=== PATIENT | female | born 1955 | race Caucasian/White ===

== ENCOUNTER 2017-06-08 18:55 | Emergency (ER) | payer OTHER ==
[~2017-06-08] VITALS: Ht 162.6 cm; Wt 79.0 kg
[~2017-06-08 18:55] MED LIST: ALBUAER19 INH; ESCI1TAB10 PO; ROPI2TAB6 PO; SYMIN/8045 INH
[2017-06-08 19:03] VITALS: TEMP 37.4; Ht 162.6 cm; Wt 79.0 kg
[2017-06-08] MEDS ORDERED: ONDANSETRON INJ 2 MG/ML 2 ML VIAL IV STA (19:10)
[2017-06-08] MEDS ORDERED: SODIUM CHLORIDE 0.9% 1000ML 1,000 ML IV STA (19:10)
[2017-06-08 19:41] LABS: BASO % 0.4 %; BASO ABS # 0.03 K/uL (0-0.2); EOS % 2.6 %; EOS ABS # 0.19 K/uL (0-0.5); HEMOGLOBIN 14.5 g/dL (12.0-16.0); IG# 0.01 K/uL (0.00-0.02); LYMPH % 25.9 %; LYMPH ABS # 1.91 K/uL (1.2-3.4); MEAN CELL VOLUME 88.9 fL (80-100); MEAN CORPUSCULAR HEMOGLOBIN 31.5 pg (25-34); MEAN CORPUSCULAR HGB CONC 35.4 g/dl (32-36); MEAN PLATELET VOLUME 9.8 fL (7.4-10.4); MONO % 9.6 %; MONO ABS # 0.71 K/uL (0.11-0.59); NEUT % 61.4 %; NEUT ABS # 4.53 K/uL (1.4-6.5); PLATELET COUNT 172 K/uL (130-400); RED CELL DISTRIBUTION WIDTH CV 13.1 % (11.5-14.5); RED CELL DISTRIBUTION WIDTH SD 42.5 fL (36.4-46.3); WHITE BLOOD COUNT 7.38 K/uL (4.8-10.8)
--- NOTE | 2017-06-08 19:43 | EMERGENCY ROOM VISIT NOTE ---
History Report prepared by Chandan: Uriah Keene Under the Supervision of: Dr. Onur Vergara D.O. First contact with patient: 19:06 Chief Complaint: URINARY SYMPTOMS Stated Complaint: POSSIBLE UTI Nursing Triage Summary: "I think I have UTI." Bilateral flank and back pain for several days. N/V. Burning, pressure, and frequency when urinating. History of Present Illness The patient is a 62 year old female who presents to the Emergency Room with complaints of persistent urinary symptoms for the past several days. The patient states that she is having pain and pressure, and she is having bilateral flank pain and back pain. The patient additionally states that she is nauseous, she is getting hot, and she has a productive cough. She states that she does not have any hematuria, though her urine is dark and odorous. She denies any redness or rashes. The patient reports that she has a history of UTIs , and she was last hospitalized for one two years ago. She states that she was given Cipro, though she had to change medications due to an allergic reaction, and she is unsure what she took afterwards. The patient has a history of COPD and asthma, and she takes albuterol, Cymbalta, and ropinirole. The patient has a history of a hysterectomy and an appendectomy. The patient denies any alcohol or tobacco use. Source of History: patient Onset: several days ago Position: other (global) Quality: other (urinary symptoms) Timing: other (persistent) Associated Symptoms: + cough, + nausea, No rash Review of Systems See HPI for pertinent positives & negatives. A total of 10 systems reviewed and were otherwise negative. Past Medical & Surgical Medical Problems: (1) Asthma (2) Biceps tendon rupture (3) Osteoarthritis Social History Smoking Status: Never Smoker Marital Status: Housing Status: lives with family Occupation Status: employed Current/Historical Medications Scheduled Acetaminophen (Tylenol), 1,000 MG PO PRN UD Budesonide/Formoterol Fumarate (Symbicort 80/4.5 Inhaler), 2 PUFFS INH BID Cefdinir (Omnicef), 300 MG PO Q12H Ibuprofen (Advil), 800 MG PO PRN Ropinirole (Requip), 2 MG PO BID Scheduled PRN Albuterol Hfa (Ventolin Hfa), 2 PUFFS INH Q6H PRN for Shortness of Breath Allergies Coded Allergies: Ciprofloxacin (Verified Allergy, Mild, N.V./MOUTH SORES, 09/11/15) Iodinated Diagnostic Agents (Verified Allergy, Mild, SNEEZE, ITCHY, THROAT SWELLS, 09/11/15) Physical Exam Vital Signs Date Time Temp Pulse Resp B/P (MAP) Pulse Ox O2 Delivery O2 Flow Rate FiO2 06/08/17 20:51 98 18 117/70 91 06/08/17 20:02 102 06/08/17 19:03 37.4 117 18 148/86 93 Room Air Physical Exam GENERAL: Patient is awake, alert, and in no acute distress. Patient is resting comfortably and showing no signs of anxiety EYES: The conjunctivae are clear. The pupils are round and reactive. EARS, NOSE, MOUTH AND THROAT: The nose is without any evidence of any deformity. Mucous membranes are moist tongue is midline NECK: The neck is nontender and supple. RESPIRATORY: Normal respiratory effort is noted there is no evidence of wheezing rhonchi or rales CARDIOVASCULAR: Regular rate and rhythm noted there no murmurs rubs or gallops normal S1 normal S2 GASTROINTESTINAL: The abdomen is mildly distended with suprapubic tenderness to palpation. No guarding or rigidity. BACK: No midline tenderness or or step-off noted range of motion in flexion extension as well as rotation no signs of muscle spasm noted MUSCULOSKELETAL/EXTREMITIES: There is no evidence of gross deformity full range of motion is noted in the hips and shoulders SKIN: There is no obvious evidence of any rash. There are no petechiae, pallor or cyanosis noted. NEUROLOGIC: Patient is awake alert and oriented x3 Medical Decision & Procedures Laboratory Results 06/08/17 19:25 Red Blood Count 4.61, Mean Corpuscular Volume 88.9, Mean Corpuscular Hemoglobin 31.5, Mean Corpuscular Hemoglobin Concent 35.4, Mean Platelet Volume 9.8, Neutrophils (%) (Auto) 61.4, Lymphocytes (%) (Auto) 25.9, Monocytes (%) (Auto) 9.6, Eosinophils (%) (Auto) 2.6, Basophils (%) (Auto) 0.4, Neutrophils # (Auto) 4.53, Lymphocytes # (Auto) 1.91, Monocytes # (Auto) 0.71, Eosinophils # (Auto) 0.19, Basophils # (Auto) 0.03 06/08/17 19:25 Test 06/08/17 19:20 06/08/17 19:25 Urine Color YELLOW Urine Appearance CLOUDY (CLEAR) Urine pH 5.0 (4.5-7.5) Urine Specific [place] 1.020 (1.000-1.030) Urine Protein TRACE (NEG) Urine Glucose (UA) NEG (NEG) Urine Ketones NEG (NEG) Urine Occult Blood TRACE (NEG) Urine Nitrite POS (NEG) Urine Bilirubin NEG (NEG) Urine Urobilinogen NEG (NEG) Urine Leukocyte Esterase LARGE (NEG) Urine WBC (Auto) >30 /hpf (0-5) Urine RBC (Auto) 0-4 /hpf (0-4) Urine Hyaline Casts (Auto) 10-30 /lpf (0-5) Urine Epithelial Cells (Auto) 20-30 /lpf (0-5) Urine Bacteria (Auto) 4+ (NEG) White Blood Count 7.38 K/uL (4.8-10.8) Red Blood Count 4.61 M/uL (4.2-5.4) Hemoglobin 14.5 g/dL (12.0-16.0) Hematocrit 41.0 % (37-47) Mean Corpuscular Volume 88.9 fL (80-100) Mean Corpuscular Hemoglobin 31.5 pg (25-34) Mean Corpuscular Hemoglobin Concent 35.4 g/dl (32-36) Platelet Count 172 K/uL (130-400) Mean Platelet Volume 9.8 fL (7.4-10.4) Neutrophils (%) (Auto) 61.4 % Lymphocytes (%) (Auto) 25.9 % Monocytes (%) (Auto) 9.6 % Eosinophils (%) (Auto) 2.6 % Basophils (%) (Auto) 0.4 % Neutrophils # (Auto) 4.53 K/uL (1.4-6.5) Lymphocytes # (Auto) 1.91 K/uL (1.2-3.4) Monocytes # (Auto) 0.71 K/uL (0.11-0.59) Eosinophils # (Auto) 0.19 K/uL (0-0.5) Basophils # (Auto) 0.03 K/uL (0-0.2) RDW Standard Deviation 42.5 fL (36.4-46.3) RDW Coefficient of Variation 13.1 % (11.5-14.5) Immature Granulocyte % (Auto) 0.1 % Immature Granulocyte # (Auto) 0.01 K/uL (0.00-0.02) Anion Gap 5.0 mmol/L (3-11) Est Creatinine Clear Calc Drug Dose 66.6 ml/min Estimated GFR () 81.0 Estimated GFR (Non- 69.9 BUN/Creatinine Ratio 17.5 (10-20) Calcium Level 9.2 mg/dl (8.5-10.1) Total Bilirubin 0.7 mg/dl (0.2-1) Direct Bilirubin 0.1 mg/dl (0-0.2) Aspartate Amino Transf (AST/SGOT) 19 U/L (15-37) Alanine Aminotransferase (ALT/SGPT) 25 U/L (12-78) Alkaline Phosphatase 102 U/L (45-117) Total Protein 8.3 gm/dl (6.4-8.2) Albumin 3.7 gm/dl (3.4-5.0) Lipase 94 U/L (73-393) Laboratory results per my review. Medications Administered Medications (Trade) Dose Ordered Sig/Randolph Route Start Time Stop Time Status Last Admin Dose Admin Sodium Chloride 1,000 ml @ 999 mls/hr Q1H1M STAT IV 06/08/17 19:10 06/08/17 20:10 DC 06/08/17 19:38 999 MLS/HR Ondansetron HCl (Zofran Inj) 4 mg NOW STAT IV 06/08/17 19:10 06/08/17 19:12 DC 06/08/17 19:38 4 MG Ceftriaxone Sodium (Rocephin Inj) 1 gm NOW STAT IV 06/08/17 20:08 06/08/17 20:09 DC 06/08/17 20:11 1 GM ED Course 1906: The patient was evaluated in room C6. A complete history and physical examination were performed. 1910: Zofran 4mg IV, NSS 1,000 ml @ 999 mls/hr IV 2007: Rocephin 1gm IV 2019: Upon reevaluation, the patient is doing well. I discussed the results and treatment plan with her. She verbalized agreement of the treatment plan. She was discharged home. Medical Decision Differential diagnosis: Etiologies such as appendicitis, diverticulitis, PUD, biliary pathology, UTI, pancreatitis, obstruction, mesenteric ischemia, aortic pathology, infections, inflammatory bowel disease, renal colic, as well as others were entertained. Nursing notes reviewed. The patient is a 62-year-old female who presented to the emergency department for evaluation of suprapubic pain dysuria and frequency. She was found have signs of urinary tract infection. She was treated with IV fluids and IV antibiotics. She was encouraged to follow-up with her family doctor soon as possible return to the emergency Department immediately if she noticed worsening of symptoms or if the need arises. Medication Reconcilliation Current Medication List: was personally reviewed by me Blood Pressure Screening Patient's blood pressure: Elevated blood pressure Blood pressure disposition: Elevated BP felt to be situational Impression Primary Impression: Urinary tract infection Additional Impression: Suprapubic abdominal pain Scribe Attestation The scribe's documentation has been prepared under my direction and personally reviewed by me in its entirety. I confirm that the note above accurately reflects all work, treatment, procedures, and medical decision making performed by me. Departure Information Dispostion Home / Self-Care Prescriptions Cefdinir (OMNICEF) 300 Mg Cap 300 MG PO Q12H, #14 CAP Prov: Onur Vergara, DO 06/08/17 Referrals No Doctor, Assigned (PCP) Forms HOME CARE DOCUMENTATION FORM, IMPORTANT VISIT INFORMATION, Work Instructions Patient Instructions My [facility], Urinary Tract Infecs Women Additional Instructions Call your family to schedule a follow-up appointment. Drink plenty clear liquids. Continue using Motrin and Tylenol as directed for fever and body aches. Start the antibiotic tomorrow, Sunday. Return to the emergency department immediately if symptoms change worsen or the need arises. Problem Qualifiers Primary Impression: Urinary tract infection Urinary tract infection type: acute cystitis Hematuria presence: without hematuria Qualified Codes: N30.00 - Acute cystitis without hematuria
[2017-06-08 20:03] LABS: ALBUMIN 3.7 gm/dl (3.4-5.0); CALCIUM 9.2 mg/dl (8.5-10.1); CREATININE 0.88 mg/dl (0.60-1.20); POTASSIUM 3.6 mmol/L (3.5-5.1)
[2017-06-08 20:05] LABS: TOTAL PROTEIN 8.3 gm/dl (6.4-8.2)
[2017-06-08] MEDS ORDERED: CEFTRIAXONE SOD INJ 1 GM ADDVIAL IV STA (20:08)
[2017-06-08] MEDS ORDERED: IBUP-1050 PO (20:20)
[2017-06-08] MEDS ORDERED: ACET-1256 PO (20:20)
[2017-06-08] MEDS ORDERED: VNTHFA/IN INH (20:20)
[2017-06-08] MEDS ORDERED: CEFD300C2 PO (20:35)
[2017-06-08 20:51] VITALS: BP 117/70; PULSE 98; O2SAT 91
== END 2017-06-08 20:53 | disposition home or self-care (01) ==
LOC: C.EDB 18:56 → C.EDC 20:53
DX: N30.00 Acute cystitis without hematuria (principal); R10.2 Pelvic and perineal pain; J45.909 Unspecified asthma, uncomplicated; M19.90 Unspecified osteoarthritis, unspecified site

== ENCOUNTER 2017-08-02 14:19 | Emergency (ER) | payer OTHER ==
[~2017-08-02] VITALS: Ht 162.6 cm; Wt 78.6 kg
[~2017-08-02 14:19] MED LIST changes: +ACET-1256 PO; -ALBUAER19 INH; -ESCI1TAB10 PO; +IBUP-1050 PO; +VNTHFA/IN INH
[2017-08-02 14:21] VITALS: TEMP 37; Ht 162.6 cm; Wt 78.6 kg
--- NOTE | 2017-08-02 14:49 | EMERGENCY ROOM VISIT NOTE ---
ED Visit Note First contact with patient: 14:26 CHIEF COMPLAINT: Toothache HISTORY OF PRESENT ILLNESS: This 62-year-old female presents to the ER with chief complaint of right lower molar pain. The patient states that she has had a broken tooth in the right lower region for a while. Last night she started with increased pain in the right lower jaw. Today it has intensified. The patient does not have a dentist currently. The patient denies any fever or facial pain. She thinks she feels a lump under her right jaw. REVIEW OF SYSTEMS: 6 system review was performed and was negative unless stated otherwise in history of present illness. PMH: The patient is healthy; see chronic problem list, asthma SOCIAL HISTORY: Patient lives with her . The patient denies any tobacco or alcohol use. PHYSICAL EXAM: Vital Signs: Were reviewed reviewed Nurse's notes. GENERAL: 62- year-old white female appears in no acute distress. MENTAL Status: Alert and oriented 3. MOUTH: Right lower molar which is almost entirely missing but the remaining is very carious. The gums are swollen around it but no palpable abscess. FACE: No erythema or edema noted. NECK: Supple, right submandibular lymphadenopathy noted which is tender to palpation. EMERGENCY COURSE: The patient was evaluated. The patient was discharged home in stable condition. DIAGNOSIS: Dental caries and dentalgia DISCHARGE INSTRUCTIONS & TREATMENT: Ibuprofen 600 mg every 6 hours with food for pain. Take [place] as needed for more severe pain. Do not drive while taking the [place]. Take amoxicillin as directed. Appointment with a dentist as soon as possible for definitive care. Problem List Medical Problems: (1) Asthma Status: Chronic (2) Biceps tendon rupture Status: Resolved (3) Osteoarthritis Status: Chronic Current/Historical Medications Scheduled Acetaminophen (Tylenol), 1,000 MG PO PRN UD Budesonide/Formoterol Fumarate (Symbicort 80/4.5 Inhaler), 2 PUFFS INH BID Ibuprofen (Advil), 800 MG PO PRN Ropinirole (Requip), 2 MG PO BID Scheduled PRN Albuterol Hfa (Ventolin Hfa), 2 PUFFS INH Q6H PRN for Shortness of Breath Allergies Coded Allergies: Ciprofloxacin (Verified Allergy, Mild, N.V./MOUTH SORES, 09/11/15) Iodinated Diagnostic Agents (Verified Allergy, Mild, SNEEZE, ITCHY, THROAT SWELLS, 09/11/15) Vital Signs Date Time Temp Pulse Resp B/P (MAP) Pulse Ox O2 Delivery O2 Flow Rate FiO2 08/02/17 14:21 37.0 131 20 148/85 94 Room Air Departure Information Referrals Abran Dooley D.O. (PCP) Patient Instructions [facility]
[2017-08-02] MEDS ORDERED: HYDR-5688 PO (14:52)
[2017-08-02] MEDS ORDERED: AMOX500C3 PO (14:52)
[2017-08-02 15:02] VITALS: BP 130/77; PULSE 108; O2SAT 94
== END 2017-08-02 15:03 | disposition home or self-care (01) ==
LOC: C.EDB 14:21 → C.EDD 15:03
DX: K08.89 Other specified disorders of teeth and supporting structures (principal); K02.9 Dental caries, unspecified; J45.909 Unspecified asthma, uncomplicated; M19.90 Unspecified osteoarthritis, unspecified site; Z88.1 Allergy status to other antibiotic agents; Z91.041 Radiographic dye allergy status

== ENCOUNTER 2019-05-12 07:56 | Inpatient (IN) ==
--- NOTE | 2019-05-08 16:17 | Anesthesiology Progress Note ---
Date of Service May 08, 2019 Subjective Patient expressed concern to RN during phone interview regarding not being able to take her Requip for 24 hours prior to surgery. Discussed with Dr. Valdez, who states patient may take her Requip as directed. This was relayed to the patient.
--- NOTE | 2019-05-09 08:18 | Anesthesiology Consultation ---
Date of Service May 09, 2019 Assessment & Plan (1) Encounter for pre-operative examination: Chart Review Chart Review: Acceptable Risk for Surgery and Patient NOT seen in Pre Admission Testing Compared her most recent ECG from 05/08/2019 to that of an ECG found on 02/18/2018. Reading on the most recent ECG states there is an inferior infarct not seen in previous ECG. When I compared them side by side I do not appreciate much if any changes between the two. Obviously, assessing the patient's METS DOS will be done and ultimately it is up to the attending anesthesiologist to decide if she is appropriate for the OR. Consults Requested none History Surgery Operation Date: 05/12/19 09:15 Proposed Procedures p Right Video Assisted Thoracoscopy with Lung and Lymph Node Biopsy - Rayo Schneider MD, FACS Height/Weight Height: 5 ft 3.5 in Weight: 82.554 kg Allergies Allergy/AdvReac Type Severity Reaction Status Date / Time Cipro Allergy Mild N.V./MOUTH Verified 02/14/18 13:16 SORES ciprofloxacin Allergy Mild N.V./MOUTH Verified 05/08/19 08:28 SORES Iodinated Contrast Media Allergy Mild SNEEZE, Verified 05/08/19 08:28 ITCHY, THROAT SWELLS Medications Home Medications Medication Instructions Recorded Confirmed Last Taken acetaminophen [Tylenol Extra 1,000 mg PO Q6H PRN 02/14/18 05/08/19 Unknown Strength] albuterol sulfate [Ventolin HFA] 2 puff INHALATION QID PRN 02/14/18 05/08/19 Unknown budesonide-formoterol HFA 160 2 puffs INH BID #10.2 gm 04/28/19 05/08/19 Unknown mcg-4.5 mcg/actuation aerosol inhaler doxycycline hyclate 100 mg capsule 100 mg PO BID #20 cap 04/28/19 05/08/19 Unknown escitalopram oxalate 20 mg tablet 10 mg PO QPM 04/28/19 05/08/19 Unknown naproxen sodium [Aleve] 220 mg PO BID PRN 05/08/19 05/08/19 Unknown nebulizers #1 ea 05/08/19 Unknown prednisone 10 mg PO UD 05/08/19 05/08/19 Unknown ropinirole [Requip XL] 2 mg PO TID 05/08/19 05/08/19 Unknown Past Medical History Medical History Anxiety Arthritis Asthma uses PRN INH 2-3 x day COPD (chronic obstructive pulmonary disease) Coughing currently on steroid dosepak, abx Degenerative disc disease Depression GERD (gastroesophageal reflux disease) Interstitial lung disease Osteoarthritis Pulmonary nodule Restless leg syndrome SOB (shortness of breath) on exertion Past Family History Family History Other Adopted Past Surgical History Surgical History History of ankle surgery Lt - hardware present History of appendectomy History of bladder repair surgery History of breast surgery History of carpal tunnel release of both wrists History of D&C History of esophagogastroduodenoscopy (EGD) History of spinal surgery lumbar History of surgery Rt biceps repair History of tonsillectomy History of tooth extraction History of total abdominal hysterectomy and bilateral salpingo-oophorectomy Nausea and vomiting after administration of anesthetic agent Social History Smoking Status: Never smoker Do You Dip or Chew Tobacco: No Hx Alcohol Use: Yes Alcohol type: wine alcohol intake frequency: holidays/special occasions only Hx Substance Use: No substance use type: does not use Testing Laboratory Results Laboratory Tests 04/28/19 04/28/19 14:58 14:58 WBC 7.69 Hgb 15.3 Hct 44.0 Plt Count 190 Sodium 140 Potassium 3.9 Chloride 107 Carbon Dioxide 26 BUN 15 Creatinine 0.73 Glucose 75 Electrocardiogram Date: 05/08/19 Findings: + NSR @ (93) Normal sinus rhythm Inferior infarct , age undetermined Abnormal ECG When compared with ECG of 18-FEB-2018 20:13, Inferior infarct is now Present ST now depressed in Anterior leads Other Testing PFT 04/24/2019: DICTATED BY: Onur Kruse MD Pre-bronchodilator spirometry reveals a moderate reduction in forced vital capacity. No significant response to bronchodilator was shown but this should not preclude a therapeutic trial if clinically warranted. Lung volumes demonstrate evidence for moderate restrictive ventilatory defect. Mild air trapping was noted. OVERALL ASSESSMENT: Combined moderate restrictive ventilatory defect with mild air trapping possibly suggestive of bronchospastic airways diseas
[~2019-05-12 07:56] MED LIST changes: -ACET-1256 PO; -IBUP-1050 PO; +LR 15ML/HR IV SCH; -ROPI2TAB6 PO; -SYMIN/8045 INH; -VNTHFA/IN INH
[2019-05-12] MEDS ORDERED: NEOSTIGMINE METHYLSULFATE 5 MG/5 ML SYR ONE (08:22)
[2019-05-12] MEDS ORDERED: GLYCOPYRROLATE 0.2 MG/ML VIAL ONE (08:22)
[2019-05-12] MEDS ORDERED: DEXAMETHASONE SOD INJ 4 MG/ML VIAL ONE ×2 (08:22→10:26)
[2019-05-12] MEDS ORDERED: ONDANSETRON INJ 2 MG/ML 2 ML VIAL ONE ×2 (08:22→10:26)
[2019-05-12] MEDS ORDERED: PROPOFOL IV EMULSION 10 MG/ML 20 ML VIAL IV ONE (08:22)
[2019-05-12] MEDS ORDERED: LIDOCAINE HCL 2% 2 ML VIAL/AMP(20MG/ML) INFIL ONE (08:22)
[2019-05-12] MEDS ORDERED: ROCURONIUM BROMIDE 10 MG/ML 5 ML VIAL ONE (08:22)
[2019-05-12] MEDS ORDERED: fentaNYL citrate 100 MCG/2 ML VIAL ONE (08:23)
[2019-05-12] MEDS ORDERED: MIDAZOLAM HCL 1 MG/ML 2ML VIAL ONE (08:23)
--- NOTE | 2019-05-12 08:48 | History & Physical Bridge Note ---
Date of Service May 12, 2019 History & Physical Bridge Note I have examined the patient, reviewed the History & Physical and in the interval since the performance of the History & Physical I have noted the following changes of clinical significance: no changes noted
[2019-05-12] MEDS ORDERED: BUPIVACAINE LIPOSOME 1.3% 266 MG/20 ML VIAL ONE (09:02)
[2019-05-12] MEDS ORDERED: SODIUM CHLORIDE 0.9% PF 50 ML VIAL ONE (09:02)
[2019-05-12] MEDS ORDERED: BUPIVACAINE 0.5 % 5 MG/1 ML MPF 30ML VIAL ONE (09:02)
[2019-05-12] MEDS ORDERED: SCOPOLAMINE 1.5 MG TDSY ONE (09:30)
[2019-05-12] MEDS ORDERED: PROMETHAZINE HCL 12.5 MG in SODIUM CHLORIDE 0.9% 50 ML IV PRN (09:31)
[2019-05-12] MEDS ORDERED: ALBUTEROL 0.083% NEBU SOLN 3 ML VIAL INH PRN (09:31)
[2019-05-12] MEDS ORDERED: ONDANSETRON INJ 2 MG/ML 2 ML VIAL IV PRN (09:31)
[2019-05-12] MEDS ORDERED: fentaNYL citrate 100 MCG/2 ML VIAL IV PRN (09:31)
[2019-05-12] MEDS ORDERED: HYDROmorphone INJ 1 MG/ML SYRINGE IV PRN (09:31)
[2019-05-12] MEDS ORDERED: ePHEDrine sulfate 50 MG/ML AMP IV PRN (09:31)
[2019-05-12] MEDS ORDERED: SCOPOLAMINE 1.5 MG TDSY TD ONE (09:31)
[2019-05-12] MEDS ORDERED: ATROPINE SULFATE 0.1 MG/ML 10ML SYR IV PRN (09:31)
[2019-05-12] MEDS ORDERED: SODIUM CHLORIDE 0.9% INJ 10 ML VIAL ONE (10:03)
[2019-05-12] MEDS ORDERED: CEFAZOLIN 250 MG/ML 1 GM VIAL ONE (10:03)
[2019-05-12] MEDS ORDERED: ePHEDrine sulfate 50 MG/ML SYR ONE (10:11)
[2019-05-12] MEDS ORDERED: METOCLOPRAMIDE HCL INJ 5 MG/ML 2 ML VIAL IV ONE (11:53)
[2019-05-12] MEDS ORDERED: METOCLOPRAMIDE HCL INJ 5 MG/ML 2 ML VIAL ONE (11:54)
--- NOTE | 2019-05-12 11:58 | Operative Report ---
PG Post Operative Report Pre & Post Diagnosis Operation Date: 05/12/19 09:15 Pre-Op Diagnosis: Interstitial Lung Disease Post-Op Diagnosis: Interstitial Lung Disease I identified the patient and participated in the time-out.: Yes Procedure Operation Date: 05/12/19 09:15 Actual Procedures p Right Video Assisted Thoracoscopy with Lung and Lymph Node Biopsy(Right) - Rayo Schneider MD, FACS Surgeon Rayo Schneider MD, FACS Substation Operator Automatic Shay Valerio Estimated Blood Loss 20 Findings Consistent with Post-Op Diagnosis Specimens RUL,RML,RLL wedge biopsies Level VII, right Level IV lymph nodes Drains 24 fr chest tube Anesthesia Type General Complications none Disposition Accompanied Patient To Recovery: Yes Disposition: Recovery Room Indications This is a 64-year-old female was followed by Dr. Onur Kruse from [facility] who has signs and symptoms consistent with interstitial lung disease. Dr. Kruse felt that a lung biopsy was in order and I agreed. Description of Procedure This is a 64-year-old female was followed by Dr. Onur Kruse from [facility] who has signs and symptoms consistent with interstitial lung disease. Dr. Kruse felt that a lung biopsy was in order and I agreed. 06/01/2018 patient underwent uncomplicated right thoracoscopic biopsy of her right upper middle and lower lobes. I also biopsied the level 7 and the level 4 lymph node. Frozen section of the right lower lobe was abnormal but will have to await permanent slides to determine the etiology. She tolerated the procedure very well. Procedure: The patient was brought to the operating room and laid in the supine position. General anesthesia was induced and endotracheal intubation was performed with a single-lumen tube. Patient was turned in the left lateral decubitus position and her right chest was prepped and draped in the usual sterile fashion. After appropriate timeout had been called and prophylactic antibiotics given, 5 mm port was placed just posterior to the scapula. Upon placing the 5 mm scope into the fabio could be seen that there were really no adhesions. Carbon dioxide was then insufflated and divided exposure nicely. A 5 mm port was then placed anterior to the latissimus dorsi at about the same level above the scapular tip. We then put a 12 mm port a bit anterior to the midaxillary line above the diaphragm. I then went in with a grasper and held the right upper lobe right middle lobe and right lower lobe and using Endo JAIRO stapler to obtain a generous wedge of each of these lobes. A portion of each was sent for culture. I then retracted the lung anteriorly and biopsied a level 7 lymph node as well as a right level 4 lymph node. We did not note any bleeding. A total of 266 mg of Exparel was mixed with 30 cc of 0.5% bupivacaine and 250 cc of normal saline. This was injected into all 3 port sites. We then performed an intercostal block from the second to the 12th rib by injecting it directly into the intercostal space under thoracoscopic vision. 24 [place] chest tube was placed in the 12 mm port inferiorly and directed towards the apex and held in place with heavy silk suture. 4 Monocryl was used to close each of the port sites. Antimicrobial dressings were placed. There was no air leak at the conclusion of the case. Patient tolerated it well. She was extubated in the room. I attest to the content of the Intraoperative Record and any orders documented therein. Any exceptions are noted below.
--- NOTE | 2019-05-12 12:09 | XRay Report ---
XR chest 1V portable HISTORY: 64 years-old Female VATS postoperative changes of the right lung COMPARISON: Chest CT 04/24/2019 TECHNIQUE: Portable AP view of the chest FINDINGS: Cardiac mediastinal and hilar silhouettes are unchanged. Chronic bilateral reticular opacities redemo nstrated. Mild right hemidiaphragmatic elevation. Status post placement of a right-sided chest tube, distal tip terminating adjacent to the right lung apex. Mild subcutaneous emphysema of the right late ral chest wall. Suspected tiny right-sided pneumothorax with pleural separation of a few millimeters. Surgical suture material projects over the right midlung. IMPRESSION: 1. Postoperative changes of the right midlung with right-sided chest tube terminating adjacent to the right lung apex. 2. Suspected tiny right-sided pneumothorax. 3. Chronic bilateral reticular opacities redemonstrated. ACT 112: Negative or not required by law. The above report was generated using voice recognition software. It may contain grammatical, syntax o r spelling errors. Electronically signed by: Magen Thurston M.D. 05/12/2019 12:08 PM
[2019-05-12] MEDS ORDERED: MoRPHine SULFATE 2 MG/ML CARP IV PRN (12:42)
[2019-05-12] MEDS ORDERED: ACETAMINOPHEN 500 MG TAB PO PRN (12:42)
[2019-05-12] MEDS ORDERED: ALBUTEROL HFA 8 GM INHALER INH PRN (12:42)
[2019-05-12] MEDS ORDERED: NAPROXEN 250 MG TAB PO PRN (13:17)
[2019-05-12] MEDS ORDERED: ROPINIROLE HCL 1 MG TABLET PO SCH (13:30)
[2019-05-12] MEDS: DOCUSATE SODIUM 100 MG CAP PO SCH ×2 (14:06→21:19)
[2019-05-12] MEDS: BUDESONIDE/FORMOTEROL FUMARATE 160/4.5 60 PUFFS/INHALER INH SCH ×2 (14:06→21:19)
[2019-05-12] MEDS: OXYCODONE/ACETAMINOPHEN 5mg/325mg TAB PO PRN ×3 (14:59→21:18)
[2019-05-12] MEDS ORDERED: CHECK SCOPOLAMINE PATCH PLACEMENT SCH (16:00)
[2019-05-12] MEDS: D5W AND 1/2NSS 1,000 ML IV SCH (16:44)
--- NOTE | 2019-05-12 17:37 | Anesthesiology Progress Note ---
Date of Service May 12, 2019 Anesthesia Post Procedure Vital Signs Vital Signs: Temp Pulse Pulse Resp BP Pulse Ox 05/12/19 16:35 37.5 C 123 H 16 134/66 95 05/12/19 15:38 37 C 114 H 16 125/72 96 05/12/19 14:31 37.3 C 112 H 20 117/71 96 05/12/19 13:42 36.7 C 116 H 20 125/75 95 05/12/19 13:00 36.6 C 112 H 20 131/88 95 05/12/19 12:25 36.5 C 66 20 136/72 94 05/12/19 12:15 88 19 128/83 96 05/12/19 12:00 36.2 C L 95 H 23 114/79 100 05/12/19 11:50 96 H 20 133/97 98 05/12/19 11:40 94 H 24 128/73 100 05/12/19 11:30 91 H 22 131/79 99 05/12/19 11:21 36.2 C L 91 H 18 132/74 100 05/12/19 08:40 36.6 C 87 20 115/65 94 Pain Intensity Right Chest: Pain Intensity: 5 Transfer of Care Handoff Completed per policy Notes Mental Status: alert / awake / arousable and participated in evaluation Patient Amnestic to Procedure: Yes Nausea / Vomiting: adequately controlled Pain: adequately controlled Airway Patency, RR, SpO2: stable & adequate BP & HR: stable & adequate Hydration State: stable & adequate Anesthetic Complications: no major complications apparent and Pt Satisfied with anesthetic care
[2019-05-12] MEDS: METOCLOPRAMIDE HCL INJ 5 MG/ML 2 ML VIAL IV SCH (19:51)
[2019-05-12] MEDS ORDERED: Nursing to Pharmacy Communication ONE (19:59)
[2019-05-12] MEDS: ROPINIROLE HCL 1 MG TABLET PO SCH (20:29)
[2019-05-13] MEDS: OXYCODONE/ACETAMINOPHEN 5mg/325mg TAB PO PRN ×3 (02:00→12:20)
[2019-05-13] MEDS: D5W AND 1/2NSS 1,000 ML IV SCH (02:05)
[2019-05-13] MEDS: METOCLOPRAMIDE HCL INJ 5 MG/ML 2 ML VIAL IV SCH (03:48)
--- NOTE | 2019-05-13 08:01 | Anesthesiology Progress Note ---
Date of Service May 13, 2019 Anesthesia Post Procedure Vital Signs Vital Signs: Temp Pulse Pulse Pulse Resp BP BP 05/13/19 07:00 36.9 C 89 18 137/74 05/13/19 06:28 36.7 C 109 H 20 124/77 05/13/19 05:30 05/13/19 02:26 36.7 C 94 H 20 113/66 05/12/19 22:30 36.7 C 104 H 16 133/72 05/12/19 20:18 36.7 C 106 H 16 115/59 L 05/12/19 18:31 37.3 C 107 H 16 104/54 L 05/12/19 17:59 106 H 05/12/19 16:35 37.5 C 123 H 16 134/66 05/12/19 15:38 37 C 114 H 16 125/72 05/12/19 14:31 37.3 C 112 H 20 117/71 05/12/19 13:42 36.7 C 116 H 20 125/75 05/12/19 13:00 36.6 C 112 H 20 131/88 05/12/19 12:25 36.5 C 66 20 136/72 05/12/19 12:15 88 19 128/83 05/12/19 12:00 36.2 C L 95 H 23 114/79 05/12/19 11:50 96 H 20 133/97 05/12/19 11:40 94 H 24 128/73 05/12/19 11:30 91 H 22 131/79 05/12/19 11:21 36.2 C L 91 H 18 132/74 05/12/19 08:40 36.6 C 87 20 115/65 Pulse Ox 05/13/19 07:00 93 05/13/19 06:28 96 05/13/19 05:30 95 05/13/19 02:26 94 05/12/19 22:30 94 05/12/19 20:18 91 05/12/19 18:31 93 05/12/19 17:59 95 05/12/19 16:35 95 05/12/19 15:38 96 05/12/19 14:31 96 05/12/19 13:42 95 05/12/19 13:00 95 05/12/19 12:25 94 05/12/19 12:15 96 05/12/19 12:00 100 05/12/19 11:50 98 05/12/19 11:40 100 05/12/19 11:30 99 05/12/19 11:21 100 05/12/19 08:40 94 Pain Intensity Right Chest: Pain Intensity: 6 Notes Mental Status: alert / awake / arousable and participated in evaluation Patient Amnestic to Procedure: Yes Nausea / Vomiting: adequately controlled Pain: adequately controlled Airway Patency, RR, SpO2: stable & adequate BP & HR: stable & adequate Hydration State: stable & adequate Anesthetic Complications: no major complications apparent
[2019-05-13] MEDS: ROPINIROLE HCL 1 MG TABLET PO SCH ×2 (08:09→12:21)
[2019-05-13] MEDS: DOCUSATE SODIUM 100 MG CAP PO SCH (08:10)
[2019-05-13] MEDS: BUDESONIDE/FORMOTEROL FUMARATE 160/4.5 60 PUFFS/INHALER INH SCH (08:10)
[2019-05-13] MEDS ORDERED: ENOXAPARIN INJ 40 MG/0.4 ML SYR SQ SCH (09:00)
--- NOTE | 2019-05-13 10:26 | Surgery Progress Note ---
Date of Service May 13, 2019 Assessment & Plan (1) Chronic interstitial lung disease: POD#1 R VATS for lung & lymph node biopsy Patient doing well; pain managed with prn medications Saturating well on room air Will remove chest tube today and obtain post pull CXR Anticipate discharge to home today Will leave instructions for patient to follow up with Dr. Schneider in1-2 weeks Supervising Physician Co-Signing Physician Notes patient seen and examined, agree with above. POD #1 R VATS biopsy by Dr. Schneider (covering as he had to leave [facility] for family emergency). Doing well, no issues. Chest tube with minimal output, no air leak. Chest tube removed, CXR with no significant PTX. will d/c to home. call to schedule follow up with Dr. Schneider. Subjective Patient states she is doing well. She has some incisional pain, but it has been managed with prn medication. She is tolerating a regular diet. Physical Exam Physical Exam: awake/alert Respiratory: normal respiratory effort Skin: surgical incisions c/d/i with dressings in place. Chest tube without airleak. <100cc serosang output. Results & Data Vital Signs (Past 12 Hours) Vital Signs Temp Pulse Pulse Resp BP BP Pulse Ox 05/13/19 07:00 36.9 C 89 18 137/74 93 05/13/19 06:28 36.7 C 109 H 20 124/77 96 05/13/19 05:30 95 05/13/19 02:26 36.7 C 94 H 20 113/66 94 05/12/19 22:30 36.7 C 104 H 16 133/72 94 PG Care Time/CCT Total # of Minutes Spent Total Time Spent with Patient: Total time spent is greater than 50% in coordination of care (as documented) at patient's floor/unit and/or counseling patient:
--- NOTE | 2019-05-13 10:59 | XRay Report ---
XR chest 1V portable CLINICAL HISTORY: post chest tube pull COMPARISON STUDY: Chest CT April 24, 2019. Chest radiograph May 12, 2019. FINDINGS: A small right apical pneumothorax has slightly increased in size since prior exam. Pleural separation measures 6 mm. Subcutaneous gas within the right chest wall and neck is noted. There may b e a small amount of pneumomediastinum. Interstitial thickening within the lungs is unchanged. Postope rative findings within the right lung are again noted. IMPRESSION: 1. Slight increase in size of a small right pneumothorax. 2. Subcutaneous gas within the right neck and chest wall with suspected pneumomediastinum. ACT 112: Negative or not required by law. Electronically signed by: Paul Blanc M.D. 05/13/2019 10:57 AM
--- NOTE | 2019-05-16 09:34 | Discharge Summary ---
DISCHARGE DIAGNOSIS: Probable interstitial lung disease. HOSPITAL COURSE: Teetee Bradshaw is a 64-year-old female with signs and symptoms consistent with an interstitial lung disease and I was asked by Dr. Onur Kruse from the pulmonary division of [facility] to assess her for lung biopsy. On 05/12/2019 the patient underwent an uncomplicated right thoracoscopic lung biopsy of all 3 lobes on the right side as well as lymph node biopsy. We also sent this for cultures. The patient had some pain overnight, but was discharged by Dr. Messi Henao the following day after her chest tube was removed. She had no pneumothorax. She did well and as of yet, we do not have a tissue diagnosis. I will see her back in the office next week. She did very well and her incisions looked good in the morning of discharge.
== END 2019-05-13 13:23 | disposition home or self-care (01) | DRG 168 ==
LOC: ASU 07:56 → 3W 11:38

== ENCOUNTER 2019-07-10 11:29 | Inpatient (IN) ==
[2019-07-10] MEDS ORDERED: KETOROLAC TROMETHAMINE 15 MG/ML VIAL IV STA (12:21)
[2019-07-10] MEDS ORDERED: LORazepam 0.5 MG/1 ML VIAL IV STA (12:21)
[2019-07-10] MEDS ORDERED: ALBUT/IPRATROP 3MG/0.5MG NEB 3 ML VIAL NEB STA (12:22)
[2019-07-10] MEDS: ALBUT/IPRATROP 3MG/0.5MG NEB 3 ML VIAL NEB STA (12:27)
[2019-07-10] MEDS ORDERED: SODIUM CHLORIDE 0.9% 1000ML 1,000 ML IV SCH (12:30)
[2019-07-10 13:41] LABS: Influenza A virus by PCR Neg for Influ A (Neg); Influenza B virus by PCR Neg for Influ B (Neg)
--- NOTE | 2019-07-10 13:48 | XRay Report ---
XR chest 1V portable CLINICAL HISTORY: cough derek dyspnea COMPARISON STUDY: 06/01/2019 FINDINGS: Diffuse chronic interstitial change. No well-defined superimposed infiltrate. Diaphragms ar e smooth. IMPRESSION: Chronic change. No acute process. ACT 112: Negative or not required by law. The above report was generated using voice recognition software. It may contain grammatical, syntax or spelling errors. Electronically signed by: Manny Rhodes M.D. 07/10/2019 1:47 PM
[2019-07-10 13:54] LABS: Basophils # (auto) 0.02 K/uL (0-0.2); Basophils % (auto) 0.1 %; Eosinophils # (auto) 0.02 K/uL (0-0.5); Eosinophils % (auto) 0.1 %; Hematocrit (blood only) 42.3 % (37-47); Hemoglobin 14.7 g/dL (12.0-16.0); Immature Granulocytes # (auto) 0.03 K/uL (0.00-0.02); Immature Granulocytes % (auto) 0.2 %; Lymphocytes # (auto) 1.28 K/uL (1.2-3.4); Lymphocytes % (auto) 9.4 %; Mean Corpuscular Hemoglobin 31.3 pg (25-34); Mean Corpuscular Hgb Conc 34.8 g/dL (32-36); Monocytes # (auto) 0.26 K/uL (0.11-0.59); Monocytes % (auto) 1.9 %; Neutrophils # (auto) 11.95 K/uL (1.4-6.5); Neutrophils % (auto) 88.3 %; Platelet Count 168 K/uL (130-400); RDW Coefficient of Variation 13.4 % (11.5-14.5); White Blood Count 13.56 K/uL (4.8-10.8)
[2019-07-10 14:14] LABS: Alanine Aminotransferase 24 U/L (12-78); Albumin Level 3.4 gm/dl (3.4-5.0); Aspartate Aminotransferase 16 U/L (15-37); BUN Creatinine Ratio 19.6 (10-20); Bilirubin Direct < 0.1 mg/dl (0-0.2); Blood Urea Nitrogen 16 mg/dl (7-18); Carbon Dioxide 22 mmol/L (21-32); Chloride 111 mmol/L (98-107); Creatinine Clr Calc Pharmacy 72.1 ml/min; Est GFR (African American) 88.3; Est GFR (Non-African American) 76.2; Glucose 121 mg/dl (70-99); Lipase 64 U/L (73-393); Magnesium 1.9 mg/dl (1.8-2.4); Potassium 3.1 mmol/L (3.5-5.1); Sodium 140 mmol/L (136-145)
[2019-07-10 14:19] LABS: Alkaline Phosphatase 80 U/L (45-117); Bilirubin,Total 0.4 mg/dl (0.2-1); Total Protein 7.4 gm/dl (6.4-8.2); Troponin I < 0.015 ng/ml (0-0.045)
[2019-07-10] MEDS ORDERED: ROPINIROLE HCL 1 MG TABLET PO ONE (16:55)
[2019-07-10] MEDS ORDERED: ONDANSETRON INJ 2 MG/ML 2 ML VIAL IV PRN (17:49)
[2019-07-10] MEDS ORDERED: ALBUTEROL 0.5% NEB SOLN 2.5 MG/0.5 ML VIAL NEB PRN (17:49)
[2019-07-10] MEDS ORDERED: DOCUSATE SODIUM 100 MG CAP PO PRN (17:49)
[2019-07-10] MEDS ORDERED: POTASSIUM CHLORIDE 20 MEQ TABCR PO STA (17:49)
[2019-07-10] MEDS ORDERED: INFLUENZA VACCINE HIGH DOSE 65+ 0.5 ML SYR IM ONE (18:26)
[2019-07-10] MEDS ORDERED: PNEUMOCOCCAL POLYSACCHARIDES 25 MCG/0.5 ML VIAL/SYR IM ONE (18:26)
[2019-07-10] MEDS ORDERED: PNEUMOCOCCAL ADMINISTRATION CHARGE ONE (18:26)
[2019-07-10] MEDS ORDERED: INFLUENZA ADMINISTRATION CHARGE ONE (18:26)
[2019-07-10] MEDS: ACETAMINOPHEN 500 MG TAB PO PRN (19:28)
[2019-07-10] MEDS: ALBUT/IPRATROP 3MG/0.5MG NEB 3 ML VIAL NEB SCH ×2 (19:39→23:07)
--- NOTE | 2019-07-10 19:57 | Emergency Department Note ---
Entered by Anny Shrestha acting as a scribe for History of Present Illness General Chief complaint: Shortness of Breath/Dyspnea Stated complaint: shakes/wheezing Time Seen by Provider: 07/10/19 12:03 Source: patient History of Present Illness Provider complaint: Shortness of Breath/Dyspnea Onset (ago): day(s) 1 Location: chest Relieved By: + none Exacerbated By: + movement Associated symptoms: + denies other symptoms (Hemoptysis), + chest pain, + cough and + other (Tremor) The patient is a 64 year old female who presents to the Emergency Room with complaints of shortness of breath/dyspnea that began yesterday. The patient states that her symptoms are worse with movement and not relieved by anything. The patient reports experiencing a tremor that began before the symptoms and is still ongoing. The patient also reports experiencing a cough and chest pain. The patient denies experiencing any hemoptysis or any recent travel. Patient states that she has chronic lung disease and is currently on the list to be evaluated at [facility] in [place] for a lung transplant. She states her evaluation is next month. Patient states she does use home oxygen as needed and at night and has noticed that she needed her oxygen more than usual today. Home Medications Home Medications Medication Instructions Recorded Confirmed Type acetaminophen [Tylenol Extra 1,000 mg PO Q6H PRN 02/14/18 07/10/19 History Strength] albuterol sulfate [Ventolin HFA] 2 puff INHALATION QID PRN 02/14/18 07/10/19 History budesonide-formoterol HFA 160 2 puffs INH BID #10.2 gm 04/28/19 07/10/19 Rx mcg-4.5 mcg/actuation aerosol inhaler naproxen sodium [Aleve] 220 mg PO BID PRN 05/08/19 07/10/19 History ropinirole 2 mg PO TID 05/12/19 07/10/19 History escitalopram oxalate [Lexapro] 10 mg PO QPM 05/18/19 07/10/19 History doxycycline hyclate 100 mg capsule 100 mg PO BID #20 cap 06/19/19 07/10/19 Rx nintedanib 150 mg capsule 150 mg PO Q12H #60 cap 06/19/19 07/10/19 Rx Oxygen Home #1 ea 02/12/20 Rx prednisone 40 mg PO DAILY 07/10/19 07/10/19 History Allergies Allergy/AdvReac Type Severity Reaction Status Date / Time Iodinated Contrast Media Allergy Severe Anaphylaxis Verified 07/10/19 14:30 Cipro Allergy Mild N.V./MOUTH Verified 02/14/18 13:16 SORES ciprofloxacin Allergy Mild N.V./MOUTH Verified 07/10/19 14:30 SORES Past Med/Surg History Medical History Anxiety Arthritis Asthma uses PRN INH 2-3 x day COPD (chronic obstructive pulmonary disease) Coughing currently on steroid dosepak, abx Degenerative disc disease Depression GERD (gastroesophageal reflux disease) Interstitial lung disease Osteoarthritis Pulmonary nodule Restless leg syndrome SOB (shortness of breath) on exertion Surgical History History of ankle surgery Lt - hardware present History of appendectomy History of bladder repair surgery History of breast surgery History of carpal tunnel release of both wrists History of D&C History of esophagogastroduodenoscopy (EGD) History of lung biopsy Right Video Assisted Thoracoscopy with Lung and Lymph Node Biopsy Dr. Schneider 05-12-19 History of spinal surgery lumbar History of surgery Rt biceps repair History of tonsillectomy History of tooth extraction History of total abdominal hysterectomy and bilateral salpingo-oophorectomy Nausea and vomiting after administration of anesthetic agent Family History Other Adopted Social History Preferred Language: Setswana Communication Ability: Effective Insole Coverer Required: No Beliefs That Will Affect Care: None marital status: Legally Current Living Situation: Alone current occupational status: retired current occupation: [employer] Other Information That Helps Us Care for You: No Feels Safe at Home: Yes Safety Concerns: Feels Safe At This Time Smoking Status: Never smoker Second Hand Exposure: Yes (exposure in the workplace) ; Hx Alcohol Use: Yes Alcohol type: wine Hx Substance Use: No Review of Systems See HPI for pertinent positives & negatives. and A total of 10 systems reviewed and were otherwise negative Physical Exam Vital Signs Vital Signs - 24 hr 07/10/19 11:34 07/10/19 11:38 07/10/19 12:00 Temperature 36.6 C Temperature Source Oral Pulse Rate 126 H 123 H 118 H Pulse Rate from SpO2 Sensor 126 H 119 H Respiratory Rate 37 H 30 H 26 H Respiratory Effort / Characteristics Spontaneous Labored Short of Breath Respiratory Depth Shallow Respiratory Pattern Tachypnea Blood Pressure 128/78 128/76 124/71 Blood Pressure Mean 83 93 89 Blood Pressure Position Sitting Pulse Oximetry 95 96 94 Oxygen Delivery Method Nasal Cannula Nasal Cannula Nasal Cannula Oxygen Flow Rate 2 2 2 Sepsis Recent Fever Within 48 Hours No Sepsis Action Taken by Nursing No Action Required 07/10/19 12:21 07/10/19 12:29 07/10/19 12:30 Temperature Temperature Source Pulse Rate 113 H Pulse Rate from SpO2 Sensor 113 H Respiratory Rate 22 26 H Respiratory Effort / Characteristics Spontaneous Labored Respiratory Depth Respiratory Pattern Blood Pressure 129/77 Blood Pressure Mean 93 Blood Pressure Position Pulse Oximetry 98 98 Oxygen Delivery Method Nasal Cannula Nasal Cannula Nasal Cannula Oxygen Flow Rate 2 2 2 Sepsis Recent Fever Within 48 Hours Sepsis Action Taken by Nursing 07/10/19 13:30 07/10/19 14:00 07/10/19 14:30 Temperature Temperature Source Pulse Rate 118 H 120 H 114 H Pulse Rate from SpO2 Sensor 118 H 119 H 114 H Respiratory Rate 28 H 26 H 25 H Respiratory Effort / Characteristics Respiratory Depth Respiratory Pattern Blood Pressure 115/78 117/77 124/63 Blood Pressure Mean 85 99 77 Blood Pressure Position Pulse Oximetry 96 97 96 Oxygen Delivery Method Nasal Cannula Nasal Cannula Nasal Cannula Oxygen Flow Rate 2 2 2 Sepsis Recent Fever Within 48 Hours Sepsis Action Taken by Nursing 07/10/19 15:00 07/10/19 15:30 Temperature Temperature Source Pulse Rate 115 H 117 H Pulse Rate from SpO2 Sensor 115 H 116 H Respiratory Rate 27 H 27 H Respiratory Effort / Characteristics Respiratory Depth Respiratory Pattern Blood Pressure 130/70 135/73 Blood Pressure Mean 79 89 Blood Pressure Position Pulse Oximetry 95 95 Oxygen Delivery Method Nasal Cannula Oxygen Flow Rate 2 Sepsis Recent Fever Within 48 Hours Sepsis Action Taken by Nursing GENERAL: She is oriented to person, place, and time. She appears well-developed and well-nourished. She does not appear distressed. HENT: Exam performed. Head: Normocephalic and atraumatic. Right Ear: External ear normal. No mastoid tenderness. Left Ear: External ear normal. No mastoid tenderness. Mouth/Throat: The oropharynx is clear and moist. No trismus in the jaw. No dental abscesses or uvula swelling. No oropharyngeal exudate or tonsillar abscesses. EYES: Conjunctivae and EOM are normal. Pupils are equal, round, and reactive to light. Right eye exhibits no discharge. Left eye exhibits no discharge. No scleral icterus. NECK: Normal range of motion. Neck supple. No JVD present. No spinous process tenderness present. No carotid bruit present. No rigidity. No tracheal deviation and normal range of motion present. No Brudzinski's sign and no Kernig's sign noted. CV: Tachycardic rate, regular rhythm, normal heart sounds and intact distal pulses. There is no peripheral edema. Palpable radial pulses bue. PULM/CHEST: Effort normal. No respiratory distress. No stridor. She has expiratory wheezes bilaterally. She has no rales. She has rhonchi bilaterally. Chest Wall: She exhibits no tenderness. ABD: The abdomen is soft. Bowel sounds are normal. She has no distension. No mass is present. There is no tenderness. There is no rebound, no guarding, no Medel's sign and no tenderness at McBurney's point. Rovsig negative MUSC/SKEL: Normal range of motion. There is no peripheral edema, tenderness or deformity. LYMPH: No cervical adenopathy. NEURO: She is alert and oriented to person, place, and time. She has normal strength. No cranial nerve deficit or sensory deficit. Coordination and gait normal. GCS eye subscore is 4. GCS verbal subscore is 5. GCS motor subscore is 6. cerbellar tests wnl. Mild tremor. SKIN: Skin is warm and dry. She is not diaphoretic. PSYCH: She has a normal mood and affect. Her behavior is normal. Judgment and thought content normal. Course Course 1216: EMR reviewed. History of interstitial lung disease. She is on the list for a lung transplant. The patient was given 1 DuoNeb, 1 Albuterol, and 125mg of Solumedrol in the ambulance. Past medical records reviewed. The patient was evaluated in room B03B. A complete history and physical exam was performed. 1440: Vital signs stable on supplemental oxygen status post DuoNeb treatment in the emergency department. Patient has leukocytosis of 13.56. Potassium 3.1. Troponin negative. Chest x-ray showed no acute infiltrate. Given the patient's chronic lung disease and increased work of breathing, she will be admitted to the hospitalist service for further DuoNeb treatments and monitoring. I spoke with Dr. Teresa Mathis- Hospitalist about the patient's case and she will accept the patient for further evaluation. Administered Medications Acetaminophen (Tylenol) 1,000 mg PO Q6H PRN PRN Reason: Pain Stop: 08/09/19 17:48 Last Admin: 07/10/19 19:28 Dose: 1,000 mg Documented by: [id number] Albuterol (Duoneb) 3 ml NEB Q4R RILEY Stop: 08/09/19 18:59 Last Admin: 07/10/19 19:39 Dose: 3 ml Documented by: [id number] Discontinued Medications Albuterol (Duoneb) 3 ml NEB NOW STA Stop: 07/10/19 12:22 Last Admin: 07/10/19 12:27 Dose: 3 ml Documented by: [id number] Admin: 07/10/19 12:27 Dose: 3 ml Documented by: [id number] Albuterol (Duoneb) 3 ml NEB NOW STA Stop: 07/10/19 12:23 Last Admin: 07/10/19 12:27 Dose: Not Given Documented by: [id number] Lorazepam (Ativan) 0.5 mg in 1 mls @ 1 mls/min IV NOW STA Stop: 07/10/19 12:22 Last Admin: 07/10/19 12:42 Dose: 1 mls/min Documented by: [id number] Sodium Chloride (Nss 1000ml) 1,000 mls @ 80 mls/hr IV .[id number] RILEY Stop: 08/09/19 12:29 Last Infusion: 07/10/19 18:32 Dose: 0 mls/hr Documented by: [id number] Admin: 07/10/19 12:41 Dose: 80 mls/hr Documented by: [id number] Ketorolac Tromethamine (Toradol) 15 mg IV NOW STA Stop: 07/10/19 12:22 Last Admin: 07/10/19 12:41 Dose: 15 mg Documented by: [id number] Potassium Chloride (Klor-Con M20) 40 meq PO NOW STA Stop: 07/10/19 17:50 Last Admin: 07/10/19 19:21 Dose: 40 meq Documented by: [id number] Ropinirole HCl (Requip) 2 mg PO NOW ONE Stop: 07/10/19 16:56 Last Admin: 07/10/19 17:12 Dose: 2 mg Documented by: [id number] Medical Decision Making Medical Records Attestation: I reviewed the patient's medical records. Home Medications Current Medication List: was personally reviewed by me Laboratory Data Attestation: I reviewed the patient's lab results. Result diagrams: 07/10/19 13:25 07/10/19 13:25 Lab Results 07/10/19 07/10/19 07/10/19 Range/Units 12:45 13:25 13:25 WBC 13.56 H (4.8-10.8) K/uL RBC 4.70 (4.2-5.4) M/uL Hgb 14.7 (12.0-16.0) g/dL Hct 42.3 (37-47) % MCV 90.0 (80-100) fL MCH 31.3 (25-34) pg MCHC 34.8 (32-36) g/dL RDW Std Deviation 44.0 (36.4-46.3) fL RDW Coeff of Bryce 13.4 (11.5-14.5) % Plt Count 168 (130-400) K/uL MPV 10.0 (7.4-10.4) fL Immature Gran % (Auto) 0.2 % Neut % (Auto) 88.3 % Lymph % (Auto) 9.4 % Stephenson % (Auto) 1.9 % Eos % (Auto) 0.1 % Baso % (Auto) 0.1 % Immature Gran # (Auto) 0.03 H (0.00-0.02) K/uL Neut # (Auto) 11.95 H (1.4-6.5) K/uL Lymph # (Auto) 1.28 (1.2-3.4) K/uL Stephenson # (Auto) 0.26 (0.11-0.59) K/uL Eos # (Auto) 0.02 (0-0.5) K/uL Baso # (Auto) 0.02 (0-0.2) K/uL Sodium 140 (136-145) mmol/L Potassium 3.1 L (3.5-5.1) mmol/L Chloride 111 H (98-107) mmol/L Carbon Dioxide 22 (21-32) mmol/L Anion Gap 7.0 (3-11) BUN 16 (7-18) mg/dl Creatinine 0.81 (0.6-1.2) mg/dl Est Cr Clr Drug Dosing 72.1 ml/min Est GFR ( Amer) 88.3 Est GFR (Non-Af Amer) 76.2 BUN/Creatinine Ratio 19.6 (10-20) Glucose 121 H (70-99) mg/dl Calcium 9.0 (8.5-10.1) mg/dl Phosphorus (2.5-4.9) mg/dl Magnesium 1.9 (1.8-2.4) mg/dl Total Bilirubin 0.4 (0.2-1) mg/dl Direct Bilirubin < 0.1 (0-0.2) mg/dl AST 16 (15-37) U/L ALT 24 (12-78) U/L Alkaline Phosphatase 80 (45-117) U/L Troponin I < 0.015 (0-0.045) ng/ml Total Protein 7.4 (6.4-8.2) gm/dl Albumin 3.4 (3.4-5.0) gm/dl Lipase 64 L (73-393) U/L Influenza Type A (PCR) Neg for Influ A (Neg) Influenza Type B (PCR) Neg for Influ B (Neg) 07/10/19 Range/Units 13:25 WBC (4.8-10.8) K/uL RBC (4.2-5.4) M/uL Hgb (12.0-16.0) g/dL Hct (37-47) % MCV (80-100) fL MCH (25-34) pg MCHC (32-36) g/dL RDW Std Deviation (36.4-46.3) fL RDW Coeff of Bryce (11.5-14.5) % Plt Count (130-400) K/uL MPV (7.4-10.4) fL Immature Gran % (Auto) % Neut % (Auto) % Lymph % (Auto) % Stephenson % (Auto) % Eos % (Auto) % Baso % (Auto) % Immature Gran # (Auto) (0.00-0.02) K/uL Neut # (Auto) (1.4-6.5) K/uL Lymph # (Auto) (1.2-3.4) K/uL Stephenson # (Auto) (0.11-0.59) K/uL Eos # (Auto) (0-0.5) K/uL Baso # (Auto) (0-0.2) K/uL Sodium (136-145) mmol/L Potassium (3.5-5.1) mmol/L Chloride (98-107) mmol/L Carbon Dioxide (21-32) mmol/L Anion Gap (3-11) BUN (7-18) mg/dl Creatinine (0.6-1.2) mg/dl Est Cr Clr Drug Dosing ml/min Est GFR ( Amer) Est GFR (Non-Af Amer) BUN/Creatinine Ratio (10-20) Glucose (70-99) mg/dl Calcium (8.5-10.1) mg/dl Phosphorus 2.0 L (2.5-4.9) mg/dl Magnesium (1.8-2.4) mg/dl Total Bilirubin (0.2-1) mg/dl Direct Bilirubin (0-0.2) mg/dl AST (15-37) U/L ALT (12-78) U/L Alkaline Phosphatase (45-117) U/L Troponin I (0-0.045) ng/ml Total Protein (6.4-8.2) gm/dl Albumin (3.4-5.0) gm/dl Lipase (73-393) U/L Influenza Type A (PCR) (Neg) Influenza Type B (PCR) (Neg) Imaging Data Radiologist's Impression: Radiology results as stated below per my review and the radiologist's interpretation: XR chest 1V portable CLINICAL HISTORY: cough derek dyspnea COMPARISON STUDY: 06/01/2019 FINDINGS: Diffuse chronic interstitial change. No well-defined superimposed infiltrate. Diaphragms are smooth. IMPRESSION: Chronic change. No acute process. ACT 112: Negative or not required by law. The above report was generated using voice recognition software. It may contain grammatical, syntax or spelling errors. Electronically signed by: Manny Rhodes M.D. 07/10/2019 1:47 PM ECG Data Attestation: I personally reviewed and interpreted this ECG as follows: Indication: + SOB/dyspnea Rate (beats per minute): 114 Rhythm: + sinus rhythm ECG Intervals/blocks: + Normal QRS, + Normal CA and + Normal QT-c ECG ST segments: no ST depression and no ST elevation Blood Pressure Blood Pressure Findings: Normal blood pressure Blood Pressure Disposition: further management by hospitalist ANDREE Narrative 1216: EMR reviewed. History of interstitial lung disease. She is on the list for a lung transplant. The patient was given 1 DuoNeb, 1 Albuterol, and 125mg of Solumedrol in the ambulance. Past medical records reviewed. The patient was evaluated in room B03B. A complete history and physical exam was performed. 1440: Vital signs stable on supplemental oxygen status post DuoNeb treatment in the emergency department. Patient has leukocytosis of 13.56. Potassium 3.1. Troponin negative. Chest x-ray showed no acute infiltrate. Given the patient's chronic lung disease and increased work of breathing, she will be admitted to the hospitalist service for further DuoNeb treatments and monitoring. I spoke with Dr. Teresa Mathis- Hospitalist about the patient's case and she will accept the patient for further evaluation. Impression & Plan Asthma exacerbation Discharge Plan Visit Data *Final* Discharge Date/Time: 07/10/19 17:16 Chief Complaint: Shortness of Breath/Dyspnea Stated Complaint: shakes/wheezing ED Provider: Isael Dumont Discharge Problem: Asthma exacerbation Patient Disposition: Admitted As Inpatient Discharge Instructions Interventions: ED Discharge Assessment Last Done: 07/10/19 17:16 Discharge Problem: Asthma exacerbation Qualifiers: Asthma severity: unspecified severity Asthma persistence: unspecified Qualified Code(s): J45.901 - Unspecified asthma with (acute) exacerbation The scribe's documentation has been prepared under my direction and personally reviewed by me in its entirety. I confirm that the note above accurately refl ects all work, treatment, procedures, and medical decision making performed by me.
--- NOTE | 2019-07-10 20:52 | History & Physical Report ---
Date of Service July 10, 2019 Assessment & Plan (1) UIP (usual interstitial pneumonitis): 64-year-old female with UIP, follows with Dr. Kruse. Is to be evaluated [facility] for lung transplant. Patient presents with episode of weakness/fatigue and shakes as well as shortness of breath. Patient afebrile, tachycardic with leukocytosis. Respiratory status stable at present, adequate oxygenation on 3 L nasal cannula. ?CHF versus exacerbation of underlying lung disease. Do not strongly suspect infectious process at this time. Admit to medical floor with telemetry monitoringfollow blood culture results DuoNebs every 4 hours Albuterol every 2 hours as needed for shortness of breath Continue fluticasone Vilanterol Continue nintedanib 150 mg p.o. twice daily. Patient has brought her medication from home Continue prednisone [address] chest without contrast Incentive spirometry every 2 hours while awake Pulmonary consult appreciated Present on Admission?: Yes (2) Depression: Patient with chronic depression. Feels particularly down at this current time going through her chronic illness and facing lung transplant.. She denies suicidal ideation. Continue escitalopram 10 mg p.o. every afternoon Present on Admission?: Yes (3) Restless leg syndrome: Chronic. Stable. Continue Requip 2 mg p.o. 3 times daily F/E/N -Hep-Lock. 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 She is going to [facility] August 08, 2019 to be evaluated for lung transplant. Patient reports worsening cough over the last few days, dry as well as some fatigue and weakness. She has been needing her supplemental oxygen at home more frequently over the last few days. This morning she was getting ready for work she experienced shaking tremors and shortness of breath. She states she was unable to get to work. She denies fever/chills/sweats. Denies chest pain/palpitations. Denies abdominal pain/nausea/vomiting/diarrhea/constipation. Patient follows with Dr. Kruse detailed note from 06/19/2019 outlining patient's history of this condition and prior records. ER course: Albuterol, Toradol, Ativan, normal saline Allergies Allergy/AdvReac Type Severity Reaction Status Date / Time Iodinated Contrast Media Allergy Severe Anaphylaxis Verified 07/10/19 14:30 Cipro Allergy Mild N.V./MOUTH Verified 02/14/18 13:16 SORES ciprofloxacin Allergy Mild N.V./MOUTH Verified 07/10/19 14:30 SORES Home Medications Home Medications Medication Instructions Recorded Confirmed Type acetaminophen [Tylenol Extra 1,000 mg PO Q6H PRN 02/14/18 07/10/19 History Strength] albuterol sulfate [Ventolin HFA] 2 puff INHALATION QID PRN 02/14/18 07/10/19 History budesonide-formoterol HFA 160 2 puffs INH BID #10.2 gm 04/28/19 07/10/19 Rx mcg-4.5 mcg/actuation aerosol inhaler naproxen sodium [Aleve] 220 mg PO BID PRN 05/08/19 07/10/19 History ropinirole 2 mg PO TID 05/12/19 07/10/19 History escitalopram oxalate [Lexapro] 10 mg PO QPM 05/18/19 07/10/19 History doxycycline hyclate 100 mg capsule 100 mg PO BID #20 cap 06/19/19 07/10/19 Rx nintedanib 150 mg capsule 150 mg PO Q12H #60 cap 06/19/19 07/10/19 Rx Oxygen Home #1 ea 07/02/19 Rx prednisone 40 mg PO DAILY 07/10/19 07/10/19 History Past Med/Surg History Medical History Anxiety Arthritis Asthma uses PRN INH 2-3 x day COPD (chronic obstructive pulmonary disease) Coughing currently on steroid dosepak, abx Degenerative disc disease Depression GERD (gastroesophageal reflux disease) Interstitial lung disease Osteoarthritis Pulmonary nodule Restless leg syndrome SOB (shortness of breath) on exertion Surgical History History of ankle surgery Lt - hardware present History of appendectomy History of bladder repair surgery History of breast surgery History of carpal tunnel release of both wrists History of D&C History of esophagogastroduodenoscopy (EGD) History of lung biopsy Right Video Assisted Thoracoscopy with Lung and Lymph Node Biopsy Dr. 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 Other Information That Helps Us Care for You: No Feels Safe at Home: Yes Safety Concerns: Feels Safe At This Time Smoking Status: Never smoker Second Hand Exposure: Yes (exposure in the workplace) ; Hx Alcohol Use: Yes Alcohol type: wine Hx Substance Use: No Review of Systems Review of Systems: All systems reviewed & are unremarkable except as noted in HPI & below Physical Exam Physical Exam: General: patient resting comfortably, NAD, non-toxic in appearance, AA&O x 4, tearful during exam Skin: warm, dry, intact, no rashes or lesions HEENT: NC/AT, PERRL, EOMI, anicteric sclera, conjunctiva without injection, external ear normal to inspection and nontender, nares patent, moist mucus membranes, dentition intact, no oropharyngeal lesions, neck supple, trachea midline, no LAD, no thyromegaly, no JVD Heart: +S1/S2, regular, tachycardic, no m/r/g Lungs: Diminished breath sounds bilaterally, + crackles in bilateral bases, faint end expiratory wheezing Abd: +BS, soft, NT/ND, no masses/organomegaly/ascites Ext: warm, 2+ pulses in UE/LE bilaterally, no clubbing/cyanosis, 1+ edema pitting of bilateral lower extremities Neuro: nonfocal, patient AA&O x 4, speech intact, no facial droop, moving all extremities on command with equal strength 5/5 Results & Data Vital Signs (Past 12 Hours) Vital Signs Temp Pulse Pulse Resp BP BP Pulse Ox 07/10/19 19:35 36.7 C 109 H 18 157/81 H 94 07/10/19 19:03 36.8 C 116 H 20 124/74 96 07/10/19 17:01 113 H 25 H 138/76 95 07/10/19 16:39 115 H 20 140/88 96 07/10/19 16:30 113 H 29 H 140/88 95 07/10/19 16:00 118 H 23 123/84 94 07/10/19 15:30 117 H 27 H 135/73 95 07/10/19 15:00 115 H 27 H 130/70 95 07/10/19 14:30 114 H 25 H 124/63 96 07/10/19 14:00 120 H 26 H 117/77 97 07/10/19 13:30 118 H 28 H 115/78 96 07/10/19 12:30 113 H 26 H 129/77 98 07/10/19 12:29 22 98 07/10/19 12:00 118 H 26 H 124/71 94 07/10/19 11:38 36.6 C 123 H 30 H 128/76 96 07/10/19 11:34 126 H 37 H 128/78 95 Laboratory Results Lab Results 07/10/19 07/10/19 07/10/19 Range/Units 12:45 13:25 13:25 WBC 13.56 H (4.8-10.8) K/uL RBC 4.70 (4.2-5.4) M/uL Hgb 14.7 (12.0-16.0) g/dL Hct 42.3 (37-47) % MCV 90.0 (80-100) fL MCH 31.3 (25-34) pg MCHC 34.8 (32-36) g/dL RDW Std Deviation 44.0 (36.4-46.3) fL RDW Coeff of Bryce 13.4 (11.5-14.5) % Plt Count 168 (130-400) K/uL MPV 10.0 (7.4-10.4) fL Immature Gran % (Auto) 0.2 % Neut % (Auto) 88.3 % Lymph % (Auto) 9.4 % [place] % (Auto) 1.9 % Eos % (Auto) 0.1 % Baso % (Auto) 0.1 % Immature Gran # (Auto) 0.03 H (0.00-0.02) K/uL Neut # (Auto) 11.95 H (1.4-6.5) K/uL Lymph # (Auto) 1.28 (1.2-3.4) K/uL [place] # (Auto) 0.26 (0.11-0.59) K/uL Eos # (Auto) 0.02 (0-0.5) K/uL Baso # (Auto) 0.02 (0-0.2) K/uL Sodium 140 (136-145) mmol/L Potassium 3.1 L (3.5-5.1) mmol/L Chloride 111 H (98-107) mmol/L Carbon Dioxide 22 (21-32) mmol/L Anion Gap 7.0 (3-11) BUN 16 (7-18) mg/dl Creatinine 0.81 (0.6-1.2) mg/dl Est Cr Clr Drug Dosing 72.1 ml/min Est GFR ( Amer) 88.3 Est GFR (Non-Af Amer) 76.2 BUN/Creatinine Ratio 19.6 (10-20) Glucose 121 H (70-99) mg/dl Calcium 9.0 (8.5-10.1) mg/dl Phosphorus (2.5-4.9) mg/dl Magnesium 1.9 (1.8-2.4) mg/dl Total Bilirubin 0.4 (0.2-1) mg/dl Direct Bilirubin < 0.1 (0-0.2) mg/dl AST 16 (15-37) U/L ALT 24 (12-78) U/L Alkaline Phosphatase 80 (45-117) U/L Troponin I < 0.015 (0-0.045) ng/ml Total Protein 7.4 (6.4-8.2) gm/dl Albumin 3.4 (3.4-5.0) gm/dl Lipase 64 L (73-393) U/L Influenza Type A (PCR) Neg for Influ A (Neg) Influenza Type B (PCR) Neg for Influ B (Neg) 07/10/19 Range/Units 13:25 WBC (4.8-10.8) K/uL RBC (4.2-5.4) M/uL Hgb (12.0-16.0) g/dL Hct (37-47) % MCV (80-100) fL MCH (25-34) pg MCHC (32-36) g/dL RDW Std Deviation (36.4-46.3) fL RDW Coeff of Bryce (11.5-14.5) % Plt Count (130-400) K/uL MPV (7.4-10.4) fL Immature Gran % (Auto) % Neut % (Auto) % Lymph % (Auto) % [place] % (Auto) % Eos % (Auto) % Baso % (Auto) % Immature Gran # (Auto) (0.00-0.02) K/uL Neut # (Auto) (1.4-6.5) K/uL Lymph # (Auto) (1.2-3.4) K/uL [place] # (Auto) (0.11-0.59) K/uL Eos # (Auto) (0-0.5) K/uL Baso # (Auto) (0-0.2) K/uL Sodium (136-145) mmol/L Potassium (3.5-5.1) mmol/L Chloride (98-107) mmol/L Carbon Dioxide (21-32) mmol/L Anion Gap (3-11) BUN (7-18) mg/dl Creatinine (0.6-1.2) mg/dl Est Cr Clr Drug Dosing ml/min Est GFR ( Amer) Est GFR (Non-Af Amer) BUN/Creatinine Ratio (10-20) Glucose (70-99) mg/dl Calcium (8.5-10.1) mg/dl Phosphorus 2.0 L (2.5-4.9) mg/dl Magnesium (1.8-2.4) mg/dl Total Bilirubin (0.2-1) mg/dl Direct Bilirubin (0-0.2) mg/dl AST (15-37) U/L ALT (12-78) U/L Alkaline Phosphatase (45-117) U/L Troponin I (0-0.045) ng/ml Total Protein (6.4-8.2) gm/dl Albumin (3.4-5.0) gm/dl Lipase (73-393) U/L Influenza Type A (PCR) (Neg) Influenza Type B (PCR) (Neg) Diagnostic Findings XR chest 1V portable CLINICAL HISTORY: cough derek dyspnea COMPARISON STUDY: 06/01/2019 FINDINGS: Diffuse chronic interstitial change. No well-defined superimposed infiltrate. Diaphragms are smooth. IMPRESSION: Chronic change. No acute process. ACT 112: Negative or not required by law. The above report was generated using voice recognition software. It may contain grammatical, syntax or spelling errors. Electronically signed by: Manny Rhodes M.D. 07/10/2019 1:47 PM Dictated: 07/10/19 1346 Transcribed: 07/10/19 1346 ECG Additional Comments: Study shows sinus tachycardia 140 bpm, no acute ischemic change Code Status & VTE Plan Code Status DNR/DNI PG Care Time/CCT Total # of Minutes Spent Total Time Spent with Patient: Total time spent is greater than 50% in coordination of care (as documented) at patient's floor/unit and/or counseling patient: Coding Level of Care Code 02366 Initial Inpt Care Lvl 2 Diagnoses UIP (usual interstitial pneumonitis) J84.112 Depression F32.9 Depression Type: major depressive disorder Major depression recurrence: unspecified whether recurrent Active/Remission status: currently active Major depression episode severity: unspecified Restless leg syndrome G25.81 (1) Depression Depression Type: major depressive disorder Major depression recurrence: unspecified whether recurrent Active/Remission status: currently active Major depression episode severity: unspecified Qualified Code(s): F32.9 - Major depressive disorder, single episode, unspecified
[2019-07-10] MEDS ORDERED: ESCITALOPRAM OXALATE 10 MG TAB PO SCH (21:00)
[2019-07-10] MEDS ORDERED: DOXYCYCLINE HYCLATE 100 MG CAP PO SCH (21:00)
[2019-07-10] MEDS ORDERED: POTASSIUM PHOS 3 MMOL/1 ML INFUSION IV STA (21:25)
[2019-07-10] MEDS ORDERED: POTASSIUM PHOSPHATE 9 MMOL in SODIUM CHLORIDE 0.9% 250 ML IV ONE (21:30)
[2019-07-10] MEDS: OFEV 150 MG PO SCH (21:32)
[2019-07-10] MEDS: ROPINIROLE HCL 1 MG TABLET PO SCH (21:34)
[2019-07-11] MEDS: ALBUT/IPRATROP 3MG/0.5MG NEB 3 ML VIAL NEB SCH ×4 (03:26→15:18)
[2019-07-11] MEDS: ACETAMINOPHEN 500 MG TAB PO PRN (03:56)
[2019-07-11] MEDS ORDERED: SALINE NASAL 225 SPRAYS, GENTAMICIN SULFATE 60 MG, BARCODE IDENTIFIER 0 EA PRN (04:04)
[2019-07-11] MEDS ORDERED: SODIUM CHLORIDE 0.65% NA SOLN 45 ML (OCEAN) PRN (04:13)
--- NOTE | 2019-07-11 06:03 | Electrocardiogram Report ---
Test Reason : Blood Pressure : / mmHG Vent. Rate : 114 BPM Atrial Rate : 114 BPM P-R Int : 156 ms QRS Dur : 076 ms QT Int : 340 ms P-R-T Axes : 041 -10 055 degrees QTc Int : 468 ms Sinus tachycardia Possible Inferior infarct , age undetermined Cannot rule out Anterior infarct , age undetermined Abnormal ECG When compared with ECG of 01-JUN-2019 10:08, Borderline criteria for Inferior infarct are now Present Confirmed by Guanaco Sandhu ([id number]) on 07/11/2019 6:02:31 AM Referred By: ED Confirmed By:Guanaco Sandhu
[2019-07-11 06:22] LABS: Hematocrit (blood only) 40.4 % (37-47); Hemoglobin 13.7 g/dL (12.0-16.0); Immature Granulocytes # (auto) 0.03 K/uL (0.00-0.02); Immature Granulocytes % (auto) 0.3 %; Lymphocytes # (auto) 1.35 K/uL (1.2-3.4); Lymphocytes % (auto) 11.5 %; Mean Corpuscular Hemoglobin 30.9 pg (25-34); Mean Corpuscular Hgb Conc 33.9 g/dL (32-36); Mean Corpuscular Volume 91.2 fL (80-100); Mean Platelet Volume 9.7 fL (7.4-10.4); Monocytes # (auto) 0.63 K/uL (0.11-0.59); Monocytes % (auto) 5.4 %; Neutrophils # (auto) 9.71 K/uL (1.4-6.5); Neutrophils % (auto) 82.8 %; Platelet Count 169 K/uL (130-400); RDW Coefficient of Variation 13.7 % (11.5-14.5); RDW Standard Deviation 45.4 fL (36.4-46.3); Red Blood Count 4.43 M/uL (4.2-5.4); White Blood Count 11.72 K/uL (4.8-10.8)
[2019-07-11 06:51] LABS: BUN Creatinine Ratio 27.3 (10-20); Calcium 9.9 mg/dl (8.5-10.1); Creatinine Clr Calc Pharmacy 75.4 ml/min; Est GFR (African American) 92.5; Est GFR (Non-African American) 79.8; Potassium 4.6 mmol/L (3.5-5.1)
[2019-07-11 07:03] LABS: Phosphorus 3.7 mg/dl (2.5-4.9); Thyroid Stimulating Hormone 0.398 uIu/ml (0.300-4.500)
[2019-07-11] MEDS: OFEV 150 MG PO SCH (07:49)
[2019-07-11] MEDS: ROPINIROLE HCL 1 MG TABLET PO SCH ×2 (07:52→15:55)
[2019-07-11] MEDS ORDERED: predniSONE 20 MG TAB PO SCH (09:00)
[2019-07-11] MEDS ORDERED: FLUTICASONE/VILANTEROL 200/25MCG 14 PUFFS/INHALER INH SCH (09:00)
--- NOTE | 2019-07-11 13:23 | Pulmonary Consultation ---
Date of Consultation July 11, 2019 Assessment & Plan (1) Chronic interstitial lung disease: Impression: 64-year-old female with interstitial lung disease admitted with tremulousness. There was concern about a potential flare of her interstitial lung disease. I do not see evidence on CT scan. Her procalcitonin is negative. Recommendations: 1. Tremulousness: Doubt this is related to her lung disease although I cannot rule out a temporal relationship between her starting her Ofev. Recommend holding the medication at this point time until she is able to follow-up with Dr. Kruse in the outpatient setting. She can continue prednisone for now. She was significantly hypokalemic on presentation as well as hypophosphatemic which may have contributed to some of her symptoms. Additional work-up per the admitting service 2. Nonspecific interstitial lung disease with a UIP pattern. Fibrotic NSIP is not typically responsive to prednisone however it may be reasonable to continue steroids if we felt this were to be a cellular NSIP. Again the findings of temporal heterogeneity and fibroblastic foci arguing for more of a UIP pattern would suggest that the clinical course tends to trend more closely with UIP/IPF patients. Additional work-up per Dr. Kruse and the transplant center. 3. Hypoxemia: Continue oxygen titrated to keep saturations at or above 88%. 4. Cough: This is been a longstanding issue and is likely related to her underlying interstitial lung disease. Outpatient management per Dr. Kruse. 5. I do not see obvious evidence for infection and the patient's normal procalcitonin would argue against a bacterial etiology. Certainly viral etiologies are possible. Her white count could be related to her steroids. I would favor holding antibiotics and seeing how she does clinically. If she fails to improve, course of azithromycin or doxycycline may be appropriate. From a pulmonary perspective, the patient can be discharged once she can ambulate around the hallways without significant shortness of breath. It is difficult to relate her symptom complex to her underlying lung disease. (2) Hypoxia: (3) Chronic cough: (4) Bronchiectasis: History of Present Illness Attending Physician: Yara Mathis, History of Present Illness Asked by the hospitalist service to assist with management of this patient with interstitial lung disease, chronic hypoxemic respiratory failure on immunosuppressive therapy. History is obtained from discussion with the patient as well as review the electronic medical record. Patient is a very pleasant 64-year-old female who follows with Dr. Kruse in the outpatient setting. She has a history of interstitial lung disease and underwent a surgical lung biopsy with pathology showing findings consistent with a fibrotic NSIP/UIP pattern. The radiograph was not classic for UIP. She has been placed on high-dose prednisone and recently was started on OFEV. She started this medication about a week ago. She states that yesterday she developed diffuse body tremors without fevers or Reiger's. She did have some shortness of breath but states that she is always short of breath and this is not significantly changed. She has not been coughing or expectorating increased phlegm. There is been no change in the color or consistency of her phlegm. This prompted her to be seen in the emergency room. She was seen and admitted to the hospitalist service with an admission diagnosis of CHF versus exacerbation of ILD. The patient states that the tremulousness she was previously experienced is now resolved. She thinks her shortness of breath is back to baseline. She is not really ambulating. Allergies Allergy/AdvReac Type Severity Reaction Status Date / Time Iodinated Contrast Media Allergy Severe Anaphylaxis Verified 07/10/19 14:30 Cipro Allergy Mild N.V./MOUTH Verified 02/14/18 13:16 SORES ciprofloxacin Allergy Mild N.V./MOUTH Verified 07/10/19 14:30 SORES Home Medications Home Medications Medication Instructions Recorded Confirmed Type acetaminophen [Tylenol Extra 1,000 mg PO Q6H PRN 02/14/18 07/10/19 History Strength] albuterol sulfate [Ventolin HFA] 2 puff INHALATION QID PRN 02/14/18 07/10/19 History budesonide-formoterol HFA 160 2 puffs INH BID #10.2 gm 04/28/19 07/10/19 Rx mcg-4.5 mcg/actuation aerosol inhaler naproxen sodium [Aleve] 220 mg PO BID PRN 05/08/19 07/10/19 History ropinirole 2 mg PO TID 05/12/19 07/10/19 History escitalopram oxalate [Lexapro] 20 mg PO QPM 05/18/19 07/11/19 History doxycycline hyclate 100 mg capsule 100 mg PO BID #20 cap 06/19/19 07/10/19 Rx nintedanib 150 mg capsule 150 mg PO Q12H #60 cap 06/19/19 07/10/19 Rx Oxygen Home #1 ea 07/02/19 Rx prednisone 40 mg PO DAILY 07/10/19 07/10/19 History Patient History Medical History Anxiety Arthritis Asthma uses PRN INH 2-3 x day COPD (chronic obstructive pulmonary disease) Coughing currently on steroid dosepak, abx Degenerative disc disease Depression GERD (gastroesophageal reflux disease) Interstitial lung disease Osteoarthritis Pulmonary nodule Restless leg syndrome SOB (shortness of breath) on exertion Surgical History History of ankle surgery Lt - hardware present History of appendectomy History of bladder repair surgery History of breast surgery History of carpal tunnel release of both wrists History of D&C History of esophagogastroduodenoscopy (EGD) History of lung biopsy Right Video Assisted Thoracoscopy with Lung and Lymph Node Biopsy Dr. 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 No additions or deletions Physical Exam Constitutional: WD/WN, vitals as above Neck: trachea midline, no thyromegaly Respiratory: normal respiratory effort; no retractions, no cough and not tachypneic Auscultation: + crackles Cardiovascular: RRR, no murmur, no edema Gastrointestinal (Abdomen): normal bowel sounds, soft, nontender, no hepatosplenomegaly Musculoskeletal: Extremities: extremities normal to inspection Skin: no rashes, warm and dry Neurologic: Nonfocal exam Lymphatic: no cervical lymphadenopathy Results & Data ([facility]) Vital Signs (Past 12 Hours) Vital Signs Temp Pulse Pulse Pulse Resp BP Pulse Ox 07/11/19 12:24 36.7 C 109 H 20 130/71 98 07/11/19 11:37 105 H 17 95 07/11/19 08:00 79 18 93 07/11/19 07:16 100 H 07/11/19 07:00 36.6 C 97 H 18 144/84 H 98 07/11/19 04:56 36.5 C 88 19 134/74 97 07/11/19 03:26 98 H 16 97 07/11/19 02:07 99 H Laboratory Results 07/11/19 06:13 07/11/19 06:13 Diagnostic Findings Chest x-ray from 07/10/2019 was independently reviewed and compared to prior film from 06/01/2019. There are persistent bilateral increased interstitial markings with low lung volumes. Accounting for technique, there does not appear to be any significant progression of the radiographic opacities. PG Care Time/CCT Total # of Minutes Spent Total Time Spent with Patient: Total time spent is greater than 50% in c oordination of care (as documented) at patient's floor/unit and/or counseling patient: Coding Level of Care Code 31603 Initial Inpt Care Lvl 3 Diagnoses Chronic interstitial lung disease J84.9 Hypoxia R09.02 Chronic cough R05 Bronchiectasis J47.9 Time Spent (min) 40
--- NOTE | 2019-07-11 15:42 | Discharge Summary ---
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 She is going to [facility] August 08, 2019 to be evaluated for lung transplant. Patient reports worsening cough over the last few days, dry as well as some fatigue and weakness. She has been needing her supplemental oxygen at home more frequently over the last few days. This morning she was getting ready for work she experienced shaking tremors and shortness of breath. She states she was unable to get to work. She denies fever/chills/sweats. Denies chest pain/palpitations. Denies abdominal pain/nausea/vomiting/diarrhea/constipation. Patient follows with Dr. Kruse detailed note from 06/19/2019 outlining patient's history of this condition and prior records. ER course: Albuterol, Toradol, Ativan, normal saline Principal Diagnosis Viral URI Discharge Exam Constitutional WD/WN, vitals as above Eyes PERRL, conjunctivae normal, anicteric sclerae Respiratory normal respiratory effort; does not use accessory muscles Auscultation: + crackles (b/l whole lung cervantes); breath sounds present, no diminished lung sounds, no rales and no wheezes Cardiovascular Rate/Rhythm: regular rate and regular rhythm Heart Sounds: normal S1 and normal S2; no gallop, no murmur and no cardiac rub Vessels: no JVD Gastrointestinal (Abdomen) normal bowel sounds, soft, nontender, no hepatosplenomegaly Discharge Data Allergies Allergy/AdvReac Type Severity Reaction Status Date / Time Iodinated Contrast Media Allergy Severe Anaphylaxis Verified 07/10/19 14:30 Cipro Allergy Mild N.V./MOUTH Verified 02/14/18 13:16 SORES ciprofloxacin Allergy Mild N.V./MOUTH Verified 07/10/19 14:30 SORES Consultations 07/10/19 14:21 ED Decision to Admit Stat 07/10/19 21:24 Consult Pulmonology Routine 07/10/19 21:30 Consult Psychiatry Routine Hospital Course (1) Chronic interstitial lung disease: Ms. Bradshaw is a 64-year-old female with UIP, follows with Dr. Kruse. Is to be evaluated [facility] for lung transplant. Patient presents with episode of weakness/fatigue and shakes as well as shortness of breath. UIP (usual interstitial pneumonitis): - Respiratory status stable at present, adequate oxygenation on 3 L nasal cannula. - continue home oxygen - continue DuoNebs every 4 hours as needed for shortness of breath - continue fluticasone Vilanterol - continue nintedanib 150 mg p.o. twice daily - continue prednisone 40 mg p.o. daily - CT chest without contrast: Depression: - Continue escitalopram 10 mg p.o. every afternoon Restless leg syndrome: - Continue Requip 2 mg p.o. 3 times daily Total Time Total Time Spent Total Time Spent (In Minutes): <30 Discharge Plan Discharge Items Patient Disposition: Home - Self-Care Reason For Visit: SOB Discharge Diagnosis: Usual Interstitial Pneumonitis Activity: Per Instructions section Non-emergency contact: Primary Care Provider and Point Of Sale Associate Call non-emergency contact if: you have any medication questions, your symptoms worsen and you have a fever Follow-up/Referrals: Diana Murrieta CRNP [Nurse Practitioner] - 07/15/19 9:00 am (Please, follow up at [facility] Pulmonology Office with Diana MAXWELL on SundayJuly 15 at 9:00 am. *The office is located in [address] of [facility], next to this hospital. If you need to change this appointment, call the office at [phone].) Horacio Garay PA-C [Primary Care Provider] - 07/15/19 12:00 pm Diet: Regular Addtl Attending Provider Instructions: You were seen and evaluated for worsening shortness of breath; during this admission you had several studies that were conducted that demonstrated that you likely had more shortness of breath as a result of a viral upper respiratory tract infection. This infection does not require added antibiotics. You will likely recover from this infection in the coming days, and will shortly thereafter not require additional oxygen support from what you typically use at home. You should have an appointment with Dr. Kruse's group in the coming week for continued discussions on the role of Ofev for your continued care leading up to you transplant meeting at [facility]. Pending Studies at Discharge: No Stand-Alone Forms: My [facility], Work/School Release (Inpt), Smoking Cessation Medications and DC Order Prescriptions: Continued (DME) Oxygen Home Liters Per Minute See Rx Instructions .ROUTE .MEDSUPPLY Qty: 1 RF: 0 Symbicort 160-4.5 mcg/actuation HFA aerosol inhaler 2 puffs INH BID Qty: 10.2 RF: 2 doxycycline hyclate 100 mg capsule 100 mg PO BID Qty: 20 RF: 0 Ofev 150 mg capsule 150 mg PO Q12H Qty: 60 RF: 2 acetaminophen [Tylenol Extra Strength] 500 mg Tablet 1,000 mg PO Q6H PRN (Reason: Pain) RF: 0 albuterol sulfate [Ventolin HFA] 90 mcg/actuation Hfa Aerosol Inhaler 2 puff INHALATION QID PRN (Reason: Shortness Of Breath) RF: 0 escitalopram oxalate [Lexapro] 10 mg Tablet 20 mg PO QPM RF: 0 naproxen sodium [Aleve] 220 mg Tablet 220 mg PO BID PRN (Reason: Pain) RF: 0 ropinirole 2 mg tablet 2 mg PO TID RF: 0 prednisone 10 mg tablet 40 mg PO DAILY RF: 0 Discharge Orders: Discharge Order (Routine); Ordered 07/11/19 Ordered By: Fracisco Guy Admission Data Admit Date/Time: 07/10/19 15:48 Attending Provider: Yara Mathis Admit Provider: Yara Mtahis Primary Care Provider: Horacio Garay Other Providers: Yara Mathis ; Onur Kruse Other Interventions: Discharge Summary Assessment (RN) Last Done: 07/11/19 15:41 DC Date/Time DO NOT enter until pt leaves facility: 07/11/19 17:57 Supervising Physician Co-Signing Physician Notes I personally examined the patient and verified all jones points of history and exam, discussed case, and agree with decision making with Dr Guy. feeling OK to go home. shaking is gone. breathing is baseline vitals noted nad heent nc at mmm breathing unlabored no accessory muscles good effort skin no rashes no pallor or icterus UIP - stable for home. no overlying infection at this time. shaking - nonspecific. ?med related vs viral (some viral etiologies present in the community have had a lot of chills/rigors - perhaps an equivalent?) vs other - but has not recurred. stable for home. otherwise as above Resident Activity Tracking Resident Involvement: Resident Care Provided Care Provided: Adult [facility]
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
--- NOTE | 2019-07-11 18:13 | XCELERA ---
[id number] [email or web address]\[id number]
--- NOTE | 2019-07-11 18:34 | Billing Data ---
Date of Service July 11, 2019 Coding Level of Care Code D/C Day Management <30 mins
[2019-07-11] MEDS ORDERED: ESCITALOPRAM OXALATE 20 MG TAB PO SCH (21:00)
== END 2019-07-11 17:57 | disposition home or self-care (01) | DRG 197 ==
LOC: ED 11:29 → 2N 15:48

== ENCOUNTER 2019-07-28 22:19 | Observation (INO) ==
[2019-07-28] MEDS ORDERED: SODIUM CHLORIDE 0.9% 1000ML 1,000 ML IV ONE (22:42)
[2019-07-28] MEDS ORDERED: ALBUT/IPRATROP 3MG/0.5MG NEB 3 ML VIAL NEB STA (22:42)
[2019-07-28] MEDS ORDERED: ACETAMINOPHEN 325 MG TAB PO STA (22:42)
--- NOTE | 2019-07-28 22:43 | Emergency Department Note ---
ED Visit Note I have seen and examined this patient with Diane Andrew and generally agree with the treatment plan as discussed. .
[2019-07-28 23:00] LABS: Basophils # (auto) 0.02 K/uL (0-0.2); Basophils % (auto) 0.2 %; Eosinophils # (auto) 0.36 K/uL (0-0.5); Eosinophils % (auto) 3.6 %; Hematocrit (blood only) 43.2 % (37-47); Hemoglobin 15.5 g/dL (12.0-16.0); Immature Granulocytes # (auto) 0.03 K/uL (0.00-0.02); Immature Granulocytes % (auto) 0.3 %; Lymphocytes # (auto) 1.92 K/uL (1.2-3.4); Lymphocytes % (auto) 19.1 %; Mean Corpuscular Hemoglobin 32.7 pg (25-34); Mean Corpuscular Hgb Conc 35.9 g/dL (32-36); Mean Corpuscular Volume 91.1 fL (80-100); Mean Platelet Volume 9.7 fL (7.4-10.4); Monocytes # (auto) 1.12 K/uL (0.11-0.59); Monocytes % (auto) 11.1 %; Neutrophils % (auto) 65.7 %; Platelet Count 183 K/uL (130-400); RDW Coefficient of Variation 13.3 % (11.5-14.5); RDW Standard Deviation 44.3 fL (36.4-46.3); Red Blood Count 4.74 M/uL (4.2-5.4); White Blood Count 10.05 K/uL (4.8-10.8)
--- NOTE | 2019-07-28 23:18 | Emergency Department Note ---
History of Present Illness General Chief complaint: Illness Stated complaint: COUGHING FEVER NECK HURTS WEAKNESS Time Seen by Provider: 07/28/19 22:26 Source: patient Mode of arrival: ambulatory Limitations: no limitations History of Present Illness Maximum Pain Intensity: 7 This patient is a 64-year-old female who presents emergency department for evaluation of cough, fever and flulike symptoms. Patient states that she has been sick for the past week. 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 She has been taking the amoxicillin for 4 to 5 days without any improvement. She reports cough, fever and body aches. She states that she has been laying in bed because she has felt so sick. She took Tylenol 4 hours prior to arrival. She has been short of breath but states that she is short of breath at baseline. She has a history of pulmonary fibrosis/interstitial lung disease. She rates her overall discomfort a 7/10. She has been using her nebulizer intermittently without relief. Home Medications Home Medications Medication Instructions Recorded Confirmed Type acetaminophen [Tylenol Extra 1,000 mg PO Q6H PRN 02/14/18 07/28/19 History Strength] albuterol sulfate [Ventolin HFA] 2 puff INHALATION QID PRN 02/14/18 07/28/19 History budesonide-formoterol HFA 160 2 puffs INH BID #10.2 gm 04/28/19 07/28/19 Rx mcg-4.5 mcg/actuation aerosol inhaler naproxen sodium [Aleve] 220 mg PO BID PRN 05/08/19 07/28/19 History ropinirole 2 mg PO TID 05/12/19 07/28/19 History escitalopram oxalate [Lexapro] 20 mg PO QPM 05/18/19 07/28/19 History nintedanib 150 mg capsule 150 mg PO Q12H #60 cap 06/19/19 07/28/19 Rx Oxygen Home #1 ea 07/02/19 07/21/19 Rx amoxicillin 875 mg-potassium 1 tab PO BID #20 tab 07/21/19 07/28/19 Rx clavulanate 125 mg tablet benzonatate 100 mg capsule 100 mg PO TID PRN #90 cap 07/21/19 07/28/19 Rx codeine 10 mg-guaifenesin 100 mg/5 5 ml PO Q4H PRN #90 ml 07/21/19 07/28/19 Rx mL oral liquid Allergies Allergy/AdvReac Type Severity Reaction Status Date / Time Iodinated Contrast Media Allergy Severe Anaphylaxis Verified 07/28/19 23:00 Cipro Allergy Mild N.V./MOUTH Verified 02/14/18 13:16 SORES ciprofloxacin Allergy Mild N.V./MOUTH Verified 07/28/19 23:00 SORES Past Med/Surg History Medical History Anxiety Arthritis Asthma uses PRN INH 2-3 x day COPD (chronic obstructive pulmonary disease) Coughing currently on steroid dosepak, abx Degenerative disc disease Depression GERD (gastroesophageal reflux disease) Interstitial lung disease Osteoarthritis Pulmonary nodule Restless leg syndrome SOB (shortness of breath) on exertion Surgical History History of ankle surgery Lt - hardware present History of appendectomy History of bladder repair surgery History of breast surgery History of carpal tunnel release of both wrists History of D&C History of esophagogastroduodenoscopy (EGD) History of lung biopsy Right Video Assisted Thoracoscopy with Lung and Lymph Node Biopsy Dr. 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 Feels Safe at Home: Yes Smoking Status: Never smoker Second Hand Exposure: No ; Hx Alcohol Use: No Hx Substance Use: No Review of Systems A total of 10 systems reviewed and were otherwise negative Physical Exam Vital Signs Vital Signs - 24 hr 07/28/19 22:21 07/28/19 22:31 07/28/19 22:44 Temperature 37.0 C Temperature Source Oral Pulse Rate 133 H 129 H Pulse Rate [Apical] Pulse Rate from SpO2 Sensor 128 H Respiratory Rate 20 28 H Respiratory Effort / Characteristics Non-Labored Spontaneous Respiratory Depth Normal Blood Pressure 131/81 Blood Pressure Mean 97 Blood Pressure Position Sitting Pulse Oximetry 89 L 96 97 Oxygen Delivery Method Room Air Nasal Cannula Nasal Cannula Oxygen Flow Rate 2 2 Sepsis Recent Fever Within 48 Hours No Sepsis New/Unexplained Change in Mental Status No Sepsis Action Taken by Nursing No Action Required 07/28/19 23:00 07/28/19 23:06 07/28/19 23:07 Temperature Temperature Source Pulse Rate 113 H 114 H 112 H Pulse Rate [Apical] Pulse Rate from SpO2 Sensor 112 H 114 H 112 H Respiratory Rate 30 H 27 H Respiratory Effort / Characteristics Respiratory Depth Blood Pressure 146/102 H Blood Pressure Mean 125 Blood Pressure Position Pulse Oximetry 96 97 97 Oxygen Delivery Method Nasal Cannula Nasal Cannula Room Air Oxygen Flow Rate 2 2 2 Sepsis Recent Fever Within 48 Hours Sepsis New/Unexplained Change in Mental Status Sepsis Action Taken by Nursing 07/28/19 23:09 07/28/19 23:30 07/28/19 23:31 Temperature Temperature Source Pulse Rate 120 H 122 H Pulse Rate [Apical] 105 H Pulse Rate from SpO2 Sensor 121 H 122 H Respiratory Rate 30 H 25 H Respiratory Effort / Characteristics Spontaneous Respiratory Depth Blood Pressure 165/84 H Blood Pressure Mean 91 Blood Pressure Position Pulse Oximetry 97 96 97 Oxygen Delivery Method Nasal Cannula Room Air Room Air Oxygen Flow Rate 2 2 2 Sepsis Recent Fever Within 48 Hours Sepsis New/Unexplained Change in Mental Status Sepsis Action Taken by Nursing 07/28/19 23:32 07/29/19 00:00 07/29/19 00:01 Temperature Temperature Source Pulse Rate 122 H 126 H 121 H Pulse Rate [Apical] Pulse Rate from SpO2 Sensor 122 H 125 H 122 H Respiratory Rate 28 H 27 H 24 Respiratory Effort / Characteristics Respiratory Depth Blood Pressure 128/67 Blood Pressure Mean 74 Blood Pressure Position Pulse Oximetry 96 95 96 Oxygen Delivery Method Nasal Cannula Nasal Cannula Nasal Cannula Oxygen Flow Rate 2 2 2 Sepsis Recent Fever Within 48 Hours Sepsis New/Unexplained Change in Mental Status Sepsis Action Taken by Nursing 07/29/19 00:30 07/29/19 00:31 Temperature Temperature Source Pulse Rate 115 H 115 H Pulse Rate [Apical] Pulse Rate from SpO2 Sensor 115 H 114 H Respiratory Rate 22 24 Respiratory Effort / Characteristics Respiratory Depth Blood Pressure 124/71 Blood Pressure Mean 96 Blood Pressure Position Pulse Oximetry 93 94 Oxygen Delivery Method Nasal Cannula Nasal Cannula Oxygen Flow Rate 2 2 Sepsis Recent Fever Within 48 Hours Sepsis New/Unexplained Change in Mental Status Sepsis Action Taken by Nursing VITALS: Vitals are noted on the nurse's note and reviewed by myself. GENERAL: This is a 64-year-old female, in moderate distress, chronically ill- appearing. SKIN: The skin was without rashes. EARS: External auditory canals clear, tympanic membranes pearly martines without e rythema or effusion bilaterally. EYES: Pupils equal round and reactive to light and accommodation. NOSE: Patent, turbinates without inflammation or discharge. MOUTH: Mucous membranes moist. Tonsils are not enlarged. Pharynx without erythema or exudate. NECK: Supple without nuchal rigidity. No lymphadenopathy. HEART: Regular rate and rhythm without murmurs gallops or rubs. LUNGS: Tachypneic. Crackles bilateral bases. Expiratory wheezes heard throughout. EXTREMITIES: No pitting edema of the lower extremities. NEURO: Patient was alert and oriented to person place and time. Course Consultations Consultation #1: Dr. Del Fry [facility] [place] Administered Medications Acetaminophen (Tylenol) 1,000 mg PO Q6H PRN PRN Reason: Pain Stop: 08/28/19 01:39 Last Admin: 07/29/19 06:25 Dose: 1,000 mg Documented by: [id number] Albuterol (Duoneb) 3 ml NEB Q4R RILEY Stop: 08/28/19 02:59 Last Admin: 07/29/19 03:48 Dose: 3 ml Documented by: [id number] Escitalopram Oxalate (Lexapro Tab) 20 mg PO QPM RILEY Stop: 08/28/19 01:39 Last Admin: 07/29/19 02:19 Dose: 20 mg Documented by: [id number] Lactated Ringer's (Lr) 1,000 mls @ 80 mls/hr IV .[id number] RILEY Stop: 07/29/19 14:09 Last Admin: 07/29/19 02:19 Dose: 80 mls/hr Documented by: [id number] Ropinirole HCl (Requip) 2 mg PO TID RILEY Stop: 08/28/19 01:39 Last Admin: 07/29/19 02:20 Dose: Not Given Documented by: [id number] Discontinued Medications Acetaminophen (Tylenol) 650 mg PO NOW STA Stop: 07/28/19 22:43 Last Admin: 07/28/19 23:05 Dose: 650 mg Documented by: [id number] Albuterol (Duoneb) 3 ml NEB NOW STA Stop: 07/28/19 22:43 Last Admin: 07/28/19 23:09 Dose: 3 ml Documented by: [id number] Sodium Chloride (Nss 1000ml) 1,000 mls @ 999 mls/hr IV .Q1H1M ONE Stop: 07/28/19 23:42 Last Infusion: 07/28/19 23:54 Dose: 0 mls/hr Documented by: [id number] Admin: 07/28/19 22:59 Dose: 999 mls/hr Documented by: [id number] Cefepime HCl (Maxipime) 2,000 mg in 20 mls @ 5 mls/min IV NOW STA Stop: 07/29/19 00:15 Last Admin: 07/29/19 00:25 Dose: 5 mls/min Documented by: [id number] Vancomycin HCl 1,750 mg/ (Sodium Chloride) 535 mls @ 200 mls/hr IV NOW ONE Stop: 07/29/19 02:52 Last Infusion: 07/29/19 04:47 Dose: 0 mls/hr Documented by: [id number] Admin: 07/29/19 00:32 Dose: 200 mls/hr Documented by: [id number] Sodium Chloride (Nss 1000ml) 1,000 mls @ 999 mls/hr IV .Q1H1M ONE Stop: 07/29/19 01:28 Last Infusion: 07/29/19 02:29 Dose: 0 mls/hr Documented by: [id number] Admin: 07/29/19 00:33 Dose: 999 mls/hr Documented by: [id number] Ketorolac Tromethamine (Toradol) 15 mg IV NOW STA Stop: 07/29/19 00:19 Last Admin: 07/29/19 00:25 Dose: 15 mg Documented by: [id number] Miscellaneous Information (Consult) 1 ea N/A UD PRN PRN Reason: Consult Stop: 08/28/19 00:11 Last Admin: 07/29/19 00:25 Dose: 1 ea Documented by: [id number] Medical Decision Making Differential Diagnosis Differential diagnosis includes reactive airway disease, pneumonia, pneumothorax, COPD, CHF, infections, cardiac ischemia, pulmonary embolism, musculoskeletal, gastrointestinal, as well as other pathologies. Home Medications Current Medication List: was personally reviewed by me Laboratory Data Attestation: I reviewed the patient's lab results. Result diagrams: 07/28/19 22:40 07/28/19 22:40 Lab Results 07/28/19 07/28/19 07/28/19 Range/Units 22:40 22:40 22:40 WBC 10.05 (4.8-10.8) K/uL RBC 4.74 (4.2-5.4) M/uL Hgb 15.5 (12.0-16.0) g/dL Hct 43.2 (37-47) % MCV 91.1 (80-100) fL MCH 32.7 (25-34) pg MCHC 35.9 (32-36) g/dL RDW Std Deviation 44.3 (36.4-46.3) fL RDW Coeff of Bryce 13.3 (11.5-14.5) % Plt Count 183 (130-400) K/uL MPV 9.7 (7.4-10.4) fL Immature Gran % (Auto) 0.3 % Neut % (Auto) 65.7 % Lymph % (Auto) 19.1 % Fallon % (Auto) 11.1 % Eos % (Auto) 3.6 % Baso % (Auto) 0.2 % Immature Gran # (Auto) 0.03 H (0.00-0.02) K/uL Neut # (Auto) 6.60 H (1.4-6.5) K/uL Lymph # (Auto) 1.92 (1.2-3.4) K/uL Fallon # (Auto) 1.12 H (0.11-0.59) K/uL Eos # (Auto) 0.36 (0-0.5) K/uL Baso # (Auto) 0.02 (0-0.2) K/uL Sodium 137 (136-145) mmol/L Potassium 3.9 (3.5-5.1) mmol/L Chloride 104 (98-107) mmol/L Carbon Dioxide 28 (21-32) mmol/L Anion Gap 6.0 (3-11) BUN 16 (7-18) mg/dl Creatinine 0.82 (0.6-1.2) mg/dl Est Cr Clr Drug Dosing 71.3 ml/min Est GFR ( Amer) 87.0 Est GFR (Non-Af Amer) 75.1 BUN/Creatinine Ratio 20.0 (10-20) Glucose 151 H (70-99) mg/dl Lactate (0.4-2.0) mmol/L Calcium 9.3 (8.5-10.1) mg/dl Phosphorus 3.7 (2.5-4.9) mg/dl Magnesium 1.7 L (1.8-2.4) mg/dl Total Bilirubin 0.6 (0.2-1) mg/dl AST 18 (15-37) U/L ALT 23 (12-78) U/L Alkaline Phosphatase 85 (45-117) U/L Total Protein 7.6 (6.4-8.2) gm/dl Albumin 3.2 L (3.4-5.0) gm/dl Globulin 4.4 H (2.5-4.0) gm/dl Albumin/Globulin Ratio 0.7 L (0.9-2) Procalcitonin (0-0.5) ng/ml Influenza Type A (PCR) Neg for Influ A (Neg) Influenza Type B (PCR) Neg for Influ B (Neg) 07/28/19 07/28/19 Range/Units 22:40 23:16 WBC (4.8-10.8) K/uL RBC (4.2-5.4) M/uL Hgb (12.0-16.0) g/dL Hct (37-47) % MCV (80-100) fL MCH (25-34) pg MCHC (32-36) g/dL RDW Std Deviation (36.4-46.3) fL RDW Coeff of Bryce (11.5-14.5) % Plt Count (130-400) K/uL MPV (7.4-10.4) fL Immature Gran % (Auto) % Neut % (Auto) % Lymph % (Auto) % Fallon % (Auto) % Eos % (Auto) % Baso % (Auto) % Immature Gran # (Auto) (0.00-0.02) K/uL Neut # (Auto) (1.4-6.5) K/uL Lymph # (Auto) (1.2-3.4) K/uL Fallon # (Auto) (0.11-0.59) K/uL Eos # (Auto) (0-0.5) K/uL Baso # (Auto) (0-0.2) K/uL Sodium (136-145) mmol/L Potassium (3.5-5.1) mmol/L Chloride (98-107) mmol/L Carbon Dioxide (21-32) mmol/L Anion Gap (3-11) BUN (7-18) mg/dl Creatinine (0.6-1.2) mg/dl Est Cr Clr Drug Dosing ml/min Est GFR ( Amer) Est GFR (Non-Af Amer) BUN/Creatinine Ratio (10-20) Glucose (70-99) mg/dl Lactate 1.9 (0.4-2.0) mmol/L Calcium (8.5-10.1) mg/dl Phosphorus (2.5-4.9) mg/dl Magnesium (1.8-2.4) mg/dl Total Bilirubin (0.2-1) mg/dl AST (15-37) U/L ALT (12-78) U/L Alkaline Phosphatase (45-117) U/L Total Protein (6.4-8.2) gm/dl Albumin (3.4-5.0) gm/dl Globulin (2.5-4.0) gm/dl Albumin/Globulin Ratio (0.9-2) Procalcitonin < 0.05 (0-0.5) ng/ml Influenza Type A (PCR) (Neg) Influenza Type B (PCR) (Neg) Imaging Data Attestation: I personally reviewed and interpreted this imaging study as follows: My Impression: CHEST 1 VIEW: Chronic changes with worsening superimposed pneumonia left base and possible superimposed pneumonia right base. Blood Pressure Blood Pressure Findings: Normal blood pressure MDM Narrative This patient is a 64-year-old female who presents to the emergency department with worsening cough/shortness of breath. Patient recently treated with amoxicillin as an outpatient for superimposed pneumonia. She has a history of interstitial pneumonitis and follows with pulmonology as an outpatient. She is scheduled to follow-up at [place] for consideration of a lung transplant. Labs with no leukocytosis, anemia or concerning electrolyte abnormalities. Influenza testing was negative. Patient was tachypneic and has been requiring more oxygen than usual at home. She was given a DuoNeb treatment with mild relief. She was given a liter bolus as she admits she has not had much to drink over the past few days that she has been laying in bed. She has no noted history of CHF. I do feel patient would benefit from observation/admission to the hospital for further care. Patient was given initial doses of antibiotics. The case was discussed with the [facility] hospitalist service who agreed to evaluate the patient for further care. Impression & Plan Shortness of breath, Left lower lobe pneumonia Discharge Plan Visit Data *Final* Discharge Date/Time: 07/29/19 01:18 Chief Complaint: Illness Stated Complaint: COUGHING FEVER NECK HURTS WEAKNESS ED Provider: Harjinder Gardner ED Midlevel Provider: Diane Andrew Discharge Problem: Shortness of breath, Left lower lobe pneumonia Patient Disposition: Admitted As Inpatient Discharge Instructions Interventions: ED Discharge Assessment Last Done: 07/29/19 01:18 Discharge Problem: Left lower lobe pneumonia Qualifiers: Pneumonia type: due to unspecified organism Qualified Code(s): J18.9 - Pneumonia, unspecified organism
[2019-07-28 23:21] LABS: Albumin Level 3.2 gm/dl (3.4-5.0); Calcium 9.3 mg/dl (8.5-10.1); Creatinine Clr Calc Pharmacy 71.3 ml/min; Est GFR (Non-African American) 75.1; Potassium 3.9 mmol/L (3.5-5.1)
[2019-07-28 23:24] LABS: Albumin Globulin Ratio 0.7 (0.9-2); Bilirubin,Total 0.6 mg/dl (0.2-1); Globulin 4.4 gm/dl (2.5-4.0); Total Protein 7.6 gm/dl (6.4-8.2)
[2019-07-28 23:26] LABS: Influenza A virus by PCR Neg for Influ A (Neg); Influenza B virus by PCR Neg for Influ B (Neg)
[2019-07-29] MEDS ORDERED: CEFEPIME 2,000 MG/20 ML VIAL IV STA (00:12)
[2019-07-29] MEDS ORDERED: VANCOMYCIN CONSULT ACTIVE PRN ×2 (00:12→01:40)
[2019-07-29] MEDS ORDERED: VANCOMYCIN HCL 1,750 MG in SODIUM CHLORIDE 0.9% 500 ML IV ONE (00:12)
[2019-07-29] MEDS ORDERED: KETOROLAC TROMETHAMINE 15 MG/ML VIAL IV STA (00:18)
[2019-07-29] MEDS ORDERED: SODIUM CHLORIDE 0.9% 1000ML 1,000 ML IV ONE (00:28)
--- NOTE | 2019-07-29 01:09 | History & Physical Report ---
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 No leukocytosis. CXR with chronic changes, possible airspace disease present in bilateral LL which may represent infectious process, ?inflammatory process/alveolitis. Patient presently breathing comfortably on 2L NC with adequate saturations. No respiratory distress. -Observation to medical floor -Check Procalcitonin level -Duonebs q 4 hours -Albuterol q 2 hours as needed for SOB/wheeze -Continue Symbicort BID -Will resume Prednisone 40mg po daily -Cefepime and Vancomycin for now -Continue Tessalon and Guaifenesin with codeine -Supplemental O2, humidified as needed to maintain saturations 89% -Pulmonary consultation appreciated -Patient is to have a PET scan performed this week. It may benefit her to have this study performed while inpatient if possible. Will defer to Pulmonary recommendations Present on Admission?: Yes (2) Restless leg syndrome: Chronic. Well controlled with Requip -Continue Requip. Patient to get dose tonight Present on Admission?: Yes (3) Depression: Chronic. Stable -Continue Lexapro 20mg po qhs. 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 She has an appointment at [facility] on 08/08/19 to be evaluated for a lung transplant. She follows with Dr. Kruse, last seen on 07/23/19. Patient was admitted to the hospital on 07/10/19 - 07/11/19 with complaint of cough/weakness and fatigue ans well as tremors and increased O2 use. She was treated with nebs and discharged home in stable condition. She has been seen in COPD clinic by Diana Murrieta on 07/15/19 and 07/21/19. She was started on Augmentin 875/125mg BID x 10 day course on 07/21/19 as well as Tessalon and guaifenesin with codeine due to complaint of productive cough, fatigue and SOB. Patient has been taking these medications with no improvement in symptoms. She was seen by Dr. Kruse in clinic on 07/23/19. Febrile at that time, tremulous again. She was instructed to hold her nintenabib (Ofev) and continue her antibiotics and cough medications. Per Dr. Kruse's note patient was to continue her Prednisone, however, she tho ught that this medication had been discontinued. Therefore, she has been off Prednisone since 07/23/19. She presents today with complaint of cough, fevers, body aches, weakness and fatigue for the last week. She "feels terrible". Her cough is occasionally productive, last fever was today. Also with nausea and occasional NB/NB emesis. She has been using her O2 continuously at 2L. Nebs 2-3 times daily at home as well as Symbicort with a spacer. No sick contacts. No recent travel. No exposure to Covid-19 ER Course: Tylenol, Albuterol, Cefepime, Vanc, NSS Allergies Allergy/AdvReac Type Severity Reaction Status Date / Time Iodinated Contrast Media Allergy Severe Anaphylaxis Verified 07/28/19 23:00 Cipro Allergy Mild N.V./MOUTH Verified 02/14/18 13:16 SORES ciprofloxacin Allergy Mild N.V./MOUTH Verified 07/28/19 23:00 SORES Home Medications Home Medications Medication Instructions Recorded Confirmed Type acetaminophen [Tylenol Extra 1,000 mg PO Q6H PRN 02/14/18 07/28/19 History Strength] albuterol sulfate [Ventolin HFA] 2 puff INHALATION QID PRN 02/14/18 07/28/19 History budesonide-formoterol HFA 160 2 puffs INH BID #10.2 gm 04/28/19 07/28/19 Rx mcg-4.5 mcg/actuation aerosol inhaler naproxen sodium [Aleve] 220 mg PO BID PRN 05/08/19 07/28/19 History ropinirole 2 mg PO TID 05/12/19 07/28/19 History escitalopram oxalate [Lexapro] 20 mg PO QPM 05/18/19 07/28/19 History nintedanib 150 mg capsule 150 mg PO Q12H #60 cap 06/19/19 07/28/19 Rx Oxygen Home #1 ea 07/02/19 07/21/19 Rx amoxicillin 875 mg-potassium 1 tab PO BID #20 tab 07/21/19 07/28/19 Rx clavulanate 125 mg tablet benzonatate 100 mg capsule 100 mg PO TID PRN #90 cap 07/21/19 07/28/19 Rx codeine 10 mg-guaifenesin 100 mg/5 5 ml PO Q4H PRN #90 ml 07/21/19 07/28/19 Rx mL oral liquid Past Med/Surg History Medical History Anxiety Arthritis Asthma uses PRN INH 2-3 x day COPD (chronic obstructive pulmonary disease) Coughing currently on steroid dosepak, abx Degenerative disc disease Depression GERD (gastroesophageal reflux disease) Interstitial lung disease Osteoarthritis Pulmonary nodule Restless leg syndrome SOB (shortness of breath) on exertion Surgical History History of ankle surgery Lt - hardware present History of appendectomy History of bladder repair surgery History of breast surgery History of carpal tunnel release of both wrists History of D&C History of esophagogastroduodenoscopy (EGD) History of lung biopsy Right Video Assisted Thoracoscopy with Lung and Lymph Node Biopsy Dr. 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 Beliefs That Will Affect Care: None marital status: Legally Current Living Situation: Alone current occupational status: retired current occupation: [employer] Feels Safe at Home: Yes Smoking Status: Never smoker Second Hand Exposure: Yes (exposure in the workplace) ; Hx Alcohol Use: Yes Alcohol type: wine Hx Substance Use: No Review of Systems Review of Systems: All systems reviewed & are unremarkable except as noted in HPI & below Physical Exam Physical Exam: General: patient resting comfortably, NAD, ill in appearance, AA&O x 4 Skin: warm, dry, intact, no rashes or lesions HEENT: NC/AT, PERRL, EOMI, anicteric sclera, conjunctiva without injection, external ear normal to inspection and nontender, nares patent, moist mucus membranes, dentition intact, no oropharyngeal lesions, neck supple, trachea midline, no LAD, no thyromegaly, no JVD Heart: +S1/S2, regular, tachycardic at 117bpm, no m/r/g Lungs: equal air entry bilaterally, +crackles right lung base and mid lung, scattered end-expiratory wheezing diffusely Abd: +BS, soft, NT/ND, no masses/organomegaly/ascites Ext: warm, 2+ pulses in UE/LE bilaterally, no clubbing/cyanosis or edema, +arthritic changes of hands and feet Neuro: nonfocal, patient AA&O x 4, speech intact, no facial droop, moving all extremities on command with equal strength 5/5 Results & Data Vital Signs (Past 12 Hours) Vital Signs Temp Pulse Pulse Resp BP Pulse Ox 07/29/19 00:31 115 H 24 94 07/29/19 00:30 115 H 22 124/71 93 07/29/19 00:01 121 H 24 96 07/29/19 00:00 126 H 27 H 128/67 95 07/28/19 23:32 122 H 28 H 96 07/28/19 23:31 122 H 25 H 165/84 H 97 07/28/19 23:30 120 H 96 07/28/19 23:09 105 H 30 H 97 07/28/19 23:07 112 H 97 07/28/19 23:06 114 H 27 H 146/102 H 97 07/28/19 23:00 113 H 30 H 96 07/28/19 22:44 97 07/28/19 22:31 129 H 28 H 96 07/28/19 22:21 37.0 C 133 H 20 131/81 89 L Laboratory Results Lab Results 07/28/19 07/28/19 07/28/19 Range/Units 22:40 22:40 22:40 WBC 10.05 (4.8-10.8) K/uL RBC 4.74 (4.2-5.4) M/uL Hgb 15.5 (12.0-16.0) g/dL Hct 43.2 (37-47) % MCV 91.1 (80-100) fL MCH 32.7 (25-34) pg MCHC 35.9 (32-36) g/dL RDW Std Deviation 44.3 (36.4-46.3) fL RDW Coeff of Bryce 13.3 (11.5-14.5) % Plt Count 183 (130-400) K/uL MPV 9.7 (7.4-10.4) fL Immature Gran % (Auto) 0.3 % Neut % (Auto) 65.7 % Lymph % (Auto) 19.1 % [place] % (Auto) 11.1 % Eos % (Auto) 3.6 % Baso % (Auto) 0.2 % Immature Gran # (Auto) 0.03 H (0.00-0.02) K/uL Neut # (Auto) 6.60 H (1.4-6.5) K/uL Lymph # (Auto) 1.92 (1.2-3.4) K/uL [place] # (Auto) 1.12 H (0.11-0.59) K/uL Eos # (Auto) 0.36 (0-0.5) K/uL Baso # (Auto) 0.02 (0-0.2) K/uL Sodium 137 (136-145) mmol/L Potassium 3.9 (3.5-5.1) mmol/L Chloride 104 (98-107) mmol/L Carbon Dioxide 28 (21-32) mmol/L Anion Gap 6.0 (3-11) BUN 16 (7-18) mg/dl Creatinine 0.82 (0.6-1.2) mg/dl Est Cr Clr Drug Dosing 71.3 ml/min Est GFR ( Amer) 87.0 Est GFR (Non-Af Amer) 75.1 BUN/Creatinine Ratio 20.0 (10-20) Glucose 151 H (70-99) mg/dl Lactate (0.4-2.0) mmol/L Calcium 9.3 (8.5-10.1) mg/dl Total Bilirubin 0.6 (0.2-1) mg/dl AST 18 (15-37) U/L ALT 23 (12-78) U/L Alkaline Phosphatase 85 (45-117) U/L Total Protein 7.6 (6.4-8.2) gm/dl Albumin 3.2 L (3.4-5.0) gm/dl Globulin 4.4 H (2.5-4.0) gm/dl Albumin/Globulin Ratio 0.7 L (0.9-2) Influenza Type A (PCR) Neg for Influ A (Neg) Influenza Type B (PCR) Neg for Influ B (Neg) 07/28/19 Range/Units 23:16 WBC (4.8-10.8) K/uL RBC (4.2-5.4) M/uL Hgb (12.0-16.0) g/dL Hct (37-47) % MCV (80-100) fL MCH (25-34) pg MCHC (32-36) g/dL RDW Std Deviation (36.4-46.3) fL RDW Coeff of Bryce (11.5-14.5) % Plt Count (130-400) K/uL MPV (7.4-10.4) fL Immature Gran % (Auto) % Neut % (Auto) % Lymph % (Auto) % [place] % (Auto) % Eos % (Auto) % Baso % (Auto) % Immature Gran # (Auto) (0.00-0.02) K/uL Neut # (Auto) (1.4-6.5) K/uL Lymph # (Auto) (1.2-3.4) K/uL [place] # (Auto) (0.11-0.59) K/uL Eos # (Auto) (0-0.5) K/uL Baso # (Auto) (0-0.2) K/uL Sodium (136-145) mmol/L Potassium (3.5-5.1) mmol/L Chloride (98-107) mmol/L Carbon Dioxide (21-32) mmol/L Anion Gap (3-11) BUN (7-18) mg/dl Creatinine (0.6-1.2) mg/dl Est Cr Clr Drug Dosing ml/min Est GFR ( Amer) Est GFR (Non-Af Amer) BUN/Creatinine Ratio (10-20) Glucose (70-99) mg/dl Lactate 1.9 (0.4-2.0) mmol/L Calcium (8.5-10.1) mg/dl Total Bilirubin (0.2-1) mg/dl AST (15-37) U/L ALT (12-78) U/L Alkaline Phosphatase (45-117) U/L Total Protein (6.4-8.2) gm/dl Albumin (3.4-5.0) gm/dl Globulin (2.5-4.0) gm/dl Albumin/Globulin Ratio (0.9-2) Influenza Type A (PCR) (Neg) Influenza Type B (PCR) (Neg) Diagnostic Findings CXR - per my interpretation the study shows diffuse interstitial changes consistent with prior studies, possible airspace disease in LLL and RLL - appears more dense when compared to prior images Code Status & VTE Plan Code Status DNR/DNI PG Care Time/CCT Total # of Minutes Spent Total Time Spent with Patient: Total time spent is greater than 50% in coordination of care (as documented) at patient's floor/unit and/or counseling patient: Coding Level of Care Code 06170 OBS Care - Level 2 Diagnoses Chronic interstitial lung disease J84.9 Restless leg syndrome G25.81 Depression F32.9 Depression Type: major depressive disorder Major depression recurrence: unspecified whether recurrent Active/Remission status: currently active Major depression episode severity: unspecified (1) Depression Depression Type: major depressive disorder Major depression recurrence: unspecified whether recurrent Active/Remission status: currently active Major depression episode severity: unspecified Qualified Code(s): F32.9 - Major depressive disorder, single episode, unspecified
[2019-07-29] MEDS ORDERED: VANCOMYCIN HCL 1,000 MG in SODIUM CHLORIDE 0.9% 250 ML IV SCH (01:40)
[2019-07-29] MEDS ORDERED: ALBUTEROL 0.5% NEB SOLN 2.5 MG/0.5 ML VIAL NEB PRN (01:40)
[2019-07-29] MEDS ORDERED: ONDANSETRON INJ 2 MG/ML 2 ML VIAL IV PRN (01:40)
[2019-07-29] MEDS ORDERED: BENZONATATE 100 MG CAPSULE PO PRN (01:40)
[2019-07-29] MEDS ORDERED: LACTATED RINGER'S 1,000 ML IV SCH (01:40)
[2019-07-29 02:00] LABS: Magnesium 1.7 mg/dl (1.8-2.4); Phosphorus 3.7 mg/dl (2.5-4.9)
[2019-07-29] MEDS ORDERED: GUAIFENESIN/CODEINE 100MG/10MG 5ML UDC PO PRN (02:06)
[2019-07-29] MEDS: ESCITALOPRAM OXALATE 20 MG TAB PO SCH ×2 (02:19→21:14)
[2019-07-29] MEDS: ROPINIROLE HCL 1 MG TABLET PO SCH ×4 (02:20→22:10)
[2019-07-29] MEDS ORDERED: ZOLPIDEM TARTRATE 5 MG TAB PO PRN (02:44)
[2019-07-29] MEDS: ALBUT/IPRATROP 3MG/0.5MG NEB 3 ML VIAL NEB SCH ×6 (03:48→23:10)
[2019-07-29 04:29] LABS: Appearance Urine Clear (Clear); Bacteria Urine Automated Negative (Negative); Bilirubin Urine Negative (Negative); Blood Urine Negative (Negative); Cast Urine Automated 0 /lpf (0-5); Color Urine Yellow; Epithelial Cell Urine Auto >30 /lpf (0-5); Glucose Urine UA Negative (Negative); Ketones Urine Negative (Negative); Leukocyte Esterase Urine Trace (Negative); Nitrite Urine Negative (Negative); Protein Urine Negative (Negative); RBC Urine Automated 0-4 /hpf (0-4); Urobilinogen Urine Negative (Negative); pH Urine 5.5 (4.5-7.5)
--- NOTE | 2019-07-29 06:20 | XRay Report ---
XR chest 1V portable CLINICAL HISTORY: cough dyspnea COMPARISON STUDY: 07/21/2019 FINDINGS: Some progressive interstitial change of both hemithoraces. Slight increase in cardiac size. IMPRESSION: Slightly progressive interstitial change with a slight increase in cardiac size. Compone nt of congestive failure superimposed upon interstitial change most be considered. ACT 112: Negative or not required by law. The above report was generated using voice recognition software. It may contain grammatical, syntax or spelling errors. Electronically signed by: Manny Rhodes M.D. 07/29/2019 6:19 AM
[2019-07-29] MEDS: ACETAMINOPHEN 500 MG TAB PO PRN ×3 (06:25→21:40)
[2019-07-29] MEDS ORDERED: MAGNESIUM SULFATE / D5W 1 GM/100 ML BAG IV ONE (07:30)
[2019-07-29] MEDS ORDERED: CEFEPIME 2,000 MG in SYRINGE 7.5 ML IV SCH (08:00)
[2019-07-29] MEDS: FLUTICASONE/VILANTEROL 200/25MCG 14 PUFFS/INHALER INH SCH (09:00)
[2019-07-29] MEDS: predniSONE 20 MG TAB PO SCH (09:00)
[2019-07-29] MEDS ORDERED: VANCOMYCIN HCL 1,250 MG in SODIUM CHLORIDE 0.9% 250 ML IV SCH (12:00)
--- NOTE | 2019-07-29 12:53 | Medical Student Progress Note ---
Date of Service July 29, 2019 Assessment & Plan (1) Chronic interstitial lung disease: Teetee has a past medical history of chronic interstitial pneumonitis of unknown etiology who is scheduled for a lung transplant evaluation on 08/08/19 at [facility]. 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 Her current presentation is most likely a result of discontinuing the prednisone, combined with an underlying viral infection over the past week. Acute exacerbation of Chronic Interstitial Lung Disease secondary to viral illness -Pulmonology consulted. -Resume prior dose of prednisone 40 mg daily CXR reviewed: slightly progressive interstitial change without evidence of consolidation or opacities -Negative Influenza A and B -WBC count 10.05. Procalcitonin undetectable, patient afebrile -> unlikely to be related to bacterial pneumonia -> discontinue cefepime and vancomycin -blood cx pending -Continue home inhalers - fluticasone/Nilanterol, Albuterol -Continue Benzonatate and Guaifenesin with codeine -Continue Acetaminophen 1000 mg Q6h PRN -Continue Ondansetron 4 mg IV Q6h PRN for nausea Chronic respiratory failure sec to ILD -supplemental O2 as needed. Currently at baseline on 2L NC -Patient is to have a PET scan performed this week. Will try to do while inpt, defer to pulm recs Restless Leg Syndrome -continue home ropinirole Depression -Continue home dose of Escitalopram Hypomagnesemia -Magnesium 1.7 at time of admission. Repleted with 1 gram Magnesium IV Insomnia -Zolpidem 5 mg HS PRN prescribed FEN/GI: Regular Diet DVT Prophylaxis: Low Risk, SCD's DNR/DNI Dispo: Med Surg Supervising Attestation Medical Student Supervision Note: I independently interviewed and examined the patient and verified the jones history and physical, reviewed labs and image studies, discussed the case with medical student Erick Wells and Dr. Samuel Linn and agree with the findings and care plan. Subjective Teetee Bradshaw is a 64-year-old female with a past medical history of chronic interstitial pneumonitis who presented to the emergency department on 07/28/19 with cough, fever, and flu-like symptoms. She states that she has had progressively worsening shortness of breath and an occasionally productive cough over the past week. On 07/21/19, she was prescribed Augmentin by her data miner and instructed to hold her Nintenabib. However, she accidentally began to hold her prednisone at this time as well. At home, she is on 2 L/min oxygen at night and PRN oxygen during the day. During this past week, she has needed to increase her daytime oxygen use due to dyspnea on exertion and at rest. Today, she states that her breathing has significantly improved. She does not feel short of breath at rest, but she does endorse dyspnea and lightheadedness with ambulation to the bathroom. She notes that she vomited once in the ER and continues to feel nauseous without anymore episodes of vomiting. She denies any abdominal pain and she has not had a bowel movement since admission. She notes occasional diarrhea over the last week, which she attributes to antibiotic use. She says that her cough has decreased significantly and is mainly present when she talks for too long or ambulates. Review of Systems Constitutional: + body aches, + fatigue, + weakness and + insomnia; no fever and no increased appetite Eyes: no problem reported Respiratory: as per Subjective / HPI Cardiovascular: no problem reported Gastrointestinal: as per Subjective / HPI Genitourinary: as per Subjective / HPI Musculoskeletal: no problem reported Integumentary: no problem reported Neurologic: no problem reported Psychiatric: no problem reported Physical Exam Constitutional: WD/WN, vitals as above ENMT: external ear and nose normal, oropharynx normal Neck: normal visual inspection and trachea midline Respiratory: normal respiratory effort; does not use accessory muscles Auscultation: + crackles (Bilateral lung bases) and + wheezes (during expiratory phase) Cardiovascular: RRR, no murmur, no edema Gastrointestinal (Abdomen): normal bowel sounds, soft, nontender, no hepatosplenomegaly Skin: no rashes, warm and dry Psychiatric: Orientation: oriented x 3 Affect: + depressed affect Results & Data ([facility]) Vital Signs (Past 12 Hours) Vital Signs Temp Pulse Pulse Pulse Resp BP Pulse Ox 07/29/19 11:08 91 H 18 96 07/29/19 07:49 36.6 C 94 H 18 103/66 93 07/29/19 07:22 95 H 18 95 07/29/19 03:49 105 H 26 H 79 L 07/29/19 02:34 36.8 C 109 H 18 137/74 93 07/29/19 01:01 109 H 23 93 07/29/19 01:00 110 H Laboratory Results -Negative Influenza A and B -Procalcitonin undetectable WBC 10.05, Hgb 15.5 Sodium 137, Potassium 3.9, Magnesium 1.7 BUN 16, Cr 0.82 Glucose 151 Diagnostic Findings CXR: Slightly progressive interstitial change with slight increase in cardiac size. No consolidations or opacities. Resident Activity Tracking Resident Involvement: Resident Care Provided Care Provided: Adult [facility]
--- NOTE | 2019-07-29 14:55 | Electrocardiogram Report ---
Test Reason : Blood Pressure : / mmHG Vent. Rate : 116 BPM Atrial Rate : 116 BPM P-R Int : 146 ms QRS Dur : 076 ms QT Int : 332 ms P-R-T Axes : 038 020 045 degrees QTc Int : 461 ms Poor data quality, interpretation may be adversely affected Sinus tachycardia Possible Inferior infarct (cited on or before 10-JUL-2019) Abnormal ECG When compared with ECG of 10-JUL-2019 12:04, No significant change Confirmed by Abdiel Laguna ([id number]) on 07/29/2019 2:55:18 PM Referred By: REFERRED SELF Confirmed By:Abdiel Laguna
--- NOTE | 2019-07-29 18:53 | Pulmonary Consultation ---
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 Patient received 1 dose of cefepime and vancomycin in the emergency department No indication for antibiotics at this time as patient has negative procalcitonin and there is no leukocytosis Patient has no exposure to COVID-19 through travel or close contact with at risk actors Was scheduled for PET/CT tomorrow to rule out sarcoidosis or other inflammatory disease in the lungs No concern or indication of malignancy We will continue with prednisone 40 mg daily for now Obtain high-resolution CT of the chest Check an LDH Titrate supplemental O2 to maintain an SaO2 greater than 90% (2) UIP (usual interstitial pneumonitis): See above (3) Diastolic dysfunction without heart failure: Echocardiogram demonstrates a grade 1 diastolic dysfunction Patient appears to be fluid overloaded on chest x-ray as well as on exam Creatinine 0.82 Troponin normal Hemodynamically stable Administer 40 mg of IV furosemide and watch ins and outs (4) Pulmonary nodule: Stable 4 mm nodule within the right upper lobe Follow Fleischner criteria (5) DVT prophylaxis: No indication for bronchoscopy or other invasive procedures at this time Will order heparin 5000 units subcutaneously every 12 hours Thank you for including us in the care of the patient. We will follow along with you. Please refer to Dr. Chaney's addendum for further recommendations. Supervising Physician Co-Signing Physician Notes Patient seen and examined with Margarito anderson PA-C. I agree with his assessment and plan aside for any additions/exceptions noted: Patient with history of fibrotic lung disease demonstrating both UIP and NSIP pa tterns on the lung biopsy. High-resolution CT scan obtained today which demonstrates areas of air trapping and groundglass opacities likely consistent with underlying mixed restrictive and obstructive lung disease along with air trapping secondary to tracheomalacia as there is significant evidence of posterior wall collapse on exhalation on the CT of the trachea and the airways. I had a lengthy discussion with the patient regarding minimizing the use of steroids. I would recommend weaning her down to at least 20 mg of steroids over the next week or 2. Would also recommend using a steroid sparing agent such as mycophenolate or azathioprine. She appears to be gaining weight as well with s teroids which will reduce her rehab potential if she does get a lung transplant. Would recommend pulmonary rehabilitation as well. She has very significant anxiety component to her lung disease as well and would consider cognitive behavioral therapy for that. She does have a very elevated stop bang score as well and would likely benefit tremendously from a sleep study and likely CPAP. Additionally, the tracheomalacia would likely also respond well to positive airway pressure. Recommend oral diuretic therapy as well and checking her weights daily given the likelihood of secondary pulmonary occasional diastolic heart failure. I did discuss diet and exercise with her. She is very frustrated with the complexity of her disease and her chronic illness burden. She is set to see Dr. Kruse tomorrow morning which I think is very reasonable. History of Present Illness Attending Physician: Shalini Pratt MD History of Present Illness Attending: Dr. Chaney Mrs. 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 Schneider in April 2019. She has had ongoing shortness of breath and cough that has worsened over the last 3 to 4 months. She has had v arious courses of steroids as well as antibiotics which were most recently stopped at her visit with Dr. Kruse on 07/23/2019. She had been on OFEV and prednisone 40 mg daily. With limited to no effect. Biopsies in the past have not been adequate to give her diagnosis of alveolitis. CT scans have shown progression of disease. Patient is on supplemental oxygen at night and with exertion. While she has not had any leukocytosis, she has had a T-max of 100.0 Fahrenheit. She denies any night sweats or rigors. She did have some nausea and vomiting earlier this week. She feels that that is a result of chronic cough. She also states that she had some hypoxia earlier today with an SaO2 of 79% as measured by respiratory therapy. This corrected with 2 L of supplemental O2 via nasal cannula to an SaO2 of 94%. She has no pleuritic pain but she does have reproducible pain at the left tail of Terry and in the mid axillary region just below the 12th rib. Deep inspiration induces cough. Long periods of conversation also induced cough. She denies any cough syncope, hemoptysis, productive sputum. She has had no diarrhea. She has no history of thromboembolic disease. No prior history of tobacco abuse or secondhand smoke. No environmental exposures. No exposure on [place] or around [place]. No illicit drug use. No ethanol abuse. Patient has no history of positive blood cultures. All sputum cultures to date have been negative and represented only normal humaira. In 2018 she had mycoplasma IgG positive (3.48). This was also positive 07/23/2019 (2.88). Rheumatoid factor was mildly elevated in May 08 at 14 and currently is at 17. Procalcitonin is negative. IgE is within normal limits. There is no eosinophilia. CCP IgG is negative. YULY screening is negative. ANCA is negative. Myeloperoxidase antibody is negative. Anitra 1 antibody is negative. SCL-70 scleroderma antibody is also negative. Patient is negative for influenza A and influenza B. VATs with lung and lymph node biopsy was completed by Dr. Schneider 05/12/2019. The entire case was submitted to [facility] in [facility] for an expert opinion from Dr. Manny Murcia. His diagnosis was chronic interstitial pneumonia with overlap features. Disease consisting of usual interstitial pneumonia (UIP) combined with nonspecific interstitial pneumonia (NSIP). There was no evidence of malignancy. Imaging has included multiple chest x-rays and CTs of the chest. * CTA chest 02/14/2018: There is patchy groundglass change/nodularity present throughout both lungs. This is nonspecific and may represent a mild infectious/inflammatory pneumonitis versus a component of pulmonary edema. There are numerous mildly enlarged mediastinal lymph nodes, possibly on a reactive basis. * CT chest 04/24/2019:Coarse diffuse interstitial thickening and scattered groundglass densities within the lungs most pronounced within the lung bases. This is nonspecific but favors a chronic interstitial lung disease. Sarcoidosis could also have a similar appearance given the borderline enlarged mediastinal lymph nodes.Some of the groundglass densities have improved/resolved within the interval. Therefore, this may represent a resolving superimposed pneumonitis.A stable 4 mm nodule within the right upper lobe. * CTA 05/18/2019: Chronic interstitial lung disease with areas of mosaic attenuation redemonstrated suggestive of associated air trapping. Postoperativ e changes of the right upper lobe suggestive of interval wedge resection. There is a trace adjacent hydropneumothorax along the suture line. No drainable fluid collection. Mild mediastinal and hilar adenopathy redemonstrated with evidence of prior granulomatous disease. Echocardiogram 07/11/2019: Normal left ventricular size and systolic function. EF 60 to 65%. No regional wall motion abnormalities. Mild mitral regurgitation. Type I diastolic dysfunction pattern. Allergies Allergy/AdvReac Type Severity Reaction Status Date / Time Iodinated Contrast Media Allergy Severe Anaphylaxis Verified 07/28/19 23:00 Cipro Allergy Mild N.V./MOUTH Verified 02/14/18 13:16 SORES ciprofloxacin Allergy Mild N.V./MOUTH Verified 07/28/19 23:00 SORES Home Medications Home Medications Medication Instructions Recorded Confirmed Type acetaminophen [Tylenol Extra 1,000 mg PO Q6H PRN 02/14/18 07/28/19 History Strength] albuterol sulfate [Ventolin HFA] 2 puff INHALATION QID PRN 02/14/18 07/28/19 History budesonide-formoterol HFA 160 2 puffs INH BID #10.2 gm 04/28/19 07/28/19 Rx mcg-4.5 mcg/actuation aerosol inhaler naproxen sodium [Aleve] 220 mg PO BID PRN 05/08/19 07/28/19 History ropinirole 2 mg PO TID 05/12/19 07/28/19 History escitalopram oxalate [Lexapro] 20 mg PO QPM 05/18/19 07/28/19 History nintedanib 150 mg capsule 150 mg PO Q12H #60 cap 06/19/19 07/28/19 Rx Oxygen Home #1 ea 07/02/19 07/21/19 Rx amoxicillin 875 mg-potassium 1 tab PO BID #20 tab 07/21/19 07/28/19 Rx clavulanate 125 mg tablet benzonatate 100 mg capsule 100 mg PO TID PRN #90 cap 07/21/19 07/28/19 Rx codeine 10 mg-guaifenesin 100 mg/5 5 ml PO Q4H PRN #90 ml 07/21/19 07/28/19 Rx mL oral liquid Patient History Medical History Anxiety Arthritis Asthma uses PRN INH 2-3 x day COPD (chronic obstructive pulmonary disease) Coughing currently on steroid dosepak, abx Degenerative disc disease Depression GERD (gastroesophageal reflux disease) Interstitial lung disease Osteoarthritis Pulmonary nodule Restless leg syndrome SOB (shortness of breath) on exertion Surgical History History of ankle surgery Lt - hardware present History of appendectomy History of bladder repair surgery History of breast surgery History of carpal tunnel release of both wrists History of D&C History of esophagogastroduodenoscopy (EGD) History of lung biopsy Right Video Assisted Thoracoscopy with Lung and Lymph Node Biopsy Dr. 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 No rhonchi. No bronchospasm. Deep inspiration causes induced cough. HEART: Regular, rate controlled CHEST: Positive for reproducible pain at the left tail of Terry. Also positive at the mid axillary line at the 12th rib. ABDOMEN: Soft, NT, ND, BS Present EXTREMITIES: No LE edema, pedal pulses intact NEURO: A&OX3 Results & Data ([facility]) Vital Signs (Past 12 Hours) Vital Signs Temp Pulse Pulse Resp BP Pulse Ox 07/29/19 15:44 104 H 18 96 07/29/19 15:08 36.8 C 109 H 18 138/70 94 07/29/19 11:08 91 H 18 96 07/29/19 07:49 36.6 C 94 H 18 103/66 93 07/29/19 07:22 95 H 18 95 Laboratory Results 07/28/19 22:40 07/28/19 22:40 Diagnostic Findings XR chest 1V portable CLINICAL HISTORY: cough dyspnea COMPARISON STUDY: 07/21/2019 FINDINGS: Some progressive interstitial change of both hemithoraces. Slight increase in cardiac size. Electronically signed by: Manny Rhodes M.D. 07/29/2019 6:19 AM PG Care Time/CCT Total # of Minutes Spent Total Time Spent with Patient: Total time spent is greater than 50% in coordination of care (as documented) at patient's floor/unit and/or counseling patient: 60 minutes including discussion with Dr. Kruse, Dr. Chaney, chart review, and discussion with patient and her daughter. Coding Level of Care Code 59502 Inpt Consult Level 5 Diagnoses Nonspecific interstitial pneumonia J84.89 UIP (usual interstitial pneumonitis) J84.112 Diastolic dysfunction without heart failure I51.89 Pulmonary nodule R91.1 DVT prophylaxis Z29.9
[2019-07-29] MEDS ORDERED: FUROSEMIDE 40 MG in SYRINGE 0 ML IV ONE (20:00)
--- NOTE | 2019-07-29 21:21 | CT Scan Report ---
CT chest HighResolution wo con CLINICAL HISTORY: 64 years-old Female presenting with hx of NSIP with acute decomp. TECHNIQUE: Multidetector CT imaging of the chest was performed without the use of intravenous contras t. IV contrast: None. One or more dose lowering techniques were used consistent with the principles o f ALARA (as low as reasonably achievable), including automatic exposure control, mA or kV adjustment to individual patient size, and/or use of iterative reconstruction. COMPARISON: CTA chest from 05/18/2019. CT DOSE (mGy.cm): The estimated cumulative dose is 1806.54 mGy.cm. FINDINGS: Customer Records Division Supervisor topogram: Diffuse reticular opacities. Soft tissues: Normal thyroid and thoracic inlet. No axillary, supraclavicular, or mediastinal lymphad enopathy. Evaluation of the prabhjot limited without intravenous contrast. Normal aorta. Normal heart siz e. Coronary artery calcification. No pericardial or pleural effusion. Upper abdomen normal. Lungs and airways: No pneumothorax. Central airways patent. Pulmonary arteries mildly enlarged relati ve to adjacent bronchi. Diffuse mild smooth interlobular septal thickening. Suture margin noted in th e posterior segment of the right upper lobe and along the superior segment of the right lower lobe. D iffuse mosaic attenuation with abnormal dense groundglass opacities and evidence of air trapping. The re is also mild dependent subpleural reticular opacities. These persist to some degree on prone imagi ng. Traction bronchiectasis is evident. Musculoskeletal: Degenerative changes of the spine. IMPRESSION: Constellation of findings of a mosaic attenuation pattern with abnormal areas of groundglass opacity and interlobular septal thickening. Findings could suggest acute interstitial pneumonia, hypersensiti vity pneumonitis, atypical infection such as mycoplasma, and many other etiologies. ACT 112: Negative or not required by law. Electronically signed by: Omer Self M.D. 07/29/2019 9:20 PM
[2019-07-30] MEDS: ALBUT/IPRATROP 3MG/0.5MG NEB 3 ML VIAL NEB SCH ×3 (03:12→11:10)
[2019-07-30 06:33] LABS: Basophils # (auto) 0.02 K/uL (0-0.2); Basophils % (auto) 0.2 %; Eosinophils # (auto) 0.21 K/uL (0-0.5); Eosinophils % (auto) 2.3 %; Hematocrit (blood only) 38.6 % (37-47); Hemoglobin 13.2 g/dL (12.0-16.0); Immature Granulocytes # (auto) 0.03 K/uL (0.00-0.02); Immature Granulocytes % (auto) 0.3 %; Lymphocytes # (auto) 1.65 K/uL (1.2-3.4); Lymphocytes % (auto) 18.2 %; Mean Corpuscular Hemoglobin 31.9 pg (25-34); Mean Corpuscular Hgb Conc 34.2 g/dL (32-36); Mean Corpuscular Volume 93.2 fL (80-100); Mean Platelet Volume 9.5 fL (7.4-10.4); Monocytes # (auto) 1.11 K/uL (0.11-0.59); Monocytes % (auto) 12.3 %; Neutrophils # (auto) 6.04 K/uL (1.4-6.5); Neutrophils % (auto) 66.7 %; Platelet Count 180 K/uL (130-400); RDW Coefficient of Variation 13.5 % (11.5-14.5); RDW Standard Deviation 46.3 fL (36.4-46.3); Red Blood Count 4.14 M/uL (4.2-5.4); White Blood Count 9.06 K/uL (4.8-10.8)
[2019-07-30 07:07] LABS: BUN Creatinine Ratio 21.1 (10-20); Calcium 9.2 mg/dl (8.5-10.1); Creatinine Clr Calc Pharmacy 82.3 ml/min; Est GFR (African American) 103.6; Est GFR (Non-African American) 89.4; Potassium 3.5 mmol/L (3.5-5.1)
[2019-07-30] MEDS: FLUTICASONE/VILANTEROL 200/25MCG 14 PUFFS/INHALER INH SCH (07:47)
[2019-07-30] MEDS: ROPINIROLE HCL 1 MG TABLET PO SCH (07:48)
[2019-07-30] MEDS: predniSONE 20 MG TAB PO SCH (07:48)
[2019-07-30] MEDS: ACETAMINOPHEN 500 MG TAB PO PRN (07:52)
[2019-07-30] MEDS ORDERED: HEPARIN SOD 5,000 UNIT/0.5 ML VIAL SQ SCH (09:00)
[2019-07-30] MEDS ORDERED: SODIUM CHLORIDE 0.65% NA SOLN 45 ML (OCEAN) PRN (09:46)
[2019-07-30] MEDS ORDERED: POTASSIUM CHLORIDE 20 MEQ TABCR PO STA (09:57)
[2019-07-30] MEDS ORDERED: FUROSEMIDE 40 MG in SYRINGE 0 ML IV ONE (10:20)
--- NOTE | 2019-07-30 10:41 | Medical Student Progress Note ---
Date of Service July 30, 2019 Assessment & Plan (1) Chronic interstitial lung disease: Teeete is a 64-year-old female with a past medical history of chronic interstitial pneumonitis of unknown etiology who is scheduled for a lung transplant evaluation on 08/08/19 at [facility]. 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 Her current presentation is most likely a result of discontinuing the prednisone, combined with an underlying viral infection over the past week. Chronic Interstitial Lung Disease -Negative Influenza A and B -Procalcitonin undetectable. No leukocytosis. Patient afebrile. No consolidation on initial CXR. * Discontinued Cefepime and Vancomycin 07/29/19 -Resumed home dose of Prednisone 40 mg daily -Patient transitioned from nasal cannula to breathing on room air. SpO2 remains >90%. Continue to monitor routinely. -Attempt to ambulate in hallway prior to discharge -Pulmonology consulted * High-resolution chest CT showed ground glass opacities and interlobular septal thickening characteristic of hypersensitivity pneumonitis vs interstitial pneumonia vs atypical infections * Rheumatologic Panel obtained: RF 17, no eosinophils, Negative ANCA /YULY/anti-topoisomerase/Anti-Anitra 1/MPO antibody * LDH 317. Ordered secondary to elevated RF to investigate possibility of rheumatic lung disease. However, LDH of 317 essentially rules out this diagnosis * Recommended following up with pulmonology as an outpatient to begin tapering off prednisone and introducing steroid-sparing agents * Recommended beginning pulmonary therapy following lung transplant evaluation on 08/08/19 -Continue home inhalers - fluticasone/Nilanterol, Albuterol -Continue Benzonatate and Guaifenesin with codeine -Continue Acetaminophen 1000 mg Q6h PRN -Continue Ondansetron 4 mg IV Q6h PRN for nausea Hypervolemia -Furosemide 40 mg IV administered secondary to physical exam findings consistent with fluid overload. -Pulmonology recommends home dose of Furosemide PRN and daily weight checks -Evidence of Grade I diastolic dysfunction seen on Echocardiogram from 07/11/19, which may be a contributing factor Restless Leg Syndrome -continue home ropinirole Depression -Continue home dose of Escitalopram Hypomagnesemia -Magnesium 1.7 at time of admission. Repleted with 1 gram Magnesium IV Insomnia -Zolpidem 5 mg HS PRN prescribed Code Status: DNR/DNI DVT Prophylaxis: Heparin sodium 5,000 units SQ Q12H Disposition: Plan to discharge this afternoon Subjective Teetee Bradshaw is a 64-year-old female with a past medical history of chronic interstitial pneumonitis who is being followed by Pulmonology and has an upcoming lung transplant evaluation at [facility] on 08/08/19. Today, she states that she is breathing much easier compared to yesterday. She says that her oxygen was increased from 2 to 3 L/min last night after she became short of breath when walking to the bathroom, but she is breathing well at rest. She still endorses an occasional non-productive cough that occurs when she talks for too long or tries to ambulate. She also states that she has been feeling lightheaded and "foggy" lately and she continues to have a mild headache that is adequately controlled with Tylenol. She received a dose of Furosemide yesterday and she says that she has been feeling less chest pressure since then. After talking to Dr. Anderson from Pulmonology this morning, Teetee seems motivated to take steps toward strengthening her candidacy for a lung transplant following discharge. Review of Systems Constitutional: no fever, no body aches, no weakness, no anorexia and no insomnia Eyes: no diplopia and no problem reported Respiratory: as per Subjective / HPI Cardiovascular: as per Subjective / HPI Gastrointestinal: no abdominal pain, no bloating, no nausea, no vomiting and no change in stools Genitourinary: no problem reported Physical Exam Constitutional: WD/WN, vitals as above ENMT: external ear and nose normal, oropharynx normal Neck: normal visual inspection and trachea midline Respiratory: normal respiratory effort; does not use accessory muscles Auscultation: + crackles (Mild crackles at the bilateral lung base. Improved compared to yesterday) Cardiovascular: RRR, no murmur, no edema Gastrointestinal (Abdomen): normal bowel sounds, soft, nontender, no hepatosplenomegaly Skin: no rashes, warm and dry Psychiatric: A+Ox3, euthymic affect Results & Data ([facility]) Vital Signs (Past 12 Hours) Vital Signs Temp Pulse Resp BP BP Pulse Ox 07/30/19 07:26 95 H 18 93 07/30/19 07:23 36.7 C 95 H 20 127/78 94 07/30/19 03:14 100 H 24 98 03/10/20 23:27 36.7 C 114 H 30 H 112/68 94 07/29/19 23:10 79 16 95 Laboratory Results WBC count 9.06, Hgb 13.2 Sodium 141, Potassium 3.5, Calcium 9.2 Rheumatologic Panel: -RF 17, Negative CCP IgG -Negative YULY, ANCA, MPO antibody, anti-topoisomerase, anti-Anitra 1 LDH 319 NT-pro-BNP 169 Diagnostic Findings High-Resolution Chest CT: Ground glass opacities and interlobular septal thickening characteristic of hypersensitivity pneumonitis vs interstitial pneumonia vs atypical infection such as Mycoplasma or other atypical infections
--- NOTE | 2019-07-30 12:39 | Discharge Summary ---
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 She has an appointment at [facility] on 08/08/19 to be evaluated for a lung transplant. She follows with Dr. Kruse, last seen on 07/23/19. Patient was admitted to the hospital on 07/10/19 - 07/11/19 with complaint of cough/weakness and fatigue ans well as tremors and increased O2 use. She was treated with nebs and discharged home in stable condition. She has been seen in COPD clinic by Diana Murrieta on 07/15/19 and 07/21/19. She was started on Augmentin 875/125mg BID x 10 day course on 07/21/19 as well as Tessalon and guaifenesin with codeine due to complaint of productive cough, fatigue and SOB. Patient has been taking these medications with no improvement in symptoms. She was seen by Dr. Kruse in clinic on 07/23/19. Febrile at that time, tremulous again. She was instructed to hold her nintenabib (Ofev) and continue her antibiotics and cough medications. Per Dr. Kruse's note patient was to continue her Prednisone, however, she thought that this medication had been discontinued. Therefore, she has been off Prednisone since 07/23/19. She presents today with complaint of cough, fevers, body aches, weakness and fatigue for the last week. She "feels terrible". Her cough is occasionally productive, last fever was today. Also with nausea and occasional NB/NB emesis. She has been using her O2 continuously at 2L. Nebs 2-3 times daily at home as well as Symbicort with a spacer. No sick contacts. No recent travel. No exposure to Covid-19 ER Course: Tylenol, Albuterol, Cefepime, Vanc, NSS Principal Diagnosis nsip Discharge Exam Constitutional WD/WN, vitals as above Eyes PERRL, conjunctivae normal, anicteric sclerae ENMT external ear and nose normal, oropharynx normal Respiratory + cough (with deep inspiration) bibasilar crackles Cardiovascular RRR, no murmur, no edema Gastrointestinal (Abdomen) normal bowel sounds, soft, nontender, no hepatosplenomegaly Skin no rashes, warm and dry Psychiatric A+Ox3, euthymic affect Discharge Data Allergies Allergy/AdvReac Type Severity Reaction Status Date / Time Iodinated Contrast Media Allergy Severe Anaphylaxis Verified 07/31/19 11:52 Cipro Allergy Mild N.V./MOUTH Verified 02/14/18 13:16 SORES ciprofloxacin Allergy Mild N.V./MOUTH Verified 07/31/19 11:52 SORES Consultations 07/29/19 00:18 ED Decision to Admit Stat 07/29/19 01:40 Consult Pulmonology Routine Ordered Studies 07/29/19 19:02 CT chest HighResolution wo con Routine Hospital Course (1) Chronic interstitial lung disease: Mrs. 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 Schneider in April 2019. She has had ongoing shortness of breath and cough that has worsened over the last 3 to 4 months. She has had various courses of steroids as well as antibiotics which were most recently stopped at her visit with Dr. Kruse on 07/23/2019. She had been on OFEV and prednisone 40 mg daily. With limited to no effect. Biopsies in the past have not been adequate to give her diagnosis of alveolitis. CT scans have shown progression of disease. 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 Findings could suggest acute interstitial pneumonia, hypersensitivity pneumonitis, atypical infection such as mycoplasma, and many other etiologies. -Negative Influenza A and B -WBC count 10.05. Procalcitonin undetectable, patient afebrile -> unlikely to be related to bacterial pneumonia -> discontinue cefepime and vancomycin started in ER -blood cx NGTD -Continue home inhalers - fluticasone/Nilanterol, Albuterol -Continue Benzonatate and Guaifenesin with codeine -Continue Acetaminophen 1000 mg Q6h PRN -Continue Ondansetron 4 mg IV Q6h PRN for nausea -Resumed prior dose of prednisone 40 mg daily. Will cont for now on d/c. Per Pulm, recommend weaning her down to at least 20 mg of steroids over the next week or 2. Would also recommend using a steroid sparing agent such as mycophenolate or azathioprine -outpt f/u with Pulm 9AM 07/31/19. Will manage steroid taper at this appt Grade 1 diastolic dysfunction -Received 40 mg of IV furosemide. Pt to monitor weights daily, and given script for prn Lasix on d/c Restless Leg Syndrome -continue home ropinirole Depression/?Anxiety -Continue home dose of Escitalopram - has very significant anxiety component to her lung disease as well and would consider cognitive behavioral therapy for that as outpt Hypomagnesemia -Magnesium 1.7 at time of admission. Repleted with 1 gram Magnesium IV Insomnia/?BASIM -Zolpidem 5 mg HS PRN prescribed -very elevated stop bang score as well and would likely benefit tremendously from a sleep study and likely CPAP At time of d/c, pt had no other acute concerns or complaints. Total Time Total Time Spent Total Time Spent (In Minutes): 30 Discharge Plan Discharge Items Patient Disposition: Home - Self-Care Reason For Visit: SOB Discharge Diagnosis: Nonspecific interstitial pneumonia Activity: Per Instructions section Non-emergency contact: Primary Care Provider and Director Of Community Life Call non-emergency contact if: you have any medication questions, your symptoms worsen and your temperature is above 101.5 Follow-up/Referrals: Horacio Garay PA-C [Primary Care Provider] - 08/07/19 1:15 pm Diet: Heart Healthy and Low Sodium (2gm) Addtl Attending Provider Instructions: You were admitted with concerns of shortness of breath that was likely due to not taking your steroids. Please follow the below instructions on discharge: -You have an appt with Dr. Kruse 07/31/19 at 9 AM. He will determine future course of steroid taper. For now, you will continue on 40 mg (sent to [facility] in [place]). They will also work on helping make arrangements with a tertiary center for future management. -Follow up with your PCP within one week of discharge for normal hospital follow up -You will be given script for oral Lasix (sent to [facility] in [place]) to be taken when you notice that you have weight gain (from increased water retention). Please check your weights daily. Pending Studies at Discharge: No Stand-Alone Forms: My [facility], Smoking Cessation Medications and DC Order Prescriptions: New furosemide [Lasix] 40 mg tablet 40 mg PO DAILY PRN (Reason: weight gain) Qty: 30 RF: 0 prednisolone sodium phosphate 10 mg tablet,disintegrating 40 mg PO DAILY Qty: 7 RF: 0 Continued (DME) Oxygen Home Liters Per Minute See Rx Instructions .ROUTE .MEDSUPPLY Qty: 1 RF: 0 Symbicort 160-4.5 mcg/actuation HFA aerosol inhaler 2 puffs INH BID Qty: 10.2 RF: 2 Ofev 150 mg capsule 150 mg PO Q12H Qty: 60 RF: 2 benzonatate [Tessalon Perles] 100 mg capsule 100 mg PO TID PRN (Reason: cough) Qty: 90 RF: 1 codeine-guaifenesin [Guaifenesin AC] 10-100 mg/5 mL liquid 5 ml PO Q4H PRN (Reason: cold symptoms) Qty: 90 RF: 0 acetaminophen [Tylenol Extra Strength] 500 mg Tablet 1,000 mg PO Q6H PRN (Reason: Pain) RF: 0 albuterol sulfate [Ventolin HFA] 90 mcg/actuation Hfa Aerosol Inhaler 2 puff INHALATION QID PRN (Reason: Shortness Of Breath) RF: 0 escitalopram oxalate [Lexapro] 10 mg Tablet 20 mg PO QPM RF: 0 naproxen sodium [Aleve] 220 mg Tablet 220 mg PO BID PRN (Reason: Pain) RF: 0 ropinirole 2 mg tablet 2 mg PO TID RF: 0 Discontinued amoxicillin-pot clavulanate [Augmentin] 875-125 mg tablet 1 tab PO BID Qty: 20 RF: 0 Discharge Orders: Discharge Order (Routine); Ordered 07/30/19 Ordered By: Thomas Linn Admission Data Admit Date/Time: 07/29/19 00:50 Attending Provider: Shalini Pratt Admit Provider: Yara Mathis Primary Care Provider: Horacio Garay Other Providers: Alvarez Chaney ; Yara Mathis Other Interventions: Discharge Summary Assessment (RN) Last Done: 07/30/19 13:15 DC Date/Time DO NOT enter until pt leaves facility: 07/30/19 14:11 Supervising Physician Co-Signing Physician Notes Resident Physician Supervision Note: I independently interviewed and examined the patient and verified the jones history and physical, reviewed labs and image studies, discussed the case with the resident Dr. Linn and agree with the findings and care plan. Resident Activity Tracking Resident Involvement: Resident Care Provided Care Provided: Adult Hospital Medicine
--- NOTE | 2019-07-30 13:39 | Pulmonology Progress Note ---
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 No past history of cancer. We will continue with prednisone 40 mg daily for now and allow Dr. Kruse to taper and manage as an outpatient. Continue to work on tertiary evaluation for lung transplant versus other treatment. (2) UIP (usual interstitial pneumonitis): See above (3) Diastolic dysfunction without heart failure: Echocardiogram demonstrates a grade 1 diastolic dysfunction Patient appears to be fluid overloaded on chest x-ray as well as on exam Creatinine 0.82 Troponin normal Hemodynamically stable Good pulmonary response with administration of Lasix. Patient being discharged on PRN doses. (4) Pulmonary nodule: Stable 4 mm nodule within the right upper lobe Follow Fleischner criteria (5) DVT prophylaxis: No indication for bronchoscopy or other invasive procedures at this time Will order heparin 5000 units subcutaneously every 12 hours Thank you for including us in the care of the patient. Patient set up to see Dr. Kruse tomorrow morning at 9 AM. Okay to discharge home from a pulmonary perspective. Supervising Physician Co-Signing Physician Notes Patient seen and examined with Margarito baker PA-C. I agree with his assessment and plan aside for any additions/exceptions noted. Recommend weaning steroids. Diuretic therapy. Sleep study as an outpatient. Follow-up with Dr. Kurse. Please see my previous note for details. Subjective Attending: Dr. Chaney Patient seen and examined at bedside. She has no respiratory distress this morning. She received 2 doses of Lasix 40 mg IV and a considerable urine output. She feels much better after being diuresed. She has no cough or sputum production. She denies fever chills. She has no rigors. She had no sweats overnight. Her cough seems to be slightly improved. She has no new acute complaints other than increased stress as her insurance has been denied for lung evaluation at [facility]. I called the safety officer for the outpatient pulmonary group and she will work on other alternatives for evaluation. Patient is rel ieved to hear that there may be other options and is much as she was devastated that her appointment was not approved at [facility]. Review of Systems Review of Systems: All systems reviewed & are unremarkable except as noted in HPI & below Physical Exam Physical Exam: GENERAL : No acute distress EYES: No icterus, gaze conjugate NOSE: No evidence of epistaxis MOUTH: No lesions or candidiasis NECK: Supple LUNGS: Fine crackles at the bases. No bronchospasm. No rhonchi. HEART: Regular, rate controlled ABDOMEN: Soft, NT, ND, BS Present EXTREMITIES: No LE edema, pedal pulses intact NEURO: A&OX3 Results & Data ([facility]) Vital Signs (Past 12 Hours) Vital Signs Temp Pulse Pulse Resp BP BP Pulse Ox 07/30/19 13:15 36.7 C 113 H 104 H 18 127/78 112/68 95 07/30/19 11:10 113 H 18 95 07/30/19 07:26 95 H 18 93 07/30/19 07:23 36.7 C 95 H 20 127/78 94 07/30/19 03:14 100 H 24 98 Laboratory Results 07/30/19 06:12 07/30/19 06:[address] chest HighResolution wo con CLINICAL HISTORY: 64 years-old Female presenting with hx of NSIP with acute decomp. TECHNIQUE: Multidetector CT imaging of the chest was performed without the use of intravenous contrast. IV contrast: None. One or more dose lowering techniques were used consistent with the principles of ALARA (as low as reasonably achievable), including automatic exposure control, mA or kV adjustment to individual patient size, and/or use of iterative reconstruction. COMPARISON: CTA chest from 05/18/2019. CT DOSE (mGy.cm): The estimated cumulative dose is 1806.54 mGy.cm. FINDINGS: Math Instructor topogram: Diffuse reticular opacities. Soft tissues: Normal thyroid and thoracic inlet. No axillary, supraclavicular, or mediastinal lymphadenopathy. Evaluation of the prabhjot limited without intravenous contrast. Normal aorta. Normal heart size. Coronary artery calcification. No pericardial or pleural effusion. Upper abdomen normal. Lungs and airways: No pneumothorax. Central airways patent. Pulmonary arteries mildly enlarged relative to adjacent bronchi. Diffuse mild smooth interlobular septal thickening. Suture margin noted in the posterior segment of the right upper lobe and along the superior segment of the right lower lobe. Diffuse mosaic attenuation with abnormal dense groundglass opacities and evidence of air trapping. There is also mild dependent subpleural reticular opacities. These persist to some degree on prone imaging. Traction bronchiectasis is evident. Musculoskeletal: Degenerative changes of the spine. IMPRESSION: Constellation of findings of a mosaic attenuation pattern with abnormal areas of groundglass opacity and interlobular septal thickening. Findings could suggest acute interstitial pneumonia, hypersensitivity pneumonitis, atypical infection such as mycoplasma, and many other etiologies. Electronically signed by: Omer Self M.D. 07/29/2019 9:20 PM PG Care Time/CCT Total # of Minutes Spent Total Time Spent with Patient: Total time spent is greater than 50% in coordination of care (as documented) at patient's floor/unit and/or counseling patient: 30 minutes Coding Level of Care Code 23710 Subseq Hosp Care Lvl 3 Diagnoses Nonspecific interstitial pneumonia J84.89 UIP (usual interstitial pneumonitis) J84.112 Diastolic dysfunction without heart failure I51.89 Pulmonary nodule R91.1 DVT prophylaxis Z29.9
== END 2019-07-30 14:11 | disposition home or self-care (01) ==
LOC: ED 22:19 → 4W 22:19 → SUATTDRO 07-29 00:50 → 4W 07-29 01:18

== ENCOUNTER 2019-09-29 11:45 | Inpatient (IN) ==
[2019-09-29] MEDS ORDERED: ALBUT/IPRATROP 3MG/0.5MG NEB 3 ML VIAL NEB STA (12:43)
[2019-09-29] MEDS ORDERED: ONDANSETRON INJ 2 MG/ML 2 ML VIAL IV STA (12:43)
[2019-09-29] MEDS ORDERED: MoRPHine SULFATE 2 MG/ML CARP IV STA (12:43)
[2019-09-29] MEDS ORDERED: SODIUM CHLORIDE 0.9% 500 ML IV SCH ×2 (12:45→19:53)
[2019-09-29] MEDS ORDERED: ACETAMINOPHEN 1,000 MG/100 ML VIAL IV STA (12:45)
--- NOTE | 2019-09-29 12:51 | Emergency Department Note ---
Impression & Plan SOB (shortness of breath), SIRS (systemic inflammatory response syndrome), Leukocytosis, Weakness, Immunocompromised ED Provider Note NAME: ADONAY PINEDO AGE: 64 SEX: F : 1955 ARRIVES VIA: Ambulance INFORMANT: [Patient][ems. nursing] ED PROVIDER(S): [Margarito Bettencourt MD] CHIEF COMPLAINT: Shortness of breath HISTORY OF PRESENT ILLNESS: The patient is a 64-year-old female who presents to the ED with about 2.5 hours of dyspnea, shakiness and weakness. The patient states that yesterday, she had a headache that was an 8/10. The headache was diffuse, constant, nothing made things better or worse. Today, she again has the headache. The patient states that she felt weak and tired this morning but did not get short of breath until around 2.5 hours ago. Patient does present by EMS, on the way here, she was given IM epinephrine with may be some minimal improvement in her breathing. Of note, she typically uses a nebulizer 4 times a day, she has not use it today yet. There has been no fever. She has had an increased cough with some phlegm production for a few days. She has all over body aching. She feels bloated. She feels sluggish. No known coronavirus exposures, no vomiting or diarrhea. The patient states that she recently switched her CellCept to twice a day. Just for the last 2 days, her Lasix has been used daily. Her Lasix use to be every other day. The patient did have a shaking spell today as well, she states that this started with the shortness of breath. She still feels shaky. She felt shaky like this once prior when her potassium was low. REVIEW OF SYSTEMS: See HPI for pertinent positives and negatives. A total of ten systems were reviewed and were otherwise negative. PMHx/PSHx: See Below SOCIAL HISTORY: See Below. PHYSICAL EXAM: GENERAL: Patient is in mild distress, seems anxious. HEENT: No acute trauma, normocephalic atraumatic, mucous membranes moist, no nasal congestion, no scleral icterus. NECK: No stridor, no adenopathy, no meningismus, trachea is midline. LUNGS: Scattered crackles bilaterally, breath sounds diminished, no respiratory distress, no wheezing. HEART: Without murmurs gallops or rubs, mildly tachycardic with a regular rhythm. ABDOMEN: Soft, nontender, bowel sounds positive, no hernias, no peritonitis. EXTREMITIES: No cyanosis or edema, full range of motion of all the joints without pain or difficulty, no signs for acute trauma. NEUROLOGIC: Oriented x 3, no acute motor or sensory deficits, no focal weakness. SKIN: No rash, no jaundice, no diaphoresis. DIFFERENTIAL DIAGNOSIS: Infection, dehydration, pulmonary fibrosis flare, medication reaction, metabolic abnormality, hypo/hyperglycemia, electrolyte disturbance, anemia, hypoxia, cardiac sources, intracerebral event, toxicologic, neurologic, as well as other pathologies. EMERGENCY DEPARTMENT COURSE/PROCEDURES: ECG: Indication was shortness of breath. The EKG shows a sinus tachycardia with a rate of 109. The QTc is 474. There is no ST elevation, no PVCs. Continuous Cardiac Monitoring: An order was placed for continuous cardiac monitoring. The monitor shows a rate of 95 with normal sinus rhythm. MEDICAL DECISION MAKING: There is a moderate leukocytosis at 15,000, this could be consistent with infe ction. There is no concerning anemia. There is a normal platelet count. Renal panel testing shows a somewhat low potassium, there was no renal failure. Lactic acid level was elevated at 3.1, this could be consistent with infection and/or dehydration. There was no evidence for liver enzyme elevation. Urinalysis shows contamination versus infection, urine culture is pending. Chest x-ray did not show any acute change. There was evidence for pulmonary fibrosis. There was no obvious infiltrate or pneumothorax. Chest CT did not show any obvious pneumonia, changes of pulmonary fibrosis were seen. The patient presents with weakness, tachycardia, chills. She does have a leukocytosis and does meet criteria for potential sepsis. At this point, no infectious source has been truly identified. Patient received IV cefepime as antibiotic coverage. Patient was given a DuoNeb. She was given IV Tylenol, IV morphine, IV Zofran and IV potassium. She received a 500 cc saline bolus. The patient is immunocompromised. She presents with chills, weakness, she has a leukocytosis. She has an elevated lactic acid. She does meet criteria for potential sepsis. I do think a hospital stay is warranted. I spoke to the patient, I talked with the disease case manager. The on-call hospitalist was consulted. Further work-up and care is required inpatient. Past Med/Surg History Medical History Anxiety Arthritis Asthma uses PRN INH 2-3 x day COPD (chronic obstructive pulmonary disease) Coughing currently on steroid dosepak, abx Degenerative disc disease Depression GERD (gastroesophageal reflux disease) Interstitial lung disease Osteoarthritis Pulmonary nodule Restless leg syndrome SOB (shortness of breath) on exertion Surgical History History of ankle surgery Lt - hardware present History of appendectomy History of bladder repair surgery History of breast surgery History of carpal tunnel release of both wrists History of D&C History of esophagogastroduodenoscopy (EGD) History of lung biopsy Right Video Assisted Thoracoscopy with Lung and Lymph Node Biopsy Dr. 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 Other Information That Helps Us Care for You: No Feels Safe at Home: Yes Safety Concerns: Feels Safe At This Time Smoking Status: Never smoker Second Hand Exposure: No ; Hx Alcohol Use: No Hx Substance Use: No Allergies Allergies Allergy/AdvReac Type Severity Reaction Status Date / Time Iodinated Contrast Media Allergy Severe Anaphylaxis Verified 09/29/19 14:23 Cipro Allergy Mild N.V./MOUTH Verified 02/14/18 13:16 SORES ciprofloxacin Allergy Mild N.V./MOUTH Verified 09/29/19 14:23 SORES Home Meds Home Medications Medication Instructions Recorded Confirmed acetaminophen [Tylenol Extra 1,000 mg PO Q6H PRN 02/14/18 09/29/19 Strength] albuterol sulfate [Ventolin HFA] 2 puff INHALATION QID PRN 02/14/18 09/29/19 ropinirole 2 mg PO TID 05/12/19 09/29/19 escitalopram oxalate [Lexapro] 20 mg PO QPM 05/18/19 09/29/19 prednisone 5 mg PO DAILY 09/29/19 09/29/19 Previous Rx's Medication Instructions Recorded budesonide-formoterol HFA 160 2 puffs INH BID #10.2 gm 04/28/19 mcg-4.5 mcg/actuation aerosol inhaler Oxygen Home #1 ea 07/02/19 benzonatate 100 mg capsule 100 mg PO TID PRN #90 cap 07/21/19 codeine 10 mg-guaifenesin 100 mg/5 5 ml PO Q4H PRN #90 ml 07/21/19 mL oral liquid CPAP Machine #1 ea 08/01/19 potassium chloride 10 mEq 10 meq PO DAILY #30 cap 08/13/19 capsule,extended release furosemide 40 mg tablet 40 mg PO DAILY PRN #30 tab 09/16/19 mycophenolate mofetil 500 mg tablet 500 mg PO BID #60 tab 09/16/19 Results & Data (ED) Vital Signs Vital Signs - 24 hr 09/29/19 12:02 09/29/19 12:27 09/29/19 12:48 Temperature 37.2 C Temperature Source Oral Pulse Rate 112 H 106 H Pulse Rate [Finger] Pulse Rate from SpO2 Sensor 107 H Respiratory Rate 28 H 19 Respiratory Effort / Characteristics Spontaneous Blood Pressure 155/79 H 151/95 H Blood Pressure [Right Arm] Blood Pressure Mean 104 116 Blood Pressure Mean [Right Arm] Blood Pressure Position Lying Blood Pressure Position [Right Arm] Pulse Oximetry 99 98 98 Oxygen Delivery Method Non-rebreather Non-rebreather Non-rebreather Oxygen Flow Rate 12 15 15 Sepsis Recent Fever Within 48 Hours No Sepsis New/Unexplained Change in Mental Status No Sepsis Action Taken by Nursing No Action Required 09/29/19 12:58 09/29/19 13:00 09/29/19 13:07 Temperature Temperature Source Pulse Rate 110 H Pulse Rate [Finger] 111 H Pulse Rate from SpO2 Sensor 109 H Respiratory Rate 25 H 20 Respiratory Effort / Characteristics Spontaneous Short of Breath Blood Pressure 131/80 Blood Pressure [Right Arm] Blood Pressure Mean 110 Blood Pressure Mean [Right Arm] Blood Pressure Position Blood Pressure Position [Right Arm] Pulse Oximetry 97 97 95 Oxygen Delivery Method Nasal Cannula Nasal Cannula Nasal Cannula Oxygen Flow Rate 4 4 4 Sepsis Recent Fever Within 48 Hours Sepsis New/Unexplained Change in Mental Status Sepsis Action Taken by Nursing 09/29/19 13:30 09/29/19 14:00 09/29/19 14:30 Temperature Temperature Source Pulse Rate 121 H 117 H 117 H Pulse Rate [Finger] Pulse Rate from SpO2 Sensor 122 H 117 H 117 H Respiratory Rate 25 H 29 H 26 H Respiratory Effort / Characteristics Blood Pressure 113/71 129/83 119/76 Blood Pressure [Right Arm] Blood Pressure Mean 81 95 85 Blood Pressure Mean [Right Arm] Blood Pressure Position Blood Pressure Position [Right Arm] Pulse Oximetry 97 97 97 Oxygen Delivery Method Nasal Cannula Nasal Cannula Nasal Cannula Oxygen Flow Rate 4 4 4 Sepsis Recent Fever Within 48 Hours Sepsis New/Unexplained Change in Mental Status Sepsis Action Taken by Nursing 09/29/19 15:00 09/29/19 15:46 09/29/19 16:00 Temperature Temperature Source Pulse Rate 114 H 112 H Pulse Rate [Finger] 104 H Pulse Rate from SpO2 Sensor 114 H 119 H 112 H Respiratory Rate 20 34 H 22 Respiratory Effort / Characteristics Spontaneous Blood Pressure 136/92 144/76 H Blood Pressure [Right Arm] 144/76 H Blood Pressure Mean 104 96 Blood Pressure Mean [Right Arm] 98 Blood Pressure Position Blood Pressure Position [Right Arm] Lying Pulse Oximetry 97 97 97 Oxygen Delivery Method Nasal Cannula Oxygen Flow Rate 4 Sepsis Recent Fever Within 48 Hours Sepsis New/Unexplained Change in Mental Status Sepsis Action Taken by Alf Medications Current Medication List: was personally reviewed by me Laboratory Data Attestation: I reviewed the patient's lab results. Result diagrams: 09/29/19 12:10 09/29/19 13:39 Lab Results 09/29/19 09/29/19 09/29/19 Range/Units 12:10 12:10 13:39 WBC 15.61 H (4.8-10.8) K/uL RBC 4.89 (4.2-5.4) M/uL Hgb 16.2 H (12.0-16.0) g/dL Hct 46.6 (37-47) % MCV 95.3 (80-100) fL MCH 33.1 (25-34) pg MCHC 34.8 (32-36) g/dL RDW Std Deviation 50.5 H (36.4-46.3) fL RDW Coeff of Bryce 14.3 (11.5-14.5) % Plt Count 211 (130-400) K/uL MPV 10.2 (7.4-10.4) fL Immature Gran % (Auto) 0.8 % Neut % (Auto) 64.1 % Lymph % (Auto) 27.2 % [place] % (Auto) 6.1 % Eos % (Auto) 1.5 % Baso % (Auto) 0.3 % Immature Gran # (Auto) 0.13 H (0.00-0.02) K/uL Neut # (Auto) 10.01 H (1.4-6.5) K/uL Lymph # (Auto) 4.24 H (1.2-3.4) K/uL [place] # (Auto) 0.96 H (0.11-0.59) K/uL Eos # (Auto) 0.23 (0-0.5) K/uL Baso # (Auto) 0.04 (0-0.2) K/uL Sodium 139 (136-145) mmol/L Potassium (3.5-5.1) mmol/L Chloride 104 (98-107) mmol/L Carbon Dioxide 26 (21-32) mmol/L Anion Gap 9.0 (3-11) BUN 15 (7-18) mg/dl Creatinine 0.99 (0.6-1.2) mg/dl Est Cr Clr Drug Dosing 63.8 ml/min Est GFR ( Amer) 69.3 Est GFR (Non-Af Amer) 59.8 BUN/Creatinine Ratio 15.5 (10-20) Glucose 93 (70-99) mg/dl Lactate 3.1 H* (0.4-2.0) mmol/L Calcium 8.8 (8.5-10.1) mg/dl Magnesium (1.8-2.4) mg/dl Total Bilirubin 0.6 (0.2-1) mg/dl AST (15-37) U/L ALT 30 (12-78) U/L Alkaline Phosphatase 58 (45-117) U/L Troponin I < 0.015 (0-0.045) ng/ml Total Protein 7.6 (6.4-8.2) gm/dl Albumin 3.7 (3.4-5.0) gm/dl Globulin 3.9 (2.5-4.0) gm/dl Albumin/Globulin Ratio 1.0 (0.9-2) TSH 1.520 (0.300-4.500) uIu/ml Urine Color Urine Appearance (Clear) Urine pH (4.5-7.5) Ur Specific [place] (1.000-1.030) Urine Protein (Negative) Urine Glucose (UA) (Negative) Urine Ketones (Negative) Urine Blood (Negative) Urine Nitrite (Negative) Urine Bilirubin (Negative) Urine Urobilinogen (Negative) Ur Leukocyte Esterase (Negative) Urine WBC (Auto) (0-5) /hpf Urine RBC (Auto) (0-4) /hpf U Hyaline Cast (Auto) (0-5) /lpf U Epithel Cells (Auto) (0-5) /lpf Urine Bacteria (Auto) (Negative) 09/29/19 09/29/19 Range/Units 13:39 15:45 WBC (4.8-10.8) K/uL RBC (4.2-5.4) M/uL Hgb (12.0-16.0) g/dL Hct (37-47) % MCV (80-100) fL MCH (25-34) pg MCHC (32-36) g/dL RDW Std Deviation (36.4-46.3) fL RDW Coeff of Byrce (11.5-14.5) % Plt Count (130-400) K/uL MPV (7.4-10.4) fL Immature Gran % (Auto) % Neut % (Auto) % Lymph % (Auto) % [place] % (Auto) % Eos % (Auto) % Baso % (Auto) % Immature Gran # (Auto) (0.00-0.02) K/uL Neut # (Auto) (1.4-6.5) K/uL Lymph # (Auto) (1.2-3.4) K/uL [place] # (Auto) (0.11-0.59) K/uL Eos # (Auto) (0-0.5) K/uL Baso # (Auto) (0-0.2) K/uL Sodium (136-145) mmol/L Potassium 3.4 L (3.5-5.1) mmol/L Chloride (98-107) mmol/L Carbon Dioxide (21-32) mmol/L Anion Gap (3-11) BUN (7-18) mg/dl Creatinine (0.6-1.2) mg/dl Est Cr Clr Drug Dosing ml/min Est GFR ( Amer) Est GFR (Non-Af Amer) BUN/Creatinine Ratio (10-20) Glucose (70-99) mg/dl Lactate (0.4-2.0) mmol/L Calcium (8.5-10.1) mg/dl Magnesium 2.1 (1.8-2.4) mg/dl Total Bilirubin (0.2-1) mg/dl AST 10 L (15-37) U/L ALT (12-78) U/L Alkaline Phosphatase (45-117) U/L Troponin I (0-0.045) ng/ml Total Protein (6.4-8.2) gm/dl Albumin (3.4-5.0) gm/dl Globulin (2.5-4.0) gm/dl Albumin/Globulin Ratio (0.9-2) TSH (0.300-4.500) uIu/ml Urine Color Yellow Urine Appearance Cloudy A (Clear) Urine pH 5.0 (4.5-7.5) Ur Specific [place] 1.027 (1.000-1.030) Urine Protein Negative (Negative) Urine Glucose (UA) Negative (Negative) Urine Ketones Negative (Negative) Urine Blood Negative (Negative) Urine Nitrite Negative (Negative) Urine Bilirubin Negative (Negative) Urine Urobilinogen Negative (Negative) Ur Leukocyte Esterase 1+ H (Negative) Urine WBC (Auto) >30 H (0-5) /hpf Urine RBC (Auto) 0-4 (0-4) /hpf U Hyaline Cast (Auto) 1-5 (0-5) /lpf U Epithel Cells (Auto) >30 H (0-5) /lpf Urine Bacteria (Auto) Negative (Negative) Administered Medications Discontinued Medications Albuterol (Duoneb) 3 ml NEB NOW STA Stop: 09/29/19 12:44 Last Admin: 09/29/19 13:05 Dose: 3 ml Documented by: [id number] Sodium Chloride (Nss) 500 mls @ 999 mls/hr IV .Q31M RILEY Stop: 09/29/19 13:15 Last Infusion: 09/29/19 13:38 Dose: 0 mls/hr Documented by: [id number] Admin: 09/29/19 12:57 Dose: 999 mls/hr Documented by: [id number] Acetaminophen (Ofirmev) 1,000 mg in 100 mls @ 400 mls/hr IV NOW STA Stop: 09/29/19 12:59 Last Infusion: 09/29/19 13:18 Dose: 0 mls/hr Documented by: [id number] Admin: 09/29/19 12:57 Dose: 400 mls/hr Documented by: [id number] Cefepime HCl (Maxipime) 2,000 mg in 20 mls @ 5 mls/min IV NOW STA; Protocol Stop: 09/29/19 13:21 Last Admin: 09/29/19 14:03 Dose: 5 mls/min Documented by: [id number] Potassium Chloride (K Shawn / Wtr) 10 meq in 100 mls @ 100 mls/hr IV ONE ONE Stop: 09/29/19 15:28 Last Infusion: 09/29/19 15:53 Dose: 0 mls/hr Documented by: [id number] Admin: 09/29/19 14:53 Dose: 100 mls/hr Documented by: [id number] Morphine Sulfate (Morphine Sulfate) 2 mg IV NOW STA Stop: 09/29/19 12:44 Last Admin: 09/29/19 12:57 Dose: 2 mg Documented by: [id number] Ondansetron HCl (Zofran) 4 mg IV NOW STA Stop: 09/29/19 12:44 Last Admin: 09/29/19 12:56 Dose: 4 mg Documented by: [id number] Imaging Data Radiologist's Impression: SINGLE VIEW CHEST CLINICAL HISTORY: Generalized weakness. FINDINGS: An AP, portable, upright chest radiograph is compared to study dated 07/28/2019 and correlated with chest CT dated 07/29/2019. The examination is degraded by portable technique and patient rotation. The heart is top normal for projection. The pulmonary vasculature is noncongested. Chronic interstitial thickening and subpleural reticulation is similar to prior studies. There is no clear evidence of superimposed airspace consolidation or large pleural effusion. No pneumothorax is seen. The skeletal structures are osteopenic. The bony thorax is grossly intact. Calcific tendinopathy is noted in the left shoulder. IMPRESSION: 1. No acute cardiopulmonary abnormality is identified. 2. Chronic interstitial changes are similar to prior studies. 3. There is no evidence of superimposed airspace consolidation or pleural effusion. CT chest wo con CT DOSE: 553.15 mGy.cm CLINICAL HISTORY: 64 years-old Female with dye allergy, poss pneumonia, pulm fibrosis hist. Acute cough with shortness of breath TECHNIQUE: Multiaxial CT images of the chest were performed without contrast. A dose lowering technique was utilized adhering to the principles of ALARA. COMPARISON: CTA of the chest 05/18/2019, chest CT 07/29/2019 FINDINGS: Unremarkable thyroid. Prominent paratracheal and subcarinal lymph nodes measure up to 7 mm, stable from comparison and likely reactive. Heart is upper limits of normal in size. Moderate coronary artery calcifications. No pericardial effusion. No thoracic aortic aneurysm. No pneumothorax or pleural effusion. Postoperative changes of the right upper lobe and superior segment right lower lobe. Subpleural reticulation with intermixed groundglass densities and mild intralobular septal thickening is noted along with areas of mosaic attenuation. There is mildly improved aeration of the lungs from the 07/29/2019 exam. No suspicious pulmonary nodules or masses. Central airways appear patent. Tiny hiatal hernia. Mild wall thickening of the distal esophagus. Mild hepatic steatosis is suggested. Soft tissues are unremarkable. Degenerative changes of the shoulders and spine. Left shoulder rotator cuff calcific tendinosis. No suspicious osseous lesions identified. IMPRESSION: 1. No acute intrathoracic abnormality. 2. Subpleural reticulation with intermixed groundglass opacities and mild intralobular septal thickening with mosaic attenuation is redemonstrated suggestive of NSIP pattern of interstitial lung disease with mild air trapping. No significant honeycombing or bronchiectasis. There is mildly improved aeration of the lungs from comparison study. 3. Mildly prominent lymph nodes of the mediastinum are unchanged and likely reactive. 4. Small hiatal hernia. 5. Hepatic steatosis. Blood Pressure Blood Pressure Findings: Elevated blood pressure Blood Pressure Disposition: further management by hospitalist Discharge Plan Visit Data *Final* Discharge Date/Time: 09/29/19 18:31 Chief Complaint: Shortness of Breath/Dyspnea ED Provider: Margarito Bettencourt Discharge Problem: SOB (shortness of breath), SIRS (systemic inflammatory response syndrome), Leukocytosis, Weakness, Immunocompromised Patient Disposition: Admitted As Inpatient Condition: Fair Discharge Instructions Interventions: ED Discharge Assessment Last Done: 09/29/19 18:31 Discharge Problem: Leukocytosis Qualifiers: Leukocytosis type: unspecified Qualified Code(s): D72.829 - Elevated white blood cell count, unspecified
[2019-09-29 13:13] LABS: Basophils # (auto) 0.04 K/uL (0-0.2); Basophils % (auto) 0.3 %; Eosinophils # (auto) 0.23 K/uL (0-0.5); Eosinophils % (auto) 1.5 %; Hematocrit (blood only) 46.6 % (37-47); Hemoglobin 16.2 g/dL (12.0-16.0); Immature Granulocytes # (auto) 0.13 K/uL (0.00-0.02); Immature Granulocytes % (auto) 0.8 %; Lymphocytes # (auto) 4.24 K/uL (1.2-3.4); Lymphocytes % (auto) 27.2 %; Mean Corpuscular Hemoglobin 33.1 pg (25-34); Mean Corpuscular Hgb Conc 34.8 g/dL (32-36); Mean Corpuscular Volume 95.3 fL (80-100); Mean Platelet Volume 10.2 fL (7.4-10.4); Monocytes # (auto) 0.96 K/uL (0.11-0.59); Monocytes % (auto) 6.1 %; Neutrophils # (auto) 10.01 K/uL (1.4-6.5); Neutrophils % (auto) 64.1 %; Platelet Count 211 K/uL (130-400); RDW Coefficient of Variation 14.3 % (11.5-14.5); RDW Standard Deviation 50.5 fL (36.4-46.3); Red Blood Count 4.89 M/uL (4.2-5.4); White Blood Count 15.61 K/uL (4.8-10.8)
--- NOTE | 2019-09-29 13:13 | XRay Report ---
SINGLE VIEW CHEST CLINICAL HISTORY: Generalized weakness. FINDINGS: An AP, portable, upright chest radiograph is compared to study dated 07/28/2019 and correlate d with chest CT dated 07/29/2019. The examination is degraded by portable technique and patient rotati on. The heart is top normal for projection. The pulmonary vasculature is noncongested. Chronic inte rstitial thickening and subpleural reticulation is similar to prior studies. There is no clear eviden ce of superimposed airspace consolidation or large pleural effusion. No pneumothorax is seen. The ske letal structures are osteopenic. The bony thorax is grossly intact. Calcific tendinopathy is noted in the left shoulder. IMPRESSION: 1. No acute cardiopulmonary abnormality is identified. 2. Chronic interstitial changes are similar to prior studies. 3. There is no evidence of superimposed airspace consolidation or pleural effusion. ACT 112: Negative or not required by law. Electronically signed by: Margarito Farnsworth M.D. 09/29/2019 1:11 PM
[2019-09-29] MEDS ORDERED: CEFEPIME 2,000 MG/20 ML VIAL IV STA (13:18)
[2019-09-29 13:22] LABS: Alanine Aminotransferase 30 U/L (12-78); Albumin Level 3.7 gm/dl (3.4-5.0); BUN Creatinine Ratio 15.5 (10-20); Blood Urea Nitrogen 15 mg/dl (7-18); Calcium 8.8 mg/dl (8.5-10.1); Carbon Dioxide 26 mmol/L (21-32); Chloride 104 mmol/L (98-107); Creatinine Clr Calc Pharmacy 63.8 ml/min; Est GFR (African American) 69.3; Est GFR (Non-African American) 59.8; Glucose 93 mg/dl (70-99); Sodium 139 mmol/L (136-145)
[2019-09-29 13:31] LABS: Alkaline Phosphatase 58 U/L (45-117); Bilirubin,Total 0.6 mg/dl (0.2-1); Globulin 3.9 gm/dl (2.5-4.0); Total Protein 7.6 gm/dl (6.4-8.2); Troponin I < 0.015 ng/ml (0-0.045)
[2019-09-29 14:03] LABS: Potassium 3.4 mmol/L (3.5-5.1)
[2019-09-29 14:08] LABS: Magnesium 2.1 mg/dl (1.8-2.4)
[2019-09-29] MEDS ORDERED: POTASSIUM CHLORIDE / WTR 10 MEQ/100 ML PLCT IV ONE (14:29)
--- NOTE | 2019-09-29 15:38 | CT Scan Report ---
CT chest wo con CT DOSE: 553.15 mGy.cm CLINICAL HISTORY: 64 years-old Female with dye allergy, poss pneumonia, pulm fibrosis hist. Acute co ugh with shortness of breath TECHNIQUE: Multiaxial CT images of the chest were performed without contrast. A dose lowering techni que was utilized adhering to the principles of ALARA. COMPARISON: CTA of the chest 05/18/2019, chest CT 07/29/2019 FINDINGS: Unremarkable thyroid. Prominent paratracheal and subcarinal lymph nodes measure up to 7 mm, stable fr om comparison and likely reactive. Heart is upper limits of normal in size. Moderate coronary artery calcifications. No pericardial effusion. No thoracic aortic aneurysm. No pneumothorax or pleural effu gregor. Postoperative changes of the right upper lobe and superior segment right lower lobe. Subpleural reticulation with intermixed groundglass densities and mild intralobular septal thickening is noted along with areas of mosaic attenuation. There is mildly improved aeration of the lungs from the 2019 exam. No suspicious pulmonary nodules or masses. Central airways appear patent. Tiny hiatal hernia. Mild wall thickening of the distal esophagus. Mild hepatic steatosis is suggested . Soft tissues are unremarkable. Degenerative changes of the shoulders and spine. Left shoulder rotat or cuff calcific tendinosis. No suspicious osseous lesions identified. IMPRESSION: 1. No acute intrathoracic abnormality. 2. Subpleural reticulation with intermixed groundglass opacities and mild intralobular septal thicken ing with mosaic attenuation is redemonstrated suggestive of NSIP pattern of interstitial lung disease with mild air trapping. No significant honeycombing or bronchiectasis. There is mildly improved aera tion of the lungs from comparison study. 3. Mildly prominent lymph nodes of the mediastinum are unchanged and likely reactive. 4. Small hiatal hernia. 5. Hepatic steatosis. ACT 112: Negative or not required by law. Electronically signed by: Magen Thurston M.D. 09/29/2019 3:37 PM
[2019-09-29 16:00] LABS: Appearance Urine Cloudy (Clear); Bacteria Urine Automated Negative (Negative); Bilirubin Urine Negative (Negative); Blood Urine Negative (Negative); Color Urine Yellow; Epithelial Cell Urine Auto >30 /lpf (0-5); Glucose Urine UA Negative (Negative); Ketones Urine Negative (Negative); Leukocyte Esterase Urine 1+ (Negative); Nitrite Urine Negative (Negative); Protein Urine Negative (Negative); RBC Urine Automated 0-4 /hpf (0-4); Specific Gravity Urine 1.027 (1.000-1.030); Urobilinogen Urine Negative (Negative); WBC Urine Automated >30 /hpf (0-5)
--- NOTE | 2019-09-29 17:06 | History & Physical Report ---
Date of Service September 29, 2019 Assessment & Plan (1) Sepsis: Admit med tele Leukocytosis 15.6 - does take chronic steroids but does not have chronically elevated wbcs as they are now. Lactic acid was 3.1. Patient is tachycardic but no fever. Unclear source - urine culture, blood cultures pending. Will continue cefepime given patient's immunocompromised state Will check COVID as patient is immunocompromised though she is lower suspicion for such as she has had no sick contacts, travel, or fevers. 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 No significant honeycombing or bronchiectasis. There is mildly improved aeration of the lungs from comparison study. (3) Chest pain: Non radiating, has been fairly persistent over the last few weeks. She is under the impression that it stems from "water weight" and bloating around her abdomen Trop was negative initially, no concerning findings on EKG concerning for ischemia Will trend troponin, monitor on telemetry Could consider dobutamine stress. (4) Tracheobronchomalacia: (5) BASIM (obstructive sleep apnea): Cpap, may use own if someone brings it in for her (6) Restless leg syndrome: Continue ropinirole (7) GERD (gastroesophageal reflux disease): prn famotidine (8) Fatty liver: As seen on CT - follow up outpatient (9) Hypokalemia: Potassium 3.4 (10) DVT prophylaxis: enoxaparin, SCDs History of Present Illness Ms. Bradshaw presents for feeling sob and weak. She has had ongoing issues over the past few weeks including headaches that are across the front of her forehead and neck pain down the sides of her neck. She has ongoing chest tightness/pain that she attributes to water weight in her abdomen. She also reports some vision cloudiness with occasional floaters going through her vision. She is lightheadedness at times. She does not have photophobia but her eyes feel fatigued enough that she hasn't been reading. She has a chronic cough and it is a bit worse with some white mucous production. 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 Primary Care Provider: Horacio Garay PA-C Allergies Allergy/AdvReac Type Severity Reaction Status Date / Time Iodinated Contrast Media Allergy Severe Anaphylaxis Verified 09/29/19 14:23 Cipro Allergy Mild N.V./MOUTH Verified 02/14/18 13:16 SORES ciprofloxacin Allergy Mild N.V./MOUTH Verified 09/29/19 14:23 SORES Home Medications Home Medications Medication Instructions Recorded Confirmed Type acetaminophen [Tylenol Extra 1,000 mg PO Q6H PRN 02/14/18 09/29/19 History Strength] albuterol sulfate [Ventolin HFA] 2 puff INHALATION QID PRN 02/14/18 09/29/19 History budesonide-formoterol HFA 160 2 puffs INH BID #10.2 gm 04/28/19 09/29/19 Rx mcg-4.5 mcg/actuation aerosol inhaler ropinirole 2 mg PO TID 05/12/19 09/29/19 History escitalopram oxalate [Lexapro] 20 mg PO QPM 05/18/19 09/29/19 History Oxygen Home #1 ea 07/02/19 08/04/19 Rx benzonatate 100 mg capsule 100 mg PO TID PRN #90 cap 07/21/19 09/29/19 Rx codeine 10 mg-guaifenesin 100 mg/5 5 ml PO Q4H PRN #90 ml 07/21/19 09/29/19 Rx mL oral liquid CPAP Machine #1 ea 08/01/19 08/01/19 Rx potassium chloride 10 mEq 10 meq PO DAILY #30 cap 08/13/19 09/29/19 Rx capsule,extended release furosemide 40 mg tablet 40 mg PO DAILY PRN #30 tab 09/16/19 09/29/19 Rx mycophenolate mofetil 500 mg tablet 500 mg PO BID #60 tab 09/16/19 09/29/19 Rx prednisone 5 mg PO DAILY 09/29/19 09/29/19 History Past Med/Surg History Medical History Anxiety Arthritis Asthma uses PRN INH 2-3 x day COPD (chronic obstructive pulmonary disease) Coughing currently on steroid dosepak, abx Degenerative disc disease Depression GERD (gastroesophageal reflux disease) Interstitial lung disease Osteoarthritis Pulmonary nodule Restless leg syndrome SOB (shortness of breath) on exertion Surgical History History of ankle surgery Lt - hardware present History of appendectomy History of bladder repair surgery History of breast surgery History of carpal tunnel release of both wrists History of D&C History of esophagogastroduodenoscopy (EGD) History of lung biopsy Right Video Assisted Thoracoscopy with Lung and Lymph Node Biopsy Dr. 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 Required: No Beliefs That Will Affect Care: None marital status: Legally Current Living Situation: Alone current occupational status: retired current occupation: [employer] Other Information That Helps Us Care for You: No Feels Safe at Home: Yes Safety Concerns: Feels Safe At This Time Smoking Status: Never smoker Second Hand Exposure: No ; Hx Alcohol Use: No Hx Substance Use: No Review of Systems Review of Systems: All systems reviewed & are unremarkable except as noted in HPI & below Physical Exam Physical Exam: General: no distress Eyes: normal inspection, PERLL Respiratory: chest non tender, clear to auscultation, normal breath sounds, no respiratory distress, no accessory muscle use Cardiac: regular rate and rhythm, no rub or gallop, no murmur, no edema, no jvd GI/: active bowel sounds, no abd pain or tenderness, soft, non distended Extremities: normal range of motion, normal strength, non tender Neuro:oriented x 3, moves all extremities Psych: alert, normal mood and affect Skin: normal color, dry Results & Data Results & [facility] ([facility]) Vital Signs (Past 12 Hours) Vital Signs Temp Pulse Pulse Resp BP BP Pulse Ox 09/29/19 16:00 104 H 20 144/76 H 98 09/29/19 15:46 34 H 97 09/29/19 15:00 114 H 20 136/92 97 09/29/19 14:30 117 H 26 H 119/76 97 09/29/19 14:00 117 H 29 H 129/83 97 09/29/19 13:30 121 H 25 H 113/71 97 09/29/19 13:07 111 H 20 95 09/29/19 13:00 110 H 25 H 131/80 97 09/29/19 12:58 97 09/29/19 12:48 98 09/29/19 12:27 106 H 19 151/95 H 98 09/29/19 12:02 37.2 C 112 H 28 H 155/79 H 99 Supervising Physician Co-Signing Physician Notes I personally saw and examined the patient. I verified all jones points and agree with ALISSA Campos with the following exceptions and/or additions: 64 year old female with recurrent admissions with similar complaints of sh ortness of breath, fatigue, shaking with underlying UIP/NSIP. On this occasion is was sudden onset while washing dishes. She does not have pulse ox at home. 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 Patient given epinephrine on route with some improvement in her breathing. Although she notes duonebs make her cough but do not improve her breathing much. Patient seen once moved to med/surg with tele. COVID testing negative. O/E mild exp fine crackles throughout, no wheezing, abdo SNT, conjunctiva injected, PERRL (no iritis suspected) A/P SIRS criteria met but no sepsis diagnosis since no source identified. Procalcitonin negative. Antibiotics discontinued at this time. Acute on chronic respiratory failure with hypoxia - Unable to complete full sentences on exam. Suspect hypoxic from underlying restrictive lung disease with an element of anxiety/panic attack making this acutely worse. No indication for increase in steroids especially given her. Possible side effects from mycophenolate given recent increase of this but will defer to pulmonology whether any adjustment is necessary. Suspected BASIM (awaiting O/P sleep study) therefore will use BiPAP at night. Hypokalemia - secondary to lasix use. will increase her usual 10 meq supplementation. Gentle IV fluids given prior admission for pulmonary edema. Likely can restart lasix in AM. Blurring of vision - suspect secondary to dry eye vs. home eye drops vs. less likely allergies. Eye ointment BID. Expected discharge 09/30/2019 PG Care Time/CCT Total # of Minutes Spent Total Time Spent with Patient: Total time spent is greater than 50% in coordination of care (as documented) at patient's floor/unit and/or counseling patient: Coding Level of Care Code 51266 Initial Inpt Care Lvl 3 Diagnoses Sepsis A41.9 UIP (usual interstitial pneumonitis) J84.112 Chest pain R07.9 Tracheobronchomalacia J39.8 BASIM (obstructive sleep apnea) G47.33 Restless leg syndrome G25.81 GERD (gastroesophageal reflux disease) K21.9 Fatty liver K76.0 Hypokalemia E87.6 DVT prophylaxis Z29.9
[2019-09-29] MEDS ORDERED: GUAIFENESIN/CODEINE 200MG/20MG 10ML UDC PO PRN (19:53)
[2019-09-29] MEDS ORDERED: GLUCOSE 10 TABS/TUBE PO PRN (19:53)
[2019-09-29] MEDS ORDERED: HHS GOAL RANGE 250-350 mg/dl ONE (19:53)
[2019-09-29] MEDS ORDERED: FAMOTIDINE 20 MG TAB PO PRN (19:53)
[2019-09-29] MEDS ORDERED: DEXTROSE 50% 50 ML SYRINGE IV PRN (19:53)
[2019-09-29] MEDS ORDERED: ALBUTEROL HFA 8 GM INHALER INH PRN (19:53)
[2019-09-29] MEDS ORDERED: BENZONATATE 100 MG CAPSULE PO PRN (19:53)
[2019-09-29] MEDS ORDERED: GLUCAGON FOR INJ 1 MG VIAL SQ PRN (19:53)
[2019-09-29] MEDS ORDERED: INSULIN ASPART 100 UNITS/ML 3 ML PEN SQ SCH (19:53)
[2019-09-29] MEDS ORDERED: CARBOHYDRATES FOR HYPOGLYCEMIA PO PRN (19:53)
[2019-09-29] MEDS ORDERED: CEFEPIME CONSULT ACTIVE PRN (19:53)
[2019-09-29] MEDS ORDERED: INSULIN ASPART 100 UNITS/ML 3 ML PEN SQ ONE (19:53)
[2019-09-29] MEDS ORDERED: GLUCOSE 40% GEL 15 GM TUBE PO PRN (19:53)
[2019-09-29] MEDS: ACETAMINOPHEN 500 MG TAB PO PRN (20:37)
[2019-09-29 20:57] LABS: Allen Test Pos (Pos); Base Excess ABG -0.1 mEq/L (-9-1.8); HCO3 ABG 24 mmol/L (19-24); Oxygen Saturation ABG 97.3 % (90-95); PCO2 ABG 38 mmHg (35-46); PO2 ABG 93 mmHg (80-95); pH ABG 7.42 (7.35-7.45)
[2019-09-29] MEDS ORDERED: POTASSIUM CHLORIDE 20 MEQ TABCR PO ONE (21:00)
[2019-09-29] MEDS: MYCOPHENOLATE MOFETIL 250 MG CAP PO SCH (21:30)
[2019-09-29] MEDS: ESCITALOPRAM OXALATE 20 MG TAB PO SCH (21:31)
[2019-09-29] MEDS: ROPINIROLE HCL 1 MG TABLET PO SCH (21:32)
[2019-09-29] MEDS ORDERED: CEFEPIME 2,000 MG in SYRINGE 7.5 ML IV SCH (22:00)
[2019-09-29] MEDS ORDERED: ZOLPIDEM TARTRATE 10 MG TAB PO PRN (22:02)
[2019-09-29] MEDS ORDERED: ZOLPIDEM TARTRATE 10 MG TAB PO ONE (22:21)
--- NOTE | 2019-09-29 22:49 | Electrocardiogram Report ---
Test Reason : Blood Pressure : / mmHG Vent. Rate : 109 BPM Atrial Rate : 109 BPM P-R Int : 124 ms QRS Dur : 072 ms QT Int : 352 ms P-R-T Axes : 017 -01 051 degrees QTc Int : 474 ms Poor data quality, interpretation may be adversely affected Sinus tachycardia Otherwise normal ECG When compared with ECG of 28-JUL-2019 22:54, Borderline criteria for Inferior infarct are no longer Present Confirmed by Guanaco Sandhu ([id number]) on 09/29/2019 10:49:55 PM Referred By: Confirmed By:Guanaco Sandhu
[2019-09-30 06:21] LABS: Basophils # (auto) 0.02 K/uL (0-0.2); Basophils % (auto) 0.2 %; Eosinophils # (auto) 0.32 K/uL (0-0.5); Eosinophils % (auto) 3.8 %; Hematocrit (blood only) 41.8 % (37-47); Hemoglobin 13.8 g/dL (12.0-16.0); Immature Granulocytes # (auto) 0.04 K/uL (0.00-0.02); Immature Granulocytes % (auto) 0.5 %; Lymphocytes # (auto) 2.69 K/uL (1.2-3.4); Lymphocytes % (auto) 32.3 %; Mean Corpuscular Hemoglobin 31.6 pg (25-34); Mean Corpuscular Volume 95.7 fL (80-100); Mean Platelet Volume 10.1 fL (7.4-10.4); Monocytes # (auto) 0.65 K/uL (0.11-0.59); Monocytes % (auto) 7.8 %; Neutrophils # (auto) 4.61 K/uL (1.4-6.5); Neutrophils % (auto) 55.4 %; Platelet Count 172 K/uL (130-400); RDW Coefficient of Variation 14.5 % (11.5-14.5); RDW Standard Deviation 50.9 fL (36.4-46.3); Red Blood Count 4.37 M/uL (4.2-5.4); White Blood Count 8.33 K/uL (4.8-10.8)
[2019-09-30] MEDS: ALBUT/IPRATROP 3MG/0.5MG NEB 3 ML VIAL NEB SCH ×4 (07:05→19:15)
[2019-09-30 07:07] LABS: Alanine Aminotransferase 24 U/L (12-78); Albumin Level 3.1 gm/dl (3.4-5.0); Aspartate Aminotransferase 11 U/L (15-37); BUN Creatinine Ratio 20.6 (10-20); Blood Urea Nitrogen 18 mg/dl (7-18); Calcium 8.3 mg/dl (8.5-10.1); Carbon Dioxide 24 mmol/L (21-32); Chloride 107 mmol/L (98-107); Creatinine Clr Calc Pharmacy 71.8 ml/min; Est GFR (Non-African American) 69.9; Glucose 77 mg/dl (70-99); Potassium 4.1 mmol/L (3.5-5.1); Sodium 140 mmol/L (136-145)
[2019-09-30 07:09] LABS: Albumin Globulin Ratio 0.9 (0.9-2); Alkaline Phosphatase 47 U/L (45-117); Bilirubin,Total 0.7 mg/dl (0.2-1); Globulin 3.3 gm/dl (2.5-4.0); Total Protein 6.4 gm/dl (6.4-8.2); Troponin I < 0.015 ng/ml (0-0.045)
[2019-09-30] MEDS: ACETAMINOPHEN 500 MG TAB PO PRN ×2 (07:33→20:31)
[2019-09-30] MEDS: ROPINIROLE HCL 1 MG TABLET PO SCH ×3 (07:35→20:33)
[2019-09-30] MEDS: FLUTICASONE/VILANTEROL 100/25MCG 14 PUFFS/INHALER INH SCH (07:35)
[2019-09-30] MEDS: predniSONE 5 MG TAB PO SCH (07:36)
[2019-09-30] MEDS: MYCOPHENOLATE MOFETIL 250 MG CAP PO SCH ×2 (07:37→20:32)
[2019-09-30] MEDS: ENOXAPARIN INJ 40 MG/0.4 ML SYR SQ SCH (07:38)
[2019-09-30] MEDS: POTASSIUM CHLORIDE 20 MEQ TABCR PO SCH (07:38)
[2019-09-30] MEDS: PANTOprazole 40 MG TAB PO SCH (07:41)
[2019-09-30] MEDS ORDERED: POTASSIUM CHLORIDE 10 MEQ TABCR PO SCH (09:00)
[2019-09-30] MEDS: ARTIFICIAL TEARS OP OINT 3.5 GM TUBE OP SCH ×2 (09:23→20:33)
--- NOTE | 2019-09-30 11:41 | Pulmonary Consultation ---
Date of Consultation September 30, 2019 Assessment & Plan (1) SOB (shortness of breath): --Chronic interstitial lung disease From the lung biopsy that the patient had done that showed a mixed picture of NSIP and UIP Patient has been on mycophenolate 500 mg twice daily along with 5 mg of prednisone Looking at the CT chest done yesterday and the clinical picture that the patient present today I doubt that the patient is in any exacerbation from her underlying interstitial lung disease. There is no need for stress dose of steroids. BNP negative, Covid-19 PCR negative, procalcitonin negative, no signs of sepsis. Patient did have leukocytosis at presentation but she got a shot of epinephrine by the EMS. It could be reactive secondary to that. It has already been daphney nding down. Symptomatic management for her cough which is likely secondary to her underlying ILD. I do think the patient's underlying anxiety is playing a major role in her episodes of episodes of random shaking/jitteriness. Patient will benefit from cognitive therapy for her anxiety along with yoga. Patient follows up with Dr. Kruse as an outpatient and he is trying to get the patient into a lung transplant program if possible. --Probable BASIM Patient is supposed to get a polysomnography as an outpatient It has been delayed secondary to Covid-19 pandemic BiPAP nightly while in the hospital Plan: I think patient is back to her baseline when it comes to her respiratory status. No need for antibiotics. No further recommendation from pulmonary perspective. Patient is to follow-up as an outpatient with Dr. Kruse. Please note the above document was generated using voice recognition software. It may contain grammatical, syntax or spelling errors. (2) Chronic interstitial lung disease: (3) Hypoxia: History of Present Illness Attending Physician: Isma Brown MD History of Present Illness 64-year-old female with past medical history of fibrotic lung disease who had lung biopsy done in 2019 showing both UIP and NSIP pattern, she has been on prednisone 40 mg up until July 2019 after which she was started on mycophenolate and prednisone was gradually tapered to 5 mg a day right now. Patient has also been tried on OFEV with no significant benefit in her resp iratory status. Patient also has underlying anxiety for which she takes Lexapro. Follows up with Dr. Kruse as an outpatient Patient was admitted to the hospital this admission because of sudden shaking that she appreciated while she was going from one room to another. Patient denies any urinary or fecal incontinence. Denies any loss of consciousness. Denies any use of any inhaler prior to this episode. On asking whether she uses oxygen at home she says that she does use it not all the time but as needed. Her shortness of breath has been at baseline. It she has shortness of breath on exertion but she does not use oxygen at that time and uses it when she is at rest. She has chronic cough again which has not changed in frequency or consistency. Denies any phlegm. Denies any fever or chills. Denies any diarrhea, no dysuria. Does complain of being stressed out regarding the lockdown. She is compliant with Lexapro. Social history: Non-smoker, no illicit drug use, no alcohol use. Allergies Allergy/AdvReac Type Severity Reaction Status Date / Time Iodinated Contrast Media Allergy Severe Anaphylaxis Verified 09/29/19 14:23 Cipro Allergy Mild N.V./MOUTH Verified 02/14/18 13:16 SORES ciprofloxacin Allergy Mild N.V./MOUTH Verified 09/29/19 14:23 SORES Home Medications Home Medications Medication Instructions Recorded Confirmed Type acetaminophen [Tylenol Extra 1,000 mg PO Q6H PRN 02/14/18 09/29/19 History Strength] albuterol sulfate [Ventolin HFA] 2 puff INHALATION QID PRN 02/14/18 09/29/19 History budesonide-formoterol HFA 160 2 puffs INH BID #10.2 gm 04/28/19 09/29/19 Rx mcg-4.5 mcg/actuation aerosol inhaler ropinirole 2 mg PO TID 05/12/19 09/29/19 History escitalopram oxalate [Lexapro] 20 mg PO QPM 05/18/19 09/29/19 History Oxygen Home #1 ea 07/02/19 08/04/19 Rx benzonatate 100 mg capsule 100 mg PO TID PRN #90 cap 07/21/19 09/29/19 Rx codeine 10 mg-guaifenesin 100 mg/5 5 ml PO Q4H PRN #90 ml 07/21/19 09/29/19 Rx mL oral liquid CPAP Machine #1 ea 08/01/19 08/01/19 Rx potassium chloride 10 mEq 10 meq PO DAILY #30 cap 08/13/19 09/29/19 Rx capsule,extended release furosemide 40 mg tablet 40 mg PO DAILY PRN #30 tab 09/16/19 09/29/19 Rx mycophenolate mofetil 500 mg tablet 500 mg PO BID #60 tab 09/16/19 09/29/19 Rx prednisone 5 mg PO DAILY 09/29/19 09/29/19 History Patient History Medical History Anxiety Arthritis Asthma uses PRN INH 2-3 x day COPD (chronic obstructive pulmonary disease) Coughing currently on steroid dosepak, abx Degenerative disc disease Depression GERD (gastroesophageal reflux disease) Interstitial lung disease Osteoarthritis Pulmonary nodule Restless leg syndrome SOB (shortness of breath) on exertion Surgical History History of ankle surgery Lt - hardware present History of appendectomy History of bladder repair surgery History of breast surgery History of carpal tunnel release of both wrists History of D&C History of esophagogastroduodenoscopy (EGD) History of lung biopsy Right Video Assisted Thoracoscopy with Lung and Lymph Node Biopsy Dr. 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 Other Information That Helps Us Care for You: No Feels Safe at Home: Yes Safety Concerns: Feels Safe At This Time Smoking Status: Never smoker Second Hand Exposure: No ; Hx Alcohol Use: No Hx Substance Use: No Review of Systems Review of Systems: All systems reviewed & are unremarkable except as noted in HPI & below Physical Exam Physical Exam: Constitutional: No acute distress HEENT: EOMI, PERRLA Respiratory system: Decreased air entry bilaterally, no rhonchi, no wheeze, positive Velcro crackles bilateral lower lobes CVS: S1-S2 positive, no murmurs or gallops, accentuated P2 Abdomen: Soft, nontender, nondistended, positive bowel sounds x4 Extremities: +2 pulses bilaterally radialis/ dorsalis pedis, no cyanosis, no edema, no clubbing Neuro: Awake alert oriented x3 Psych: Normal mood and affect G/U: No [place] Skin: no rashes, warm and dry Lymphatic: no cervical or axillary lymphadenopathy Results & Data Results & Data ([facility]) Vital Signs (Past 12 Hours) Vital Signs Temp Pulse Pulse Resp BP Pulse Ox 09/30/19 11:31 36.9 C 101 H 18 137/77 96 09/30/19 10:59 83 18 92 09/30/19 07:06 83 16 95 09/30/19 06:53 36.6 C 81 18 115/67 97 09/30/19 03:46 36.9 C 86 18 109/68 96 09/30/19 00:22 87 09/30/19 05:59 09/30/19 05:59 CT chest without contrast 09/29/2019 personally reviewed:Traction bronchiectasis, peripheral reticulation still appreciated, very minimal groundglass if any appreciated PG Care Time/CCT Total # of Minutes Spent Total Time Spent with Patient: Total time spent is greater than 50% in coordination of care (as documented) at patient's floor/unit and/or counseling patient: Coding Level of Care Code 99380 Initial Inpt Care Lvl 3 Diagnoses SOB (shortness of breath) R06.02 Chronic interstitial lung disease J84.9 Hypoxia R09.02
[2019-09-30] MEDS: PROPRANOLOL HCL LA 80 MG CAPCR PO SCH (13:08)
--- NOTE | 2019-09-30 16:43 | Hospitalist Progress Note ---
Date of Service September 30, 2019 Assessment & Plan (1) Acute and chronic respiratory failure with hypoxia: Suspect she requires oxygen on exertion and advised her to use 2L, in addition suspect she has an anxiety component to this making it worse. Initially planned to discharge but given ongoing fatigue and she feels she is unable to cope at home at the current time but likely she will feel more ready for discharge tomorrow and patient concern regarding propranolol possibly making her breathing worse will aim for discharge tomorrow morning. Appreciate pulmonology review (2) Benign essential tremor: This appears to be her shaking she describes. Made worse by albuterol and anxiety. Will trial on propranolol as appears her blood pressure is able to take this. 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 No significant honeycombing or bronchiectasis. There is mildly improved aeration of the lungs from comparison study. (5) Chest pain: Non radiating, has been fairly persistent over the last few weeks. She is under the impression that it stems from "water weight" and bloating around her abdomen Trop was negative initially, no concerning findings on EKG concerning for ischemia Will trend troponin, monitor on telemetry Could consider dobutamine stress. (6) Tracheobronchomalacia: (7) BASIM (obstructive sleep apnea): Cpap, may use own if someone brings it in for her (8) Restless leg syndrome: Continue ropinirole (9) GERD (gastroesophageal reflux disease): prn famotidine (10) Fatty liver: As seen on CT - follow up outpatient (11) Hypokalemia: Potassium 3.4 (12) DVT prophylaxis: enoxaparin, SCDs Admission and Anticipated Discharge Date Admission Date: September 29, 2019 Anticipated date of discharge: 10/01/19 Subjective Patient reports worsening tremor this morning but shortness of breath mostly at baseline although still very fatigued that she is concerned about being safe to be discharged home today. Tremor at rest but worst with action. No chest pain. After discussing medications for her tremor she is concerned that her breathing may become worse on propranolol but if staying willing to try starting this under medical supervision. Review of Systems Review of Systems: All systems reviewed & are unremarkable except as noted in HPI & below Physical Exam Constitutional: well developed and well nourished; no acute distress Eyes: + anicteric sclerae; normal pupil size Respiratory: normal respiratory effort; no respiratory distress, no labored breathing and does not use accessory muscles Auscultation: + diminished lung sounds (throughout) and + crackles (fine bibasal); no rales, no rhonchi and no wheezes Cardiovascular: Rate/Rhythm: regular rate and regular rhythm Heart Sounds: no murmur Skin: no rashes, warm and dry Neurologic: moves all extremities and awake Motor/Sensory: no tremor Results & Data Results & Data ([facility]) Vital Signs (Past 12 Hours) Vital Signs Temp Pulse Pulse Resp BP Pulse Ox 09/30/19 16:13 94 H 09/30/19 16:01 36.7 C 94 H 20 114/72 93 09/30/19 15:34 92 H 18 92 09/30/19 11:31 36.9 C 101 H 18 137/77 96 09/30/19 10:59 83 18 92 09/30/19 07:06 83 16 95 09/30/19 06:53 36.6 C 81 18 115/67 97 PG Care Time/CCT Total # of Minutes Spent Total Time Spent with Patient: Total time spent is greater than 50% in coordination of care (as documented) at patient's floor/unit and/or counseling patient: Coding Level of Care Code 48120 Subseq Hosp Care Lvl 2 Diagnoses Acute and chronic respiratory failure with hypoxia J96.21 Benign essential tremor G25.0 Sepsis A41.9 UIP (usual interstitial pneumonitis) J84.112 Chest pain R07.9 Tracheobronchomalacia J39.8 BASIM (obstructive sleep apnea) G47.33 Restless leg syndrome G25.81 GERD (gastroesophageal reflux disease) K21.9 Fatty liver K76.0 Hypokalemia E87.6 DVT prophylaxis Z29.9
[2019-09-30] MEDS: ESCITALOPRAM OXALATE 20 MG TAB PO SCH (20:32)
[2019-09-30] MEDS ORDERED: ZOLPIDEM TARTRATE 10 MG TAB PO PRN (21:56)
[2019-09-30] MEDS ORDERED: KETOROLAC TROMETHAMINE 15 MG/ML VIAL IV ONE (22:45)
[2019-09-30] MEDS ORDERED: FUROSEMIDE 40 MG in SYRINGE 0 ML IV ONE (23:00)
[2019-10-01] MEDS: ALBUT/IPRATROP 3MG/0.5MG NEB 3 ML VIAL NEB SCH (07:20)
[2019-10-01] MEDS: FLUTICASONE/VILANTEROL 100/25MCG 14 PUFFS/INHALER INH SCH (07:44)
[2019-10-01] MEDS: MYCOPHENOLATE MOFETIL 250 MG CAP PO SCH (07:44)
[2019-10-01] MEDS: ROPINIROLE HCL 1 MG TABLET PO SCH ×2 (07:45→13:45)
[2019-10-01] MEDS: ENOXAPARIN INJ 40 MG/0.4 ML SYR SQ SCH (07:45)
[2019-10-01] MEDS: PANTOprazole 40 MG TAB PO SCH (07:46)
[2019-10-01] MEDS: PROPRANOLOL HCL LA 80 MG CAPCR PO SCH (07:46)
[2019-10-01] MEDS: predniSONE 5 MG TAB PO SCH (07:46)
[2019-10-01] MEDS: POTASSIUM CHLORIDE 20 MEQ TABCR PO SCH (07:46)
[2019-10-01] MEDS: ARTIFICIAL TEARS OP OINT 3.5 GM TUBE OP SCH (07:46)
[2019-10-01 08:23] LABS: BUN Creatinine Ratio 21.6 (10-20); Calcium 8.7 mg/dl (8.5-10.1); Creatinine Clr Calc Pharmacy 65.6 ml/min; Est GFR (African American) 72.8; Est GFR (Non-African American) 62.9; Potassium 3.9 mmol/L (3.5-5.1)
--- NOTE | 2019-10-01 11:19 | Pulmonology Progress Note ---
Date of Service October 01, 2019 Assessment & Plan (1) SOB (shortness of breath): --Chronic interstitial lung disease From the lung biopsy that the patient had done that showed a mixed picture of NSIP and UIP Patient has been on mycophenolate 500 mg twice daily along with 5 mg of prednisone Looking at the CT chest 09/29/2019 and the clinical picture that the patient pr esent today I doubt that the patient is in any exacerbation from her underlying interstitial lung disease. There is no need for stress dose of steroids. BNP negative, Covid-19 PCR negative, procalcitonin negative, no signs of sepsis. Patient did have leukocytosis at presentation but she got a shot of epinephrine by the EMS. It could be reactive secondary to that. It has already been trending down. Symptomatic management for her cough which is likely secondary to her underlying ILD. I do think the patient's underlying anxiety is playing a major role in her episodes of episodes of random shaking/jitteriness. Patient will benefit from cognitive therapy for her anxiety along with yoga. Patient follows up with Dr. Kruse as an outpatient and he is trying to get the patient into a lung transplant program if possible. --Probable BASIM Patient is supposed to get a polysomnography as an outpatient It has been delayed secondary to Covid-19 pandemic BiPAP nightly while in the hospital Plan: Patient back to her baseline. No further recommendation from pulmonary perspective. Will sign off, recall if needed. Patient is to follow-up as an outpatient with Dr. Kruse. Please note the above document was generated using voice recognition software. It may contain grammatical, syntax or spelling errors. (2) Chronic interstitial lung disease: (3) Hypoxia: Admission and Anticipated Discharge Date Admission Date: September 29, 2019 Subjective Patient seen and examined at bedside. No acute distress. Last night patient had this week complain of feeling warm coming from the belly going towards her mouth not associated with significant shortness of breath. Patient states she feels better today. Cough no change in consistency or frequency. Denies any chest pain. Urinating well.g No shaking episodes. Patient was saturating 97% on 2 L nasal cannula at rest at the time of examination. Physical Exam Physical Exam: Constitutional: No acute distress HEENT: EOMI, PERRLA Respiratory system: Decreased air entry bilaterally, no rhonchi, no wheeze, positive Velcro crackles bilateral lower lobes CVS: S1-S2 positive, no murmurs or gallops, accentuated P2 Abdomen: Soft, nontender, nondistended, positive bowel sounds x4 Extremities: +2 pulses bilaterally radialis/ dorsalis pedis, no cyanosis, no edema, no clubbing Neuro: Awake alert oriented x3 Psych: Normal mood and affect G/U: No Hardin Skin: no rashes, warm and dry Lymphatic: no cervical or axillary lymphadenopathy Results & Data Results & Data ([facility]) Vital Signs (Past 12 Hours) Vital Signs Temp Pulse Pulse Resp BP Pulse Ox 10/01/19 07:50 73 10/01/19 07:26 36.7 C 73 18 121/81 99 10/01/19 07:23 76 18 98 10/01/19 04:07 36.6 C 75 19 128/78 92 09/30/19 23:40 36.8 C 74 19 109/54 L 97 09/30/19 05:59 10/01/19 07:41 PG Care Time/CCT Total # of Minutes Spent Total Time Spent with Patient: Total time spent is greater than 50% in coordination of care (as documented) at patient's floor/unit and/or counseling patient: Coding Level of Care Code 18155 Subseq Hosp Care Lvl 2 Diagnoses SOB (shortness of breath) R06.02 Chronic interstitial lung disease J84.9 Hypoxia R09.02
--- NOTE | 2019-10-01 14:32 | Discharge Summary ---
Date of Service October 01, 2019 Admission HPI Per Admitting Provider Ms. Bradshaw presents for feeling sob and weak. She has had ongoing issues over the past few weeks including headaches that are across the front of her forehead and neck pain down the sides of her neck. She has ongoing chest tightness/pain that she attributes to water weight in her abdomen. She also reports some vision cloudiness with occasional floaters going through her vision. She is lightheadedness at times. She does not have photophobia but her eyes feel fatigued enough that she hasn't been reading. She has a chronic cough and it is a bit worse with some white mucous production. Denies n/v/d/, dysuria or hesitancy, musculoskeletal pain, or skin changes Admission Exam Per Admitting Provider General: no distress Eyes: normal inspection, PERLL Respiratory: chest non tender, clear to auscultation, normal breath sounds, no respiratory distress, no accessory muscle use Cardiac: regular rate and rhythm, no rub or gallop, no murmur, no edema, no jvd GI/: active bowel sounds, no abd pain or tenderness, soft, non distended Extremities: normal range of motion, normal strength, non tender Neuro:oriented x 3, moves all extremities Psych: alert, normal mood and affect Skin: normal color, dry Principal Diagnosis Acute hypoxic respiratory failure due to exertion with underlying chronic interstitial lung disease Benign Essential Tremor Discharge Exam Constitutional well developed and well nourished; no acute distress Eyes + anicteric sclerae; normal pupil size Respiratory normal respiratory effort; no respiratory distress, no labored breathing and does not use accessory muscles Auscultation: + diminished lung sounds (throughout) and + crackles (fine bibasal); no rales, no rhonchi and no wheezes Cardiovascular Rate/Rhythm: regular rate and regular rhythm Heart Sounds: no murmur Skin no rashes, warm and dry Neurologic moves all extremities and awake Motor/Sensory: no tremor Discharge Data Allergies Allergy/AdvReac Type Severity Reaction Status Date / Time Iodinated Contrast Media Allergy Severe Anaphylaxis Verified 09/29/19 14:23 Cipro Allergy Mild N.V./MOUTH Verified 02/14/18 13:16 SORES ciprofloxacin Allergy Mild N.V./MOUTH Verified 09/29/19 14:23 SORES Consultations 09/29/19 14:57 ED Decision to Admit Stat 09/29/19 19:53 Consult Case Management - Discharge Planning Routine Consult Pulmonology Routine Ordered Studies 09/29/19 14:40 CT chest wo con Stat Hospital Course (1) Acute and chronic respiratory failure with hypoxia: Teetee Bradshaw is a 64 year old female admitted to [facility] from September 28 to 2019 due to low oxygen saturation and respiratory distress. This improved overnight with oxygen but no adjustments to her usual medications. Suspected due to underlying chronic interstitial lung disease but exacerbated by exertion. No acute pathologies were found on CT or lab work. She was recommended to use 2L O2 on exertion and follow up with her blanket cutter hand. She also noted her lasix is now prescribed daily rather than PRN therefore recommended increasing her potassium chloride supplementation to 20 meq. Her shaking episodes were witnessed while in hospital and are consistent with a benign essential tremor. This likely gets worse with her anxiety when she feels hypoxic on exertion in addition to her albuterol use. We discussed this in some detail and she wished to start treatment with propranolol which appears to be having a good effect although she has only had 2 doses at the time of discharge. Recommended she follows up with her PCP for ongoing treatment of this. (2) Benign essential tremor: (3) UIP (usual interstitial pneumonitis): (4) Chest pain: (5) Tracheobronchomalacia: (6) BASIM (obstructive sleep apnea): (7) Restless leg syndrome: (8) GERD (gastroesophageal reflux disease): (9) Fatty liver: (10) Hypokalemia: Total Time Total Time Spent Total Time Spent (In Minutes): 35 Total Time Includes: Examination of the Patient, Discharge Planning and Medication Reconciliation Discharge Plan Discharge Items Patient Disposition: Home - Self-Care Reason For Visit: WEAKNESS Discharge Diagnosis: Acute hypoxic respiratory failure due to exertion with underlying chronic interstitial lung disease Condition on Discharge: Fair Activity: Resume your previous activity Activity Comment: Use 2L with any exertion Non-emergency contact: Tire Maintenance Technician Call non-emergency contact if: you have any medication questions and your symptoms worsen Follow-up/Referrals: Horacio Garay PA-C [Primary Care Provider] - Diet: Regular Addtl Attending Provider Instructions: You were admitted overnight to [facility] from September 28 to 2019 due to low oxygen saturation and respiratory distress. This improved overnight with oxygen therapy but no adjustments to your usual medications. Suspect this is just due to your underlying chronic interstitial lung disease. No acute pathologies were found on CT or lab work. Since you are starting on daily lasix dosing recommend increasing your potassium to 20 meq daily as prescribed. Please follow up with you primary care physician to periodically keep track of you potassium. Your shaking episodes appear are action exacerbated consistent with benign essential tremor. Therefore you were started on propranolol with good effect and no worsening of your breathing therefore recommend continuing on this. Albuterol and stress is likely to make this tremor worse. Please follow up with you primary care physician for ongoing treatment. If you notice you are feeling dizzy and lightheaded please call your primary care physician as this medication can decrease your blood pressure although it appears stable currently. Kind regards, Dr Isma Brown Pending Studies at Discharge: No Stand-Alone Forms: My [facility] [place], Smoking Cessation Medications and DC Order Prescriptions: New propranolol 80 mg Capsule,Extended Release 24 Hr 80 mg PO QAM Qty: 30 RF: 0 potassium chloride 20 mEq tablet extended release 20 meq PO DAILY Qty: 30 RF: 0 Continued (DME) Oxygen Home Liters Per Minute See Rx Instructions .ROUTE .MEDSUPPLY Qty: 1 RF: 0 Symbicort 160-4.5 mcg/actuation HFA aerosol inhaler 2 puffs INH BID Qty: 10.2 RF: 2 mycophenolate mofetil [CellCept] 500 mg tablet 500 mg PO BID Qty: 60 RF: 5 benzonatate [Tessalon Perles] 100 mg capsule 100 mg PO TID PRN (Reason: cough) Qty: 90 RF: 1 codeine-guaifenesin [Guaifenesin AC] 10-100 mg/5 mL liquid 5 ml PO Q4H PRN (Reason: cold symptoms) Qty: 90 RF: 0 (DME) Auto Titrating CPAP Misc See Rx Instructions .ROUTE .MEDSUPPLY Qty: 1 RF: 0 acetaminophen [Tylenol Extra Strength] 500 mg Tablet 1,000 mg PO Q6H PRN (Reason: Pain) RF: 0 albuterol sulfate [Ventolin HFA] 90 mcg/actuation Hfa Aerosol Inhaler 2 puff INHALATION QID PRN (Reason: Shortness Of Breath) RF: 0 escitalopram oxalate [Lexapro] 10 mg Tablet 20 mg PO QPM RF: 0 ropinirole 2 mg tablet 2 mg PO TID RF: 0 prednisone 5 mg Tablet 5 mg PO DAILY RF: 0 Changed furosemide [Lasix] 40 mg tablet 40 mg PO DAILY Qty: 30 RF: 5 Discontinued potassium chloride 10 mEq capsule, extended release 10 meq PO DAILY Qty: 30 RF: 5 Discharge Orders: Discharge Order (Routine); Ordered 10/01/19 Ordered By: Isma Brown Admission Data Admit Date/Time: 09/29/19 16:25 Attending Provider: Isma Brown Admit Provider: Isma Brown Primary Care Provider: Horacio Garay Other Providers: Isma Brown ; Nikole Mckeon Other Interventions: Discharge Summary Assessment (RN) Last Done: 10/01/19 14:48 DC Date/Time DO NOT enter until pt leaves facility: 10/01/19 15:51 Coding Level of Care Code D/C Day Management >30 mins Diagnoses Acute and chronic respiratory failure with hypoxia J96.21 Benign essential tremor G25.0 UIP (usual interstitial pneumonitis) J84.112 Chest pain R07.9 Tracheobronchomalacia J39.8 BASIM (obstructive sleep apnea) G47.33 Restless leg syndrome G25.81 GERD (gastroesophageal reflux disease) K21.9 Fatty liver K76.0 Hypokalemia E87.6
[2019-10-02] MEDS ORDERED: FUROSEMIDE 40 MG TAB PO SCH (09:00)
== END 2019-10-01 15:51 | disposition home or self-care (01) | DRG 871 ==
LOC: ED 11:45 → 2N 16:25

== ENCOUNTER 2019-11-21 05:36 | Observation (INO) ==
--- NOTE | 2019-11-15 13:58 | Anesthesiology Consultation ---
Date of Service November 15, 2019 Assessment & Plan (1) Encounter for pre-operative examination: Per nursing phone assessment on 11/12: Travel screen- Lives in [facility]. No known COVID-19 positive contacts. No current COVID-19 related symptoms. No hx of COVID-19 testing. - S/P Right VATS with biopsy: 05/12/19: Grade view 1, Elena #2, ETT 7.5 at [facility] - Pulmonary office visit: 11/12/19: "We will notify Dr. Johnson's office schedule her multiple teeth extraction and alveloplasty to be done under general anesthesia and with a 23-hour admit. Patient is completed her oral antibiotics and may have some oral candidiasis and will prescribe nystatin oral solution gargle . She really represents a high risk for general surgery but must have attention to her oral maxillofacial disease by her to undergoing Lung transplant evaluation at [facility].. Have made no changes to patient's medical regimen and she remains on chronic prednisone at 5 mg daily. And on continuous oxygen at 2 L(patient was intolerant to noninvasive positive pressure ventilation) at home. She represents a high risk for general surgery must have this procedure prior to undergoing lung transplant evaluation at [facility] as a prerequisite." Surgeon office aware of pulmonary recommendations. Chart Review Chart Review: Acceptable Risk for Surgery (pending evaluation AM DOS) and Patient NOT seen in Pre Admission Testing History Surgery Operation Date: 11/21/19 07:15 Proposed Procedures p Removal of 17 Infected Teeth - Darshan Johnson, DMD Height/Weight Height: 5 ft 3.5 in Weight: 89.811 kg Allergies Allergy/AdvReac Type Severity Reaction Status Date / Time Iodinated Contrast Media Allergy Severe Anaphylaxis Verified 11/10/19 09:29 Cipro Allergy Mild N.V./MOUTH Verified 11/10/19 09:29 SORES ciprofloxacin Allergy Mild N.V./MOUTH Verified 11/10/19 09:29 SORES Medications Home Medications Medication Instructions Recorded Confirmed Last Taken acetaminophen [Tylenol Extra 1,000 mg PO Q6H PRN 02/14/18 11/13/19 05/17/19 Strength] albuterol sulfate [Ventolin HFA] 2 puff INHALATION QID PRN 02/14/18 11/13/19 05/17/19 budesonide-formoterol HFA 160 2 puffs INH BID #10.2 gm 04/28/19 11/13/19 0 07/10/19 mcg-4.5 mcg/actuation aerosol inhaler ropinirole 2 mg PO TID 05/12/19 11/13/19 07/10/19 escitalopram oxalate [Lexapro] 20 mg PO QPM 05/18/19 11/13/19 07/09/19 Oxygen Home #1 ea 07/02/19 11/04/19 Unknown CPAP Machine #1 ea 08/01/19 11/04/19 Unknown mycophenolate mofetil 500 mg tablet 500 mg PO BID #60 tab 09/16/19 11/13/19 Unknown prednisone 5 mg PO QAM 09/29/19 11/13/19 Unknown propranolol 80 mg PO QAM #30 cap 10/01/19 11/13/19 Unknown fluconazole 100 mg tablet 100 mg PO DAILY #7 tab 11/13/19 11/13/19 Unknown furosemide [Lasix] 40 - 80 mg PO DAILY 11/13/19 11/13/19 Unknown nystatin 100,000 unit/mL oral 5 ml PO TID #473 ml 11/13/19 11/13/19 Unknown suspension potassium chloride 10 meq PO DAILY 11/13/19 11/13/19 Unknown sulfamethoxazole-trimethoprim 1 tab PO 3XWK 11/13/19 11/13/19 Unknown zolpidem [Ambien] 5 - 10 mg PO HS PRN 11/13/19 11/13/19 Unknown Past Medical History Medical History (Updated 11/15/19 @ 13:58 by Jenny Bazan) Anxiety Arthritis Asthma Degenerative disc disease Depression GERD (gastroesophageal reflux disease) Idiopathic pulmonary fibrosis diagnosed 04/2019 Interstitial lung disease On home oxygen therapy BASIM (obstructive sleep apnea) nurse did not note if patient using a device Osteoarthritis Pulmonary nodule Restless leg syndrome Tracheobronchomalacia Past Family History Family History Other Adopted Past Surgical History Surgical History History of ankle surgery Lt - hardware present History of appendectomy History of bladder repair surgery History of breast surgery History of carpal tunnel release of both wrists History of D&C History of esophagogastroduodenoscopy (EGD) History of lung biopsy Right Video Assisted Thoracoscopy with Lung and Lymph Node Biopsy Dr. Schneider 05-12-19 History of spinal surgery lumbar History of surgery Rt biceps repair History of tonsillectomy History of tooth extraction History of total abdominal hysterectomy and bilateral salpingo-oophorectomy Nausea and vomiting after administration of anesthetic agent Social History Smoking Status: Never smoker Do You Dip or Chew Tobacco: No Hx Alcohol Use: No Alcohol type: wine alcohol intake frequency: holidays/special occasions only Hx Substance Use: No substance use type: does not use Testing Laboratory Results 09/30/19 WBC 8.33 H/H 13.8/41.8 PLATELETS 172 10/01/19 SODIUM 137 POTASSIUM 3.9 CHLORIDE 104 CO2 27 BUN 21 CREATININE 0.95 GLUCOSE 84 Electrocardiogram Date: 09/29/19 ST at 109bpm. Otherwise "normal" ECG. ECG was done during [facility] admission for acute hypoxic respiratory failure d/t exertion with underlying chronic interstitial lung disease. Chest X-Ray Date: 09/29/19 No acute cardiopulmonary abnormality is identified. Chronic interstitial changes are similar to prior studies. There is no evidence of superimposed airspace consolidation or pleural effusion. Echocardiogram Date: 07/11/19 EF 60-65%. No RWMA. Mild MR. Pulmonary Function Test Date: 04/24/19 Pre-bronchodilator spirometry reveals a moderate reduction in forced vital c apacity. No significant response to bronchodilator was shown but this should not preclude a therapeutic trial if clinically warranted. Lung volumes demonstrate evidence for moderate restrictive ventilatory defect. Mild air trapping was noted. OVERALL ASSESSMENT: Combined moderate restrictive ventilatory defect with mild air trapping possibly suggestive of bronchospastic airways disease.
[2019-11-21] MEDS ORDERED: CEFAZOLIN 2000MG 2,000 MG/15 ML SYR IV SCH (06:00)
[2019-11-21] MEDS ORDERED: LR 15ML/HR IV SCH (06:00)
[2019-11-21] MEDS: LR 60ML/HR IV SCH ×2 (06:07→18:17)
[2019-11-21] MEDS ORDERED: BUPIVACAINE 0.5 % 5 MG/1 ML MPF 30ML VIAL ONE (06:37)
[2019-11-21] MEDS ORDERED: EPINEPHrine INJ 1 MG/ML AMP ONE (06:37)
[2019-11-21] MEDS ORDERED: CHLORHEXIDINE GLUCONATE 0.12% 480 ML ONE (06:38)
[2019-11-21] MEDS ORDERED: fentaNYL citrate 100 MCG/2 ML VIAL ONE (06:39)
[2019-11-21] MEDS ORDERED: MIDAZOLAM HCL 1 MG/ML 2ML VIAL ONE (06:39)
[2019-11-21] MEDS ORDERED: SCOPOLAMINE 1.5 MG TDSY TD ONE ×2 (06:42→06:51)
[2019-11-21] MEDS ORDERED: LIDOCAINE HCL 2% 2 ML VIAL/AMP(20MG/ML) INFIL ONE (06:54)
[2019-11-21] MEDS ORDERED: PROPOFOL IV EMULSION 10 MG/ML 20 ML VIAL IV ONE (06:54)
--- NOTE | 2019-11-21 07:00 | History & Physical Bridge Note ---
Date of Service November 21, 2019 History & Physical Bridge Note I have examined the patient, reviewed the History & Physical and in the interval since the performance of the History & Physical I have noted the following changes of clinical significance: no changes noted. we will remove all upper teteh and lower posterior Wewill work with Dr Kruse post op to determine out patient vs in patient observation.
[2019-11-21] MEDS ORDERED: SUCCINYLCHOLINE CHLORIDE 20 MG/ML 10 ML VIAL IV ONE (08:01)
[2019-11-21] MEDS ORDERED: DEXAMETHASONE SOD INJ 4 MG/ML VIAL ONE (08:01)
[2019-11-21] MEDS ORDERED: PHENYLEPHRINE 100MCG/ML 5ML SYR ONE (08:01)
[2019-11-21] MEDS ORDERED: ONDANSETRON INJ 2 MG/ML 2 ML VIAL ONE (08:01)
[2019-11-21] MEDS ORDERED: FLUMAZENIL 0.1 MG/1 ML 10 ML VIAL IV PRN (08:18)
[2019-11-21] MEDS ORDERED: ONDANSETRON INJ 2 MG/ML 2 ML VIAL IV PRN (08:18)
[2019-11-21] MEDS ORDERED: LABETALOL HCL IV 5 MG/ML 20ML IV PRN (08:18)
[2019-11-21] MEDS ORDERED: ATROPINE SULFATE 0.1 MG/ML 10ML SYR IV PRN (08:18)
[2019-11-21] MEDS ORDERED: PROMETHAZINE HCL 12.5 MG in SODIUM CHLORIDE 0.9% 50 ML IV PRN (08:18)
[2019-11-21] MEDS ORDERED: NALOXONE HCL 0.4 MG/1 ML VIAL/CARP IV PRN (08:18)
[2019-11-21] MEDS ORDERED: ePHEDrine sulfate 50 MG/ML AMP IV PRN (08:18)
[2019-11-21] MEDS ORDERED: ACETAMINOPHEN 1,000 MG/100 ML VIAL IV PRN (08:42)
[2019-11-21] MEDS ORDERED: HYDROCODONE/ACETAMOPHEN 5/325MG TAB PO PRN (08:42)
--- NOTE | 2019-11-21 08:48 | Post Operative Brief Note ---
PG Immediate Post Op with CF Date of Surgery November 21, 2019 Pre & Post Diagnosis Operation Date: 11/21/19 07:00 Pre-Op Diagnosis: Acute and chronic respiratory failure with hypoxia, Impacted and infected teeth Post-Op Diagnosis: Acute and chronic respiratory failure with hypoxia, Impacted and infected teeth I identified the patient and participated in the time-out.: Yes Procedure Operation Date: 11/21/19 07:00 Actual Procedures p Removal of 17 Infected Teeth(Bilateral) - Darshan Johnson DMD Surgeon Darshan Johnson, ESTELA Fur Repair Inspector none Estimated Blood Loss 5 Findings Consistent with Post-Op Diagnosis Specimens Specimen Description: none per surgeon
[2019-11-21] MEDS: fentaNYL citrate 100 MCG/2 ML VIAL IV PRN ×4 (09:12→09:31)
--- NOTE | 2019-11-21 09:55 | Anesthesiology Progress Note ---
Date of Service November 21, 2019 Anesthesia Post Procedure Vital Signs Vital Signs: Temp Pulse Pulse Resp BP Pulse Ox 11/21/19 09:45 95 H 23 135/88 94 11/21/19 09:35 95 H 20 132/81 95 11/21/19 09:25 36.1 C L 92 H 23 133/98 95 11/21/19 09:15 94 H 29 H 136/80 97 11/21/19 09:05 94 H 24 140/90 94 11/21/19 08:55 87 27 H 145/84 H 93 11/21/19 08:47 36.1 C L 84 20 146/90 H 92 11/21/19 06:16 36.8 C 105 H 28 H 135/85 97 Pain Intensity Mouth: Pain Intensity: 4 Transfer of Care Handoff Completed per policy Notes Mental Status: alert / awake / arousable Patient Amnestic to Procedure: Yes Nausea / Vomiting: adequately controlled Pain: adequately controlled Airway Patency, RR, SpO2: stable & adequate BP & HR: stable & adequate Hydration State: stable & adequate Anesthetic Complications: no major complications apparent
--- NOTE | 2019-11-21 13:00 | Operative Report ---
Post Operative Report Pre & Post Diagnosis Operation Date: 11/21/19 07:00 Pre-Op Diagnosis: Acute and chronic respiratory failure with hypoxia, Impacted and infected teeth Post-Op Diagnosis: Acute and chronic respiratory failure with hypoxia, Impacted and infected teeth I identified the patient and participated in the time-out.: Yes Procedure Operation Date: 11/21/19 07:00 Actual Procedures p Removal of 16 Infected Teeth(Bilateral) - Darshan Johnson, DMD Pre-op= impacted and infected wisdom tooth # 32 and carious fractured teeth= 2,3,4,5,6,7,8,9,10,11,12,19,20,30,31 Once cleared for surgery general anesthesia was achieved, the eyes were protected by the anesthesia dept criteria.. A time out was take for patient ID, antibiotics, equipment and position verification once all agreed the procedure began. Local anesthesia was given into each area using Marcaine with a vasoconstrictor ( 1.8 ml per site). A throat pack was placed after the oral cavity was irrigated with saline. Once a surgical level of anesthesia was obtained and the local anesthesia was given time for the blocks the surgery was started. I turned my attention to the upper wisdom teeth first. Upper carious fractured and abscessed teeth 2,3,4,5,6,7,8,9,10,11,12 An Incision was made over the tuberosity. The full thickness flap was reflected, bone removed with a rongeur, the fractured teeth were visualized, the roots were close to the sinus. All the upper teeth 2-12 were removed with forceps an 81 elevator. Maxillary right/left alveoplasty (area 2-12 with teeth extractions) The alveoplasty was preformed on the upper right and upper left sides. Bony margins were trimmed, smoothed and sutured closed with a 2-0 chromic . There was no sinus involvement. Lower wisdom teeth CBI # 32 and extraction of 19,20,30,31 The full thick Muco-periosteal flap was made on the external oblique ridge to avoid the lingual nerve. The flap was reflected to expose the impacted tooth # 32. The drill with a round bur was used to remove bone, a fissure bur was used to split the tooth.The lingual plate was protected. The tooth was removed with a 301 elevator, the nerve was intact, there was no bleeding. Now using the elevator and lower dental forceps the following teeth were removed #19,20,30,31. The bone was trimmed, smoothed and the flaps were closed with a few 2-0 chromic sutures. Mandibular right/left alveoplasty (area 18-20, 30-32 with teeth extractions) The alveoplasty was preformed on the lower right and left sides. Bony margins were trimmed, smoothed and sutured closed with a 2-0 chromic . When all the teeth and wisdom tooth # 32 were removed as well as the alveoplasties. I inspected the sites to insure all bleeding was controlled. I removed the throat pack and suctioned the throat. Bilateral gauze pressure dressings were placed. All instrument and sponge count was correct. the patient was allowed to awake from the anesthesia. Once full awake the anesthesia tube was removed and the patient was taken to the recovery room with all vital sign stable. The patient tolerated the surgery very well. I will follow the patient in my office, Rx and instructions will be given upon discharge. Surgeon Darshan Johnson, DMD Monument Stonecutter none Estimated Blood Loss 5 Findings Consistent with Post-Op Diagnosis Specimens none Description of Procedure removal of 16 teeth that were infected and impacted I attest to the content of the Intraoperative Record and any orders documented therein. Any exceptions are noted below.
--- NOTE | 2019-11-21 13:27 | Progress Note ---
Date of Service Mrs Bradshaw has an extensive history of Lung problems and she is a candidate for a Lung Transplant. Because of infected and Abscessed teeth Dr Kruse requested that we remove all the carious and fractured teeth before the Transplant team will approve her being on the list. I removed 16 fractured/carious/impacted teeth this AM in the OR under general anesthesia. From a surgical point of view she did very well. As of 1 PM 4 hours post surgery Teetee is still very lethargic and states she is having problems with breathing. She has not been out of bed, taken very little by mouth. Suggest 23 hr observation for management of oxygen and other medical needs given patient lives alone. Discussed case with [facility] service and Dr Kruse agrees with management. November 21, 2019 Results & Data ([facility]) Vital Signs (Past 12 Hours) Vital Signs Temp Pulse Pulse Resp BP Pulse Ox 11/21/19 11:15 94 H 24 112/78 95 11/21/19 10:45 91 H 24 135/77 95 11/21/19 10:15 36.5 C 92 H 28 H 128/85 95 11/21/19 10:05 93 H 20 131/79 96 11/21/19 09:55 96 H 23 134/70 95 11/21/19 09:45 95 H 23 135/88 94 11/21/19 09:35 95 H 20 132/81 95 11/21/19 09:25 36.1 C L 92 H 23 133/98 95 11/21/19 09:15 94 H 29 H 136/80 97 11/21/19 09:05 94 H 24 140/90 94 11/21/19 08:55 87 27 H 145/84 H 93 11/21/19 08:47 36.1 C L 84 20 146/90 H 92 11/21/19 06:16 36.8 C 105 H 28 H 135/85 97 PG Care Time/CCT Total # of Minutes Spent Total Time Spent with Patient: Total time spent is greater than 50% in coordination of care (as documented) at patient's floor/unit and/or counseling patient: Coding Level of Care Code None
[2019-11-21] MEDS ORDERED: ROPINIROLE HCL 1 MG TABLET PO SCH (14:00)
[2019-11-21] MEDS: KETOROLAC 30 MG/ML VIAL IV PRN ×2 (14:06→21:48)
--- NOTE | 2019-11-21 14:31 | History & Physical Report ---
Date of Service November 21, 2019 Assessment & Plan (1) Chronic interstitial lung disease: Patient be observed for acute on chronic respiratory failure. Patient is maintained on 4 to 4.5 L of oxygen. She is on a daily prednisone therapy as well as inhaled medications with short and long-acting bronchodilators. To be in a monitored setting and she will have her noninvasive positive pressure ventilation supplied for nighttime support of her breathing. Elected not to use stress dose steroids at this time unless becomes apparent that she would require them. (2) Insomnia: Patient has issues with insomnia and requested her Ambien be continued at night (3) Restless leg syndrome: Patient will be on Requip to 3 times a day (4) DVT prophylaxis: Patient will be on SCDs given her recent dental surgery to avoid chemoprophylaxis at this time History of Present Illness Primary Care Provider: Horacio Garay PA-C Assumed by Dr. Johnson regarding observation of a patient that he had an ambulatory surgical unit where she had 17 teeth extracted in preparation for lung transplant evaluation. This patient is a patient Dr. Kruse typically on 4 L of oxygen at home suffering from interstitial pneumonitis and restrictive lung disease. Reportedly after anesthesia the patient was slightly more groggy than would be felt comfortable to have her discharged home with her chronic lung disease. When I evaluated with the patient she was awake but sleepy her pain was signific ant she is not particularly more short of breath she was mostly worried about getting her Requip medication for her restless leg syndrome. Other than that she had no new complaints or problems other than feeling like she has some bloating with regard to her bowel habits of late Allergies Allergy/AdvReac Type Severity Reaction Status Date / Time Iodinated Contrast Media Allergy Severe Anaphylaxis Verified 11/21/19 06:09 Cipro Allergy Mild N.V./MOUTH Verified 11/10/19 09:29 SORES ciprofloxacin Allergy Mild N.V./MOUTH Verified 11/21/19 06:09 SORES Home Medications Home Medications Medication Instructions Recorded Confirmed Type acetaminophen [Tylenol Extra 1,000 mg PO Q6H PRN 02/14/18 11/21/19 History Strength] albuterol sulfate [Ventolin HFA] 2 puff INHALATION QID PRN 02/14/18 11/21/19 History budesonide-formoterol HFA 160 2 puffs INH BID #10.2 gm 04/28/19 11/21/19 Rx mcg-4.5 mcg/actuation aerosol inhaler ropinirole 2 mg PO TID 05/12/19 11/21/19 History escitalopram oxalate [Lexapro] 20 mg PO QPM 05/18/19 11/21/19 History Oxygen Home #1 ea 07/02/19 11/19/19 Rx CPAP Machine #1 ea 08/01/19 11/19/19 Rx prednisone 5 mg PO QAM 09/29/19 11/21/19 History furosemide [Lasix] 40 - 80 mg PO DAILY 11/13/19 11/21/19 History potassium chloride 10 meq PO DAILY 11/13/19 11/21/19 History sulfamethoxazole-trimethoprim 1 tab PO 3XWK 11/13/19 11/21/19 History zolpidem [Ambien] 5 - 10 mg PO HS PRN 11/13/19 11/21/19 History acetaminophen 300 mg-codeine 30 mg 1 tab PO Q4H PRN #14 tab 11/21/19 Rx tablet amoxicillin 500 mg capsule 500 mg PO Q8H #21 cap 11/21/19 Rx Past Med/Surg History Medical History (Updated 11/21/19 @ 14:31 by Melo Goff MD) Anxiety Arthritis Asthma Degenerative disc disease Depression GERD (gastroesophageal reflux disease) Idiopathic pulmonary fibrosis diagnosed 04/2019 Interstitial lung disease On home oxygen therapy BASIM (obstructive sleep apnea) nurse did not note if patient using a device Osteoarthritis Pulmonary nodule Restless leg syndrome Tracheobronchomalacia Surgical History (Updated 11/21/19 @ 09:58 by Bhavana Barajas RN) History of ankle surgery Lt - hardware present History of appendectomy History of bladder repair surgery History of breast surgery History of carpal tunnel release of both wrists History of D&C History of esophagogastroduodenoscopy (EGD) History of lung biopsy Right Video Assisted Thoracoscopy with Lung and Lymph Node Biopsy Dr. Schneider 05-12-19 History of spinal surgery lumbar History of surgery Rt biceps repair History of tonsillectomy History of tooth extraction History of total abdominal hysterectomy and bilateral salpingo-oophorectomy Hx of oral surgery (11/21/19) Removal of [address] Johnson 11/21/2019 Nausea and vomiting after administration of anesthetic agent Family History Other Adopted Social History (System 11/10/19 @ 09:29 by Ivonne Elena) Preferred Language: Georgian Communication Ability: Effective Centerpuncher Required: No Beliefs That Will Affect Care: None marital status: Legally Current Living Situation: Alone current occupational status: retired current occupation: [employer] Other Information That Helps Us Care for You: No Feels Safe at Home: Yes Safety Concerns: Feels Safe At This Time Smoking Status: Never smoker Do You Dip or Chew Tobacco: No ; Second Hand Exposure: Yes (exposure in the workplace) ; Tobacco Cessation Education Requested by Patient: No Hx Alcohol Use: No Hx Substance Use: No Review of Systems Review of Systems: Mild to moderate distress and fatigue Significant upper maxilla pain due to dental extraction no headache, blurry or double vision no speech or swallowing issues no chest pain, pressure or palpitations Slightly increased shortness of breath over her baseline, she has no cough or wheezes no abdominal pain, nausea or vomiting, complains of bloating and some constipa tion lately no dysuria, hematuria or frequency no focal joint pain or swelling no back pain, CVA tenderness or radicular pain no bruising, bleeding or rashes no focal signs of weakness or numbness or altered sensation no complaints or anxiety or depression.. Physical Exam Physical Exam: The patient appeared well nourished and normally developed. She is in moderate distress Vital signs as documented. All upper teeth removed her lower teeth only in the front 6 or 7 remain Head exam is normocephalic atraumatic no scleral icterus Neck is without JVD, thyromegaly, or carotid bruits. Lungs are diminished bilaterally no wheezes she has coarse crackles heard in all lung cervantes Cardiac exam, Rhythm is regular.. No murmurs, rubs or gallops. Abdominal exam reveals normal bowel sounds, soft maybe mildly distended Extremities are mildly edematous and both pedal pulses are normal. Neurologic exam is alert and oriented, no focal loss of strength or sensation Skin is without bruises or rashes Psychologically is without concerns for anxiety or depression Results & Data Results & Data ([facility]) Vital Signs (Past 12 Hours) Vital Signs Temp Pulse Pulse Resp BP Pulse Ox 11/21/19 11:15 94 H 24 112/78 95 11/21/19 10:45 91 H 24 135/77 95 11/21/19 10:15 97.7 F 92 H 28 H 128/85 95 11/21/19 10:05 93 H 20 131/79 96 11/21/19 09:55 96 H 23 134/70 95 11/21/19 09:45 95 H 23 135/88 94 11/21/19 09:35 95 H 20 132/81 95 11/21/19 09:25 97.0 F L 92 H 23 133/98 95 11/21/19 09:15 94 H 29 H 136/80 97 11/21/19 09:05 94 H 24 140/90 94 11/21/19 08:55 87 27 H 145/84 H 93 11/21/19 08:47 97.0 F L 84 20 146/90 H 92 11/21/19 06:16 98.2 F 105 H 28 H 135/85 97 PG Care Time/CCT Total # of Minutes Spent Total Time Spent with Patient: Total time spent is greater than 50% in coord ination of care (as documented) at patient's floor/unit and/or counseling patient: Coding Level of Care Code 44978 OBS Care - Level 2 Diagnoses Chronic interstitial lung disease J84.9 Insomnia G47.00 Insomnia type: unspecified Restless leg syndrome G25.81 DVT prophylaxis Z29.9 (1) Insomnia Insomnia type: unspecified Qualified Code(s): G47.00 - Insomnia, unspecified
[2019-11-21] MEDS: CHECK SCOPOLAMINE PATCH PLACEMENT SCH ×2 (17:15→18:07)
[2019-11-21] MEDS ORDERED: ZOLPIDEM TARTRATE 10 MG TAB PO PRN (18:03)
[2019-11-21] MEDS ORDERED: ALBUTEROL HFA 8 GM INHALER INH PRN (18:03)
[2019-11-21] MEDS ORDERED: ACETAMINOPHEN 500 MG TAB PO PRN (18:03)
[2019-11-21] MEDS ORDERED: SULFAMETHOXAZOLE/TRIMETHOPRIM DS 800/160MG TAB PO SCH (19:00)
[2019-11-21] MEDS: HYDROmorphone INJ 0.5 MG/0.5 ML SYR IV PRN (20:05)
[2019-11-21] MEDS: ROPINIROLE HCL 1 MG TABLET PO SCH (20:12)
[2019-11-21] MEDS ORDERED: ESCITALOPRAM OXALATE 20 MG TAB PO SCH (21:00)
[2019-11-22] MEDS: CHECK SCOPOLAMINE PATCH PLACEMENT SCH ×2 (01:10→07:56)
[2019-11-22] MEDS: HYDROmorphone INJ 0.5 MG/0.5 ML SYR IV PRN (01:33)
[2019-11-22] MEDS ORDERED: ROPINIROLE HCL 1 MG TABLET PO ONE (03:45)
[2019-11-22 06:17] LABS: Hematocrit (blood only) 41.7 % (37-47); Hemoglobin 13.9 g/dL (12.0-16.0); Mean Corpuscular Hemoglobin 31.8 pg (25-34); Mean Corpuscular Hgb Conc 33.3 g/dL (32-36); Mean Corpuscular Volume 95.4 fL (80-100); Mean Platelet Volume 9.9 fL (7.4-10.4); Platelet Count 203 K/uL (130-400); RDW Coefficient of Variation 13.7 % (11.5-14.5); RDW Standard Deviation 48.1 fL (36.4-46.3); Red Blood Count 4.37 M/uL (4.2-5.4); White Blood Count 11.57 K/uL (4.8-10.8)
[2019-11-22 06:48] LABS: BUN Creatinine Ratio 23.1 (10-20); Calcium 8.9 mg/dl (8.5-10.1); Creatinine Clr Calc Pharmacy 82.9 ml/min; Est GFR (African American) 98.5; Potassium 4.2 mmol/L (3.5-5.1)
[2019-11-22] MEDS: ROPINIROLE HCL 1 MG TABLET PO SCH (07:55)
[2019-11-22] MEDS ORDERED: FLUTICASONE/VILANTEROL 200/25MCG 14 PUFFS/INHALER INH SCH (09:00)
[2019-11-22] MEDS ORDERED: POTASSIUM CHLORIDE 10 MEQ TABCR PO SCH (09:00)
[2019-11-22] MEDS ORDERED: predniSONE 5 MG TAB PO SCH (09:00)
[2019-11-22] MEDS ORDERED: FUROSEMIDE 40 MG TAB PO SCH (09:00)
--- NOTE | 2019-11-22 09:39 | Progress Note ---
Date of Service Teetee is doing very well today from the recent oral surgery. Minimal swelling and pain, sutures intact, no bleeding. Still very anxious but better then then yesterday. Doing well with her Oxygen --wants to go home. Post op instructions given and follow up information. She has an appointment with [facility] team on Sunday. She is cleared from Oral Surgery/Dental for the LUNG TRANSPLANT. November 22, 2019 Assessment & Plan Admission and Anticipated Discharge Date Admission Date: November 21, 2019 Results & Data ([facility]) Vital Signs (Past 12 Hours) Vital Signs Temp Pulse Pulse Resp BP BP Pulse Ox 11/22/19 07:56 36.9 C 89 18 118/77 95 11/22/19 02:47 36.5 C 90 21 118/73 92 11/21/19 23:30 36.7 C 91 H 20 106/65 93 PG Care Time/CCT Total # of Minutes Spent Total Time Spent with Patient: Total time spent is greater than 50% in coordination of care (as documented) at patient's floor/unit and/or counseling patient: Coding Level of Care Code 26982 Subseq Obs Care Lvl 1
--- NOTE | 2019-11-22 13:26 | Discharge Summary ---
Date of Service November 22, 2019 Admission HPI Per Admitting Provider Assumed by Dr. Johnson regarding observation of a patient that he had an ambulatory surgical unit where she had 17 teeth extracted in preparation for lung transplant evaluation. This patient is a patient Dr. Kruse typically on 4 L of oxygen at home suffering from interstitial pneumonitis and restrictive lung disease. Reportedly after anesthesia the patient was slightly more groggy than would be felt comfortable to have her discharged home with her chronic lung disease. When I evaluated with the patient she was awake but sleepy her pain was significant she is not particularly more short of breath she was mostly worried about getting her Requip medication for her restless leg syndrome. Other than that she had no new complaints or problems other than feeling like she has some bloating with regard to her bowel habits of late Admission Exam Per Admitting Provider The patient appeared well nourished and normally developed. She is in moderate distress Vital signs as documented. All upper teeth removed her lower teeth only in the front 6 or 7 remain Head exam is normocephalic atraumatic no scleral icterus Neck is without JVD, thyromegaly, or carotid bruits. Lungs are diminished bilaterally no wheezes she has coarse crackles heard in all lung cervantes Cardiac exam, Rhythm is regular.. No murmurs, rubs or gallops. Abdominal exam reveals normal bowel sounds, soft maybe mildly distended Extremities are mildly edematous and both pedal pulses are normal. Neurologic exam is alert and oriented, no focal loss of strength or sensation Skin is without bruises or rashes Psychologically is without concerns for anxiety or depression Principal Diagnosis Acute on Chronic Respiratory Failure Discharge Exam Patient was discharged by oral surgeon prior to hospitalist seeing patient; please refer to Oral Surgery's progress note for today's physical exam. Discharge Data Allergies Allergy/AdvReac Type Severity Reaction Status Date / Time Iodinated Contrast Media Allergy Severe Anaphylaxis Verified 11/21/19 06:09 Cipro Allergy Mild N.V./MOUTH Verified 11/10/19 09:29 SORES ciprofloxacin Allergy Mild N.V./MOUTH Verified 11/21/19 06:09 SORES Consultations 11/21/19 18:03 Consult Oromaxillofacial Surgery Routine Procedures Performed Operation Date: 11/21/19 07:00 Actual Procedures p Removal of 17 Infected Teeth(Bilateral) - Darshan Johnson DMD Hospital Course (1) Chronic interstitial lung disease: Mrs. Bradshaw is a 64 yo woman with oxygen-dependent interstitial lung disease. She is in the process of becoming a candidate for a lung transplant at [facility]. On 11/21/19, she had [address] Johnson in preparation for her lung transplant candidacy evaluation at [facility] on Sunday. The teeth removed were abscessed/impacted. Dr. Johnson noted patient to be groggy up to an hour after coming off of anesthesia. Given her degree of lung disease and the fact that she lives alone, he recommended she come to the hospital for overnight monitoring of her respiratory status. Patient breathed well on home oxygen requirement while in the hospital. Dr. Johnson evaluated her this morning and discharged her before primary team was able to see her. See is cleared by oral surgery for lung transplant. Total Time Total Time Spent Total Time Spent (In Minutes): see attending attestation Discharge Plan Discharge Items Patient Disposition: Home - Self-Care Reason For Visit: ACUTE ON CHRONIC RESPIRATORY FAILURE Discharge Diagnosis: removal of infected teeth to allow future Lung transplant surgery Condition on Discharge: Good Activity: Resume your previous activity Lifting: Gradually increase as tolerated Bathing: No limitations Exercise/Sports: Gradually increase as tolerated Non-emergency contact: Surgeon Call non-emergency contact if: you have any medication questions, your temperature is above 101.5, your wound has increased redness, your wound has increased drainage and your wound pain has increased Follow-up/Referrals: Horacio Garay PA-C [Primary Care Provider] - Darshan Johnson DMD [Physician] - Diet: Full liquid Diet Comment: clear--full--dental soft as tolerated Addtl Attending Provider Instructions: ADDITIONAL ACTIVITY RECOMMENDATIONS: * Elizabeth teeth after every meal. It is very important to keep your mouth clean to prevent infection. SPECIAL CARE INSTRUCTIONS: * Keep ice on the side of your face for the next 24 to 36 hours. This will help keep the swelling down. * After 36 hours, apply heat (hot water bottle or heating pad) for the next two days, as often as possible. * Tomorrow start rinsing your mouth with 1/2 teaspoon salt in 8 ounces warm water. This rinse should be used every 4-6 hours. * You may experience slight nausea. To prevent this, never take your medication on an empty stomach. If nauseated, take small sips of nova maite until you feel better; then you may start on applesauce and toast. * Some swelling is common. It should gradually decrease within 4-5 days. * A certain amount of bleeding is to be expected. It is often possible to control mild oozing by placing folded gauze over the area and biting down for 30 minutes. If you are unable to control excessive bleeding, call Dr Johnson at [phone] * You may experience some discomfort for a few days. If pain or swelling increases, Call Dr Johnson Pending Studies at Discharge: No Stand-Alone Forms: Anesthesia/Sedation, Adult, [facility], Opioid Pain Management Medications and DC Order Prescriptions: Continued (DME) Oxygen Home Liters Per Minute See Rx Instructions .ROUTE .MEDSUPPLY Qty: 1 RF: 0 amoxicillin 500 mg capsule 500 mg PO Q8H Qty: 21 RF: 0 acetaminophen-codeine [Tylenol-Codeine #3] 300-30 mg tablet 1 tab PO Q4H PRN (Reason: pain) Qty: 14 RF: 0 Symbicort 160-4.5 mcg/actuation HFA aerosol inhaler 2 puffs INH BID Qty: 10.2 RF: 2 (DME) Auto Titrating CPAP Misc See Rx Instructions .ROUTE .MEDSUPPLY Qty: 1 RF: 0 acetaminophen [Tylenol Extra Strength] 500 mg Tablet 1,000 mg PO Q6H PRN (Reason: Pain) RF: 0 albuterol sulfate [Ventolin HFA] 90 mcg/actuation Hfa Aerosol Inhaler 2 puff INHALATION QID PRN (Reason: Shortness Of Breath) RF: 0 escitalopram oxalate [Lexapro] 10 mg Tablet 20 mg PO QPM RF: 0 ropinirole 2 mg tablet 2 mg PO TID RF: 0 prednisone 5 mg Tablet 5 mg PO QAM RF: 0 potassium chloride 10 mEq capsule, extended release 10 meq PO DAILY RF: 0 sulfamethoxazole-trimethoprim 800-160 mg tablet 1 tab PO 3XWK RF: 0 zolpidem [Ambien] 10 mg Tablet 5 - 10 mg PO HS PRN (Reason: Sleep) RF: 0 furosemide [Lasix] 40 mg tablet 40 - 80 mg PO DAILY RF: 0 Discharge Orders: Discharge Order (Routine); Ordered 11/21/19 Ordered By: Darshan Ramirez/Other Patient Handouts: DVT Post Op Prevention Admission Data Admit Date/Time: 11/21/19 14:18 Attending Provider: Shalini Pratt Admit Provider: Melo Goff Primary Care Provider: Horacio Garay Other Providers: Darshan Johnson Thomas E. Other Interventions: Discharge Summary Assessment (RN) Last Done: 11/22/19 10:35 DC Date/Time DO NOT enter until pt leaves facility: 11/22/19 11:30 Resident Activity Tracking Resident Involvement: Resident Care Provided Care Provided: Adult Hospital Medicine
== END 2019-11-22 11:30 | disposition home or self-care (01) ==
LOC: ASU 05:36 → 2N 14:18 → INTOOBSV 14:18 → SUATTDRO 14:18

== ENCOUNTER 2020-06-08 01:37 | Inpatient (IN) ==
[2020-06-08] MEDS ORDERED: ALBUT/IPRATROP 3MG/0.5MG NEB 3 ML VIAL NEB ONE (01:54)
--- NOTE | 2020-06-08 01:57 | Emergency Department Note ---
Impression & Plan Acute hypoxemic respiratory failure, Acute exacerbation of idiopathic pulmonary fibrosis ED Provider Note Name: ADONAY PINEDO Age: 65 Sex: F Arrives Via: Walk-In Informant: Patient ED Provider: Kelton Preciado MD Chief Complaint: Shortness of breath Impression: Acute Hypoxemic Respiratory Failure Acute Exacerbation of Idiopathic Pulmonary Fibrosis Medical Decision Makin yr old female with long history lung disease and treatment of IPF who arrives after 3 days rapidly worsening shortness of breath. Seen by Primary Pulm and increased steroids and lasix yesterday without improvement. She is moving minimal air on arrival and quite dyspneic. Hypoxic on arrival and immediately placed in BiPAP given increased work of breathing. This seems to have improved her significantly. Given continuous neb along with some IV steroids. CXR with fibrotic pattern and she does not appear fluid overloaded by exam. Labs are OK and covid is negative. No clear indication of sepsis/infectious etiology thus will defer abx to hospitalist. This is not consistent with PE given clear other etiology at this time. Prior Medical Record and Triage/Nursing Notes reviewed by Me Additional history obtained from chart Differentials:Reactive airway disease, pneumonia, pneumothorax, COPD, CHF, infections, cardiac ischemia, pulmonary embolism, musculoskeletal, gastrointestinal, as well as other pathologies. Vital Signs: reviewed and remarkable for tachy, hypoxia, tachypnea Interventions: saline lock, duoneb continous, bipap, solumedrol IV Labs:Reviewed and remarkable for no significant abnormalities Imaging:X ray results are stated below per my interpretation: Chest: 1 view: Diffuse fibrotic pattern mildly worsened from previous EKG:Per My Interpretation: Indication SHOB: NSR 100 bpm, qtc 479, poor baseline though no ectomy nor overt ischemia Compared to EKG 09/29/19, no significant changes. Cardiac/Tele Monitoring: Cardiac Monitoring: An Order was placed for continuous cardiac monitoring. The monitor shows a rate of 100 with a normal sinus rhythm. Consults:Dr Jovani MTZ Hospitalist Plan: Disposition:Hospitalization. Condition: Fair History of Present Illness:65 yr old female arrives for evaluation of shortness of breath. Patient with history of Idiopathic Pulmonary Fibrosis who arrives for acute shortness of breath. She notes she had been feeling short of breath the last few days and admits that she was seen by Metal Fabricator yesterday who increased prednisone and lasix. She notes severe worsening of breathing overnight despite home CPAP and NC O2. 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 She arrives via POV. Associated nonproductive cough. No fevers, chills, syncope, cp, nausea, vomiting, abdominal pain, back pain, leg swelling, calf pain nor other symptoms. She notes this is similar to previous exacerbations. Last admi ssion 7 months ago. She is not currently on Lung Transplant list secondary to issues with steroids and weight and water retention. ROS: See above HPI for pertinent positives & negatives. A total of 10 systems reviewed and were otherwise negative. Past Medical History:See Below Past Surgical History:See Below Family History:See Below Social History:See Below Home Medications:See Below Allergies:IV Dye, Cipro Vitals:Blood Pressure: 173/108, Pulse 104, RR 36, T 36.2C, O2 86% on 4L NC Physical Exam: GENERAL: Patient is unwell appearing and in severe distress. EYES: No scleral icterus, unremarkable pupils. ENT: Mucous membranes moist, no nasal congestion. NECK: No masses appreciated, nomeningismus, trachea is midline. RESPIRATORY: severe dyspnea/tachypnea, unable to speak in full sentence, very tight lung sounds, minimal wheezing, no crackles appreaciated. CARDIOVASCULAR: Tachy.No murmurs, rubs, gallops appreciated. GASTROINTESTINAL: Abdomen soft, non-tender, no peritonitis.Bowel sounds positive.No masses appreciated. BACK: No midline tenderness, no CVA tenderness EXTREMITIES: Normal motion all extremities, no cyanosis, no edema. NEUROLOGIC: Alert and oriented, no acute motor or sensory deficits, no focal weakness, cranial nerves grossly intact. SKIN: No rash, no jaundice, no diaphoresis. PSYCH: Appropriate GCS: 15 ED Course: Times/Reassessments: Improvement with bipap. Comfortable with IV steroids and hospitalization Critical Care: I have personally spent 45 minutes of critical care time in the direct management of this patient. Acute hypoxic respiratory failure secondary to IPF requiring BiPAP. This was a life/limb threatening event. This 45 minutes is in excess of all separately billable procedures. Kelton Preciado MD Past Med/Surg History Medical History (Updated 06/08/20 @ 05:46 by Kelton Preciado MD) Anxiety Arthritis Asthma Degenerative disc disease Depression GERD (gastroesophageal reflux disease) Idiopathic pulmonary fibrosis diagnosed 04/2019 Interstitial lung disease On home oxygen therapy BASIM (obstructive sleep apnea) nurse did not note if patient using a device Osteoarthritis Pulmonary nodule Restless leg syndrome Tracheobronchomalacia Surgical History (Updated 11/21/19 @ 09:58 by Bhavana Barajas RN) History of ankle surgery Lt - hardware present History of appendectomy History of bladder repair surgery History of breast surgery History of carpal tunnel release of both wrists History of D&C History of esophagogastroduodenoscopy (EGD) History of lung biopsy Right Video Assisted Thoracoscopy with Lung and Lymph Node Biopsy Dr. Schneider 05-12-19 History of spinal surgery lumbar History of surgery Rt biceps repair History of tonsillectomy History of tooth extraction History of total abdominal hysterectomy and bilateral salpingo-oophorectomy Hx of oral surgery (11/21/19) Removal of [address] 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 Feels Safe at Home: Yes Assistive Devices: Oxygen - Continuous Allergies Allergies Allergy/AdvReac Type Severity Reaction Status Date / Time Iodinated Contrast Media Allergy Severe Anaphylaxis Verified 06/08/20 02:11 Cipro Allergy Mild N.V./MOUTH Verified 11/10/19 09:29 SORES ciprofloxacin Allergy Mild N.V./MOUTH Verified 06/08/20 02:11 SORES Home Meds Home Medications Medication Instructions Recorded Confirmed albuterol sulfate [Ventolin HFA] 2 puff INHALATION QID PRN 02/14/18 06/08/20 ropinirole 2 mg PO TID 05/12/19 06/08/20 escitalopram oxalate [Lexapro] 20 mg PO QPM 05/18/19 06/08/20 sulfamethoxazole-trimethoprim 1 tab PO 3XWK 11/13/19 06/08/20 zolpidem [Ambien] 5 - 10 mg PO HS PRN 11/13/19 06/08/20 mycophenolate mofetil 250 mg 250 mg PO DAILY cap 06/07/20 06/08/20 capsule omeprazole magnesium 20 mg 20 mg PO DAILY 06/07/20 06/08/20 tablet,delayed release cholecalciferol (vitamin D3) 25 mcg PO DAILY 06/08/20 06/08/20 [Vitamin D3] furosemide [Lasix] 40 mg PO BID 06/08/20 06/08/20 potassium chloride 20 meq PO DAILY 06/08/20 06/08/20 Previous Rx's Medication Instructions Recorded budesonide-formoterol HFA 160 2 puffs INH BID #10.2 gm 04/28/19 mcg-4.5 mcg/actuation aerosol inhaler Oxygen Home #1 ea 07/02/19 CPAP Machine #1 ea 08/01/19 Wheeled Walker #1 ea 02/26/20 lidocaine 4 % topical patch 1 patch TOPICAL DAILY PRN #10 ea 02/26/20 umeclidinium 62.5 mcg/actuation 1 inh INHALATION DAILY #30 ea 03/26/20 blister powder for inhalation metolazone 2.5 mg tablet 2.5 mg PO 2XWK PRN #10 tab 06/07/20 prednisone 5 mg tablet 5 mg PO Q OTHER DAY #30 tab 06/07/20 Results & Data (ED) Vital Signs Vital Signs - 24 hr 06/08/20 01:45 06/08/20 01:48 06/08/20 02:00 Temperature 36.2 C L Temperature Source Temporal Artery Scan Pulse Rate 104 H 182 H 98 H Pulse Rate from SpO2 Sensor 100 H 99 H Respiratory Rate 36 H 42 H 29 H Respiratory Effort / Characteristics Labored Respiratory Depth Respiratory Pattern Blood Pressure 173/108 H Blood Pressure Mean 129 Pulse Oximetry 86 L 99 98 Oxygen Delivery Method Nasal Cannula BiPAP BiPAP Oxygen Flow Rate 4 Fraction of Inspired Oxygen 50 50 Sepsis New/Unexplained Change in Mental Status N/A Sepsis Action Taken by Nursing No Action Required 06/08/20 02:10 06/08/20 02:20 06/08/20 02:30 Temperature Temperature Source Pulse Rate 96 H 98 H Pulse Rate from SpO2 Sensor 99 H Respiratory Rate 36 H 31 H Respiratory Effort / Characteristics Spontaneous Accessory Muscle Use Short of Breath Labored Short of Breath Respiratory Depth Shallow Respiratory Pattern Tachypnea Tachypnea Blood Pressure Blood Pressure Mean Pulse Oximetry 100 100 Oxygen Delivery Method BiPAP Oxygen Flow Rate Fraction of Inspired Oxygen 50 50 Sepsis New/Unexplained Change in Mental Status Sepsis Action Taken by Nursing 06/08/20 03:00 06/08/20 03:18 06/08/20 03:30 Temperature Temperature Source Pulse Rate 105 H 112 H 112 H Pulse Rate from SpO2 Sensor 108 H 112 H 111 H Respiratory Rate 32 H 30 H 22 Respiratory Effort / Characteristics Respiratory Depth Respiratory Pattern Blood Pressure 163/88 H 151/96 H Blood Pressure Mean 105 117 Pulse Oximetry 100 100 100 Oxygen Delivery Method BiPAP BiPAP BiPAP Oxygen Flow Rate Fraction of Inspired Oxygen 50 50 Sepsis New/Unexplained Change in Mental Status Sepsis Action Taken by Nursing 06/08/20 04:00 06/08/20 04:30 06/08/20 05:00 Temperature Temperature Source Pulse Rate 110 H 112 H 107 H Pulse Rate from SpO2 Sensor 111 H 113 H 107 H Respiratory Rate 27 H 25 H 27 H Respiratory Effort / Characteristics Respiratory Depth Respiratory Pattern Blood Pressure 146/73 H 164/108 H 160/94 H Blood Pressure Mean 91 119 106 Pulse Oximetry 100 100 100 Oxygen Delivery Method BiPAP BiPAP BiPAP Oxygen Flow Rate Fraction of Inspired Oxygen Sepsis New/Unexplained Change in Mental Status Sepsis Action Taken by Nursing Laboratory Data Result diagrams: 06/08/20 02:01 06/08/20 02:01 Lab Results 06/08/20 06/08/20 06/08/20 Range/Units 02:00 02:00 02:01 WBC 10.14 (4.8-10.8) K/uL RBC 4.29 (4.2-5.4) M/uL Hgb 13.8 (12.0-16.0) g/dL Hct 40.2 (37-47) % MCV 93.7 (80-100) fL MCH 32.2 (25-34) pg MCHC 34.3 (32-36) g/dL RDW Std Deviation 46.9 H (36.4-46.3) fL RDW Coeff of Bryce 13.6 (11.5-14.5) % Plt Count 221 (130-400) K/uL MPV 9.9 (7.4-10.4) fL Immature Gran % (Auto) 0.3 % Neut % (Auto) 67.3 % Lymph % (Auto) 23.1 % [facility] % (Auto) 5.9 % Eos % (Auto) 3.2 % Baso % (Auto) 0.2 % Neut # (Auto) 6.83 H (1.4-6.5) K/uL Lymph # (Auto) 2.34 (1.2-3.4) K/uL [facility] # (Auto) 0.60 H (0.11-0.59) K/uL Eos # (Auto) 0.32 (0-0.5) K/uL Baso # (Auto) 0.02 (0-0.2) K/uL Immature Gran # (Auto) 0.03 H (0.00-0.02) K/uL PT (9.0-12.0) Seconds INR (0.9-1.1) Sodium (136-145) mmol/L Potassium (3.5-5.1) mmol/L Chloride (98-107) mmol/L Carbon Dioxide (21-32) mmol/L Anion Gap (3-11) BUN (7-18) mg/dl Creatinine (0.6-1.2) mg/dl Est Cr Clr Drug Dosing ml/min Est GFR ( Amer) Est GFR (Non-Af Amer) BUN/Creatinine Ratio (10-20) Glucose (70-99) mg/dl Calcium (8.5-10.1) mg/dl Magnesium (1.8-2.4) mg/dl Total Bilirubin (0.2-1) mg/dl Direct Bilirubin (0-0.2) mg/dl AST (15-37) U/L ALT (12-78) U/L Alkaline Phosphatase (45-117) U/L Troponin I (0-0.045) ng/ml NT-Pro-B Natriuret Pep (0-900) pg/ml Total Protein (6.4-8.2) gm/dl Albumin (3.4-5.0) gm/dl Lipase (73-393) U/L COVID-19 Eval Order CovFluRsv at [facility] SARS-CoV-2 (PCR) NEGATIVE (Negative) Influenza Type A (PCR) Negative (Neg) Influenza Type B (PCR) Negative (Neg) RSV (RT-PCR) Negative (Neg) 06/08/20 06/08/20 Range/Units 02:01 02:01 WBC (4.8-10.8) K/uL RBC (4.2-5.4) M/uL Hgb (12.0-16.0) g/dL Hct (37-47) % MCV (80-100) fL MCH (25-34) pg MCHC (32-36) g/dL RDW Std Deviation (36.4-46.3) fL RDW Coeff of Bryce (11.5-14.5) % Plt Count (130-400) K/uL MPV (7.4-10.4) fL Immature Gran % (Auto) % Neut % (Auto) % Lymph % (Auto) % [facility] % (Auto) % Eos % (Auto) % Baso % (Auto) % Neut # (Auto) (1.4-6.5) K/uL Lymph # (Auto) (1.2-3.4) K/uL [facility] # (Auto) (0.11-0.59) K/uL Eos # (Auto) (0-0.5) K/uL Baso # (Auto) (0-0.2) K/uL Immature Gran # (Auto) (0.00-0.02) K/uL PT 10.3 (9.0-12.0) Seconds INR 1.0 (0.9-1.1) Sodium 140 (136-145) mmol/L Potassium 4.4 (3.5-5.1) mmol/L Chloride 108 H (98-107) mmol/L Carbon Dioxide 25 (21-32) mmol/L Anion Gap 7.0 (3-11) BUN 26 H (7-18) mg/dl Creatinine 0.93 (0.6-1.2) mg/dl Est Cr Clr Drug Dosing 67.4 ml/min Est GFR ( Amer) 74.2 Est GFR (Non-Af Amer) 64.0 BUN/Creatinine Ratio 28.1 H (10-20) Glucose 156 H (70-99) mg/dl Calcium 8.6 (8.5-10.1) mg/dl Magnesium 2.3 (1.8-2.4) mg/dl Total Bilirubin 0.4 (0.2-1) mg/dl Direct Bilirubin < 0.1 (0-0.2) mg/dl AST 19 (15-37) U/L ALT 33 (12-78) U/L Alkaline Phosphatase 96 (45-117) U/L Troponin I < 0.015 (0-0.045) ng/ml NT-Pro-B Natriuret Pep 37 (0-900) pg/ml Total Protein 6.9 (6.4-8.2) gm/dl Albumin 3.5 (3.4-5.0) gm/dl Lipase 146 (73-393) U/L COVID-19 Eval Order SARS-CoV-2 (PCR) (Negative) Influenza Type A (PCR) (Neg) Influenza Type B (PCR) (Neg) RSV (RT-PCR) (Neg) Administered Medications Discontinued Medications Acetaminophen (Acetaminophen 500 Mg Tab) 1,000 mg PO NOW STA Stop: 06/08/20 04:02 Last Admin: 06/08/20 04:41 Dose: 1,000 mg Documented by: [id number] Albuterol (Albut/Ipratrop 3mg/0.5mg Neb 3 Ml Vial) 12 ml NEB ONE ONE Stop: 06/08/20 01:55 Last Admin: 06/08/20 02:06 Dose: 12 ml Documented by: [id number] Furosemide (Furosemide 40 Mg/4 Ml Vial) 40 mg IV NOW STA Stop: 06/08/20 04:59 Last Admin: 06/08/20 05:29 Dose: 40 mg Documented by: [id number] Methylprednisolone (Methylprednisolone 125 Mg/2 Ml Vial) 125 mg IV NOW STA Stop: 06/08/20 03:06 Last Admin: 06/08/20 03:56 Dose: 125 mg Documented by: [id number] Discharge Plan Visit Data Chief Complaint: Respiratory Problems Stated Complaint: CAN'T BREATHE,CHEST PAIN,FLUID BUILD UP ED Provider: Kelton Preciado Discharge Problem: Acute hypoxemic respiratory failure, Acute exacerbation of idiopathic pulmonary fibrosis Forms Stand Alone Forms: My [employer] Prescriptions Prescriptions: No Action (DME) Oxygen Home Liters Per Minute See Rx Instructions .ROUTE .MEDSUPPLY Qty: 1 RF: 0 Incruse Ellipta 62.5 mcg/actuation blister with device 1 inh inhalation DAILY Qty: 30 RF: 5 Symbicort 160-4.5 mcg/actuation HFA aerosol inhaler 2 puffs INH BID Qty: 10.2 RF: 2 mycophenolate mofetil 250 mg capsule 250 mg PO DAILY RF: 0 omeprazole magnesium [Prilosec OTC] 20 mg tablet,delayed release (DR/EC) 20 mg PO DAILY RF: 0 prednisone 5 mg tablet 5 mg PO Q OTHER DAY Qty: 30 RF: 5 metolazone 2.5 mg tablet 2.5 mg PO 2XWK PRN (Reason: edema) Qty: 10 RF: 3 (DME) Auto Titrating CPAP Misc See Rx Instructions .ROUTE .MEDSUPPLY Qty: 1 RF: 0 lidocaine 4 % adhesive patch,medicated 1 patch topical DAILY PRN (Reason: pain) Qty: 10 RF: 3 (DME) Wheeled Walker Misc See Rx Instructions .ROUTE .MEDSUPPLY Qty: 1 RF: 0 albuterol sulfate [Ventolin HFA] 90 mcg/actuation Hfa Aerosol Inhaler 2 puff INHALATION QID PRN (Reason: Shortness Of Breath) RF: 0 escitalopram oxalate [Lexapro] 10 mg Tablet 20 mg PO QPM RF: 0 furosemide [Lasix] 40 mg tablet 40 mg PO BID RF: 0 cholecalciferol (vitamin D3) [Vitamin D3] 25 mcg (1,000 unit) Tablet 25 mcg PO DAILY RF: 0 potassium chloride 10 mEq capsule, extended release 20 meq PO DAILY RF: 0 ropinirole 2 mg tablet 2 mg PO TID RF: 0 sulfamethoxazole-trimethoprim 800-160 mg tablet 1 tab PO 3XWK RF: 0 zolpidem [Ambien] 10 mg Tablet 5 - 10 mg PO HS PRN (Reason: Sleep) RF: 0
[2020-06-08 02:16] LABS: Basophils # (auto) 0.02 K/uL (0-0.2); Basophils % (auto) 0.2 %; Eosinophils # (auto) 0.32 K/uL (0-0.5); Eosinophils % (auto) 3.2 %; Hematocrit (blood only) 40.2 % (37-47); Hemoglobin 13.8 g/dL (12.0-16.0); Immature Granulocytes # (auto) 0.03 K/uL (0.00-0.02); Immature Granulocytes % (auto) 0.3 %; Lymphocytes # (auto) 2.34 K/uL (1.2-3.4); Lymphocytes % (auto) 23.1 %; Mean Corpuscular Hemoglobin 32.2 pg (25-34); Mean Corpuscular Hgb Conc 34.3 g/dL (32-36); Mean Corpuscular Volume 93.7 fL (80-100); Mean Platelet Volume 9.9 fL (7.4-10.4); Monocytes % (auto) 5.9 %; Neutrophils # (auto) 6.83 K/uL (1.4-6.5); Neutrophils % (auto) 67.3 %; Platelet Count 221 K/uL (130-400); RDW Coefficient of Variation 13.6 % (11.5-14.5); RDW Standard Deviation 46.9 fL (36.4-46.3); Red Blood Count 4.29 M/uL (4.2-5.4); White Blood Count 10.14 K/uL (4.8-10.8)
[2020-06-08 02:25] LABS: Prothrombin Time 10.3 Seconds (9.0-12.0)
[2020-06-08 02:58] LABS: Influenza A virus by PCR Negative (Neg); Influenza B virus by PCR Negative (Neg); RSV by PCR Negative (Neg); SARS CoV2 RNA(COVID-19) InHosp NEGATIVE (Negative)
[2020-06-08] MEDS ORDERED: methylPREDNISolone 125 MG/2 ML VIAL IV STA (03:05)
[2020-06-08 03:18] LABS: Alanine Aminotransferase 33 U/L (12-78); Albumin Level 3.5 gm/dl (3.4-5.0); Alkaline Phosphatase 96 U/L (45-117); BUN Creatinine Ratio 28.1 (10-20); Bilirubin,Total 0.4 mg/dl (0.2-1); Blood Urea Nitrogen 26 mg/dl (7-18); Calcium 8.6 mg/dl (8.5-10.1); Carbon Dioxide 25 mmol/L (21-32); Chloride 108 mmol/L (98-107); Creatinine Clr Calc Pharmacy 67.4 ml/min; Est GFR (African American) 74.2; Glucose 156 mg/dl (70-99); Lipase 146 U/L (73-393); NT Pro B Type Natriuretic Pept 37 pg/ml (0-900); Sodium 140 mmol/L (136-145); Total Protein 6.9 gm/dl (6.4-8.2); Troponin I < 0.015 ng/ml (0-0.045)
[2020-06-08 03:21] LABS: Aspartate Aminotransferase 19 U/L (15-37); Bilirubin Direct < 0.1 mg/dl (0-0.2); Magnesium 2.3 mg/dl (1.8-2.4); Potassium 4.4 mmol/L (3.5-5.1)
[2020-06-08] MEDS ORDERED: ACETAMINOPHEN 500 MG TAB PO STA (04:01)
--- NOTE | 2020-06-08 04:09 | History & Physical Report ---
Date of Service June 08, 2020 Assessment & Plan (1) Acute and chronic respiratory failure with hypoxia: Acute on chronic respiratory failure with hypoxia/nonspecific interstitial multifocal pneumonia/chronic ILD/tracheobronchomalacia/asthma exacerbation- We will try to avoid increasing steroids and the subsequent edema that she has had which restricts her ability to be placed on the lung transplant list. Hold prednisone 5 mg p.o. daily and Bactrim DS 1 p[address] on methylprednisolone 20 mg IV every 8 hours Continue mycophenolate 250 mg p.o. daily, Symbicort and Umeclidinium. Vancomycin IV per pharmacokinetic monitoring Zosyn 3.375 mg IV every 8 hours Duonebs every 4 hours while awake and every 2 hours when necessary. Continue BiPAP for now, and titrate downward as symptoms improve Consult pulmonology Present on Admission?: Yes (2) Nonspecific interstitial pneumonia: See above Present on Admission?: Yes (3) Chronic interstitial lung disease: See above Present on Admission?: Yes (4) Tracheobronchomalacia: See above Present on Admission?: Yes (5) Asthma exacerbation: See above Present on Admission?: Yes (6) Fluid overload: Fluid overload/diastolic dysfunction without heart failure- Continue furosemide 40 mg p.o. twice daily and potassium chloride 20 mEq p.o. daily Was to have the addition of Zaroxolyn 2.5 mg p.o. prior to Lasix on Sunday and , but for now we will need to hold in the acute illness state Present on Admission?: Yes (7) Diastolic dysfunction without heart failure: See above Present on Admission?: Yes (8) Depression: Continue Lexapro 20 mg p.o. every evening, and Ambien 10 mg p.o. at bedtime as needed Present on Admission?: Yes (9) GERD (gastroesophageal reflux disease): Change omeprazole to pantoprazole per formulary interchange Present on Admission?: Yes (10) Restless leg syndrome: Continue ropinirole 2 mg p.o. 3 times daily Present on Admission?: Yes History of Present Illness Chief Complaint: The patient presents to the emergency department with worsening shortness of breath over the past few days. Primary Care Provider: Horacio Garay PA-C The patient is a 65-year-old female with a past medical history including history of abscessed tooth, tracheobronchomalacia, chronic interstitial lung disease, bronchiectasis, UIP, nonspecific interstitial pneumonia, insomnia, diastolic dysfunction without heart failure, fatty liver, sepsis, Sirs, benign essential tremor, restless leg syndrome, GERD and depression. The patient has been seen by her purchasing assistant Dr. Kruse on 06/07/2020, and in an attempt to improve oxygenation and avoid steroid-induced edema, her prednisone was decreased to 5 mg every other day, her Lasix 80 mg daily was continued, and there was the addition of Zaroxolyn 2.5 mg on Sunday and pre Lasix dose. She has been restarted on her mycophenolate, reports that she is on day 4 now. There was also to be an attempt to speak to Dr. Chaney from [place] [facility] to try to get it moved up earlier on the list. She reports to the emergency department this evening, as she has become extremely short of breath with even minimal activity. In the emergency department, she was placed on BiPAP, which of then giving her a mild headache, did improve her oxygenation and made her breathing more comfortable. Laboratories were significant for glucose 156, and she was COVID-19 negative. Allergies Allergy/AdvReac Type Severity Reaction Status Date / Time Iodinated Contrast Media Allergy Severe Anaphylaxis Verified 06/08/20 02:11 Cipro Allergy Mild N.V./MOUTH Verified 11/10/19 09:29 SORES ciprofloxacin Allergy Mild N.V./MOUTH Verified 06/08/20 02:11 SORES Home Medications Medication Instructions Recorded Confirmed Type albuterol sulfate [Ventolin HFA] 2 puff INHALATION QID PRN 02/14/18 06/08/20 History budesonide-formoterol HFA 160 2 puffs INH BID #10.2 gm 04/28/19 06/08/20 Rx mcg-4.5 mcg/actuation aerosol inhaler ropinirole 2 mg PO TID 05/12/19 06/08/20 History escitalopram oxalate [Lexapro] 20 mg PO QPM 05/18/19 06/08/20 History Oxygen Home #1 ea 07/02/19 06/07/20 Rx CPAP Machine #1 ea 08/01/19 06/07/20 Rx sulfamethoxazole-trimethoprim 1 tab PO 3XWK 11/13/19 06/08/20 History zolpidem [Ambien] 5 - 10 mg PO HS PRN 11/13/19 06/08/20 History Wheeled Walker #1 ea 02/26/20 06/07/20 Rx lidocaine 4 % topical patch 1 patch TOPICAL DAILY PRN #10 ea 02/26/20 06/08/20 Rx umeclidinium 62.5 mcg/actuation 1 inh INHALATION DAILY #30 ea 03/26/20 06/08/20 Rx blister powder for inhalation metolazone 2.5 mg tablet 2.5 mg PO 2XWK PRN #10 tab 06/07/20 06/08/20 Rx mycophenolate mofetil 250 mg 250 mg PO DAILY cap 06/07/20 06/08/20 History capsule omeprazole magnesium 20 mg 20 mg PO DAILY 06/07/20 06/08/20 History tablet,delayed release prednisone 5 mg tablet 5 mg PO Q OTHER DAY #30 tab 06/07/20 06/08/20 Rx cholecalciferol (vitamin D3) 25 mcg PO DAILY 06/08/20 06/08/20 History [Vitamin D3] furosemide [Lasix] 40 mg PO BID 06/08/20 06/08/20 History potassium chloride 20 meq PO DAILY 06/08/20 06/08/20 History Past Med/Surg History Medical History (Updated 02/26/20 @ 12:08 by Niraj Hair PA-C) Anxiety Arthritis Asthma Degenerative disc disease Depression GERD (gastroesophageal reflux disease) Idiopathic pulmonary fibrosis diagnosed 04/2019 Interstitial lung disease On home oxygen therapy BASIM (obstructive sleep apnea) nurse did not note if patient using a device Osteoarthritis Pulmonary nodule Restless leg syndrome Tracheobronchomalacia Surgical History (Updated 11/21/19 @ 09:58 by Bhavana Barajas, PATSY) History of ankle surgery Lt - hardware present History of appendectomy History of bladder repair surgery History of breast surgery History of carpal tunnel release of both wrists History of D&C History of esophagogastroduodenoscopy (EGD) History of lung biopsy Right Video Assisted Thoracoscopy with Lung and Lymph Node Biopsy Dr. Schneider 05-12-19 History of spinal surgery lumbar History of surgery Rt biceps repair History of tonsillectomy History of tooth extraction History of total abdominal hysterectomy and bilateral salpingo-oophorectomy Hx of oral surgery (11/21/19) Removal of [address] Johnson 11/21/2019 Nausea and vomiting after administration of anesthetic agent Family History Other Adopted Social History (System 11/10/19 @ 09:29 by Ivonne Elena) Smoking Status: Never smoker Second Hand Exposure: No; Hx Alcohol Use: Yes Alcohol type: wine Hx Substance Use: No Preferred Language: Kyrgyz Communication Ability: Effective Visual Impairment: No Limitations Home Coordinator Required: No Beliefs That Will Affect Care: Protestant Protestant Beliefs: Geovanna marital status: Legally Current Living Situation: Alone current occupational status: retired current occupation: halfway Feels Safe at Home: Yes Assistive Devices: Oxygen - Continuous Review of Systems Review of Systems: The patient denies chest pain, palpitations cough, sore throat, fevers, chills, sweats, nausea, vomiting, diarrhea , constipation, abdominal pain, pelvic pain, blood in urine or stool, dysuria, urinary frequency or urgency, lightheadedness, dizziness, memory loss, loss of consciousness, rash, abnormal bruising or bleeding, focal weakness, numbness or tingling in arms or legs, generalized arthralgias or myalgias, back or neck pain, or night sweats. The review of systems is otherwise negative other than for that already noted above, and at least 10 systems have been reviewed. Physical Exam Physical Exam: The patient is awake, alert and oriented 3, well developed and well nourished, normocephalic and atraumatic, lying in bed and in no acute distress while wearing BiPAP. HEENT--PERRL, EOMI, mucous membranes and oropharynx dry. Neck--supple. No JVD. No bruits. Thyroid normal, trachea midline, no adenopathy. Heart--normal S1 and S2. No murmurs, rubs or gallops. Lungs--dry crackles throughout, with scattered coarse breath sounds. Mild to moderate respiratory distress with accessory muscle use. Abdomen--normal bowel sounds and soft. Nontender. Nondistended. Obese Extremities--no cyanosis or clubbing. 1+ bilateral pretibial pitting edema. Dermatologic--normal skin turgor, normal color, no abnormal lymph nodes, no rash. Neurologic--cranial nerves II through XII grossly intact. Rheumatologic--normal range of motion. Psychiatric--normal affect. Results & Data Results & Data ([facility]) Vital Signs (Past 12 Hours) Vital Signs Temp Pulse Resp BP Pulse Ox 06/08/20 03:18 112 H 30 H 163/88 H 100 06/08/20 03:00 105 H 32 H 100 06/08/20 02:30 98 H 31 H 100 06/08/20 02:10 96 H 36 H 100 06/08/20 02:00 98 H 29 H 98 06/08/20 01:48 182 H 42 H 99 06/08/20 01:45 97.2 F L 104 H 36 H 173/108 H 86 L Laboratory Results Laboratory Results WBC 10.14 K/uL (4.8-10.8) 06/08/20 02:01 RBC 4.29 M/uL (4.2-5.4) 06/08/20 02:01 Hgb 13.8 g/dL (12.0-16.0) 06/08/20 02:01 Hct 40.2 % (37-47) 06/08/20 02:01 MCV 93.7 fL (80-100) 06/08/20 02:01 MCH 32.2 pg (25-34) 06/08/20 02:01 MCHC 34.3 g/dL (32-36) 06/08/20 02:01 RDW Std Deviation 46.9 fL (36.4-46.3) H 06/08/20 02:01 RDW Coeff of Bryce 13.6 % (11.5-14.5) 06/08/20 02:01 Plt Count 221 K/uL (130-400) 06/08/20 02:01 MPV 9.9 fL (7.4-10.4) 06/08/20 02:01 Immature Gran % (Auto) 0.3 % 06/08/20 02:01 Neut % (Auto) 67.3 % 06/08/20 02:01 Lymph % (Auto) 23.1 % 06/08/20 02:01 Bradford % (Auto) 5.9 % 06/08/20 02:01 Eos % (Auto) 3.2 % 06/08/20 02:01 Baso % (Auto) 0.2 % 06/08/20 02:01 Neut # (Auto) 6.83 K/uL (1.4-6.5) H 06/08/20 02:01 Lymph # (Auto) 2.34 K/uL (1.2-3.4) 06/08/20 02:01 Bradford # (Auto) 0.60 K/uL (0.11-0.59) H 06/08/20 02:01 Eos # (Auto) 0.32 K/uL (0-0.5) 06/08/20 02:01 Baso # (Auto) 0.02 K/uL (0-0.2) 06/08/20 02:01 Immature Gran # (Auto) 0.03 K/uL (0.00-0.02) H 06/08/20 02:01 PT 10.3 Seconds (9.0-12.0) 06/08/20 02:01 INR 1.0 (0.9-1.1) 06/08/20 02:01 Sodium 140 mmol/L (136-145) 06/08/20 02:01 Potassium 4.4 mmol/L (3.5-5.1) 06/08/20 02:01 Chloride 108 mmol/L (98-107) H 06/08/20 02:01 Carbon Dioxide 25 mmol/L (21-32) 06/08/20 02:01 Anion Gap 7.0 (3-11) 06/08/20 02:01 BUN 26 mg/dl (7-18) H 06/08/20 02:01 Creatinine 0.93 mg/dl (0.6-1.2) 06/08/20 02:01 Est Cr Clr Drug Dosing 67.4 ml/min 06/08/20 02:01 Est GFR ( Amer) 74.2 06/08/20 02:01 Est GFR (Non-Af Amer) 64.0 06/08/20 02:01 BUN/Creatinine Ratio 28.1 (10-20) H 06/08/20 02:01 Glucose 156 mg/dl (70-99) H 06/08/20 02:01 Calcium 8.6 mg/dl (8.5-10.1) 06/08/20 02:01 Magnesium 2.3 mg/dl (1.8-2.4) 06/08/20 02:01 Total Bilirubin 0.4 mg/dl (0.2-1) 06/08/20 02:01 Direct Bilirubin < 0.1 mg/dl (0-0.2) 06/08/20 02:01 AST 19 U/L (15-37) 06/08/20 02:01 ALT 33 U/L (12-78) 06/08/20 02:01 Alkaline Phosphatase 96 U/L (45-117) 06/08/20 02:01 Troponin I < 0.015 ng/ml (0-0.045) 06/08/20 02:01 NT-Pro-B Natriuret Pep 37 pg/ml (0-900) 06/08/20 02:01 Total Protein 6.9 gm/dl (6.4-8.2) 06/08/20 02:01 Albumin 3.5 gm/dl (3.4-5.0) 06/08/20 02:01 Lipase 146 U/L (73-393) 06/08/20 02:01 COVID-19 Eval Order CovFluRsv at [facility] 06/08/20 02:00 SARS-CoV-2 (PCR) NEGATIVE (Negative) 06/08/20 02:00 Influenza Type A (PCR) Negative (Neg) 06/08/20 02:00 Influenza Type B (PCR) Negative (Neg) 06/08/20 02:00 RSV (RT-PCR) Negative (Neg) 06/08/20 02:00 Code Status & VTE Plan Code Status Full code VTE Prophylaxis Plan VTE Prophylaxis will be ordered: Yes PG Care Time/CCT Total # of Minutes Spent Total Time Spent with Patient: Total time spent is greater than 50% in coordinat ion of care (as documented) at patient's floor/unit and/or counseling patient: Coding Level of Care Code 70323 Initial Inpt Care Lvl 3 Diagnoses Acute and chronic respiratory failure with hypoxia J96.21 Nonspecific interstitial pneumonia J84.89 Chronic interstitial lung disease J84.9 Tracheobronchomalacia J39.8 Asthma exacerbation J45.901 Asthma persistence: unspecified Asthma severity: unspecified severity Fluid overload E87.70 Diastolic dysfunction without heart failure I51.89 Depression F32.9 Depression Type: major depressive disorder Major depression recurrence: unspecified whether recurrent Active/Remission status: currently active Major depression episode severity: unspecified GERD (gastroesophageal reflux disease) K21.9 Restless leg syndrome G25.81 (1) Asthma exacerbation Asthma persistence: unspecified Asthma severity: unspecified severity Qualified Code(s): J45.901 - Unspecified asthma with (acute) exacerbation (2) Depression Depression Type: major depressive disorder Major depression recurrence: unspecified whether recurrent Active/Remission status: currently active Major depression episode severity: unspecified Qualified Code(s): F32.9 - Major depressive disorder, single episode, unspecified
[2020-06-08] MEDS ORDERED: FUROSEMIDE 40 MG/4 ML VIAL IV STA (04:58)
--- NOTE | 2020-06-08 06:56 | XRay Report ---
XR chest 1V portable HISTORY: 65 years-old Female shob acute shortness of breath COMPARISON: Chest radiographs 03/04/2020, CTA chest 09/29/2019 TECHNIQUE: Portable AP view of the chest FINDINGS: Mild enlargement of the cardiac silhouette. Chronic interstitial lung disease with mildly progressed interstitial coarsening with ill-defined bilateral pulmonary opacities. No pneumothorax, or large ple ural effusion. Degenerative changes of the shoulders and spine. IMPRESSION: Progressively worsened interstitial opacities on a background of chronic pulmonary fibros is. Findings may represent worsening pulmonary fibrosis, pulmonary edema or interstitial pneumonitis. ACT 112: Negative or not required by law. The above report was generated using voice recognition software. It may contain grammatical, syntax o r spelling errors. Electronically signed by: Magen Thurston M.D. 06/08/2020 6:54 AM
[2020-06-08] MEDS ORDERED: CARBOHYDRATES FOR HYPOGLYCEMIA PO PRN (07:31)
[2020-06-08] MEDS ORDERED: ONDANSETRON INJ 2 MG/ML 2 ML VIAL IV PRN (07:31)
[2020-06-08] MEDS ORDERED: DEXTROSE 50% 50 ML SYRINGE IV PRN (07:31)
[2020-06-08] MEDS ORDERED: GLUCOSE 40% GEL 15 GM TUBE PO PRN (07:31)
[2020-06-08] MEDS ORDERED: GLUCAGON FOR INJ 1 MG VIAL SQ PRN (07:31)
[2020-06-08] MEDS ORDERED: PIPERACILLIN/TAZOBACTAM 3.375 GM in DEXTROSE 5% 100 ML IV SCH (07:31)
[2020-06-08] MEDS ORDERED: GLUCOSE 10 TABS/TUBE PO PRN (07:31)
[2020-06-08] MEDS ORDERED: PIPERACILL/TAZOBAC CONSULT ACTIVE PRN (07:31)
[2020-06-08] MEDS ORDERED: VANCOMYCIN CONSULT ACTIVE PRN (07:31)
[2020-06-08] MEDS ORDERED: ALBUT/IPRATROP 3MG/0.5MG NEB 3 ML VIAL NEB PRN (07:42)
[2020-06-08] MEDS ORDERED: LIDOCAINE 5% 1 PATCH TD PRN (08:10)
[2020-06-08] MEDS ORDERED: PIPERACILLIN/TAZOBACTAM 4.5 GM in DEXTROSE 5% 100 ML IV ONE (08:15)
[2020-06-08] MEDS: ALBUT/IPRATROP 3MG/0.5MG NEB 3 ML VIAL NEB SCH ×4 (08:40→20:00)
[2020-06-08] MEDS: FLUTICASONE/VILANTEROL 100/25MCG 14 PUFFS/INHALER INH SCH (08:46)
[2020-06-08] MEDS: INSULIN ASPART 100 UNITS/ML 3 ML PEN SC SCH ×4 (08:46→20:37)
[2020-06-08] MEDS: UMECLIDINIUM BROMIDE 62.5MCG/BLISTER 7 PUFFS/INHALER INH SCH (08:46)
[2020-06-08] MEDS: ENOXAPARIN INJ 40 MG/0.4 ML SYR SQ SCH ×2 (08:50→20:34)
[2020-06-08] MEDS: PANTOprazole 40 MG TAB PO SCH (08:50)
[2020-06-08] MEDS: CHOLECALCIFEROL 1,000 UNITS 25 MCG TAB PO SCH (08:51)
[2020-06-08] MEDS: rOPINIRole HCL 1 MG TABLET PO SCH ×3 (08:51→20:36)
[2020-06-08] MEDS: POTASSIUM CHLORIDE CRTAB 20 MEQ TABCR PO SCH (08:51)
[2020-06-08] MEDS: MYCOPHENOLATE MOFETIL 250 MG CAP PO SCH (09:00)
[2020-06-08] MEDS ORDERED: VANCOMYCIN HCL 2,000 MG in SODIUM CHLORIDE 0.9% 500 ML IV ONE (09:00)
[2020-06-08] MEDS ORDERED: VANCOMYCIN HCL 1,000 MG in SODIUM CHLORIDE 0.9% 250 ML IV SCH (09:00)
[2020-06-08] MEDS: FUROSEMIDE 40 MG TAB PO SCH ×2 (10:38→17:38)
[2020-06-08] MEDS: ACETAMINOPHEN 325 MG TAB PO PRN ×2 (12:33→21:26)
[2020-06-08] MEDS: methylPREDNISolone 40 MG in SYRINGE 0 ML IV SCH ×2 (12:34→20:39)
[2020-06-08] MEDS: PIPERACILLIN/TAZOBACTAM 4.5 GM in DEXTROSE 5% 100 ML IV SCH ×2 (13:39→21:26)
[2020-06-08] MEDS: ESCITALOPRAM OXALATE 20 MG TAB PO SCH (20:35)
--- NOTE | 2020-06-08 20:43 | History & Physical Bridge Note ---
Date of Service June 08, 2020 History & Physical Bridge Note I have examined the patient, reviewed the History & Physical and in the interval since the performance of the History & Physical I have noted the following changes of clinical significance: patient feeling better with the Lasix 40mg IV BID, feels less swollen her breathing is improved, close to baseline, typically wears 3-5L during the day at home she is eating well discussed status of lung transplant list at [place] they want her to lose weight, but if she would get seriously ill then they would perform the transplant will check labs tomorrow, continue on Lasix 40 BID, continue on tele
[2020-06-08] MEDS: ZOLPIDEM TARTRATE 10 MG TAB PO PRN (20:48)
[2020-06-08] MEDS ORDERED: VANCOMYCIN HCL 1,250 MG in SODIUM CHLORIDE 0.9% 250 ML IV SCH (21:00)
[2020-06-08] MEDS: MoRPHine SULFATE 2 MG/ML CARP IV PRN (23:20)
[2020-06-09] MEDS: methylPREDNISolone 40 MG in SYRINGE 0 ML IV SCH ×3 (03:13→21:43)
--- NOTE | 2020-06-09 03:38 | Communication Note ---
Date of Service: June 09, 2020 Night resident paged regarding sudden onset right lower quadrant abdominal pain. Patient reported history of colicky RLQ that has effected for her the past few months - she describes it as a "stabbing, twisting" pain that can get so intensely severe it drops her to her knees. She said she had a cat scan done of her abdomen when it first started several months ago at [facility], but no cause was identified. Of note, she has had an appendectomy. On exam, her abdomen was soft, non-distended. She reported RLQ, RUQ and epigastric tenderness. No rebound tenderness. No guarding. I ordered a CT scan of abdomen and pelvis to further evaluate. STATRAD showed no evidence of SBO; very small non-obstructing calculus of the R kidney. Official read pending. I ordered a one time dose of IV morphine for pain control. Question of mesenteric adenitis? Fat hernia that spontaneously reduces?
[2020-06-09] MEDS: PIPERACILLIN/TAZOBACTAM 4.5 GM in DEXTROSE 5% 100 ML IV SCH ×3 (05:23→21:42)
[2020-06-09 05:46] LABS: Hematocrit (blood only) 40.4 % (37-47); Hemoglobin 13.6 g/dL (12.0-16.0); Immature Granulocytes # (auto) 0.06 K/uL (0.00-0.02); Immature Granulocytes % (auto) 0.3 %; Lymphocytes # (auto) 0.99 K/uL (1.2-3.4); Lymphocytes % (auto) 5.3 %; Mean Corpuscular Hemoglobin 32.1 pg (25-34); Mean Corpuscular Hgb Conc 33.7 g/dL (32-36); Mean Corpuscular Volume 95.3 fL (80-100); Mean Platelet Volume 10.1 fL (7.4-10.4); Monocytes # (auto) 0.38 K/uL (0.11-0.59); Neutrophils # (auto) 17.34 K/uL (1.4-6.5); Neutrophils % (auto) 92.4 %; Platelet Count 216 K/uL (130-400); RDW Coefficient of Variation 13.8 % (11.5-14.5); RDW Standard Deviation 47.6 fL (36.4-46.3); Red Blood Count 4.24 M/uL (4.2-5.4); White Blood Count 18.77 K/uL (4.8-10.8)
[2020-06-09 06:13] LABS: Albumin Level 3.4 gm/dl (3.4-5.0); BUN Creatinine Ratio 25.9 (10-20); Calcium 9.3 mg/dl (8.5-10.1); Creatinine Clr Calc Pharmacy 67.7 ml/min; Est GFR (African American) 78.3; Est GFR (Non-African American) 67.5; Potassium 4.6 mmol/L (3.5-5.1)
[2020-06-09 06:16] LABS: Bilirubin,Total 0.5 mg/dl (0.2-1); Estimated Average Glucose 131 mg/dl; Globulin 3.4 gm/dl (2.5-4.0); Hemoglobin A1C 6.2 % (4.5-5.6); Total Protein 6.8 gm/dl (6.4-8.2)
--- NOTE | 2020-06-09 06:24 | Electrocardiogram Report ---
Test Reason : Blood Pressure : / mmHG Vent. Rate : 100 BPM Atrial Rate : 100 BPM P-R Int : 126 ms QRS Dur : 074 ms QT Int : 360 ms P-R-T Axes : 055 006 045 degrees QTc Int : 464 ms Poor data quality, interpretation may be adversely affected Normal sinus rhythm Normal ECG When compared with ECG of 29-SEP-2019 12:02, No significant change was found Confirmed by Guanaco Sandhu ([id number]) on 06/09/2020 6:24:15 AM Referred By: REFERRED SELF Confirmed By:Guanaco Sandhu
--- NOTE | 2020-06-09 06:24 | Electrocardiogram Report ---
Test Reason : Blood Pressure : / mmHG Vent. Rate : 100 BPM Atrial Rate : 100 BPM P-R Int : 112 ms QRS Dur : 080 ms QT Int : 372 ms P-R-T Axes : 061 009 042 degrees QTc Int : 479 ms Poor data quality, interpretation may be adversely affected Normal sinus rhythm When compared with ECG of 08-JUN-2020 01:50, No significant change was found Confirmed by Guanaco Sandhu ([id number]) on 06/09/2020 6:24:37 AM Referred By: REFERRED SELF Confirmed By:Guanaco Sandhu
[2020-06-09] MEDS: ALBUT/IPRATROP 3MG/0.5MG NEB 3 ML VIAL NEB SCH ×4 (07:10→19:26)
[2020-06-09] MEDS: UMECLIDINIUM BROMIDE 62.5MCG/BLISTER 7 PUFFS/INHALER INH SCH (07:55)
[2020-06-09] MEDS: rOPINIRole HCL 1 MG TABLET PO SCH ×3 (07:56→21:44)
[2020-06-09] MEDS: POTASSIUM CHLORIDE CRTAB 20 MEQ TABCR PO SCH (07:56)
[2020-06-09] MEDS: CHOLECALCIFEROL 1,000 UNITS 25 MCG TAB PO SCH (07:56)
[2020-06-09] MEDS: MYCOPHENOLATE MOFETIL 250 MG CAP PO SCH (07:56)
[2020-06-09] MEDS: ENOXAPARIN INJ 40 MG/0.4 ML SYR SQ SCH ×2 (07:56→21:44)
[2020-06-09] MEDS: FLUTICASONE/VILANTEROL 100/25MCG 14 PUFFS/INHALER INH SCH (07:56)
[2020-06-09] MEDS: FUROSEMIDE 40 MG TAB PO SCH ×2 (07:56→16:59)
[2020-06-09] MEDS: PANTOprazole 40 MG TAB PO SCH (07:56)
[2020-06-09] MEDS: INSULIN ASPART 100 UNITS/ML 3 ML PEN SC SCH ×4 (07:58→21:45)
--- NOTE | 2020-06-09 08:12 | CT Scan Report ---
ABDOMEN AND PELVIS CT WITHOUT CONTRAST CT DOSE: 1287.96 mGy.cm HISTORY: Acute right lower quadrant abdominal pain in a patient with history of appendectomy. colick y R LQ pain, has had appendectomy TECHNIQUE: Multiaxial CT images of the abdomen and pelvis were performed without contrast. A dose lo wering technique was utilized adhering to the principles of ALARA. COMPARISON STUDY: Chest CT 09/29/2019 FINDINGS: Coronary artery calcifications. The imaged inferior cardiac chambers are otherwise unremark able. Bibasilar subpleural reticular and groundglass densities are suggestive of pulmonary fibrosis, stable from comparison. Postoperative changes of the lateral right lung base. There is no pneumatosis or pneumoperitoneum. The unenhanced spleen, pancreas, adrenal glands, gallbladder and liver appear u nremarkable. 4 mm nonobstructing calculus of the superior pole right kidney. 3.5 x 2.9 cm right renal cyst. No ure teral calculi or obstructive uropathy. Unremarkable urinary bladder. Pelvic floor relaxation with hys terectomy. No adnexal mass lesion. Calcified plaque of the aorta without aneurysm. No adenopathy. Tiny hiatal hernia. Small duodenal diverticulum. Colonic diverticulosis without acute diverticulitis. Mild fecal retention. No ascites or mesenteric inflammation. The appendix is reportedly surgically a bsent. Ileocecal valve is noted within the midline pelvis. Unremarkable soft tissues. Degenerative ch anges of the spine, pelvis and hips. No acute fracture. Age-indeterminate Schmorl's node involves the superior endplate of L3. No paravertebral edema. IMPRESSION: 1. Nonobstructing right nephrolithiasis. No ureteral calculi or obstructive uropathy. 2. No bowel obstruction or bowel wall thickening. Appendectomy. 3. Mild fecal retention. 4. Colonic diverticulosis. 5. Pulmonary fibrosis. 6. Additional findings as above. ACT 112: Negative or not required by law. The above report was generated using voice recognition software. It may contain grammatical, syntax o r spelling errors. Electronically signed by: Magen Thurston M.D. 06/09/2020 8:11 AM
[2020-06-09] MEDS: ACETAMINOPHEN 325 MG TAB PO PRN ×2 (09:42→21:43)
--- NOTE | 2020-06-09 16:04 | Hospitalist Progress Note ---
Date of Service June 09, 2020 Assessment & Plan (1) Acute and chronic respiratory failure with hypoxia: Acute on chronic respiratory failure with hypoxia/nonspecific interstitial multifocal pneumonia/chronic ILD/tracheobronchomalacia/asthma exacerbation continue Solu Medrol 20 q8 continue Lasix 40mg PO BID to keep lungs dry, add 1500mL daily fluid restriction, strict I/O, want neg fluid balance continue Zosyn, Vanco stopped as she was MRSA negative on nasal swab stable on home 4L but very dyspneic with exertion, she says this is normal (2) Nonspecific interstitial pneumonia: See above continue Solu Medrol, Zosyn (3) Chronic interstitial lung disease: See above (4) Tracheobronchomalacia: See above (5) Asthma exacerbation: See above (6) Fluid overload: Fluid overload/diastolic dysfunction without heart failure- Continue furosemide 40 mg p.o. twice daily and potassium chloride 20 mEq p.o. daily fluid restrict 1500mL / day, want negative fluid balance daily (7) Diastolic dysfunction without heart failure: See above (8) Depression: Continue Lexapro 20 mg p.o. every evening, and Ambien 10 mg p.o. at bedtime as needed (9) GERD (gastroesophageal reflux disease): Change omeprazole to pantoprazole per formulary interchange (10) Restless leg syndrome: Continue ropinirole 2 mg p.o. 3 times daily Admission and Anticipated Discharge Date Admission Date: June 08, 2020 Subjective patient admits she is feeling better, breathing easier far less swelling, her rings fit better she is drinking a lot of water, very thirsty, discussed that we need to fluid restrict her, she understands CR is stable she is eating well she has a lot of dyspnea with minimal exertion, HR goes up significantly just walking across the room she is hoping to go home tomorrow Review of Systems Review of Systems: All systems reviewed & are unremarkable except as noted in Subjective Physical Exam Constitutional: well developed, well nourished, + ill appearing and + diaphoretic; no acute distress Neck: trachea midline, no thyromegaly Respiratory: + cough and + tachypneic; no labored breathing Auscultation: + crackles (bilaterally); no rhonchi and no wheezes Cardiovascular: Rate/Rhythm: regular rhythm and + tachycardic Heart Sounds: normal S1 and normal S2; no murmur Vessels: no JVD Extremities: normal capillary refill; no edema Gastrointestinal (Abdomen): normal bowel sounds, soft, nontender, no hepatosplenomegaly Musculoskeletal: Head/Neck/Chest: normocephalic, head atraumatic and neck supple Extremities: extremities normal to inspection, strength 5/5 throughout and + clubbing Skin: no rashes, warm and dry Neurologic: patellar DTR's 2+ bilat, sensation intact and PERRL, EOMI, accommodation nl, no face palsy, no dysarthria Psychiatric: A+Ox3, euthymic affect Lymphatic: no cervical or axillary lymphadenopathy Results & Data Results & Data ([facility]) Vital Signs (Past 12 Hours) Vital Signs Pulse Pulse Resp BP Pulse Ox 06/09/20 15:15 113 H 16 97 06/09/20 12:49 121 H 26 H 123/83 97 06/09/20 12:30 122 H 41 H 06/09/20 12:00 126 H 18 06/09/20 11:30 118 H 31 H 06/09/20 11:00 118 H 16 06/09/20 10:59 117 H 16 97 06/09/20 10:30 120 H 18 06/09/20 10:00 120 H 26 H 06/09/20 09:30 134 H 28 H 06/09/20 09:00 125 H 27 H 06/09/20 08:44 142 H 18 06/09/20 08:03 119 H 23 140/86 06/09/20 08:00 124 H 29 H 92 06/09/20 07:30 122 H 23 95 06/09/20 07:11 105 H 16 96 06/09/20 07:00 94 H 20 96 06/09/20 06:45 94 H 22 95 Laboratory Results Laboratory Results - last 24 hr 06/08/20 06/08/20 06/09/20 16:20 20:18 04:47 WBC 18.77 H RBC 4.24 Hgb 13.6 Hct 40.4 MCV 95.3 MCH 32.1 MCHC 33.7 RDW Std Deviation 47.6 H RDW Coeff of Bryce 13.8 Plt Count 216 MPV 10.1 Immature Gran % (Auto) 0.3 Neut % (Auto) 92.4 Lymph % (Auto) 5.3 [place] % (Auto) 2.0 Eos % (Auto) 0.0 Baso % (Auto) 0.0 Neut # (Auto) 17.34 H Lymph # (Auto) 0.99 L [place] # (Auto) 0.38 Eos # (Auto) 0.00 Baso # (Auto) 0.00 Immature Gran # (Auto) 0.06 H Sodium Potassium Chloride Carbon Dioxide Anion Gap BUN Creatinine Est Cr Clr Drug Dosing Est GFR ( Amer) Est GFR (Non-Af Amer) BUN/Creatinine Ratio Glucose POC Glucose 176 H 161 H Estimat Average Glucose Hemoglobin A1c Calcium Total Bilirubin AST ALT Alkaline Phosphatase Total Protein Albumin Globulin Albumin/Globulin Ratio 06/09/20 06/09/20 06/09/20 04:47 04:47 07:28 WBC RBC Hgb Hct MCV MCH MCHC RDW Std Deviation RDW Coeff of Bryce Plt Count MPV Immature Gran % (Auto) Neut % (Auto) Lymph % (Auto) [place] % (Auto) Eos % (Auto) Baso % (Auto) Neut # (Auto) Lymph # (Auto) [place] # (Auto) Eos # (Auto) Baso # (Auto) Immature Gran # (Auto) Sodium 137 Potassium 4.6 Chloride 104 Carbon Dioxide 29 Anion Gap 4.0 BUN 23 H Creatinine 0.89 Est Cr Clr Drug Dosing 67.7 Est GFR ( Amer) 78.3 Est GFR (Non-Af Amer) 67.5 BUN/Creatinine Ratio 25.9 H Glucose 150 H POC Glucose 156 H Estimat Average Glucose 131 Hemoglobin A1c 6.2 H Calcium 9.3 Total Bilirubin 0.5 AST 12 L ALT 28 Alkaline Phosphatase 76 Total Protein 6.8 Albumin 3.4 Globulin 3.4 Albumin/Globulin Ratio 1.0 06/09/20 11:31 WBC RBC Hgb Hct MCV MCH MCHC RDW Std Deviation RDW Coeff of Bryce Plt Count MPV Immature Gran % (Auto) Neut % (Auto) Lymph % (Auto) [place] % (Auto) Eos % (Auto) Baso % (Auto) Neut # (Auto) Lymph # (Auto) [place] # (Auto) Eos # (Auto) Baso # (Auto) Immature Gran # (Auto) Sodium Potassium Chloride Carbon Dioxide Anion Gap BUN Creatinine Est Cr Clr Drug Dosing Est GFR ( Amer) Est GFR (Non-Af Amer) BUN/Creatinine Ratio Glucose POC Glucose 143 H Estimat Average Glucose Hemoglobin A1c Calcium Total Bilirubin AST ALT Alkaline Phosphatase Total Protein Albumin Globulin Albumin/Globulin Ratio Medications Administered Current Inpatient Medications Acetaminophen (Acetaminophen 325 Mg Tab) 650 mg PO Q4H PRN PRN Reason: Pain or Fever Stop: 07/08/20 07:30 Last Admin: 06/09/20 09:42 Dose: 650 mg Documented by: Albuterol (Albut/Ipratrop 3mg/0.5mg Neb 3 Ml Vial) 3 ml NEB QIDR [facility] Stop: 07/08/20 07:30 Last Admin: 06/09/20 15:13 Dose: 3 ml Documented by: Albuterol (Albut/Ipratrop 3mg/0.5mg Neb 3 Ml Vial) 3 ml NEB Q2H PRN PRN Reason: Shortness Of Breath Or Wheezing Stop: 07/08/20 07:41 Dextrose (Dextrose 50% 50 Ml Syringe) 25 - 50 ml IV UD PRN; Protocol PRN Reason: Hypoglycemia Protocol Stop: 07/08/20 07:30 Enoxaparin Sodium (Enoxaparin Inj 40 Mg/0.4 Ml Syr) 40 mg SQ Q12H [facility] Stop: 07/08/20 08:59 Last Admin: 06/09/20 07:56 Dose: 40 mg Documented by: Escitalopram Oxalate (Escitalopram Oxalate 20 Mg Tab) 20 mg PO QPM [facility] Stop: 07/08/20 20:59 Last Admin: 06/08/20 20:35 Dose: 20 mg Documented by: Fluticasone/Vilanterol (Fluticasone/Vilanterol 100/25mcg 14 Puffs/Inhaler) 1 puffs INH DAILY [facility]; Protocol Stop: 07/08/20 08:59 Last Admin: 06/09/20 07:56 Dose: 1 puffs Documented by: Furosemide (Furosemide 40 Mg Tab) 40 mg PO BID17 [facility] Stop: 07/08/20 08:59 Last Admin: 06/09/20 07:56 Dose: 40 mg Documented by: Glucagon (Glucagon For Inj 1 Mg Vial) 1 mg SQ UD PRN; Protocol PRN Reason: Hypoglycemia Protocol Stop: 07/08/20 07:30 Glucose (Glucose 10 Tabs/Tube) 4 - 8 tabs PO UD PRN; Protocol PRN Reason: Hypoglycemia Protocol Stop: 07/08/20 07:30 Glucose (Glucose 40% Gel 15 Gm Tube) 15 - 30 gm PO UD PRN; Protocol PRN Reason: Hypoglycemia Protocol Stop: 07/08/20 07:30 Methylprednisolone 40 mg/ (Syringe) 0.64 mls @ 1.5 mls/min IV Q8H [facility] Stop: 07/08/20 11:59 Last Admin: 06/09/20 12:27 Dose: 1.5 mls/min Documented by: Piperacillin Sod/Tazobactam (Sod 4.5 gm/ Dextrose) 120 mls @ 30 mls/hr IV Q8H [facility]; Protocol Stop: 06/15/20 13:59 Last Admin: 06/09/20 12:27 Dose: 30 mls/hr Documented by: Insulin Aspart (Insulin Aspart 100 Units/Ml 3 Ml Pen) 0 units SC ACHS [facility] Stop: 07/08/20 07:30 Last Admin: 06/09/20 12:27 Dose: 3 units Documented by: Lidocaine (Lidocaine 5% 1 Patch) 1 patch TD DAILY PRN PRN Reason: pain Stop: 07/08/20 08:09 Miscellaneous (Carbohydrates For Hypoglycemia ) 15 - 30 gm PO UD PRN PRN Reason: Hypoglycemia Protocol Stop: 07/08/20 07:30 Miscellaneous (Remove Lidoderm Patch) 1 ea N/A DAILY@2100 [facility] Stop: 07/08/20 20:59 Last Admin: 06/08/20 20:35 Dose: Not Given Documented by: Miscellaneous Information (Piperacill/Tazobac Consult Active) 1 ea N/A UD PRN PRN Reason: Consult Stop: 07/08/20 07:30 Morphine Sulfate (Morphine Sulfate 2 Mg/Ml Carp) 2 mg IV Q4H PRN PRN Reason: Pain Stop: 06/22/20 22:36 Last Admin: 06/08/20 23:20 Dose: 2 mg Documented by: Mycophenolate Mofetil (Mycophenolate Mofetil 250 Mg Cap) 250 mg PO DAILY [facility] Stop: 07/08/20 08:59 Last Admin: 06/09/20 07:56 Dose: 250 mg Documented by: Ondansetron HCl (Ondansetron Inj 2 Mg/Ml 2 Ml Vial) 4 mg IV Q6H PRN PRN Reason: Nausea Stop: 07/08/20 07:30 Last Admin: 06/08/20 11:50 Dose: 4 mg Documented by: Pantoprazole Sodium (Pantoprazole 40 Mg Tab) 40 mg PO DAILY [facility] Stop: 07/08/20 08:59 Last Admin: 06/09/20 07:56 Dose: 40 mg Documented by: Potassium Chloride (Potassium Chloride Crtab 20 Meq Tabcr) 20 meq PO DAILY [facility] Stop: 07/08/20 08:59 Last Admin: 06/09/20 07:56 Dose: 20 meq Documented by: Ropinirole HCl (Ropinirole Hcl 1 Mg Tablet) 2 mg PO TID [facility] Stop: 07/08/20 08:59 Last Admin: 06/09/20 12:27 Dose: 2 mg Documented by: Umeclidinium [place] (Umeclidinium [place] 62.5mcg/Blister 7 Puffs/Inhaler) 1 puffs INH DAILY [facility] Stop: 07/08/20 08:59 Last Admin: 06/09/20 07:55 Dose: 1 puffs Documented by: Vitamin D (Cholecalciferol 1,000 Units 25 Mcg Tab) 1,000 units PO DAILY [facility] Stop: 07/08/20 08:59 Last Admin: 06/09/20 07:56 Dose: 1,000 units Documented by: Zolpidem Tartrate (Zolpidem Tartrate 10 Mg Tab) 10 mg PO HS PRN PRN Reason: Sleep Stop: 07/08/20 07:30 Last Admin: 06/08/20 20:48 Dose: 10 mg Documented by: PG Care Time/CCT Total # of Minutes Spent Total Time Spent with Patient: Total time spent is greater than 50% in coordination of care (as documented) at patient's floor/unit and/or counseling patient: Coding Level of Care Code 70262 Subseq Hosp Care Lvl 2 Diagnoses Acute and chronic respiratory failure with hypoxia J96.21 Nonspecific interstitial pneumonia J84.89 Chronic interstitial lung disease J84.9 Tracheobronchomalacia J39.8 Asthma exacerbation J45.901 Asthma persistence: unspecified Asthma severity: unspecified severity Fluid overload E87.70 Diastolic dysfunction without heart failure I51.89 Depression F32.9 Active/Remission status: currently active Depression Type: major depressive disorder Major depression episode severity: unspecified Major depression recurrence: unspecified whether recurrent GERD (gastroesophageal reflux disease) K21.9 Restless leg syndrome G25.81 (1) Asthma exacerbation Asthma persistence: unspecified Asthma severity: unspecified severity Qualified Code(s): J45.901 - Unspecified asthma with (acute) exacerbation (2) Depression Active/Remission status: currently active Depression Type: major depressive disorder Major depression episode severity: unspecified Major depression recurrence: unspecified whether recurrent Qualified Code(s): F32.9 - Major depressive disorder, single episode, unspecified
[2020-06-09] MEDS: ESCITALOPRAM OXALATE 20 MG TAB PO SCH (21:43)
[2020-06-09] MEDS: ZOLPIDEM TARTRATE 10 MG TAB PO PRN (21:43)
[2020-06-09] MEDS: MoRPHine SULFATE 2 MG/ML CARP IV PRN (21:47)
[2020-06-10] MEDS: methylPREDNISolone 40 MG in SYRINGE 0 ML IV SCH ×2 (04:00→21:34)
[2020-06-10 04:56] LABS: Hematocrit (blood only) 40.4 % (37-47); Hemoglobin 13.7 g/dL (12.0-16.0); Immature Granulocytes # (auto) 0.07 K/uL (0.00-0.02); Immature Granulocytes % (auto) 0.4 %; Lymphocytes % (auto) 7.1 %; Mean Corpuscular Hemoglobin 31.8 pg (25-34); Mean Corpuscular Hgb Conc 33.9 g/dL (32-36); Mean Corpuscular Volume 93.7 fL (80-100); Monocytes # (auto) 0.45 K/uL (0.11-0.59); Monocytes % (auto) 2.7 %; Neutrophils # (auto) 15.17 K/uL (1.4-6.5); Neutrophils % (auto) 89.8 %; Platelet Count 228 K/uL (130-400); RDW Coefficient of Variation 13.8 % (11.5-14.5); RDW Standard Deviation 47.4 fL (36.4-46.3); Red Blood Count 4.31 M/uL (4.2-5.4); White Blood Count 16.89 K/uL (4.8-10.8)
[2020-06-10 05:05] LABS: Albumin Level 3.3 gm/dl (3.4-5.0); BUN Creatinine Ratio 28.1 (10-20); Calcium 9.1 mg/dl (8.5-10.1); Creatinine Clr Calc Pharmacy 59.6 ml/min; Est GFR (African American) 67.2; Potassium 4.3 mmol/L (3.5-5.1)
[2020-06-10 05:08] LABS: Bilirubin,Total 0.6 mg/dl (0.2-1); Globulin 3.4 gm/dl (2.5-4.0); Total Protein 6.7 gm/dl (6.4-8.2)
[2020-06-10] MEDS: PIPERACILLIN/TAZOBACTAM 4.5 GM in DEXTROSE 5% 100 ML IV SCH ×3 (06:18→21:52)
[2020-06-10] MEDS: ALBUT/IPRATROP 3MG/0.5MG NEB 3 ML VIAL NEB SCH ×4 (07:06→19:31)
[2020-06-10] MEDS: FLUTICASONE/VILANTEROL 100/25MCG 14 PUFFS/INHALER INH SCH (07:45)
[2020-06-10] MEDS: UMECLIDINIUM BROMIDE 62.5MCG/BLISTER 7 PUFFS/INHALER INH SCH (07:45)
[2020-06-10] MEDS: FUROSEMIDE 40 MG TAB PO SCH (07:47)
[2020-06-10] MEDS: MYCOPHENOLATE MOFETIL 250 MG CAP PO SCH (07:48)
[2020-06-10] MEDS: rOPINIRole HCL 1 MG TABLET PO SCH ×3 (07:48→22:22)
[2020-06-10] MEDS: POTASSIUM CHLORIDE CRTAB 20 MEQ TABCR PO SCH (07:48)
[2020-06-10] MEDS: CHOLECALCIFEROL 1,000 UNITS 25 MCG TAB PO SCH (07:48)
[2020-06-10] MEDS: PANTOprazole 40 MG TAB PO SCH (07:48)
[2020-06-10] MEDS: ENOXAPARIN INJ 40 MG/0.4 ML SYR SQ SCH ×2 (07:48→22:22)
[2020-06-10] MEDS: INSULIN ASPART 100 UNITS/ML 3 ML PEN SC SCH ×4 (07:49→21:42)
[2020-06-10] MEDS: POLYETHYLENE (MIRALAX) 17 GM PACK PO SCH (07:49)
[2020-06-10] MEDS ORDERED: VANCOMYCIN TROUGH ONE (08:30)
[2020-06-10] MEDS ORDERED: FUROSEMIDE 40 MG in SYRINGE 0 ML IV ONE (09:00)
--- NOTE | 2020-06-10 09:25 | Hospitalist Progress Note ---
Date of Service June 10, 2020 Assessment & Plan (1) Acute and chronic respiratory failure with hypoxia: Acute on chronic respiratory failure with hypoxia/nonspecific interstitial multifocal pneumonia/chronic ILD/tracheobronchomalacia/asthma exacerbation reduce Solu Medrol to 20 q12 continue Lasix 40mg PO BID to keep lungs dry, add 1500mL daily fluid restriction, strict I/O, want neg fluid balance *give additional Lasix 40mg IV this morning to provide more robust diuresis, Cr is stable continue Zosyn, Vanco stopped as she was MRSA negative on nasal swab stable on home 4L but very dyspneic with exertion, she says this is normal, breathing a little better today will touch base with Dr. Kruse tomorrow about a discharge plan for steroids and diuretics (2) Nonspecific interstitial pneumonia: See above continue Solu Medrol, Zosyn plan for Prednisone on discharge (3) Chronic interstitial lung disease: See above (4) Tracheobronchomalacia: See above (5) Asthma exacerbation: See above (6) Fluid overload: Fluid overload/diastolic dysfunction without heart failure- Continue furosemide 40 mg p.o. twice daily and potassium chloride 20 mEq p.o. daily fluid restrict 1500mL / day, want negative fluid balance daily give Lasix 40mg IV additional this morning, follow for diuresis (7) Diastolic dysfunction without heart failure: See above (8) Depression: Continue Lexapro 20 mg p.o. every evening, and Ambien 10 mg p.o. at bedtime as needed (9) GERD (gastroesophageal reflux disease): Change omeprazole to pantoprazole per formulary interchange (10) Restless leg syndrome: Continue ropinirole 2 mg p.o. 3 times daily Admission and Anticipated Discharge Date Admission Date: June 08, 2020 Subjective patient is doing better, able to ambulate around the room less swelling in legs and hands Cr and electrolytes stable, giving her extra dose of Lasix IV this morning for further diuresis cut steroids back eating and drinking well, making urine, moving her bowels no fever/chills/sweats, no GI symptoms Review of Systems Review of Systems: All systems reviewed & are unremarkable except as noted in Subjective Respiratory: + cough, + dyspnea and + dyspnea on exertion Physical Exam Constitutional: well developed, well nourished, + ill appearing and + diaphoretic; no acute distress Neck: trachea midline, no thyromegaly Respiratory: normal respiratory effort and + cough; no labored breathing Auscultation: + crackles (bilaterally); no rhonchi and no wheezes Cardiovascular: Rate/Rhythm: regular rhythm and + tachycardic Heart Sounds: normal S1 and normal S2; no murmur Vessels: no JVD Extremities: normal capillary refill; no edema Gastrointestinal (Abdomen): normal bowel sounds, soft, nontender, no hepatosplenomegaly Musculoskeletal: Head/Neck/Chest: normocephalic, head atraumatic and neck supple Extremities: extremities normal to inspection, strength 5/5 throughout and + clubbing Skin: no rashes, warm and dry Neurologic: patellar DTR's 2+ bilat, sensation intact and PERRL, EOMI, accommodation nl, no face palsy, no dysarthria Psychiatric: A+Ox3, euthymic affect Lymphatic: no cervical or axillary lymphadenopathy Results & Data Results & Data ([facility]) Vital Signs (Past 12 Hours) Vital Signs Temp Pulse Pulse Pulse Resp BP BP 06/10/20 09:00 113 H 06/10/20 08:45 124 H 06/10/20 08:30 119 H 06/10/20 08:15 121 H 06/10/20 08:00 124 H 06/10/20 07:46 37 C 117 H 18 155/98 H 06/10/20 07:45 128 H 06/10/20 07:30 125 H 06/10/20 07:26 155/98 H 06/10/20 07:15 111 H 06/10/20 07:10 106 H 17 06/10/20 07:00 125 H 06/10/20 06:45 124 H 06/10/20 03:57 36.8 C 109 H 20 128/80 06/10/20 00:52 06/10/20 00:00 98 H 06/09/20 23:15 36.8 C 101 H 22 146/92 H Pulse Ox 06/10/20 09:00 06/10/20 08:45 06/10/20 08:30 06/10/20 08:15 06/10/20 08:00 06/10/20 07:46 94 06/10/20 07:45 06/10/20 07:30 06/10/20 07:26 06/10/20 07:15 06/10/20 07:10 96 06/10/20 07:00 06/10/20 06:45 06/10/20 03:57 92 06/10/20 00:52 94 06/10/20 00:00 06/09/20 23:15 Laboratory Results Laboratory Results - last 24 hr 06/09/20 06/09/20 06/09/20 11:31 16:24 21:42 WBC RBC Hgb Hct MCV MCH MCHC RDW Std Deviation RDW Coeff of Bryce Plt Count MPV Immature Gran % (Auto) Neut % (Auto) Lymph % (Auto) [place] % (Auto) Eos % (Auto) Baso % (Auto) Neut # (Auto) Lymph # (Auto) [place] # (Auto) Eos # (Auto) Baso # (Auto) Immature Gran # (Auto) Sodium Potassium Chloride Carbon Dioxide Anion Gap BUN Creatinine Est Cr Clr Drug Dosing Est GFR ( Amer) Est GFR (Non-Af Amer) BUN/Creatinine Ratio Glucose POC Glucose 143 H 153 H 134 H Calcium Total Bilirubin AST ALT Alkaline Phosphatase Total Protein Albumin Globulin Albumin/Globulin Ratio 06/10/20 06/10/20 06/10/20 04:36 04:36 07:24 WBC 16.89 H RBC 4.31 Hgb 13.7 Hct 40.4 MCV 93.7 MCH 31.8 MCHC 33.9 RDW Std Deviation 47.4 H RDW Coeff of Bryce 13.8 Plt Count 228 MPV 10.0 Immature Gran % (Auto) 0.4 Neut % (Auto) 89.8 Lymph % (Auto) 7.1 [place] % (Auto) 2.7 Eos % (Auto) 0.0 Baso % (Auto) 0.0 Neut # (Auto) 15.17 H Lymph # (Auto) 1.20 [place] # (Auto) 0.45 Eos # (Auto) 0.00 Baso # (Auto) 0.00 Immature Gran # (Auto) 0.07 H Sodium 139 Potassium 4.3 Chloride 103 Carbon Dioxide 30 Anion Gap 6.0 BUN 28 H Creatinine 1.01 Est Cr Clr Drug Dosing 59.6 Est GFR ( Amer) 67.2 Est GFR (Non-Af Amer) 58.0 BUN/Creatinine Ratio 28.1 H Glucose 139 H POC Glucose 145 H Calcium 9.1 Total Bilirubin 0.6 AST 10 L ALT 26 Alkaline Phosphatase 70 Total Protein 6.7 Albumin 3.3 L Globulin 3.4 Albumin/Globulin Ratio 1.0 Medications Administered Current Inpatient Medications Acetaminophen (Acetaminophen 325 Mg Tab) 650 mg PO Q4H PRN PRN Reason: Pain or Fever Stop: 07/08/20 07:30 Last Admin: 06/09/20 21:43 Dose: 650 mg Documented by: Albuterol (Albut/Ipratrop 3mg/0.5mg Neb 3 Ml Vial) 3 ml NEB QIDR [facility] Stop: 07/08/20 07:30 Last Admin: 06/10/20 07:06 Dose: 3 ml Documented by: Albuterol (Albut/Ipratrop 3mg/0.5mg Neb 3 Ml Vial) 3 ml NEB Q2H PRN PRN Reason: Shortness Of Breath Or Wheezing Stop: 07/08/20 07:41 Dextrose (Dextrose 50% 50 Ml Syringe) 25 - 50 ml IV UD PRN; Protocol PRN Reason: Hypoglycemia Protocol Stop: 07/08/20 07:30 Enoxaparin Sodium (Enoxaparin Inj 40 Mg/0.4 Ml Syr) 40 mg SQ Q12H [facility] Stop: 07/08/20 08:59 Last Admin: 06/10/20 07:48 Dose: 40 mg Documented by: Escitalopram Oxalate (Escitalopram Oxalate 20 Mg Tab) 20 mg PO QPM [facility] Stop: 07/08/20 20:59 Last Admin: 06/09/20 21:43 Dose: 20 mg Documented by: Fluticasone/Vilanterol (Fluticasone/Vilanterol 100/25mcg 14 Puffs/Inhaler) 1 puffs INH DAILY [facility]; Protocol Stop: 07/08/20 08:59 Last Admin: 06/10/20 07:45 Dose: 1 puffs Documented by: Glucagon (Glucagon For Inj 1 Mg Vial) 1 mg SQ UD PRN; Protocol PRN Reason: Hypoglycemia Protocol Stop: 07/08/20 07:30 Glucose (Glucose 10 Tabs/Tube) 4 - 8 tabs PO UD PRN; Protocol PRN Reason: Hypoglycemia Protocol Stop: 07/08/20 07:30 Glucose (Glucose 40% Gel 15 Gm Tube) 15 - 30 gm PO UD PRN; Protocol PRN Reason: Hypoglycemia Protocol Stop: 07/08/20 07:30 Piperacillin Sod/Tazobactam (Sod 4.5 gm/ Dextrose) 120 mls @ 30 mls/hr IV Q8H [facility]; Protocol Stop: 06/15/20 13:59 Last Admin: 06/10/20 06:18 Dose: 30 mls/hr Documented by: Methylprednisolone 40 mg/ (Syringe) 0.64 mls @ 1.5 mls/min IV Q12 [facility] Stop: 07/10/20 20:59 Insulin Aspart (Insulin Aspart 100 Units/Ml 3 Ml Pen) 0 units SC ACHS [facility] Stop: 07/08/20 07:30 Last Admin: 06/10/20 07:49 Dose: 3 units Documented by: Lidocaine (Lidocaine 5% 1 Patch) 1 patch TD DAILY PRN PRN Reason: pain Stop: 07/08/20 08:09 Miscellaneous (Carbohydrates For Hypoglycemia ) 15 - 30 gm PO UD PRN PRN Reason: Hypoglycemia Protocol Stop: 07/08/20 07:30 Miscellaneous (Remove Lidoderm Patch) 1 ea N/A DAILY@2100 [facility] Stop: 07/08/20 20:59 Last Admin: 06/09/20 21:45 Dose: Not Given Documented by: Miscellaneous Information (Piperacill/Tazobac Consult Active) 1 ea N/A UD PRN PRN Reason: Consult Stop: 07/08/20 07:30 Morphine Sulfate (Morphine Sulfate 2 Mg/Ml Carp) 2 mg IV Q4H PRN PRN Reason: Pain Stop: 06/22/20 22:36 Last Admin: 06/09/20 21:47 Dose: 2 mg Documented by: Mycophenolate Mofetil (Mycophenolate Mofetil 250 Mg Cap) 250 mg PO DAILY [facility] Stop: 07/08/20 08:59 Last Admin: 06/10/20 07:48 Dose: 250 mg Documented by: Ondansetron HCl (Ondansetron Inj 2 Mg/Ml 2 Ml Vial) 4 mg IV Q6H PRN PRN Reason: Nausea Stop: 07/08/20 07:30 Last Admin: 06/08/20 11:50 Dose: 4 mg Documented by: Pantoprazole Sodium (Pantoprazole 40 Mg Tab) 40 mg PO DAILY [facility] Stop: 07/08/20 08:59 Last Admin: 06/10/20 07:48 Dose: 40 mg Documented by: Polyethylene Glycol (Polyethylene (Miralax) 17 Gm Pack) 17 gm PO DAILY [facility] Stop: 07/10/20 08:59 Last Admin: 06/10/20 07:49 Dose: 17 gm Documented by: Potassium Chloride (Potassium Chloride Crtab 20 Meq Tabcr) 20 meq PO DAILY [facility] Stop: 07/08/20 08:59 Last Admin: 06/10/20 07:48 Dose: 20 meq Documented by: Ropinirole HCl (Ropinirole Hcl 1 Mg Tablet) 2 mg PO TID [facility] Stop: 07/08/20 08:59 Last Admin: 06/10/20 07:48 Dose: 2 mg Documented by: Umeclidinium [place] (Umeclidinium [place] 62.5mcg/Blister 7 Puffs/Inhaler) 1 puffs INH DAILY [facility] Stop: 07/08/20 08:59 Last Admin: 06/10/20 07:45 Dose: 1 puffs Documented by: Vitamin D (Cholecalciferol 1,000 Units 25 Mcg Tab) 1,000 units PO DAILY [facility] Stop: 07/08/20 08:59 Last Admin: 06/10/20 07:48 Dose: 1,000 units Documented by: Zolpidem Tartrate (Zolpidem Tartrate 10 Mg Tab) 10 mg PO HS PRN PRN Reason: Sleep Stop: 07/08/20 07:30 Last Admin: 06/09/20 21:43 Dose: 10 mg Documented by: PG Care Time/CCT Total # of Minutes Spent Total Time Spent with Patient: Total time spent is greater than 50% in coordin ation of care (as documented) at patient's floor/unit and/or counseling patient: Coding Level of Care Code 75362 Subseq Hosp Care Lvl 2 Diagnoses Acute and chronic respiratory failure with hypoxia J96.21 Nonspecific interstitial pneumonia J84.89 Chronic interstitial lung disease J84.9 Tracheobronchomalacia J39.8 Asthma exacerbation J45.901 Asthma persistence: unspecified Asthma severity: unspecified severity Fluid overload E87.70 Diastolic dysfunction without heart failure I51.89 Depression F32.9 Active/Remission status: currently active Depression Type: major depressive disorder Major depression episode severity: unspecified Major depression recurrence: unspecified whether recurrent GERD (gastroesophageal reflux disease) K21.9 Restless leg syndrome G25.81 (1) Asthma exacerbation Asthma persistence: unspecified Asthma severity: unspecified severity Qualified Code(s): J45.901 - Unspecified asthma with (acute) exacerbation (2) Depression Active/Remission status: currently active Depression Type: major depressive disorder Major depression episode severity: unspecified Major depression recurrence: unspecified whether recurrent Qualified Code(s): F32.9 - Major depressive disorder, single episode, unspecified
[2020-06-10] MEDS: ACETAMINOPHEN 325 MG TAB PO PRN (13:42)
[2020-06-10] MEDS: ZOLPIDEM TARTRATE 10 MG TAB PO PRN (21:41)
[2020-06-10] MEDS: MoRPHine SULFATE 2 MG/ML CARP IV PRN (21:41)
[2020-06-10] MEDS: ESCITALOPRAM OXALATE 20 MG TAB PO SCH (22:23)
[2020-06-11] MEDS: PIPERACILLIN/TAZOBACTAM 4.5 GM in DEXTROSE 5% 100 ML IV SCH ×2 (05:48→15:00)
[2020-06-11] MEDS: ALBUT/IPRATROP 3MG/0.5MG NEB 3 ML VIAL NEB SCH ×3 (07:11→15:20)
[2020-06-11] MEDS: INSULIN ASPART 100 UNITS/ML 3 ML PEN SC SCH ×2 (09:06→12:24)
[2020-06-11] MEDS: FLUTICASONE/VILANTEROL 100/25MCG 14 PUFFS/INHALER INH SCH (09:08)
[2020-06-11] MEDS: POTASSIUM CHLORIDE CRTAB 20 MEQ TABCR PO SCH (09:09)
[2020-06-11] MEDS: methylPREDNISolone 40 MG in SYRINGE 0 ML IV SCH (09:10)
[2020-06-11] MEDS: CHOLECALCIFEROL 1,000 UNITS 25 MCG TAB PO SCH (09:10)
[2020-06-11] MEDS: UMECLIDINIUM BROMIDE 62.5MCG/BLISTER 7 PUFFS/INHALER INH SCH (09:10)
[2020-06-11] MEDS: PANTOprazole 40 MG TAB PO SCH (09:10)
[2020-06-11] MEDS: ENOXAPARIN INJ 40 MG/0.4 ML SYR SQ SCH (09:11)
[2020-06-11] MEDS: MYCOPHENOLATE MOFETIL 250 MG CAP PO SCH (09:11)
[2020-06-11] MEDS: ACETAMINOPHEN 325 MG TAB PO PRN (09:14)
[2020-06-11] MEDS: rOPINIRole HCL 1 MG TABLET PO SCH ×2 (09:14→13:39)
[2020-06-11] MEDS: POLYETHYLENE (MIRALAX) 17 GM PACK PO SCH (09:17)
[2020-06-11] MEDS ORDERED: FUROSEMIDE 40 MG in SYRINGE 0 ML IV ONE (12:15)
[2020-06-11 12:41] LABS: BUN Creatinine Ratio 26.4 (10-20); Calcium 8.9 mg/dl (8.5-10.1); Creatinine Clr Calc Pharmacy 59.5 ml/min; Est GFR (African American) 70.5; Est GFR (Non-African American) 60.9; Potassium 3.9 mmol/L (3.5-5.1)
--- NOTE | 2020-06-11 15:08 | Discharge Summary ---
Date of Service June 11, 2020 Admission HPI Per Admitting Provider The patient is a 65-year-old female with a past medical history including history of abscessed tooth, tracheobronchomalacia, chronic interstitial lung disease, bronchiectasis, UIP, nonspecific interstitial pneumonia, insomnia, diastolic dysfunction without heart failure, fatty liver, sepsis, Sirs, benign essential tremor, restless leg syndrome, GERD and depression. The patient has been seen by her project manager/team coach Dr. Kruse on 06/07/2020, and in an attempt to improve oxygenation and avoid steroid-induced edema, her prednisone was decreased to 5 mg every other day, her Lasix 80 mg daily was continued, and there was the addition of Zaroxolyn 2.5 mg on Sunday and pre Lasix dose. She has been restarted on her mycophenolate, reports that she is on day 4 now. There was also to be an attempt to speak to Dr. Chaney from [place] [facility] to try to get it moved up earlier on the list. She reports to the emergency department this evening, as she has become extremely short of breath with even minimal activity. In the emergency department, she was placed on BiPAP, which of then giving her a mild headache, did improve her oxygenation and made her breathing more comfortable. Laboratories were significant for glucose 156, and she was COVID-19 negative. Principal Diagnosis Acute on chronic respiratory failure with hypoxia Discharge Exam Constitutional well developed and well nourished; no acute distress Neck trachea midline, no thyromegaly Respiratory normal respiratory effort and + cough; no labored breathing Auscultation: + crackles (bilaterally); no rhonchi and no wheezes Cardiovascular Rate/Rhythm: regular rhythm and + tachycardic Heart Sounds: normal S1 and normal S2; no murmur Vessels: no JVD Extremities: normal capillary refill; no edema Gastrointestinal (Abdomen) normal bowel sounds, soft, nontender, no hepatosplenomegaly Musculoskeletal Head/Neck/Chest: normocephalic, head atraumatic and neck supple Extremities: extremities normal to inspection, strength 5/5 throughout and + clubbing Skin no rashes, warm and dry Neurologic patellar DTR's 2+ bilat, sensation intact and PERRL, EOMI, accommodation nl, no face palsy, no dysarthria Psychiatric A+Ox3, euthymic affect Lymphatic no cervical or axillary lymphadenopathy Discharge Data Allergies Allergy/AdvReac Type Severity Reaction Status Date / Time Iodinated Contrast Media Allergy Severe Anaphylaxis Verified 06/08/20 02:11 Cipro Allergy Mild N.V./MOUTH Verified 11/10/19 09:29 SORES ciprofloxacin Allergy Mild N.V./MOUTH Verified 06/08/20 02:11 SORES Consultations 06/08/20 03:26 ED Decision to Admit Stat 06/08/20 07:31 Consult Case Management - Discharge Planning Routine Ordered Studies 06/08/20 22:35 CT abd pelvis wo con Urgent Hospital Course (1) Acute and chronic respiratory failure with hypoxia: Acute on chronic respiratory failure with hypoxia/nonspecific interstitial multifocal pneumonia/chronic ILD/tracheobronchomalacia/asthma exacerbation treated with Solu Medrol, initially 40 q8 then tapered to 40 q12 will discharge on Prednisone 40mg daily with following taper: 40mg x 2, 30mg x 2, 20mg x 2, 10mg daily until she sees Dr. Kruse previously on Prednisone 5mg every other day continue Lasix 40mg PO BID to keep lungs dry fluid restriction Cr is stable treated with Zosyn while admitted, no clear evidence of ongoing bacterial infection resume Bactrim 3x a week on discharge stable on home 4L, less dyspneic at rest and on exertion, she feels well about going home follow up closely with Dr. Kruse and follow up with [place] [facility] team (2) Nonspecific interstitial pneumonia: See above plan for Prednisone on discharge (3) Chronic interstitial lung disease: See above (4) Tracheobronchomalacia: See above (5) Asthma exacerbation: See above (6) Fluid overload: Fluid overload/diastolic dysfunction without heart failure- excellent diuresis with Lasix IV while admitted, then placed on 40mg PO BID fluid restriction far less edema, breathing easier continue on Lasix as Prednisone will continue to cause fluid retention (7) Diastolic dysfunction without heart failure: See above (8) Depression: Continue Lexapro 20 mg p.o. every evening, and Ambien 10 mg p.o. at bedtime as needed (9) GERD (gastroesophageal reflux disease): Change omeprazole to pantoprazole per formulary interchange (10) Restless leg syndrome: Continue ropinirole 2 mg p.o. 3 times daily Total Time Total Time Spent Total Time Spent (In Minutes): 35 minutes Total Time Includes: Examination of the Patient, Discharge Planning and Medication Reconciliation Discharge Plan Discharge Items Patient Disposition: Home - Self-Care Reason For Visit: ACUTE RESPIRATORY FAILURE, ILD, PNEUMONIA Discharge Diagnosis: Acute on chronic hypoxic respiratory failure Interstitial lung disease Volume overload due to steroid use Condition on Discharge: Good Goals: continue to use Lasix to keep volume off taper Prednisone over the next week Activity: Resume your previous activity Weightbearing: Full weightbearing Non-emergency contact: Primary Care Provider and [employer] Call non-emergency contact if: you have any medication questions and your symptoms worsen Follow-up/Referrals: Onur Kruse MD [Physician] - (one week) Horacio Garay PA-C [Primary Care Provider] - (one week) Diet: Regular Fluids: 2000ml (8 cups) Addtl Attending Provider Instructions: Medications: LASIX: continue taking 40mg twice a day to keep edema down with steroid use PREDNISONE: you were treated with Solu Medrol IV while here will transition you to Prednisone tomorrow morning take 40mg (4 tabs) x 2 days, then 30mg x 2 days then 20mg x 2 days then stay on 10mg until you follow up with Dr. Kruse Acute on chronic hypoxemic respiratory failure, interstitial lung disease, pneumonia treated with Solu medrol IV, Zosyn IV (antibiotic) and aggressive diuresis with IV Lasix responded well to treatment see the above plan please call Dr. Kruse's office on Sunday for a close follow up, I tried to reach him but no answer please continue to follow up with lung transplant team in [place] Pending Studies at Discharge: No Stand-Alone Forms: My [facility], Smoking Cessation Medications and DC Order Prescriptions: New prednisone 10 mg tablet 10 mg PO UD 20 Days Qty: 30 RF: 0 furosemide [Lasix] 40 mg tablet 40 mg PO BID 30 Days Qty: 60 RF: 1 Continued (DME) Oxygen Home Liters Per Minute See Rx Instructions .ROUTE .MEDSUPPLY Qty: 1 RF: 0 Incruse Ellipta 62.5 mcg/actuation blister with device 1 inh inhalation DAILY Qty: 30 RF: 5 Symbicort 160-4.5 mcg/actuation HFA aerosol inhaler 2 puffs INH BID Qty: 10.2 RF: 2 mycophenolate mofetil 250 mg capsule 250 mg PO DAILY RF: 0 omeprazole magnesium [Prilosec OTC] 20 mg tablet,delayed release (DR/EC) 20 mg PO DAILY RF: 0 metolazone 2.5 mg tablet 2.5 mg PO 2XWK PRN (Reason: edema) Qty: 10 RF: 3 (DME) Auto Titrating CPAP Misc See Rx Instructions .ROUTE .MEDSUPPLY Qty: 1 RF: 0 lidocaine 4 % adhesive patch,medicated 1 patch topical DAILY PRN (Reason: pain) Qty: 10 RF: 3 (DME) Wheeled Walker Misc See Rx Instructions .ROUTE .MEDSUPPLY Qty: 1 RF: 0 albuterol sulfate [Ventolin HFA] 90 mcg/actuation Hfa Aerosol Inhaler 2 puff INHALATION QID PRN (Reason: Shortness Of Breath) RF: 0 escitalopram oxalate [Lexapro] 10 mg Tablet 20 mg PO QPM RF: 0 cholecalciferol (vitamin D3) [Vitamin D3] 25 mcg (1,000 unit) Tablet 25 mcg PO DAILY RF: 0 potassium chloride 10 mEq capsule, extended release 20 meq PO DAILY RF: 0 ropinirole 2 mg tablet 2 mg PO TID RF: 0 sulfamethoxazole-trimethoprim 800-160 mg tablet 1 tab PO 3XWK RF: 0 zolpidem [Ambien] 10 mg Tablet 5 - 10 mg PO HS PRN (Reason: Sleep) RF: 0 Discontinued prednisone 5 mg tablet 5 mg PO Q OTHER DAY Qty: 30 RF: 5 Discharge Orders: Discharge Order (Routine); Ordered 06/11/20 Ordered By: Sly Ramirez/Other Patient Handouts: Exercise to Manage Your Blood Sugar, 5 Steps for Eating Healthier, A1C Admission Data Admit Date/Time: 06/08/20 04:07 Attending Provider: Sly Alejo Admit Provider: Fredo Hahn Primary Care Provider: Horacio Garay Other Providers: Fredo Hahn Other Interventions: Discharge Summary Assessment (RN) Last Done: 06/11/20 15:21 Coding Level of Care Code D/C Day Management >30 mins Diagnoses Acute and chronic respiratory failure with hypoxia J96.21 Nonspecific interstitial pneumonia J84.89 Chronic interstitial lung disease J84.9 Tracheobronchomalacia J39.8 Asthma exacerbation J45.901 Asthma persistence: unspecified Asthma severity: unspecified severity Fluid overload E87.70 Diastolic dysfunction without heart failure I51.89 Depression F32.9 Active/Remission status: currently active Depression Type: major depressive disorder Major depression episode severity: unspecified Major depression recurrence: unspecified whether recurrent GERD (gastroesophageal reflux disease) K21.9 Restless leg syndrome G25.81
== END 2020-06-11 16:00 | disposition home or self-care (01) | DRG 196 ==
LOC: ED 01:37 → SUATTDRO 04:07 → 1E 04:07 → 2S 06-10 15:28

== ENCOUNTER 2020-10-20 11:19 | Inpatient (IN) ==
[2020-10-20] MEDS ORDERED: ALBUT/IPRATROP 3MG/0.5MG NEB 3 ML VIAL INH STA (11:34)
[2020-10-20] MEDS ORDERED: methylPREDNISolone 125 MG/2 ML VIAL IV STA (11:34)
[2020-10-20] MEDS ORDERED: LORazepam 0.5 MG/1 ML VIAL IV STA (11:36)
--- NOTE | 2020-10-20 11:40 | Emergency Department Note ---
Impression & Plan Respiratory distress, SOB (shortness of breath), Leukocytosis, Pulmonary fibrosis ED Provider Note NAME: ADONAY PINEDO AGE: 65 SEX: F : 1955 ARRIVES VIA: Ambulance INFORMANT: [Patient][ems] ED PROVIDER(S): [Margarito Bettencourt MD] CHIEF COMPLAINT: Short of breath HISTORY OF PRESENT ILLNESS: The patient is a 65-year-old female presents to the ED with dyspnea since last evening. She states that she feels like she cannot get enough air. She does wear 4 to 5 L of oxygen at all times and has a history of pulmonary fibrosis. On the way here, she received a DuoNeb which did seem to help a bit. The patient is concerned that she is dehydrated. She states that typically, when she has a flare like this, she gets steroids and fluids which seem to improve her breathing. Lately, she has noticed a slight increased cough but there has been no fever. She is vaccinated for COVID-19. The patient states that her pulmonary doctors have taken her off of her inhaler s/nebulizers as, she has a restrictive lung issue, not bronchospasm. REVIEW OF SYSTEMS: See HPI for pertinent positives and negatives. A total of ten systems were reviewed and were otherwise negative. PMHx/PSHx: See Below SOCIAL HISTORY: See Below. PHYSICAL EXAM: GENERAL: Patient is in mild respiratory distress. HEENT: No acute trauma, normocephalic atraumatic, mucous membranes moist, no nasal congestion, no scleral icterus. NECK: No stridor, no adenopathy, no meningismus, trachea is midline. LUNGS: Crackles bilaterally, no wheezing. She has an increased respiratory rate and does speak in shorter sentences. There is mild respiratory distress. HEART: Tachycardic with a regular rhythm, no murmurs. ABDOMEN: Soft, nontender, bowel sounds positive, no hernias, no peritonitis. EXTREMITIES: No cyanosis or edema, full range of motion of all the joints without pain or difficulty, no signs for acute trauma. NEUROLOGIC: Oriented x 3, no acute motor or sensory deficits, no focal weakness. SKIN: No rash, no jaundice, no diaphoresis. DIFFERENTIAL DIAGNOSIS: Reactive airway disease, pneumonia, pneumothorax, COPD, CHF, infection, influenza, COVID-19, cardiac ischemia, pulmonary embolism, bronchitis, musculoskeletal, gastrointestinal, as well as other pathologies. EMERGENCY DEPARTMENT COURSE/PROCEDURES: ECG: Indication was shortness of breath. The ECG shows a sinus tachycardia with a rate of 124. 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 There is poor R wave progression. There is no ST elevation, no PVCs. The QTc is 574. Compared to an ECG from 08 June 2020, the rate has increased, the criteria for an old inferior infarct are more notable. Continuous Cardiac Monitoring: An order was placed for continuous cardiac monitoring. The monitor shows a rate of 105 with sinus tachycardia. Critical Care Note: I have personally spent 52 minutes of critical care time in the direct management of this patient. This includes bedside care, interpre tation of diagnostic studies, and testing, discussion with consultants, patient, and family members, and other required patient management activities. This 52 minutes is in excess of all separately billable procedures. MEDICAL DECISION MAKING: There is a mild leukocytosis, this could be consistent with infection. There was no anemia. There was a normal platelet count. No coagulopathy. No significant electrolyte abnormality or kidney failure. Lactic acid level was elevated consistent with possible infection. No worrisome liver enzyme elevation. ECG shows a sinus tachycardia, no acute ischemia. Cardiac enzyme testing x1 is not consistent with acute cardiac injury. Influenza and Covid testing returned negative. Chest film shows pulmonary fibrosis with a possible finding of CHF. BNP was not elevated. On exam, the patient was quite dyspneic. She was short of breath with speaking. Patient was initially given a 500 cc saline bolus. Once her x-ray returned, she was given IV Lasix, 60 mg. She received IV Solu-Medrol, IV Ativan and IV ceftriaxone. She was given a DuoNeb. She was eventually placed on BiPAP. The patient presents quite dyspneic. Infection is a concern, exacerbation of her pulmonary fibrosis is a concern. There may be a component of fluid overload/CHF. Further care and work-up is required. She is in need of a hospital stay. I did speak with the patient and case management. The on-call hospitalist was consulted. Past Med/Surg History Medical History Anxiety Arthritis Asthma Degenerative disc disease Depression GERD (gastroesophageal reflux disease) Idiopathic pulmonary fibrosis diagnosed 04/2019 Interstitial lung disease On home oxygen therapy BASIM (obstructive sleep apnea) nurse did not note if patient using a device Osteoarthritis Pulmonary nodule Restless leg syndrome Tracheobronchomalacia Surgical History History of ankle surgery Lt - hardware present History of appendectomy History of bladder repair surgery History of breast surgery History of carpal tunnel release of both wrists History of D&C History of esophagogastroduodenoscopy (EGD) History of lung biopsy Right Video Assisted Thoracoscopy with Lung and Lymph Node Biopsy Dr. Schneider 05-12-19 History of spinal surgery lumbar History of surgery Rt biceps repair History of tonsillectomy History of tooth extraction History of total abdominal hysterectomy and bilateral salpingo-oophorectomy Hx of oral surgery (11/21/19) Removal of [address] 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 Feels Safe at Home: Yes Assistive Devices: Glasses and Oxygen - at Night Allergies Allergies Allergy/AdvReac Type Severity Reaction Status Date / Time Iodinated Contrast Media Allergy Severe Anaphylaxis Verified 10/20/20 12:37 Cipro Allergy Mild N.V./MOUTH Verified 11/10/19 09:29 SORES ciprofloxacin Allergy Mild N.V./MOUTH Verified 10/20/20 12:37 SORES Home Meds Home Medications Medication Instructions Recorded Confirmed albuterol sulfate [Ventolin HFA] 2 puff INHALATION QID PRN 02/14/18 10/20/20 ropinirole 2 mg PO TID 05/12/19 10/20/20 escitalopram oxalate [Lexapro] 20 mg PO QPM 05/18/19 10/20/20 zolpidem [Ambien] 5 - 10 mg PO HS PRN 11/13/19 10/20/20 omeprazole magnesium 20 mg 20 mg PO DAILY 06/07/20 10/20/20 tablet,delayed release cholecalciferol (vitamin D3) 25 mcg PO DAILY 06/08/20 10/20/20 [Vitamin D3] Previous Rx's Medication Instructions Recorded budesonide-formoterol HFA 160 2 puffs INH BID #10.2 gm 04/28/19 mcg-4.5 mcg/actuation aerosol inhaler Oxygen Home #1 ea 07/02/19 CPAP Machine #1 ea 08/01/19 Wheeled Walker #1 ea 02/26/20 lidocaine 4 % topical patch 1 patch TOPICAL DAILY PRN #10 ea 02/26/20 umeclidinium 62.5 mcg/actuation 1 inh INHALATION DAILY #30 ea 03/26/20 blister powder for inhalation azithromycin 250 mg tablet 250 mg PO MONWEDFRI #12 tab 07/22/20 furosemide 40 mg tablet 40 mg PO BID 30 Days #60 tab 07/22/20 metolazone 2.5 mg tablet 2.5 mg PO .COMPLEX #10 tab 07/22/20 potassium chloride 10 mEq 20 meq PO DAILY #60 cap 07/22/20 capsule,extended release sulfamethoxazole 800 1 tab PO 3XWK #20 tab 07/22/20 mg-trimethoprim 160 mg tablet prednisone 10 mg tablet 15 mg PO DAILY #60 tab 08/16/20 mycophenolate mofetil 250 mg 500 mg PO BID #120 cap 09/20/20 capsule Results & Data (ED) Vital Signs Vital Signs - 24 hr 10/20/20 11:32 10/20/20 11:41 10/20/20 11:43 Temperature 36.8 C Temperature Source Oral Pulse Rate 105 H Pulse Rate [Right Finger] Pulse Rate from SpO2 Sensor Respiratory Rate 28 H Respiratory Effort / Characteristics Labored Labored Respiratory Depth Respiratory Pattern Blood Pressure 152/71 H Blood Pressure Mean 98 Pulse Oximetry 96 96 96 Oxygen Delivery Method Room Air Nasal Cannula Nasal Cannula Oxygen Flow Rate 5.5 5.5 Fraction of Inspired Oxygen Sepsis Recent Fever Within 48 Hours No Sepsis New/Unexplained Change in Mental Status N/A Sepsis Action Taken by Nursing No Action Required 10/20/20 11:57 10/20/20 12:07 10/20/20 13:14 Temperature Temperature Source Pulse Rate 110 H Pulse Rate [Right Finger] 104 H Pulse Rate from SpO2 Sensor Respiratory Rate 33 H 27 H Respiratory Effort / Characteristics Spontaneous Labored Short of Breath Spontaneous Labored Short of Breath Respiratory Depth Normal Respiratory Pattern Tachypnea Blood Pressure Blood Pressure Mean Pulse Oximetry 96 99 98 Oxygen Delivery Method Nasal Cannula Oxygen Flow Rate 5.5 6 Fraction of Inspired Oxygen 30 Sepsis Recent Fever Within 48 Hours Sepsis New/Unexplained Change in Mental Status Sepsis Action Taken by Nursing 10/20/20 13:35 Temperature Temperature Source Pulse Rate 124 H Pulse Rate [Right Finger] Pulse Rate from SpO2 Sensor 123 H Respiratory Rate 28 H Respiratory Effort / Characteristics Respiratory Depth Respiratory Pattern Blood Pressure 143/68 H Blood Pressure Mean 93 Pulse Oximetry 98 Oxygen Delivery Method BiPAP Oxygen Flow Rate Fraction of Inspired Oxygen Sepsis Recent Fever Within 48 Hours Sepsis New/Unexplained Change in Mental Status Sepsis Action Taken by Care Home Medications Current Medication List: was personally reviewed by me Laboratory Data Attestation: I reviewed the patient's lab results. Result diagrams: 10/20/20 11:52 10/20/20 11:52 Lab Results 10/20/20 10/20/20 10/20/20 Range/Units 11:52 11:52 11:52 WBC 12.11 H (4.8-10.8) K/uL RBC 4.39 (4.2-5.4) M/uL Hgb 14.3 (12.0-16.0) g/dL Hct 41.2 (37-47) % MCV 93.8 (80-100) fL MCH 32.6 (25-34) pg MCHC 34.7 (32-36) g/dL RDW Std Deviation 42.8 (36.4-46.3) fL RDW Coeff of Bryce 12.6 (11.5-14.5) % Plt Count 204 (130-400) K/uL MPV 9.9 (7.4-10.4) fL Immature Gran % (Auto) 0.6 % Neut % (Auto) 63.4 % Lymph % (Auto) 30.0 % [place] % (Auto) 4.6 % Eos % (Auto) 1.2 % Baso % (Auto) 0.2 % Neut # (Auto) 7.69 H (1.4-6.5) K/uL Lymph # (Auto) 3.63 H (1.2-3.4) K/uL [place] # (Auto) 0.56 (0.11-0.59) K/uL Eos # (Auto) 0.14 (0-0.5) K/uL Baso # (Auto) 0.02 (0-0.2) K/uL Immature Gran # (Auto) 0.07 H (0.00-0.02) K/uL PT 9.8 (9.0-12.0) Seconds INR 1.0 (0.9-1.1) APTT 22.0 (21.0-31.0) Seconds PTT Ratio 0.8 Sodium 139 (136-145) mmol/L Potassium 3.6 (3.5-5.1) mmol/L Chloride 103 (98-107) mmol/L Carbon Dioxide 29 (21-32) mmol/L Anion Gap 7.0 (3-11) BUN 17 (7-18) mg/dl Creatinine 0.85 (0.6-1.2) mg/dl Est Cr Clr Drug Dosing 70.9 ml/min Est GFR ( Amer) 82.8 ml/min Est GFR (Non-Af Amer) 71.4 ml/min BUN/Creatinine Ratio 20.1 H (10-20) Glucose 113 H (70-99) mg/dl Lactate (0.4-2.0) mmol/L Calcium 9.5 (8.5-10.1) mg/dl Magnesium 2.1 (1.8-2.4) mg/dl Total Bilirubin 0.3 (0.2-1) mg/dl AST 19 (15-37) U/L ALT 28 (12-78) U/L Alkaline Phosphatase 81 (45-117) U/L Troponin I < 0.015 (0-0.045) ng/ml C-Reactive Protein (0-0.29) mg/dl NT-Pro-B Natriuret Pep 54 (0-900) pg/ml Total Protein 7.6 (6.4-8.2) gm/dl Albumin 4.2 (3.4-5.0) gm/dl Globulin 3.4 (2.5-4.0) gm/dl Albumin/Globulin Ratio 1.2 (0.9-2) Procalcitonin (0-0.5) ng/ml COVID-19 Eval Order SARS-CoV-2 (PCR) (Negative) Influ A Molecular Assay (Negative) Influ B Molecular Assay (Negative) 06/02/21 06/02/21 06/02/21 Range/Units 11:52 11:55 11:55 WBC (4.8-10.8) K/uL RBC (4.2-5.4) M/uL Hgb (12.0-16.0) g/dL Hct (37-47) % MCV (80-100) fL MCH (25-34) pg MCHC (32-36) g/dL RDW Std Deviation (36.4-46.3) fL RDW Coeff of Bryce (11.5-14.5) % Plt Count (130-400) K/uL MPV (7.4-10.4) fL Immature Gran % (Auto) % Neut % (Auto) % Lymph % (Auto) % [place] % (Auto) % Eos % (Auto) % Baso % (Auto) % Neut # (Auto) (1.4-6.5) K/uL Lymph # (Auto) (1.2-3.4) K/uL [place] # (Auto) (0.11-0.59) K/uL Eos # (Auto) (0-0.5) K/uL Baso # (Auto) (0-0.2) K/uL Immature Gran # (Auto) (0.00-0.02) K/uL PT (9.0-12.0) Seconds INR (0.9-1.1) APTT (21.0-31.0) Seconds PTT Ratio Sodium (136-145) mmol/L Potassium (3.5-5.1) mmol/L Chloride (98-107) mmol/L Carbon Dioxide (21-32) mmol/L Anion Gap (3-11) BUN (7-18) mg/dl Creatinine (0.6-1.2) mg/dl Est Cr Clr Drug Dosing ml/min Est GFR ( Amer) ml/min Est GFR (Non-Af Amer) ml/min BUN/Creatinine Ratio (10-20) Glucose (70-99) mg/dl Lactate 2.9 H* (0.4-2.0) mmol/L Calcium (8.5-10.1) mg/dl Magnesium (1.8-2.4) mg/dl Total Bilirubin (0.2-1) mg/dl AST (15-37) U/L ALT (12-78) U/L Alkaline Phosphatase (45-117) U/L Troponin I (0-0.045) ng/ml C-Reactive Protein (0-0.29) mg/dl NT-Pro-B Natriuret Pep (0-900) pg/ml Total Protein (6.4-8.2) gm/dl Albumin (3.4-5.0) gm/dl Globulin (2.5-4.0) gm/dl Albumin/Globulin Ratio (0.9-2) Procalcitonin (0-0.5) ng/ml COVID-19 Eval Order Covid19 at [facility] SARS-CoV-2 (PCR) (Negative) Influ A Molecular Assay Negative (Negative) Influ B Molecular Assay Negative (Negative) 10/20/20 10/20/20 10/20/20 Range/Units 11:55 11:57 11:57 WBC (4.8-10.8) K/uL RBC (4.2-5.4) M/uL Hgb (12.0-16.0) g/dL Hct (37-47) % MCV (80-100) fL MCH (25-34) pg MCHC (32-36) g/dL RDW Std Deviation (36.4-46.3) fL RDW Coeff of Bryce (11.5-14.5) % Plt Count (130-400) K/uL MPV (7.4-10.4) fL Immature Gran % (Auto) % Neut % (Auto) % Lymph % (Auto) % [place] % (Auto) % Eos % (Auto) % Baso % (Auto) % Neut # (Auto) (1.4-6.5) K/uL Lymph # (Auto) (1.2-3.4) K/uL [place] # (Auto) (0.11-0.59) K/uL Eos # (Auto) (0-0.5) K/uL Baso # (Auto) (0-0.2) K/uL Immature Gran # (Auto) (0.00-0.02) K/uL PT (9.0-12.0) Seconds INR (0.9-1.1) APTT (21.0-31.0) Seconds PTT Ratio Sodium (136-145) mmol/L Potassium (3.5-5.1) mmol/L Chloride (98-107) mmol/L Carbon Dioxide (21-32) mmol/L Anion Gap (3-11) BUN (7-18) mg/dl Creatinine (0.6-1.2) mg/dl Est Cr Clr Drug Dosing ml/min Est GFR ( Amer) ml/min Est GFR (Non-Af Amer) ml/min BUN/Creatinine Ratio (10-20) Glucose (70-99) mg/dl Lactate (0.4-2.0) mmol/L Calcium (8.5-10.1) mg/dl Magnesium (1.8-2.4) mg/dl Total Bilirubin (0.2-1) mg/dl AST (15-37) U/L ALT (12-78) U/L Alkaline Phosphatase (45-117) U/L Troponin I (0-0.045) ng/ml C-Reactive Protein < 0.29 (0-0.29) mg/dl NT-Pro-B Natriuret Pep (0-900) pg/ml Total Protein (6.4-8.2) gm/dl Albumin (3.4-5.0) gm/dl Globulin (2.5-4.0) gm/dl Albumin/Globulin Ratio (0.9-2) Procalcitonin < 0.05 (0-0.5) ng/ml COVID-19 Eval Order SARS-CoV-2 (PCR) NEGATIVE (Negative) Influ A Molecular Assay (Negative) Influ B Molecular Assay (Negative) 10/20/20 Range/Units 14:20 WBC (4.8-10.8) K/uL RBC (4.2-5.4) M/uL Hgb (12.0-16.0) g/dL Hct (37-47) % MCV (80-100) fL MCH (25-34) pg MCHC (32-36) g/dL RDW Std Deviation (36.4-46.3) fL RDW Coeff of Bryce (11.5-14.5) % Plt Count (130-400) K/uL MPV (7.4-10.4) fL Immature Gran % (Auto) % Neut % (Auto) % Lymph % (Auto) % [place] % (Auto) % Eos % (Auto) % Baso % (Auto) % Neut # (Auto) (1.4-6.5) K/uL Lymph # (Auto) (1.2-3.4) K/uL [place] # (Auto) (0.11-0.59) K/uL Eos # (Auto) (0-0.5) K/uL Baso # (Auto) (0-0.2) K/uL Immature Gran # (Auto) (0.00-0.02) K/uL PT (9.0-12.0) Seconds INR (0.9-1.1) APTT (21.0-31.0) Seconds PTT Ratio Sodium (136-145) mmol/L Potassium (3.5-5.1) mmol/L Chloride (98-107) mmol/L Carbon Dioxide (21-32) mmol/L Anion Gap (3-11) BUN (7-18) mg/dl Creatinine (0.6-1.2) mg/dl Est Cr Clr Drug Dosing ml/min Est GFR ( Amer) ml/min Est GFR (Non-Af Amer) ml/min BUN/Creatinine Ratio (10-20) Glucose (70-99) mg/dl Lactate 3.8 H* (0.4-2.0) mmol/L Calcium (8.5-10.1) mg/dl Magnesium (1.8-2.4) mg/dl Total Bilirubin (0.2-1) mg/dl AST (15-37) U/L ALT (12-78) U/L Alkaline Phosphatase (45-117) U/L Troponin I (0-0.045) ng/ml C-Reactive Protein (0-0.29) mg/dl NT-Pro-B Natriuret Pep (0-900) pg/ml Total Protein (6.4-8.2) gm/dl Albumin (3.4-5.0) gm/dl Globulin (2.5-4.0) gm/dl Albumin/Globulin Ratio (0.9-2) Procalcitonin (0-0.5) ng/ml COVID-19 Eval Order SARS-CoV-2 (PCR) (Negative) Influ A Molecular Assay (Negative) Influ B Molecular Assay (Negative) Administered Medications Enoxaparin Sodium (Enoxaparin Inj 40 Mg/0.4 Ml Syr) 40 mg SQ Q24H RILEY Stop: 11/19/20 16:59 Last Admin: 10/20/20 17:13 Dose: 40 mg Documented by: [id number] Fluticasone/Vilanterol (Fluticasone/Vilanterol 200/25mcg 14 Puffs/Inhaler) 1 puffs INH DAILY [facility]; Protocol Stop: 11/19/20 16:59 Last Admin: 10/20/20 17:14 Dose: 1 puffs Documented by: [id number] Ropinirole HCl (Ropinirole Hcl 1 Mg Tablet) 2 mg PO TID [facility] Stop: 11/19/20 16:29 Last Admin: 10/20/20 17:13 Dose: 2 mg Documented by: [id number] Trimethoprim/Sulfamethoxazole (Sulfamethoxazole/Trimethoprim Ds 800/160mg Tab) 1 tab PO [id number] RILEY Stop: 11/19/20 16:59 Last Admin: 10/20/20 17:15 Dose: 1 tab Documented by: [id number] Discontinued Medications Albuterol (Albut/Ipratrop 3mg/0.5mg Neb 3 Ml Vial) 3 ml INH NOW STA Stop: 10/20/20 11:35 Last Admin: 10/20/20 12:06 Dose: 3 ml Documented by: [id number] Furosemide (Furosemide 40 Mg/4 Ml Vial) 60 mg IV NOW STA Stop: 10/20/20 12:55 Last Admin: 10/20/20 13:38 Dose: 60 mg Documented by: [id number] Lorazepam (Ativan) 0.5 mg in 1 mls @ 1 mls/min IV NOW STA Stop: 10/20/20 11:37 Last Admin: 10/20/20 11:56 Dose: 1 mls/min Documented by: [id number] Sodium Chloride (Nss 1000ml) 500 mls @ 999 mls/hr IV .Q31M ONE Stop: 10/20/20 12:29 Last Infusion: 10/20/20 14:50 Dose: 0 mls/hr Documented by: [id number] Admin: 10/20/20 12:21 Dose: 999 mls/hr Documented by: [id number] Ceftriaxone Sodium (Rocephin) 2,000 mg in 70 mls @ 140 mls/hr IV NOW STA Stop: 10/20/20 13:06 Last Infusion: 10/20/20 14:39 Dose: 0 mls/hr Documented by: [id number] Admin: 10/20/20 13:38 Dose: 140 mls/hr Documented by: [id number] Methylprednisolone (Methylprednisolone 125 Mg/2 Ml Vial) 60 mg IV NOW STA Stop: 10/20/20 11:35 Last Admin: 10/20/20 11:56 Dose: 60 mg Documented by: [id number] Imaging Data Radiologist's Impression: Chest X-Ray 10/20/20 11:35 XR chest 1V portable HISTORY: 65 years-old Female SOB acute shortness of breath COMPARISON: Chest radiograph 06/08/2020, chest CT 09/29/2019. TECHNIQUE: Portable AP view of the chest FINDINGS: Cardiac silhouette is enlarged. Slightly progressed coarsened reticular interstitial opacities. Surgical suture material the right midlung. No pneumothorax or large pleural effusion. Degenerative changes of the shoulders and spine. IMPRESSION: Slightly progressed coarsened interstitial opacities may reflect worsening chronic interstitial lung disease. Superimposed pulmonary edema or pneumonitis would be difficult to exclude. ACT 112: Negative or not required by law. The above report was generated using voice recognition software. It may contain grammatical, syntax or spelling errors. Electronically signed by: Gurpreet Thurston M.D. 10/20/2020 12:09 PM Discharge Plan Visit Data Chief Complaint: Shortness of Breath/Dyspnea Stated Complaint: SOB ED Provider: Margarito Bettencourt Discharge Problem: Respiratory distress, SOB (shortness of breath), Leukocytosis, Pulmonary fibrosis Patient Disposition: Admitted As Inpatient Condition: Serious Discharge Instructions Interventions: ED Discharge Assessment Last Done: 10/20/20 15:03 Discharge Problem: Leukocytosis Qualifiers: Leukocytosis type: unspecified Qualified Code(s): D72.829 - Elevated white bl ood cell count, unspecified
[2020-10-20] MEDS ORDERED: SODIUM CHLORIDE 0.9% 1000ML 500 ML IV ONE (11:59)
[2020-10-20 12:03] LABS: Basophils # (auto) 0.02 K/uL (0-0.2); Basophils % (auto) 0.2 %; Eosinophils # (auto) 0.14 K/uL (0-0.5); Eosinophils % (auto) 1.2 %; Hematocrit (blood only) 41.2 % (37-47); Hemoglobin 14.3 g/dL (12.0-16.0); Immature Granulocytes # (auto) 0.07 K/uL (0.00-0.02); Immature Granulocytes % (auto) 0.6 %; Lymphocytes # (auto) 3.63 K/uL (1.2-3.4); Mean Corpuscular Hemoglobin 32.6 pg (25-34); Mean Corpuscular Hgb Conc 34.7 g/dL (32-36); Mean Corpuscular Volume 93.8 fL (80-100); Mean Platelet Volume 9.9 fL (7.4-10.4); Monocytes # (auto) 0.56 K/uL (0.11-0.59); Monocytes % (auto) 4.6 %; Neutrophils # (auto) 7.69 K/uL (1.4-6.5); Neutrophils % (auto) 63.4 %; Platelet Count 204 K/uL (130-400); RDW Coefficient of Variation 12.6 % (11.5-14.5); RDW Standard Deviation 42.8 fL (36.4-46.3); Red Blood Count 4.39 M/uL (4.2-5.4); White Blood Count 12.11 K/uL (4.8-10.8)
--- NOTE | 2020-10-20 12:10 | XRay Report ---
XR chest 1V portable HISTORY: 65 years-old Female SOB acute shortness of breath COMPARISON: Chest radiograph 06/08/2020, chest CT 09/29/2019. TECHNIQUE: Portable AP view of the chest FINDINGS: Cardiac silhouette is enlarged. Slightly progressed coarsened reticular interstitial opacities. Surgi medina suture material the right midlung. No pneumothorax or large pleural effusion. Degenerative change s of the shoulders and spine. IMPRESSION: Slightly progressed coarsened interstitial opacities may reflect worsening chronic inters titial lung disease. Superimposed pulmonary edema or pneumonitis would be difficult to exclude. ACT 112: Negative or not required by law. The above report was generated using voice recognition software. It may contain grammatical, syntax o r spelling errors. Electronically signed by: Gurpreet Thurston M.D. 10/20/2020 12:09 PM
[2020-10-20 12:18] LABS: Partial Thromboplastin Ratio 0.8; Prothrombin Time 9.8 Seconds (9.0-12.0)
[2020-10-20 12:23] LABS: Alanine Aminotransferase 28 U/L (12-78); Albumin Level 4.2 gm/dl (3.4-5.0); Aspartate Aminotransferase 19 U/L (15-37); BUN Creatinine Ratio 20.1 (10-20); Blood Urea Nitrogen 17 mg/dl (7-18); Calcium 9.5 mg/dl (8.5-10.1); Carbon Dioxide 29 mmol/L (21-32); Chloride 103 mmol/L (98-107); Creatinine Clr Calc Pharmacy 70.9 ml/min; Est GFR (African American) 82.8 ml/min; Est GFR (Non-African American) 71.4 ml/min; Glucose 113 mg/dl (70-99); Magnesium 2.1 mg/dl (1.8-2.4); Potassium 3.6 mmol/L (3.5-5.1); Sodium 139 mmol/L (136-145)
[2020-10-20 12:28] LABS: Albumin Globulin Ratio 1.2 (0.9-2); Alkaline Phosphatase 81 U/L (45-117); Bilirubin,Total 0.3 mg/dl (0.2-1); Globulin 3.4 gm/dl (2.5-4.0); NT Pro B Type Natriuretic Pept 54 pg/ml (0-900); Total Protein 7.6 gm/dl (6.4-8.2); Troponin I < 0.015 ng/ml (0-0.045)
[2020-10-20] MEDS ORDERED: cefTRIAXone SODIUM 2,000 MG/70 ML BAG IV STA (12:37)
[2020-10-20] MEDS ORDERED: FUROSEMIDE 40 MG/4 ML VIAL IV STA (12:54)
--- NOTE | 2020-10-20 13:32 | Electrocardiogram Report ---
Test Reason : Blood Pressure : / mmHG Vent. Rate : 124 BPM Atrial Rate : 124 BPM P-R Int : 140 ms QRS Dur : 082 ms QT Int : 400 ms P-R-T Axes : 029 -13 036 degrees QTc Int : 574 ms Poor data quality, interpretation may be adversely affected Sinus tachycardia Poor R wave progression, consider anterior MO vs. lead placement vs. LVH Abnormal ECG When compared with ECG of 08-JUN-2020 01:52, Loss of precordial R wave voltage now present Confirmed by Jose Valadez ([id number]) on 10/20/2020 1:31:52 PM Referred By: Confirmed By:Jose Valadez
[2020-10-20 13:56] LABS: Influenza A virus by PCR Negative (Negative); Influenza B virus by PCR Negative (Negative)
--- NOTE | 2020-10-20 14:56 | History & Physical Report ---
Date of Service October 20, 2020 Assessment & Plan (1) UIP (usual interstitial pneumonitis): As per HPI- continue with supportive care and symptom management - Increase her steroids at this time, unfortunately this may also make her hold on to some more fluid - Azithromycin 250mg MWF, may provide some benefit back to the patient - Avoid allergen and triggers - Continue with Albuterol, Symbicort- Limited benefit in this disease process - Continue CellCept 500 BID- if infectious underlying will have to decrease - Continue Bactrim 3x week for prophy - BIPAP/HFNC/NC for dyspnea and O2 - Transition to for relief - she is on chronic oxygen at home 3-5L NC - Pulmonary consult placed (2) Bronchiectasis: As above, cough not predominent at this time - Continue supportive care (3) Immunocompromised: As above with CellCept and Bactrim - PCT pending - Continue Rocephin for 24-48 hours rule out superimposed infection (4) Restless leg syndrome: Continue ropinirole 2 mg PO TID (5) GERD (gastroesophageal reflux disease): witih steroid use, continue with Omeprazole or PPI (6) Depression: Understandably frustrated with her situation- patient is teary today when discussing her inability to exercise to lose weight - Continue with Lexapro 20 mg PO QPM - May benefit for referral to bariatric medicine to assist with weight loss options as well (7) Chronic interstitial lung disease: above (8) Obesity: As above (9) (HFpEF) heart failure with preserved ejection fraction: Related to her increased pulmonary pressures and resistance - Continue to diurese on home medications, following her fluid volume status - 60 MG IV lasix given by EMD, will not add additional IV diurese today (10) BASIM (obstructive sleep apnea): Patient with home CPAP but does not use secondary to her machine not functioning well- was supposed to have orthotic technician out today to look at it, but she is in the EMD - She is tolerating BIPAP comfortably now and feels that she likes this better - As per her Primary optic fibre drawer, continue to evaluate fore mechanics or AVAPS for better support History of Present Illness Primary Care Provider: Horacio Garay PA-C 65 YOF with past medical history of obesity, tracheobronchomalacia, hypercarbic respiratory failure, UIP, bronchiectasis, diastolic dysfunction, RLS, GERD, depression. Patient is currently pending to be added to the lung transplant list, she is in the process of trying to get to an acceptable weight for the transplant, she is followed by Dr. Kruse for pulmonary and Dr. Chaney from [facility]. The patient continues to buck with her dyspnea and fluid volume balance. She was admitted in [place] last month for DIONNE from overdiuresis. For her UIP she was placed on Cellcept 500mg BID by her lung transplant team. She had just finished her 3x week Azithromycin and prednisone was tapered back to 10 mg per day as she did not tolerate decrease to 5 mg/day. She is also on prophylactic therapy with Bactrim 3x/day. The patient also has b een moving houses, with out wearing a dust mask. Her dyspnea started last evening and got worse this morning bringing her to the emergency room, she denies any recent sick contacts, has her COVID vaccine. Her dyspnea is not associated with a productive cough or chest discomfort, at this state any activity increases her dyspnea. In the EMD she had a CXR performed, was given 60mg Solumederol, 0.5mg Ativan, 60 mg of IV lasix, 2GM Rocephin and placed on BiPAP 15/5 for her dyspnea. Patient will be admitted to control her symptoms of dyspnea, she will be admitted to the PCU, continue with Methylpred 60 mg Q6 for 24 hours and then re-adjust dosing, will add back her Azithromycin for inflammation protection, PCT sent and CRP to assist with ruling out underlying superimposed infection. Allergies Allergy/AdvReac Type Severity Reaction Status Date / Time Iodinated Contrast Media Allergy Severe Anaphylaxis Verified 10/20/20 12:37 Cipro Allergy Mild N.V./MOUTH Verified 11/10/19 09:29 SORES ciprofloxacin Allergy Mild N.V./MOUTH Verified 10/20/20 12:37 SORES Home Medications Medication Instructions Recorded Confirmed Type albuterol sulfate [Ventolin HFA] 2 puff INHALATION QID PRN 02/14/18 10/20/20 History budesonide-formoterol HFA 160 2 puffs INH BID #10.2 gm 04/28/19 10/20/20 Rx mcg-4.5 mcg/actuation aerosol inhaler ropinirole 2 mg PO TID 05/12/19 10/20/20 History escitalopram oxalate [Lexapro] 20 mg PO QPM 05/18/19 10/20/20 History Oxygen Home #1 ea 07/02/19 07/21/20 Rx CPAP Machine #1 ea 08/01/19 07/21/20 Rx zolpidem [Ambien] 5 - 10 mg PO HS PRN 11/13/19 10/20/20 History Wheeled Walker #1 ea 02/26/20 07/21/20 Rx lidocaine 4 % topical patch 1 patch TOPICAL DAILY PRN #10 ea 02/26/20 10/20/20 Rx umeclidinium 62.5 mcg/actuation 1 inh INHALATION DAILY #30 ea 03/26/20 10/20/20 Rx blister powder for inhalation omeprazole magnesium 20 mg 20 mg PO DAILY 06/07/20 10/20/20 History tablet,delayed release cholecalciferol (vitamin D3) 25 mcg PO DAILY 06/08/20 10/20/20 History [Vitamin D3] azithromycin 250 mg tablet 250 mg PO MONWEDFRI #12 tab 07/22/20 10/20/20 Rx furosemide 40 mg tablet 40 mg PO BID 30 Days #60 tab 07/22/20 10/20/20 Rx metolazone 2.5 mg tablet 2.5 mg PO .COMPLEX #10 tab 07/22/20 10/20/20 Rx potassium chloride 10 mEq 20 meq PO DAILY #60 cap 07/22/20 10/20/20 Rx capsule,extended release sulfamethoxazole 800 1 tab PO 3XWK #20 tab 07/22/20 10/20/20 Rx mg-trimethoprim 160 mg tablet prednisone 10 mg tablet 15 mg PO DAILY #60 tab 08/16/20 10/20/20 Rx mycophenolate mofetil 250 mg 500 mg PO BID #120 cap 09/20/20 10/20/20 Rx capsule Past Med/Surg History Medical History Anxiety Arthritis Asthma Degenerative disc disease Depression GERD (gastroesophageal reflux disease) Idiopathic pulmonary fibrosis diagnosed 04/2019 Interstitial lung disease On home oxygen therapy BASIM (obstructive sleep apnea) nurse did not note if patient using a device Osteoarthritis Pulmonary nodule Restless leg syndrome Tracheobronchomalacia Surgical History History of ankle surgery Lt - hardware present History of appendectomy History of bladder repair surgery History of breast surgery History of carpal tunnel release of both wrists History of D&C History of esophagogastroduodenoscopy (EGD) History of lung biopsy Right Video Assisted Thoracoscopy with Lung and Lymph Node Biopsy Dr. Schneider 05-12-19 History of spinal surgery lumbar History of surgery Rt biceps repair History of tonsillectomy History of tooth extraction History of total abdominal hysterectomy and bilateral salpingo-oophorectomy Hx of oral surgery (11/21/19) Removal of [address] 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 Feels Safe at Home: Yes Assistive Devices: Oxygen - Continuous Review of Systems Review of Systems: REVIEW OF SYSTEMS: Constitutional: No fever, sweats or chills Eyes: No diplopia, no worsening or blurred vision ENT: normal hearing, no trouble swallowing Respiratory: (+) dyspnea at rest or on exertion, non productive cough, No sputum, no chest pain Cardiovascular: No chest pain, tightness or palpitations Abdomen: No pain, nausea, vomiting, diarrhea or constipation Musculoskeletal: (+) RLS, edema, (-) Tenderness or errythema Neurologic: No weakness, numbness/tingling, or balance problems Psychiatric: (+) anxiety or depression Skin: No rash or itch Physical Exam Physical Exam: PHYSICAL EXAM: General: awake, alert, tachypneic and anxious Head: Normocephalic, atraumatic ENT: PERRL, EOMI, no pharyngeal exudate, mucous membranes moist Neuro: AAO x 3, speech clear and appropriate, strength intact bilaterally 5/5, sensation intact and equal all extremities and dermatomes, no pronator drift Chest: equal rise and fall of the chest, tachynpeic without accessory muscles or abdominal breathing, decreased air movement in the lower lobes, On BIPAP 15/5 40% Cardiac: Regular rate and rhythm, telemetry reviewed- sinus tachycardia no ectopy, skin warm dry, cap refill <3 seconds, peripheral pulses +2 no JVD, no murmur, no JVD, no edema GI: NABS x 4 quadrants, soft, nontender to palpation, no rebound, guarding or tenderness : Spontaneously voiding- purewick, no pain, no CVA tenderness, Extremities: Normal inspection, no peripheral edema or erythema, calfs nontender to palpation Psych: Normal mood and affect Skin: no rash or erythema Results & Data Results & Data ([facility]) Vital Signs (Past 12 Hours) Vital Signs Temp Pulse Pulse Resp BP Pulse Ox 10/20/20 13:14 110 H 27 H 98 10/20/20 12:07 104 H 33 H 99 10/20/20 11:57 96 10/20/20 11:43 96 10/20/20 11:41 96 10/20/20 11:32 36.8 C 105 H 28 H 152/71 H 96 Laboratory Results Abnormal lab results 10/20/20 10/20/20 10/20/20 Range/Units 11:52 11:52 11:52 WBC 12.11 H (4.8-10.8) K/uL Neut # (Auto) 7.69 H (1.4-6.5) K/uL Lymph # (Auto) 3.63 H (1.2-3.4) K/uL Immature Gran # (Auto) 0.07 H (0.00-0.02) K/uL BUN/Creatinine Ratio 20.1 H (10-20) Glucose 113 H (70-99) mg/dl Lactate 2.9 H* (0.4-2.0) mmol/L Diagnostic Findings Chest X-Ray 10/20/20 11:35 XR chest 1V portable HISTORY: 65 years-old Female SOB acute shortness of breath COMPARISON: Chest radiograph 06/08/2020, chest CT 09/29/2019. TECHNIQUE: Portable AP view of the chest FINDINGS: Cardiac silhouette is enlarged. Slightly progressed coarsened reticular interstitial opacities. Surgical suture material the right midlung. No pneumothorax or large pleural effusion. Degenerative changes of the shoulders and spine. IMPRESSION: Slightly progressed coarsened interstitial opacities may reflect worsening chronic interstitial lung disease. Superimposed pulmonary edema or pneumonitis would be difficult to exclude. Electronically signed by: Gurpreet Thurston M.D. 10/20/2020 12:09 PM Medications Administered Discontinued Medications Albuterol (Albut/Ipratrop 3mg/0.5mg Neb 3 Ml Vial) 3 ml INH NOW STA Stop: 10/20/20 11:35 Last Admin: 10/20/20 12:06 Dose: 3 ml Documented by: [id number] Furosemide (Furosemide 40 Mg/4 Ml Vial) 60 mg IV NOW STA Stop: 10/20/20 12:55 Last Admin: 10/20/20 13:38 Dose: 60 mg Documented by: [id number] Lorazepam (Ativan) 0.5 mg in 1 mls @ 1 mls/min IV NOW STA Stop: 10/20/20 11:37 Last Admin: 10/20/20 11:56 Dose: 1 mls/min Documented by: [id number] Sodium Chloride (Nss 1000ml) 500 mls @ 999 mls/hr IV .Q31M ONE Stop: 10/20/20 12:29 Last Admin: 10/20/20 12:21 Dose: 999 mls/hr Documented by: [id number] Ceftriaxone Sodium (Rocephin) 2,000 mg in 70 mls @ 140 mls/hr IV NOW STA Stop: 10/20/20 13:06 Last Admin: 10/20/20 13:38 Dose: 140 mls/hr Documented by: [id number] Methylprednisolone (Methylprednisolone 125 Mg/2 Ml Vial) 60 mg IV NOW STA Stop: 10/20/20 11:35 Last Admin: 10/20/20 11:56 Dose: 60 mg Documented by: [id number] ECG Additional Comments: Sinus tachycardia Poor R wave progression, consider anterior IL vs. lead placement vs. LVH Abnormal ECG When compared with ECG of 08-JUN-2020 01:52, Loss of precordial R wave voltage now present Code Status & VTE Plan Code Status CODE: Limited- NO CPR/defibrilation VTE: SCD's, Lovenox VTE Prophylaxis Plan VTE Prophylaxis will be ordered: Yes Supervising Physician Co-Signing Physician Notes Attending addendum: I have physically seen this patient, have supervised the ISRA's activities, and agree with the H&P unless as otherwise noted. Assessment and Plan: Usual interstitial pneumonitis/chronic interstitial lung disease/bronchiectasis/chronically immunocompromise- Symptoms were likely aggravated by exposure to dust and irritants with her recent move to a new location Azithromycin 25 mg p.o. Sunday, Sunday, Sunday Duonebs every 4 hours while awake and every 2 hours when necessary. Continue CellCept 5 mg p.o. twice daily Continue albuterol and Symbicort continue Bactrim DS 3 times per week for prophylaxis Continue BiPAP with current settings, and taper to nasal cannula O2 if symptoms improve. Chronically on nasal cannula 3 to 5 L at home Consult pulmonology Remaining orders and notations as noted PG Care Time/CCT Total # of Minutes Spent Total Time Spent with Patient: Total time spent is greater than 50% in coordination of care (as documented) at patient's floor/unit and/or counseling patient: Coding Level of Care Code 89528 Initial Inpt Care Lvl 3 Diagnoses UIP (usual interstitial pneumonitis) J84.112 Bronchiectasis J47.9 Bronchiectasis type: uncomplicated Immunocompromised D89.9 Restless leg syndrome G25.81 GERD (gastroesophageal reflux disease) K21.9 Esophagitis presence: without esophagitis Depression F32.9 Active/Remission status: currently active Depression Type: major depressive disorder Major depression episode severity: unspecified Major depression recurrence: unspecified whether recurrent Chronic interstitial lung disease J84.9 Obesity E66.01; Z68.39 Body mass index: BMI 39.0-39.9 Obesity classification: adult class 2 (BMI 35 - 39.9) Obesity type: unspecified obesity type Serious obesity comorbidity presence: with serious comorbidity (HFpEF) heart failure with preserved ejection fraction I50.33 Heart failure chronicity: acute on chronic BASIM (obstructive sleep apnea) G47.33 (1) (HFpEF) heart failure with preserved ejection fraction Heart failure chronicity: acute on chronic Qualified Code(s): I50.33 - Acute on chronic diastolic (congestive) heart failure (2) Depression Active/Remission status: currently active Depression Type: major depressive disorder Major depression episode severity: unspecified Major depression recurrence: unspecified whether recurrent Qualified Code(s): F32.9 - Major depressive disorder, single episode, unspecified (3) Bronchiectasis Bronchiectasis type: uncomplicated Qualified Code(s): J47.9 - Bronchiectasis, uncomplicated (4) GERD (gastroesophageal reflux disease) Esophagitis presence: without esophagitis Qualified Code(s): K21.9 - Gastro- esophageal reflux disease without esophagitis (5) Obesity Body mass index: BMI 39.0-39.9 Obesity classification: adult class 2 (BMI 35 - 39.9) Obesity type: unspecified obesity type Serious obesity comorbidity presence: with serious comorbidity Qualified Code(s): E66.01 - Morbid (severe) obesity due to excess calories; Z68.39 - Body mass index [BMI] 39.0-39.9, adult
[2020-10-20] MEDS ORDERED: NON-FORMULARY MEDICATION (Lidocaine 4 % adhesive patch,medicated) TOP PRN (15:44)
[2020-10-20] MEDS ORDERED: ALBUTEROL HFA 8 GM INHALER INH PRN (15:44)
[2020-10-20] MEDS ORDERED: DOCUSATE SODIUM/SENNA 50/8.6MG TAB PO PRN (15:44)
[2020-10-20] MEDS ORDERED: ONDANSETRON INJ 2 MG/ML 2 ML VIAL IV PRN (15:44)
--- NOTE | 2020-10-20 17:05 | Pulmonary Consultation ---
Date of Consultation October 20, 2020 Assessment & Plan (1) Acute hypoxemic respiratory failure: 65-year-old female with a past medical history of interstitial lung disease thought to be a combination of NSIP and UIP presenting to the hospital due to an ILD flare. ILD flare: Patient is requiring 6 L of oxygen which is more than her baseline and is feeling very short of breath. Continue with Solu-Medrol 60 mg every 6 hours. I doubt that there is a bacterial infection at this time, but Rocephin can be continued empirically for 48 hours. She is on azithromycin 250 mg every Sunday, Sunday and Sunday. Opportunistic infection such as PJP seems less likely at this time given that she is on a small dose of prednisone. She does not have evidence of lymphopenia on peripheral blood smear. She is also chronically on Bactrim. She appears euvolemic at present. I do not think that IV diuretics need to be instituted at this time. She reports that she had a right heart catheterization in [facility] and was told that she had increased pressures in her right heart. Depending on the right heart catheterization results, she may be a candidate for therapies to help improve her pulmonary artery pressures. This can be pursued further as an outpatient. Prior echocardiogram from 07/11/2019 was a poor study, but noted normal right ventricular systolic function. Continue pantoprazole to prevent reflux. Hypoxia: Continue to wean oxygen to maintain saturations of approximately 92%. I suspect that she would be a good candidate for transtracheal oxygen via transtracheal catheter which would help decrease her work of breathing and likely reduce the amount of supplemental oxygen she needs. This can be pursued further as an outpatient. She will need this done in a center with interventional pulmonology available. Thank you for the consultation. Pulmonary will continue to follow along with you. (2) (HFpEF) heart failure with preserved ejection fraction: Heart failure chronicity: acute on chronic Qualified Code(s): I50.33 - Acute on chronic diastolic (congestive) heart failure (3) Chronic interstitial lung disease: History of Present Illness Attending Physician: Fredo Hahn MD History of Present Illness 65-year-old female with a past medical history of BASIM, diastolic CHF, chronic hypoxemic respiratory failure and interstitial lung disease presenting to the hospital due to increasing shortness of breath. Patient notes that she has been moving from her apartment to a new apartment and in the process of moving has become more short of breath. Yesterday, she noted increasing symptoms and decided to come to the hospital today. She is normally on 5 L of oxygen. She is currently being evaluated [facility] for possible lung transplant, but this has been on hold due to her weight issues. She notes that they are asking that she lose another 20 pounds of weight. She is chronically on approximately 5 to 10 mg of prednisone and CellCept 500 mg twice daily. She has tried Ofev in the past but was intolerant of Ofev due to side effects. She endorses a chronic cough that is mostly dry. She has chronic breathlessness and notes that she has trouble speaking full sentences and drinking water due to shortness of breath. She is very anxious. She notes that her appetite has been poor as of late due to shortness of breath. She is on Symbicort and Incruse Ellipta at home. Allergies Allergy/AdvReac Type Severity Reaction Status Date / Time Iodinated Contrast Media Allergy Severe Anaphylaxis Verified 10/20/20 12:37 Cipro Allergy Mild N.V./MOUTH Verified 11/10/19 09:29 SORES ciprofloxacin Allergy Mild N.V./MOUTH Verified 10/20/20 12:37 SORES Home Medications Medication Instructions Recorded Confirmed Type albuterol sulfate [Ventolin HFA] 2 puff INHALATION QID PRN 02/14/18 10/20/20 History budesonide-formoterol HFA 160 2 puffs INH BID #10.2 gm 04/28/19 10/20/20 Rx mcg-4.5 mcg/actuation aerosol inhaler ropinirole 2 mg PO TID 05/12/19 10/20/20 History escitalopram oxalate [Lexapro] 20 mg PO QPM 05/18/19 10/20/20 History Oxygen Home #1 ea 07/02/19 07/21/20 Rx CPAP Machine #1 ea 08/01/19 07/21/20 Rx zolpidem [Ambien] 5 - 10 mg PO HS PRN 11/13/19 10/20/20 History Wheeled Walker #1 ea 02/26/20 07/21/20 Rx lidocaine 4 % topical patch 1 patch TOPICAL DAILY PRN #10 ea 02/26/20 10/20/20 Rx umeclidinium 62.5 mcg/actuation 1 inh INHALATION DAILY #30 ea 03/26/20 10/20/20 Rx blister powder for inhalation omeprazole magnesium 20 mg 20 mg PO DAILY 06/07/20 10/20/20 History tablet,delayed release cholecalciferol (vitamin D3) 25 mcg PO DAILY 06/08/20 10/20/20 History [Vitamin D3] azithromycin 250 mg tablet 250 mg PO MONWEDFRI #12 tab 07/22/20 10/20/20 Rx furosemide 40 mg tablet 40 mg PO BID 30 Days #60 tab 07/22/20 10/20/20 Rx metolazone 2.5 mg tablet 2.5 mg PO .COMPLEX #10 tab 07/22/20 10/20/20 Rx potassium chloride 10 mEq 20 meq PO DAILY #60 cap 07/22/20 10/20/20 Rx capsule,extended release sulfamethoxazole 800 1 tab PO 3XWK #20 tab 07/22/20 10/20/20 Rx mg-trimethoprim 160 mg tablet prednisone 10 mg tablet 15 mg PO DAILY #60 tab 08/16/20 10/20/20 Rx mycophenolate mofetil 250 mg 500 mg PO BID #120 cap 09/20/20 10/20/20 Rx capsule Patient History Medical History Anxiety Arthritis Asthma Degenerative disc disease Depression GERD (gastroesophageal reflux disease) Idiopathic pulmonary fibrosis diagnosed 04/2019 Interstitial lung disease On home oxygen therapy BASIM (obstructive sleep apnea) nurse did not note if patient using a device Osteoarthritis Pulmonary nodule Restless leg syndrome Tracheobronchomalacia Surgical History History of ankle surgery Lt - hardware present History of appendectomy History of bladder repair surgery History of breast surgery History of carpal tunnel release of both wrists History of D&C History of esophagogastroduodenoscopy (EGD) History of lung biopsy Right Video Assisted Thoracoscopy with Lung and Lymph Node Biopsy Dr. Schneider 05-12-19 History of spinal surgery lumbar History of surgery Rt biceps repair History of tonsillectomy History of tooth extraction History of total abdominal hysterectomy and bilateral salpingo-oophorectomy Hx of oral surgery (11/21/19) Removal of [address] 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 Feels Safe at Home: Yes Assistive Devices: Glasses and Oxygen - at Night Review of Systems Review of Systems: All systems reviewed & are unremarkable except as noted in HPI & below Physical Exam Constitutional: + ill appearing Eyes: PERRL, conjunctivae normal, anicteric sclerae Neck: normal visual inspection Respiratory: + cough and + tachypneic; + not able to speak in complete sentence Auscultation: + crackles Gastrointestinal (Abdomen): normal bowel sounds, soft, nontender, no hepatosplenomegaly Musculoskeletal: no cyanosis or clubbing, extremities motor strength 5/5 Skin: no rashes, warm and dry Neurologic: PERRL, EOMI, accommodation nl, no face palsy, no dysarthria Psychiatric: A+Ox3, euthymic affect Results & Data Results & Data ([facility]) Vital Signs (Past 12 Hours) Vital Signs Temp Pulse Pulse Resp BP BP Pulse Ox 10/20/20 16:00 98.6 F 112 H 26 H 127/64 96 10/20/20 15:03 121 H 26 H 95 10/20/20 15:00 122 H 31 H 96 10/20/20 14:50 122 H 28 H 96 10/20/20 14:40 120 H 29 H 96 10/20/20 13:35 124 H 28 H 143/68 H 98 10/20/20 13:14 110 H 27 H 98 10/20/20 12:07 104 H 33 H 99 10/20/20 11:57 96 10/20/20 11:43 96 10/20/20 11:41 96 10/20/20 11:32 98.2 F 105 H 28 H 152/71 H 96 Chest x-ray reviewed today which demonstrates bilateral coarse interstitial markings which have progressed since prior imaging. PG Care Time/CCT Total # of Minutes Spent Total Time Spent with Patient: Total time spent is greater than 50% in coordination of care (as documented) at patient's floor/unit and/or counseling patient: Coding Level of Care Code 79876 Initial Inpt Care Lvl 3 Diagnoses Acute hypoxemic respiratory failure J96.01 (HFpEF) heart failure with preserved ejection fraction I50.33 Heart failure chronicity: acute on chronic Chronic interstitial lung disease J84.9
[2020-10-20] MEDS: rOPINIRole HCL 1 MG TABLET PO SCH ×2 (17:13→19:39)
[2020-10-20] MEDS: ENOXAPARIN INJ 40 MG/0.4 ML SYR SQ SCH (17:13)
[2020-10-20] MEDS: FLUTICASONE/VILANTEROL 200/25MCG 14 PUFFS/INHALER INH SCH (17:14)
[2020-10-20] MEDS: SULFAMETHOXAZOLE/TRIMETHOPRIM DS 800/160MG TAB PO SCH (17:15)
[2020-10-20] MEDS ORDERED: methylPREDNISolone 125 MG/2 ML VIAL IV SCH (18:00)
[2020-10-20] MEDS: LIDOCAINE 5% 1 PATCH TD SCH (18:06)
[2020-10-20] MEDS: AZITHROMYCIN 250 MG TAB PO SCH (18:07)
[2020-10-20] MEDS: methylPREDNISolone 60 MG in SYRINGE 0 ML IV SCH (18:07)
[2020-10-20] MEDS: ACETAMINOPHEN 325 MG TAB PO PRN (18:10)
[2020-10-20] MEDS: ESCITALOPRAM OXALATE 20 MG TAB PO SCH (19:39)
[2020-10-20] MEDS: MYCOPHENOLATE MOFETIL 250 MG CAP PO SCH (19:39)
[2020-10-20] MEDS: FUROSEMIDE 40 MG TAB PO SCH (19:39)
[2020-10-20] MEDS ORDERED: MELATONIN 3 MG TAB PO PRN (20:14)
[2020-10-21] MEDS: methylPREDNISolone 60 MG in SYRINGE 0 ML IV SCH ×3 (00:28→12:59)
[2020-10-21] MEDS ORDERED: metOLazone 2.5 MG TABLET PO SCH (08:30)
[2020-10-21] MEDS: rOPINIRole HCL 1 MG TABLET PO SCH ×3 (08:43→20:35)
[2020-10-21] MEDS: POTASSIUM CHLORIDE CRTAB 20 MEQ TABCR PO SCH ×3 (08:43→20:37)
[2020-10-21] MEDS: CHOLECALCIFEROL 1,000 UNITS 25 MCG TAB PO SCH (08:44)
[2020-10-21] MEDS: MYCOPHENOLATE MOFETIL 250 MG CAP PO SCH ×2 (08:44→20:35)
[2020-10-21] MEDS: FUROSEMIDE 40 MG TAB PO SCH ×2 (08:44→20:35)
[2020-10-21] MEDS: PANTOprazole 40 MG TAB PO SCH (08:44)
[2020-10-21] MEDS: LIDOCAINE 5% 1 PATCH TD SCH (08:45)
[2020-10-21] MEDS: FLUTICASONE/VILANTEROL 200/25MCG 14 PUFFS/INHALER INH SCH (08:45)
[2020-10-21] MEDS: ACETAMINOPHEN 325 MG TAB PO PRN (08:49)
[2020-10-21 10:33] LABS: BUN Creatinine Ratio 23.1 (10-20); Calcium 9.4 mg/dl (8.5-10.1); Creatinine Clr Calc Pharmacy 51.9 ml/min; Est GFR (African American) 56.8 ml/min; Potassium 3.3 mmol/L (3.5-5.1)
[2020-10-21 10:44] LABS: Thyroid Stimulating Hormone 0.256 uIu/ml (0.300-4.500)
[2020-10-21 10:57] LABS: T4 Free Thyroxine 0.75 ng/dl (0.8-1.6)
--- NOTE | 2020-10-21 12:18 | Billing Data ---
Date of Service October 21, 2020 Coding Level of Care Code 71913 Initial Inpt Care Lvl 3
[2020-10-21] MEDS: cefTRIAXone SODIUM 2,000 MG in DEXTROSE 5% 50 ML IV SCH (13:00)
--- NOTE | 2020-10-21 13:33 | Hospitalist Progress Note ---
Date of Service October 21, 2020 Assessment & Plan (1) UIP (usual interstitial pneumonitis): UIP/ILD exacerbation. s/p IV steroids overnight - with improved pulmonary symptoms. Appreciate pulmonary consultation - to change IV solumedrol to PO prednisone in am. No evidence of any complicating bacterial pneumonia or COVID at this time. Procal is 0. Remains on rocephin IV while awaiting blood cultures. If negative at 48 hours will stop rocephin. 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 Hold off on IV lasix today. Does not look overtly volume overload and Cr cathie modestly overnight. Echo noted -- unfortunately poor windows, but by history has pulmonary HTN and right heart CHF. (11) Chronic right-sided congestive heart failure: 2nd ILD/UIP (12) BASIM (obstructive sleep apnea): Cont NIPPV (13) Constipation: KUB x-ray shows such this is likely cause of her abd fullness senna 2 tabs daily miralax BID (14) Abnormal thyroid function test: TSH low FT4 low this suggests central hypothyroidism would repeat TFTs in 3-4 weeks if this pattern holds would need pituitary w/u would not replace at this time (15) DVT prophylaxis: lovenox Admission and Anticipated Discharge Date Admission Date: October 20, 2020 Subjective pt states her breathing is improved today less dyspnea cough persists - dry - but slightly improved still cannot walk much w/o severe PICKENS chest tightness - with activity; not unusual to have this she states also c/o abdominal fullness last echo - 1 year ago? she has been losing weight recently not gaining going through a divorce under a lot of stress between that and her overall health Review of Systems Constitutional: no fever Respiratory: no hemoptysis, no sputum production and no wheezing Cardiovascular: no chest pain and no orthopnea Gastrointestinal: + bloating; no abdominal pain, no nausea and no vomiting Physical Exam Constitutional: + obese; no acute distress and no altered mental status ENMT: external ear and nose normal, oropharynx normal (no thrush seen) Respiratory: no respiratory distress Auscultation: + rales (fine, dry, 1/3- 1/2 way up back bilaterally; no wheeze) Cardiovascular: Rate/Rhythm: regular rhythm and + tachycardic Heart Sounds: normal S1, normal S2 and + murmur (1/6 systolic murmur LSB) Vessels: + JVD, posterior tibial pulses present and dorsalis pedis pulses present Gastrointestinal (Abdomen): Inspection/Auscultation: + abdomen distended and normal bowel sounds Percussion/Palpation: abdomen nontender, no guarding and no hepatosplenomegaly Skin: no rashes, warm and dry Psychiatric: Orientation: alert and oriented x 3 Affect: + tearful affect Results & Data Results & [facility] ([facility]) Vital Signs (Past 12 Hours) Vital Signs Temp Pulse Pulse Resp BP Pulse Ox 10/21/20 11:00 36.9 C 105 H 20 108/57 L 98 10/21/20 08:00 37.0 C 104 H 16 133/74 96 10/21/20 07:56 102 H 10/21/20 04:13 36.6 C 95 H 18 121/74 94 Cr 1.1 echo reviewed - poor windows, cannot assess right heart; preserved LV function KUB - my reading - COPIOUS stool throughout the majority of the colon; no air- fluid levels PG Care Time/CCT Total # of Minutes Spent Total Time Spent with Patient: Total time spent is greater than 50% in coordination of care (as documented) at patient's floor/unit and/or counseling patient: Coding Level of Care Code 04421 Subseq Hosp Care Lvl 3 Diagnoses UIP (usual interstitial pneumonitis) J84.112 Chronic respiratory failure with hypoxia J96.11 Chronic interstitial lung disease J84.9 Bronchiectasis J47.9 Bronchiectasis type: uncomplicated Immunocompromised D89.9 Restless leg syndrome G25.81 GERD (gastroesophageal reflux disease) K21.9 Esophagitis presence: without esophagitis Depression F32.9 Active/Remission status: currently active Depression Type: major depressive disorder Major depression episode severity: unspecified Major depression recurrence: unspecified whether recurrent Obesity E66.01; Z68.39 Body mass index: BMI 39.0-39.9 Obesity classification: adult class 2 (BMI 35 - 39.9) Obesity type: unspecified obesity type Serious obesity comorbidity presence: with serious comorbidity (HFpEF) heart failure with preserved ejection fraction I50.33 Heart failure chronicity: acute on chronic Chronic right-sided congestive heart failure I50.812 BASIM (obstructive sleep apnea) G47.33 Constipation K59.00 Abnormal thyroid function test R94.6 DVT prophylaxis Z29.9 (1) (HFpEF) heart failure with preserved ejection fraction Heart failure chronicity: acute on chronic Qualified Code(s): I50.33 - Acute on chronic diastolic (congestive) heart failure (2) Depression Active/Remission status: currently active Depression Type: major depressive disorder Major depression episode severity: unspecified Major depression recurrence: unspecified whether recurrent Qualified Code(s): F32.9 - Major depressive disorder, single episode, unspecified (3) Bronchiectasis Bronchiectasis type: uncomplicated Qualified Code(s): J47.9 - Bronchiectasis, uncomplicated (4) GERD (gastroesophageal reflux disease) Esophagitis presence: without esophagitis Qualified Code(s): K21.9 - Gastro-esophageal reflux disease without esophagitis (5) Obesity Body mass index: BMI 39.0-39.9 Obesity classification: adult class 2 (BMI 35 - 39.9) Obesity type: unspecified obesity type Serious obesity comorbidity presence: with serious comorbidity Qualified Code(s): E66.01 - Morbid (severe) obesity due to excess calories; Z68.39 - Body mass index [BMI] 39.0-39.9, adult
--- NOTE | 2020-10-21 15:20 | XCELERA ---
[id number] \\[id number]
--- NOTE | 2020-10-21 16:25 | Pulmonology Progress Note ---
Date of Service October 21, 2020 Assessment & Plan (1) Acute hypoxemic respiratory failure: 65-year-old female with a past medical history of interstitial lung disease thought to be a combination of NSIP and UIP presenting to the hospital due to an ILD flare. ILD flare: Her symptoms are substantially improved today. I will change her to 40 mg of prednisone starting tomorrow. She may be ready for discharge tomorrow. Follow-up echocardiogram results. Will obtain right heart catheterization results from [facility]. Insomnia: I am going to order for melatonin to be given at 7:00 today. I told her that she should not use Ambien on a daily basis as it can be addictive and cause physiologic changes in the brain. Good sleep hygiene was encouraged. I encouraged cognitive behavioral therapy. She used to follow-up with her therapist as an outpatient. Hypoxia: Continue to wean oxygen to maintain saturations of approximately 92%. I suspect that she would be a good candidate for transtracheal oxygen via transtracheal catheter which would help decrease her work of breathing and likely reduce the amount of supplemental oxygen she needs. This can be pursued further as an outpatient. She will need this done in a center with interventional pulmonology available. Thank you for the consultation. Pulmonary will continue to follow along with you. (2) (HFpEF) heart failure with preserved ejection fraction: Heart failure chronicity: acute on chronic Qualified Code(s): I50.33 - Acute on chronic diastolic (congestive) heart failure (3) Chronic interstitial lung disease: (4) Insomnia: Admission and Anticipated Discharge Date Admission Date: October 20, 2020 Subjective Patient seen and examined at bedside. She is doing much better than yesterday. She noted some insomnia and she was not given her Ambien dose. She takes Ambien every night. She was given melatonin at 10:00 yesterday. She notes that she was tossing and turning. She normally uses her phone prior to sleep. She still has a mild cough that is nonproductive. Her shortness of breath is greatly improved. Review of Systems Review of Systems: All systems reviewed & are unremarkable except as noted in HPI & below Physical Exam Constitutional: + ill appearing Eyes: PERRL, conjunctivae normal, anicteric sclerae Neck: normal visual inspection Respiratory: able to speak in complete sentences; not tachypneic Auscultation: + crackles Gastrointestinal (Abdomen): normal bowel sounds, soft, nontender, no hepatosplenomegaly Musculoskeletal: no cyanosis or clubbing, extremities motor strength 5/5 Skin: no rashes, warm and dry Neurologic: PERRL, EOMI, accommodation nl, no face palsy, no dysarthria Psychiatric: A+Ox3, euthymic affect Results & Data Results & Data ([facility]) Vital Signs (Past 12 Hours) Vital Signs Temp Pulse Pulse Resp BP Pulse Ox Pulse Ox 10/21/20 15:44 98 10/21/20 15:00 100 H 10/21/20 11:00 98.4 F 105 H 20 108/57 L 98 10/21/20 08:00 98.6 F 104 H 16 133/74 96 10/21/20 07:56 102 H vital signs, labs and imaging reviewed. PG Care Time/CCT Total # of Minutes Spent Total Time Spent with Patient: Total time spent is greater than 50% in coordination of care (as documented) at patient's floor/unit and/or counseling patient: Coding Level of Care Code 36103 Subseq Hosp Care Lvl 3 Diagnoses Acute hypoxemic respiratory failure J96.01 (HFpEF) heart failure with preserved ejection fraction I50.33 Heart failure chronicity: acute on chronic Chronic interstitial lung disease J84.9 Insomnia G47.00
[2020-10-21] MEDS ORDERED: MELATONIN 3 MG TAB PO PRN (16:39)
[2020-10-21] MEDS: ENOXAPARIN INJ 40 MG/0.4 ML SYR SQ SCH (16:43)
--- NOTE | 2020-10-21 18:04 | XRay Report ---
KUB HISTORY: Abdominal distension, fullness; assess stool loading COMPARISON: Abdomen and pelvis CT 06/08/2020. FINDINGS: The bowel gas pattern is unremarkable. There are no dilated loops of small bowel to suggest an obstruction. No renal calculi. No ureteral calculi. Calcifications in the deep pelvis likely rep resent phleboliths. No pneumoperitoneum or pneumatosis. IMPRESSION: Unremarkable bowel gas pattern. No evidence for bowel obstruction. ACT 112: Negative or not required by law. Electronically signed by: Noble Vang M.D. 10/21/2020 6:03 PM
[2020-10-21] MEDS: SENNA 8.6 MG TAB PO SCH (20:33)
[2020-10-21] MEDS: POLYETHYLENE (MIRALAX) 17 GM PACK PO SCH (20:33)
[2020-10-21] MEDS: ESCITALOPRAM OXALATE 20 MG TAB PO SCH (20:35)
[2020-10-22 07:44] LABS: BUN Creatinine Ratio 27.6 (10-20); Calcium 9.3 mg/dl (8.5-10.1); Creatinine Clr Calc Pharmacy 57.4 ml/min; Est GFR (African American) 64.8 ml/min; Est GFR (Non-African American) 55.9 ml/min; Potassium 3.7 mmol/L (3.5-5.1)
[2020-10-22] MEDS: CHOLECALCIFEROL 1,000 UNITS 25 MCG TAB PO SCH (08:40)
[2020-10-22] MEDS: FUROSEMIDE 40 MG TAB PO SCH (08:40)
[2020-10-22] MEDS: POTASSIUM CHLORIDE CRTAB 20 MEQ TABCR PO SCH (08:40)
[2020-10-22] MEDS: PANTOprazole 40 MG TAB PO SCH (08:41)
[2020-10-22] MEDS: rOPINIRole HCL 1 MG TABLET PO SCH ×2 (08:41→14:37)
[2020-10-22] MEDS: MYCOPHENOLATE MOFETIL 250 MG CAP PO SCH (08:42)
[2020-10-22] MEDS: POLYETHYLENE (MIRALAX) 17 GM PACK PO SCH (08:43)
[2020-10-22] MEDS: AZITHROMYCIN 250 MG TAB PO SCH (08:43)
[2020-10-22] MEDS: LIDOCAINE 5% 1 PATCH TD SCH (08:43)
[2020-10-22] MEDS: SULFAMETHOXAZOLE/TRIMETHOPRIM DS 800/160MG TAB PO SCH (08:44)
[2020-10-22] MEDS: FLUTICASONE/VILANTEROL 200/25MCG 14 PUFFS/INHALER INH SCH (08:44)
[2020-10-22] MEDS: SENNA 8.6 MG TAB PO SCH (08:44)
[2020-10-22] MEDS ORDERED: predniSONE 20 MG TAB PO SCH (09:00)
--- NOTE | 2020-10-22 11:10 | Pulmonology Progress Note ---
Date of Service October 22, 2020 Assessment & Plan (1) Acute hypoxemic respiratory failure: 65-year-old female with a past medical history of interstitial lung disease thought to be a combination of NSIP and UIP presenting to the hospital due to an ILD flare. ILD flare: She is close to her baseline at this time. Taper prednisone over 10 days. Echo results reviewed. Technically difficult study. LVEF of 60 to 65%. Unable to assess pulmonary artery pressures. Will obtain right heart catheterization results from [facility]. She can continue on her home dose of mycophenolate. This can be uptitrated as an outpatient given the frequency of her ILD exacerbations. Continue with Bactrim prophylaxis especially in light of the increased dose of prednisone. I do not see a role for chronic azithromycin at this time. Will defer to her outpatient supervisor assembly. Insomnia: Proper sleep hygiene encouraged. Discouraged the use of daily Ambien. Hypoxia: Continue to wean oxygen to maintain saturations of approximately 92%. I suspect that she would be a good candidate for transtracheal oxygen via transtracheal catheter which would help decrease her work of breathing and likely reduce the amount of supplemental oxygen she needs. This can be pursued further as an outpatient. She will need this done in a center with interventional pulmonology available. Stable for discharge. Pulmonary will sign off. Please call with questions. Thank you. (2) (HFpEF) heart failure with preserved ejection fraction: Heart failure chronicity: acute on chronic Qualified Code(s): I50.33 - Acute on chronic diastolic (congestive) heart failure (3) Chronic interstitial lung disease: (4) Insomnia: Admission and Anticipated Discharge Date Admission Date: October 20, 2020 Subjective Patient continues to have trouble falling asleep at night. She feels that melatonin did not help. Her breathing does feel better today. She is currently on 5 L of oxygen which is her baseline. She denies any chest pain. She still has a mild cough is nonproductive. No nausea or vomiting. Otherwise, review of systems negative unless noted elsewhere. Physical Exam Constitutional: WD/WN, vitals as above Eyes: PERRL, conjunctivae normal, anicteric sclerae Neck: normal visual inspection Respiratory: able to speak in complete sentences; not tachypneic Auscultation: + crackles Gastrointestinal (Abdomen): normal bowel sounds, soft, nontender, no hepatosplenomegaly Musculoskeletal: no cyanosis or clubbing, extremities motor strength 5/5 Skin: no rashes, warm and dry Neurologic: PERRL, EOMI, accommodation nl, no face palsy, no dysarthria Psychiatric: A+Ox3, euthymic affect Results & Data Results & Data ([facility]) Vital Signs (Past 12 Hours) Vital Signs Temp Pulse Pulse Resp BP Pulse Ox 10/22/20 08:00 94 H 10/22/20 07:25 97.7 F 98 H 20 122/74 95 10/22/20 03:53 97.9 F 96 H 20 126/84 97 10/21/20 23:20 98.1 F 102 H 19 122/71 97 PG Care Time/CCT Total # of Minutes Spent Total Time Spent with Patient: Total time spent is greater than 50% in coordination of care (as documented) at patient's floor/unit and/or counseling patient: Coding Level of Care Code 17829 Subseq Hosp Care Lvl 2 Diagnoses Acute hypoxemic respiratory failure J96.01 (HFpEF) heart failure with preserved ejection fraction I50.33 Heart failure chronicity: acute on chronic Chronic interstitial lung disease J84.9 Insomnia G47.00
[2020-10-22] MEDS: cefTRIAXone SODIUM 2,000 MG in DEXTROSE 5% 50 ML IV SCH (12:19)
[2020-10-22] MEDS ORDERED: busPIRone 7.5 MG TAB PO STA (15:18)
[2020-10-22] MEDS: ENOXAPARIN INJ 40 MG/0.4 ML SYR SQ SCH (18:35)
--- NOTE | 2020-10-22 18:45 | Discharge Summary ---
Date of Service date of admission - October 20, 2020 date of discharge - October 22, 2020 Admission HPI Per Admitting Provider 65 YOF with past medical history of obesity, tracheobronchomalacia, hypercarbic respiratory failure, UIP, bronchiectasis, diastolic dysfunction, RLS, GERD, depression. Patient is currently pending to be added to the lung transplant list, she is in the process of trying to get to an acceptable weight for the transplant, she is followed by Dr. Kruse for pulmonary and Dr. Chaney from [place] lung transplant. The patient continues to buck with her dyspnea and fluid volume balance. She was admitted in [place] last month for DIONNE from overdiuresis. For her UIP she was placed on Cellcept 500mg BID by her lung transplant team. She had just finished her 3x week Azithromycin and prednisone was tapered back to 10 mg per day as she did not tolerate decrease to 5 mg/day. She is also on prophylactic therapy with Bactrim 3x/day. The patient also has been moving houses, with out wearing a dust mask. Her dyspnea started last evening and got worse this morning bringing her to the emergency room, she denies any recent sick contacts, has her COVID vaccine. Her dyspnea is not associated with a productive cough or chest discomfort, at this state any activ ity increases her dyspnea. In the EMD she had a CXR performed, was given 60mg Solumederol, 0.5mg Ativan, 60 mg of IV lasix, 2GM Rocephin and placed on BiPAP 15/5 for her dyspnea. Patient will be admitted to control her symptoms of dyspnea, she will be admitted to the PCU, continue with Methylpred 60 mg Q6 for 24 hours and then re-adjust dosing, will add back her Azithromycin for inflammation protection, PCT sent and CRP to assist with ruling out underlying superimposed infection. Principal Diagnosis 1. acute/chronic hypoxic respiratory failure 2. UIP / ILD exacerbation Discharge Exam Constitutional + obese; no acute distress and no altered mental status ENMT external ear and nose normal, oropharynx normal (no thrush seen) Respiratory no respiratory distress Auscultation: + rales (fine, dry, 1/3-1/[address] up back b/l - no change from prior exam) Cardiovascular Rate/Rhythm: regular rhythm and + tachycardic Heart Sounds: normal S1, normal S2 and + murmur (1/6 systolic murmur LSB) Vessels: + JVD, posterior tibial pulses present and dorsalis pedis pulses present Gastrointestinal (Abdomen) Inspection/Auscultation: + abdomen distended (Mild) and normal bowel sounds Percussion/Palpation: abdomen nontender, no guarding and no hepatosplenomegaly Skin no rashes, warm and dry Psychiatric Orientation: alert and oriented x 3 Affect: + tearful affect Discharge Data Allergies Allergy/AdvReac Type Severity Reaction Status Date / Time Iodinated Contrast Media Allergy Severe Anaphylaxis Verified 10/20/20 12:37 Cipro Allergy Mild N.V./MOUTH Verified 11/10/19 09:29 SORES ciprofloxacin Allergy Mild N.V./MOUTH Verified 10/20/20 12:37 SORES Consultations Pulmonology - Alan Chaney MD Ordered Studies Chest X-Ray 10/20/20 11:35 XR chest 1V portable HISTORY: 65 years-old Female SOB acute shortness of breath COMPARISON: Chest radiograph 06/08/2020, chest CT 09/29/2019. TECHNIQUE: Portable AP view of the chest FINDINGS: Cardiac silhouette is enlarged. Slightly progressed coarsened reticular interstitial opacities. Surgical suture material the right midlung. No pneumothorax or large pleural effusion. Degenerative changes of the shoulders and spine. IMPRESSION: Slightly progressed coarsened interstitial opacities may reflect worsening chronic interstitial lung disease. Superimposed pulmonary edema or pneumonitis would be difficult to exclude. ACT 112: Negative or not required by law. The above report was generated using voice recognition software. It may contain grammatical, syntax or spelling errors. Electronically signed by: Gurpreet Thurston M.D. 10/20/2020 12:09 PM KUB X-Ray 10/21/20 13:31 KUB HISTORY: Abdominal distension, fullness; assess stool loading COMPARISON: Abdomen and pelvis CT 06/08/2020. FINDINGS: The bowel gas pattern is unremarkable. There are no dilated loops of small bowel to suggest an obstruction. No renal calculi. No ureteral calculi. Calcifications in the deep pelvis likely represent phleboliths. No pneumoperitoneum or pneumatosis. IMPRESSION: Unremarkable bowel gas pattern. No evidence for bowel obstruction. ACT 112: Negative or not required by law. Electronically signed by: Noble Vang M.D. 10/21/2020 6:03 PM echocardiogram - * technically limited study * EF 60-65% * RV borderline dilated with normal systolic function * unable to assess pulmonary pressures Hospital Course (1) UIP (usual interstitial pneumonitis): UIP/ILD exacerbation. s/p IV steroids with improved pulmonary symptoms. [facility] pulmonary consultation obtained who provided jones recommendations for her care. She had no evidence of any complicating bacterial pneumonia or COVID-19 infection. Procalcitonin was 0. She received empiric IV rocephin and this was stopped at 48 hours since blood cultures remained negative for septicemia/bacteremia. At discharge she will complete a 10-day taper of prednisone starting with 40mg/day, and gradually reducing until she gets to her usual dose of 10mg/day. Continue Azithromycin 250mg MWF. Continue with Albuterol, Symbicort. Continue CellCept 500 BID. Continue Bactrim 3x week. She will continue her usual NC O2 at home (continuously) of 5 L NC O2. Follows with [facility] - hoping to get lung transplant in the future. Follows with Dr Chance Kruse with [facility] Pulmonary locally. She was advised to f/u with Dr Kruse within a week of discharge if possible. She was not prescribed any antibiotics at discharge. (2) Chronic respiratory failure with hypoxia: On home oxygen continuously, NC O2 3-5 liters. 2nd ILD/UIP. She only very briefly needed BIPAP in the ER (<2 hours) and this was quickly weaned off back to her NC O2. (3) Chronic interstitial lung disease: see above (4) Bronchiectasis: noted no significant sputum production at this time (5) Immunocompromised: CellCept Rx for ILD/UIP No issues (6) Restless leg syndrome: Continue ropinirole 2 mg PO TID Deserves Fe studies - can do as outpatient (7) GERD (gastroesophageal reflux disease): PPI (8) Depression: Cont lexapro 20mg daily (9) Obesity: BMI 36 (10) (HFpEF) heart failure with preserved ejection fraction: Was given IV lasix in the ER at time of presentation for question of fluid overload and creatinine promptly increased from 0.8 to 1.1 in <24 hours. Thus, suspect she was NOT overtly volume overloaded. Additional diuretic therapy was deferred for the remainder of her stay. Repeat echo this admission unfortunately had poor windows. Xonit-yct-xkuq EF appeared preserved on this technically limited study (EF 60- 65%) but comments could not be made on her pulmonary pressures. By history she has right-sided CHF as well as pulmonary HTN based on what sounds like a right-heart catheterization performed at [facility]. She will continue lasix 40mg BID and metolazone as previous. (11) Chronic right-sided congestive heart failure: 2nd ILD/UIP See above (12) BASIM (obstructive sleep apnea): Cont NIPPV (13) Constipation: Patient complained of abdominal fullness/bloating for several weeks or longer. KUB showed severe constipation. Started on senna + miralax for such. Cannot rule out central abdomen obesity/Cushingnoid effect from chronic steroids. If she continues to experience these GI symptoms despite aggressive Rx of constipation strongly consider CT abd/pelvis to rule out other pathology (ovarian ca, etc). (14) Abnormal thyroid function test: TSH was low at 0.256. FT4 also low at 0.75. This type of pattern would suggest central hypothyroidism but she has no risk factors for such. Would repeat the TFTs in 3-4 weeks. If this pattern holds would need pituitary w/u. Defer replacement at this time. Home Health Attestation I certify that this patient is under my care and that I, or a physicians travel assistant working with me, had a face to-face encounter that meets the home health [id number] encounter requirements with this patient. The encounter with the patient was in whole, or in part, for the following medical condition, which is the primary reason for home health care (list medical condition): I certify that, based on my findings, the following services are medically necessary home health services: My clinical findings support the need for the above services because: Oxygen Safety and Management PT Assessment for Endurance / Balance / Strength PT Eval for Safety and Mobility PT Eval for Safety, Gait Training, Assistive Devices PT Gait and Balance Training, Strengthening and Safety Safety Skilled Nsg Assessment Further, I certify that my clinical findings support that this patient is homebound (i.e. absences from home require considerable and taxing effort and are for medical reasons or orthodox services or infrequently or of short duration when for other reasons) because: Poor Endurance; SOB Minimal Exertion Certification for Home Health Services: Based on the above findings, I certify that this patient is confined to the home and needs intermittent halfway care, physical therapy and/or speech therapy or continues to need occupational therapy. The patient is under my care, and I have initiated the establishment of the plan of care. This patient will be followed by a physician who will periodically review the plan of care. Total Time Total Time Spent Total Time Spent (In Minutes): 45 Total Time Includes: Examination of the Patient, Discharge Planning, Medication Reconciliation and Communication With Other Providers Discharge Plan Discharge Items Patient Disposition: Home - Home Health Services Reason For Visit: Shortness of breath Discharge Diagnosis: 1. interstitial lung disease exacerbation - improved 2. abnormal thyroid function tests - repeat thyroid labs in 1 month recommended 3. significant constipation 4. severe anxiety with insomnia Condition on Discharge: Good Activity: As commented below Activity Comment: gradually increase your activities over the next 1-2 weeks as tolerated Non-emergency contact: Primary Care Provider and [employer] Call non-emergency contact if: you have any medication questions, your symptoms worsen and you have a fever Follow-up/Referrals: Onur Kruse MD [Physician] - (within 1 week) Horacio Garay PA-C [Primary Care Provider] - (within 1 week) Diet: Heart Healthy Fluids: 2000ml (8 cups) Addtl Attending Provider Instructions: Ms Dooley, You were treated for the problems listed above in "discharge diagnoses." You improved with IV steroids and time. The [facility] [employer] saw you in consult while here. You will need close follow-up with Dr Kruse for this recent flare of your interstitial lung disease. Recommendations - 1. prednisone taper - start on 10/23/20; take all tabs with food. It is a 10 day taper - * 4 tabs daily x 4 days, then - * 3 tabs daily x 3 days, then - * 2 tabs daily x 3 days, then - * resume your normal daily dose of 10mg 2. for anxiety - * buspar (buspirone) 7.5mg every 12 hours as needed * please consider speaking with a counselor in [place] given all of the anxiety, stress, and events that are happening * you can also talk to a counselor, or even a psychiatrist, about how to fix the sleep issues Follow-up - see separate section Return to [place], [place], or any hospital if -- * you have fevers over 100 degrees * you have worsening shortness of breath * you have to turn the oxygen up past 5 liters on your tanks * any other concerns Continue to feel better! It was my pleasure caring for you, -Dr Castro Pending Studies at Discharge: No Stand-Alone Forms: My [facility], Smoking Cessation Medications and DC Order Prescriptions: New prednisone 10 mg tablet 10 mg PO DIRECTED Qty: 31 RF: 0 buspirone 7.5 mg tablet 7.5 mg PO BID PRN (Reason: anxiety) Qty: 20 RF: 0 Continued Incruse Ellipta 62.5 mcg/actuation blister with device 1 inh inhalation DAILY Qty: 30 RF: 5 mycophenolate mofetil [CellCept] 250 mg capsule 500 mg PO BID Qty: 120 RF: 2 Symbicort 160-4.5 mcg/actuation HFA aerosol inhaler 2 puffs INH BID Qty: 10.2 RF: 2 furosemide [Lasix] 40 mg tablet 40 mg PO BID 30 Days Qty: 60 RF: 5 metolazone 2.5 mg tablet 2.5 mg PO .COMPLEX Qty: 10 RF: 5 potassium chloride 10 mEq capsule, extended release 20 meq PO DAILY Qty: 60 RF: 5 sulfamethoxazole-trimethoprim 800-160 mg tablet 1 tab PO 3XWK Qty: 20 RF: 5 azithromycin 250 mg tablet 250 mg PO MONWEDFRI Qty: 12 RF: 5 omeprazole magnesium [Prilosec OTC] 20 mg tablet,delayed release (DR/EC) 20 mg PO DAILY RF: 0 (DME) Auto Titrating CPAP Misc See Rx Instructions .ROUTE .MEDSUPPLY Qty: 1 RF: 0 lidocaine 4 % adhesive patch,medicated 1 patch topical DAILY PRN (Reason: pain) Qty: 10 RF: 3 (DME) Wheeled Walker Misc See Rx Instructions .ROUTE .MEDSUPPLY Qty: 1 RF: 0 albuterol sulfate [Ventolin HFA] 90 mcg/actuation Hfa Aerosol Inhaler 2 puff INHALATION QID PRN (Reason: Shortness Of Breath) RF: 0 escitalopram oxalate [Lexapro] 10 mg Tablet 20 mg PO QPM RF: 0 cholecalciferol (vitamin D3) [Vitamin D3] 25 mcg (1,000 unit) Tablet 25 mcg PO DAILY RF: 0 ropinirole 2 mg tablet 2 mg PO TID RF: 0 zolpidem [Ambien] 10 mg Tablet 5 - 10 mg PO HS PRN (Reason: Sleep) RF: 0 Changed prednisone 10 mg tablet 10 mg PO DAILY Qty: 60 RF: 5 (DME) Oxygen Home Liters Per Minute See Rx Instructions .ROUTE .MEDSUPPLY Qty: 1 RF: 0 Discharge Orders: Discharge Order (Routine); Ordered 10/22/20 Ordered By: Isma Castro Admission Data Admit Date/Time: 10/20/20 14:27 Attending Provider: Isma Castro Admit Provider: Fredo Hahn Primary Care Provider: Horacio Garay Other Providers: Fredo Hahn ; Alvarez Chaney Other Interventions: Discharge Summary Assessment (RN) Last Done: 10/22/20 18:37 Coding Level of Care Code D/C Day Management >30 mins Diagnoses UIP (usual interstitial pneumonitis) J84.112 Chronic respiratory failure with hypoxia J96.11 Chronic interstitial lung disease J84.9 Bronchiectasis J47.9 Bronchiectasis type: uncomplicated Immunocompromised D89.9 Restless leg syndrome G25.81 GERD (gastroesophageal reflux disease) K21.9 Esophagitis presence: without esophagitis Depression F32.9 Active/Remission status: currently active Depression Type: major depressive disorder Major depression episode severity: unspecified Major depression recurrence: unspecified whether recurrent Obesity E66.01; Z68.39 Body mass index: BMI 39.0-39.9 Obesity classification: adult class 2 (BMI 35 - 39.9) Obesity type: unspecified obesity type Serious obesity comorbidity presence: with serious comorbidity (HFpEF) heart failure with preserved ejection fraction I50.33 Heart failure chronicity: acute on chronic Chronic right-sided congestive heart failure I50.812 BASIM (obstructive sleep apnea) G47.33 Constipation K59.00 Abnormal thyroid function test R94.6
== END 2020-10-22 18:57 | disposition home health service (06) | DRG 196 ==
LOC: ED 11:19 → SUATTDRO 14:27 → 2S 14:27